=== PATIENT | female | born 1960 | race African-American/Black ===

== ENCOUNTER 2018-07-27 01:12 | Inpatient (IN) | payer SELFPAY ==
[~2018-07-27] VITALS: Ht 157.5 cm; Wt 46.5 kg
[2018-07-27] VITALS (32 sets, daily range): BP systolic 74–134; BP diastolic 54–99
[2018-07-27] MEDS ORDERED: NOREPINEPHRIN 8MG/250ML PREMIX 250 ML IV PRN (03:30)
[2018-07-27] MEDS ORDERED: chlordiazePOXIDE HCL 25 MG CAPSULE PO SCH (03:30)
--- NOTE | 2018-07-27 03:45 | NUR ---
Pt admitted to rm 112 from [facility] via gurney, accompanied by EMS at 0228. Pt is alert, oriented to self, place and year, but forgetful of situation and specific date. Pt oriented to unit routine, nursing call-light, tv/bed control, numeric pain scale, diet (NPO), activity (Bedrest), need for monitoring and plan of care. Called Dr. Chan at 0345 to notify of admission, admit orders received, updated on patient condition, reviewed labs from [facility], reviewed home medications and orders received to start all meds except Lipitor, Coreg, and Megase, (see home meds), orders also received for AM labs, diet (Regular) start bicarb-drip, consult nephrology, continue Levoquin and CIWA protocol as patient has long history of alcohol abuse. At this time, patient not showing s/sx of withdrawals/DT's. See orders. Pt notified of above, but did not verbalize any response.
[2018-07-27] MEDS ORDERED: LORazepam 1 MG TABLET PO SCH (04:00)
[2018-07-27] MEDS ORDERED: SERT25TA PO (04:12)
[2018-07-27] MEDS ORDERED: PANT20TA2 PO (04:12)
[2018-07-27] MEDS ORDERED: ATOR10TA PO (04:12)
[2018-07-27] MEDS ORDERED: CYAN10005 PO (04:12)
[2018-07-27] MEDS ORDERED: TIOT18CA IH (04:12)
[2018-07-27] MEDS ORDERED: MEGE20TA PO (04:12)
[2018-07-27] MEDS ORDERED: FOLI0.8T3 PO (04:12)
[2018-07-27] MEDS ORDERED: SERT50TA PO (04:12)
[2018-07-27] MEDS ORDERED: CARV25TA PO (04:12)
[2018-07-27] MEDS ORDERED: IPRA3AMP29 NEB (04:12)
[2018-07-27] MEDS ORDERED: MELA3TAB43 PO (04:12)
[2018-07-27] MEDS ORDERED: NON FORMULARY ITEM (Melatonin 3 MG) PO PRN (04:15)
[2018-07-27] MEDS ORDERED: ALBUTEROL SULFATE 2.5 MG/3 ML NEBU. NEB PRN (04:30)
[2018-07-27] MEDS: SODIUM BICARBONATE VIAL 150 MEQ in IV DEXTROSE 5% 1,000 ML IV SCH ×2 (04:38→16:57)
[2018-07-27 05:05] LABS: BASO % 1 % (0-3); EOS % 0 % (0-3); HEMATOCRIT 21.1 % (36.0-47.0); LYMPH # 0.6 x10^3/uL (1.0-4.8); LYMPH % 8 % (24-48); MEAN CORPUSCULAR HEMOGLOBIN 27 pg (25-35); MEAN CORPUSCULAR HGB CONC 32 g/dL (31-37); MEAN CORPUSCULAR VOLUME 85 fL (79-100); MONO # 0.3 x10^3/uL (0.0-1.1); MONO % 4 % (0-9); NEUT # 6.7 x10^3uL (1.8-7.7); NEUT % 88 % (31-73); PLATELET COUNT 62 x10^3/uL (140-400); RED BLOOD COUNT 2.49 x10^6/uL (3.50-5.40); WHITE BLOOD COUNT 7.7 x10^3/uL (4.0-11.0)
[2018-07-27 05:06] LABS: HEMOGLOBIN 6.8 g/dL (12.0-15.5)
[2018-07-27 05:21] LABS: ALBUMIN 2.5 g/dL (3.4-5.0); ALBUMIN/GLOBULIN RATIO 0.6 (1.0-1.7); CALCIUM 8.7 mg/dL (8.5-10.1); CREATININE 1.8 mg/dL (0.6-1.0); DIRECT BILIRUBIN 0.2 mg/dL (0.0-0.2); GFR 34.8; MAGNESIUM 0.8 mg/dL (1.8-2.4); POTASSIUM 3.6 mmol/L (3.5-5.1); TOTAL BILIRUBIN 0.5 mg/dL (0.2-1.0); TOTAL PROTEIN 6.4 g/dL (6.4-8.2)
--- NOTE | 2018-07-27 05:30 | NUR ---
Critical HGB of 6.8 called by Lab at 0505. Called Dr. Chan, notified of [facility], orders recieved to transfer to type and cross and administer 1 unit of PRBC's--see orders. Addendum: 07/27/18 at 0814 by AURY GE RN RN Amended: Links added.
--- NOTE | 2018-07-27 06:20 | NUR ---
Lab here to draw T/C for PRBC's, but patient refusing lab draw and blood transfusion. Educated pt on anemia and blood will improve oxygenation, SOB, BP, and improve energy level. Pt continues to refuse and will not speak with RN fo reasons. Will notify Dr. Chan and day shift RN.
--- NOTE | 2018-07-27 07:10 | NUR ---
Dr. Chan on unit, notified of pt's refusal of lab draw and transfusion and updated on overall condition, daughter also at bedside, and is hesitant to pt to receive blood. Dr. Chan stated he will speak with pt and daughter.
[2018-07-27] MEDS ORDERED: MAGNESIUM SULFATE 2GM 50 ML IV ONE (07:30)
[2018-07-27] MEDS: PANTOPRAZOLE 40 MG TABLET.DR. PO SCH (07:30)
[2018-07-27 07:35] LABS: BASE EXCESS ABG -9 mmol/L (-3-3); HCO3 ABG 13 mmol/L (21-28); PO2 ABG 56 mmHg (65-108); SAT O2 ABG 87 % (92-99)
[2018-07-27 07:41] LABS: PCO2 ABG 20 mmHg (35-46)
[2018-07-27 07:42] LABS: FIO2 ABG 55
[2018-07-27] MEDS: IPRATRPIUM/ALBUTEROL 0.5/2.5MG 3 ML NEBU. NEB SCH ×5 (07:43→20:25)
[2018-07-27] MEDS ORDERED: LORazepam 1 MG TABLET PO PRN (07:45)
--- NOTE | 2018-07-27 08:03 | RAD ---
Portable chest, 07/27/2018: HISTORY: Pneumonia Comparison is made to yesterday's outside exam. The heart size is normal. There are moderate right pulmonary infiltrates with obscuration of the underlying pulmonary vascularity. There is mild peripheral infiltrate laterally on the left and in the left base. These infiltrates appear to worsened slightly. No definite pleural fluid is seen. There is a mild thoracic scoliosis. IMPRESSION: Slight interval worsening of the moderate pulmonary infiltrates, right greater than left, most compatible with pneumonia. Electronically signed by: Christian Lopez MD (07/27/2018 8:00 AM) [facility]
--- NOTE | 2018-07-27 08:20 | RAD ---
CHEST AP ONLY History: Acute hypoxic respiratory failure Comparison: Exam earlier the same day Findings: Single view of the chest is submitted. There is increased right base airspace opacity, also some patchy left base airspace opacity as well as right perihilar airspace and interstitial opacity, also some peripheral infiltrate of the mid lateral left hemithorax. There is no pneumothorax. There is probable small right pleural effusion. Heart size is stable. Impression: 1. There are infiltrates bilaterally greater on the right, somewhat increased at the right lung base. There may be a small right pleural effusion. Electronically signed by: Boaz Medeiros MD (07/27/2018 8:17 AM) [id number]
--- NOTE | 2018-07-27 08:29 | HP ---
ADMIT DATE: 07/27/2018 HISTORY OF PRESENT ILLNESS: The patient is a 58-year-old -[place]ian female patient who was brought to the Emergency Room of [facility] by a private vehicle with syncopal episode and unresponsiveness. The patient has been feeling increasingly shortness of breath for a couple of days at home. She has also had several episodes of vomiting just prior to arrival. Family found the patient was not responding to them. She was still breathing, but would not speak to them or wake up. They brought her to the Emergency Room. Most of the history came from the family. They told the Emergency Room physician there that she has multiple medical problems, takes her medication. They are unsure exactly what medicine they are. She is known to drink alcohol heavily and she is a smoker. She was extensively evaluated in the Emergency Room. Her EKG showed that she was in sinus rhythm with heart rate of 100, normal axis, no obvious ST elevation or depression. Her chest x-ray showed that she has right lower lobe infiltrate and she was found to be in acute hypoxic respiratory failure. Her kidney function was also noted to be elevated with creatinine that is up. Her creatinine was 2.2. She has mild leukocytosis, normochromic normocytic anemia and thrombocytopenia. Her baseline creatinine was normal about 1.2-1.3 and given that she has acute hypoxic respiratory failure, lower lobe pneumonia, acute kidney injury and also lactic acidosis, decision was made to transfer her to [facility] ICU for further evaluation and treatment. PAST MEDICAL HISTORY: Significant for hypertension, generalized osteoarthritis, COPD and weight loss that is unintentional. She lost about 25 pounds from 07/24/2018-02/24/2018. Apparently, her weight was at the time down to 74. She apparently has gained about 20 pounds since then. PAST SURGICAL HISTORY: Significant for two C-sections. She also has esophagogastroduodenoscopy and colonoscopy. ALLERGIES: SHE IS ALLERGIC TO PENICILLIN AND ALSO ERYTHROMYCIN. FAMILY HISTORY: She has one brother who was killed at the age of 21. Her sister is 42-year-old and healthy. The brother is 45 and healthy. Her father in his 70s because of cerebrovascular accident. Her mother in her 70s, but she does not know the cause of her . SOCIAL HISTORY: She is , has 2 sons and 2 daughters. She smokes a pack a day. She drinks up to about 1 pint of vodka on a daily basis. 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 She was admitted to [facility] multiple times because of her alcoholism and alcohol withdrawal seizures and she always insists that she will not stop drinking alcohol. PHYSICAL EXAMINATION: GENERAL: On arrival to the Emergency Room of [facility], she was tachypneic, tachycardic, borderline hypertensive. She was pale. No jaundice, cyanosis, or thyromegaly. No jugular venous distension. No limb edema. VITAL SIGNS: Her heart rate was 100, blood pressure was 90/62, temperature was 97.5, respiratory rate was 30, and her oxygen saturation was 95% on 4 liters of oxygen. HEAD, EYES, EARS, NOSE AND THROAT: Showed normocephalic, atraumatic. NECK: Supple. HEART: Showed normal first and second heart sounds. No gallop, rub or murmur. CHEST: Shows central trachea, equal bilateral expansion and air entry, vesicular breath sounds with crepitation mostly on the right side. I could not appreciate any rhonchi. ABDOMEN: Scaphoid, soft, nontender. NEUROLOGIC: By the time I saw her in the ICU at [facility], she was more awake, alert, responding appropriately. All her cranial nerves intact. EXTREMITIES: She moves extremities without difficulty, though she has marked muscle wasting and weakness. Her body mass index was only 17 kilograms per square meter. LABORATORY DATA: Showed a serum sodium 140, potassium 4.7, chloride 98, bicarbonate 8, anion gap of 34, BUN of 38, creatinine 2.2, estimated GFR was 27 mL per minute. Her glucose was 71, lactic acid was 2.6, calcium was 7.7. Total bilirubin, ALT, alkaline phosphatase normal. AST slightly elevated. Her troponin was less than 0.017; however, her beta natriuretic peptide was 29,278. Total protein was 8, albumin was 3.3. Her white cell count was 11,100, hemoglobin 8, hematocrit 26, MCV 89 and platelet count of 86,000 with normal manual differential. Her blood gases showed a pH of 7.19, pCO2 of 14, pO2 of 68, bicarbonate 5 and oxygen saturation was 89% on FiO2 of 32%. Her urinalysis showed the urine was yellow, clear with a pH of 6, specific gravity 1.025. Her urine protein was 100 mg/dL. The urine was negative for glucose. There was large amount of ketones, moderate amount of blood, negative for nitrite, negative for leukocyte esterase. There are no rbc's, no wbc's, and no bacteria. Her toxicology screen was negative. Her blood alcohol level was less than 10. Her chest x-ray was done, but not read and clinically and radiologically, she has right lower lobe pneumonia. IMPRESSION: In summary, this is a 58-year-old -Gambian female patient who is known to drink alcohol heavily, who was brought to the Emergency Room with syncopal episode and unresponsiveness. She was found to be in severe metabolic acidosis, lactic acidosis, acute hypoxic respiratory failure and right lower lobe pneumonia. She received 2 liters of fluid at the [facility]. She was given 750 mg of IV Levaquin for community-acquired pneumonia. My plan is to start her on bicarbonate drip and I will consult the library science instructor as well as the patient accounts manager and Infectious Disease and decide on further management accordingly. REKHA CARMEN MD DR: CYNTHIA/desean JOB#: [id number] / [id number]
[2018-07-27] MEDS: CYANOCOBALAMIN (VITAMIN B-12) 1,000 MCG TABLET. PO SCH (09:00)
[2018-07-27] MEDS: FOLIC/VIT B COMP W-C (RENAL) TABLET. PO SCH (09:00)
[2018-07-27] MEDS: MULTIVITAMIN with MINERAL TABLET. PO SCH (09:00)
[2018-07-27] MEDS: SERTRALINE 50 MG TABLET. PO SCH (09:00)
--- NOTE | 2018-07-27 09:10 | NUR ---
Patient extremely agitated and reaching at things in the air; periods hallucinations.
[2018-07-27 09:38] LABS: PROTHROMBIN TIME PATIENT 13.5 SEC (11.7-14.0)
--- NOTE | 2018-07-27 10:31 | PDOC2 ---
CONSULT Date of Consult Date of Consult DATE: 07/27/18 TIME: 10:25 Reason for Consult Reason for Consult: CRYSTAL Identification/Chief Complaint Chief Complaint Unable to obtain, pt has a venturi mask on Source Source: Chart review History of Present Illness Reason for Visit: Pt is a 58-year-old -Malagasy female patient who was brought to the Emergency Room of [facility] by a syncopal episode and unresponsiveness. She has been feeling increasingly shortness of breath for a couple of days at home. She has also had several episodes of vomiting just prior to arrival. Family found the patient was not responding to them. Family told the Emergency Room physician there that she has multiple medical problems She is known to drink alcohol heavily and she is a smoker. Chest x-ray showed that she has right lower lobe infiltrate and she was found to be in acute hypoxic respiratory failure. Her kidney function was also noted to be elevated creatinine 2.2. She was transferred to [facility] ICU for further evaluation and treatment. Per Primary's note her baseline creatinine is 1.2-1.3 Her son is at bedside. He reports he doesnt know about her edical history as they were not in touch with each other Pt Nods her head that she has abnormal Kidneys and sees Kidney doctor . She denies any Urinary complaints . Doesnt have a Brandt PAST MEDICAL HISTORY: Significant for hypertension, generalized osteoarthritis, COPD and weight loss that is unintentional. She lost about 25 pounds from 07/24/2018-02/24/2018. Apparently, her weight was at the time down to 74. She apparently has gained about 20 pounds since then. Current Medications Current Medications Current Medications Multivitamins (Thera M Plus) 1 tab DAILY PO ; Start 07/27/18 at 09:00 Lorazepam (Ativan) 2 mg Q6H PO ; Start 07/27/18 at 04:00; Stop 07/27/18 at 07:43; Status DC Chlordiazepoxide (Librium) 25 mg Q6H PO ; Start 07/27/18 at 03:30; Stop 07/28/18 at 09:31; Status UNV Levofloxacin/ Dextrose 150 ml @ 100 mls/hr Q24H IV ; Start 07/28/18 at 00:00; Status UNV Ondansetron HCl (Zofran) 4 mg PRN Q6HRS PRN IV NAUSEA/VOMITING 1ST CHOICE; Start 07/27/18 at 03:30 Sodium Bicarbonate 150 meq/Dextrose 1,150 ml @ 100 mls/hr [id number] IV Last administered on 07/27/18at 04:38; Start 07/27/18 at 04:30 Norepinephrine Bitartrate 250 ml @ 1.875 mls/ hr CONT PRN IV SEE I/O RECORD; Start 07/27/18 at 03:30 Cyanocobalamin (Vitamin B-12) 1,000 mcg DAILY PO ; Start 07/27/18 at 09:00 Vitamin B Complex/ Vitamin C (Linette-Nola) 1 tab DAILY PO ; Start 07/27/18 at 09:00 Albuterol Sulfate (Ventolin Neb Soln) 2.5 mg PRN QID PRN NEB SHORTNESS OF BREATH; Start 07/27/18 at 04:30 Sertraline HCl (Zoloft) 50 mg DAILY PO ; Start 07/27/18 at 09:00 Non-Formulary Medication (Melatonin ) 3 mg HS PRN PO insomnia; Start 07/27/18 at 04:15; Status UNV Pantoprazole Sodium (Protonix) 40 mg DAILYAC PO ; Start 07/27/18 at 07:30 Albuterol/ Ipratropium (Duoneb) 3 ml RTQID NEB Last administered on 07/27/18at 07:43; Start 07/27/18 at 08:00 Levofloxacin/ Dextrose 100 ml @ 100 mls/hr Q48H IV ; Start 07/29/18 at 00:00 Magnesium Sulfate 50 ml @ 25 mls/hr 1X ONCE IV ; Start 07/27/18 at 07:30; Stop 07/27/18 at 09:29; Status DC Lorazepam (Ativan) 2 mg PRN Q6HRS PRN PO ALCOHOL WITHDRAWAL; Start 07/27/18 at 07:45 Active Scripts Active Reported Melatonin 3 Mg Tab.rapdis 3 Mg PO HS PRN Nephro-Nola Tablet (Folic Acid/Vitamin B Comp W-C) 0.8 Mg Tablet 1 Tab PO DAILY Vitamin B-12 (Cyanocobalamin (Vitamin B-12)) 1,000 Mcg Tablet 1,000 Mcg PO DAILY Megestrol Acetate 20 Mg Tablet 20 Mg PO DAILY Protonix (Pantoprazole Sodium) 20 Mg Tablet.dr 40 Mg PO DAILY Zoloft (Sertraline Hcl) 50 Mg Tablet 1 Tab PO DAILY Zoloft (Sertraline Hcl) 25 Mg Tablet 1 Tab PO DAILY Coreg (Carvedilol) 25 Mg Tablet 6.25 Mg PO BIDWMEALS Lipitor (Atorvastatin Calcium) 10 Mg Tablet 1 Tab PO QHS Spiriva (Tiotropium Crescent) 18 Mcg Cap.w.dev 1 Cap IH DAILY Duoneb 0.5-3(2.5) Mg/3 Ml (Albuterol/Ipratropium) 3 Ml Ampul.neb 3 Ml NEB QID PRN Allergies Allergies: Coded Allergies: Penicillins (Verified Allergy, Severe, Anaphylaxis, 07/27/18) erythromycin base (Verified Allergy, Intermediate, Diarrhea, 07/27/18) ROS Review of System Per HPI Physical Exam Physical Exam GENERAL: tachypneic, Mild distress HEENT: Venturi mask NECK: Supple. LUNGS: Decreased breath sounds at bases. No rhonchi. HEART: S1, S2, tachycardia. ABDOMEN: Soft, nontender and nondistended. EXTREMITIES: No Edema NEUROLOGIC: Nods her head ,moved all 4 extremities - No Brandt or Ext catheter , nO cva OR sp TENDERNESS skin- no Rash Vital Signs Vital Signs Date Time Temp Pulse Resp B/P (MAP) Pulse Ox O2 Delivery O2 Flow Rate FiO2 07/27/18 07:50 94 Venturi Mask 15.0 07/27/18 07:00 114 34 109/76 (87) 07/27/18 04:00 98.3 98.3 Assessment & Plan CRYSTAL - Suspect due to ATN 2/2 Vomiting/Infection Baseline per primary 1.2- 1.3 Check UA, Renal US E-Lytes and acid base stable, No Emergent indication fro HD today Strict I/O, Supportive care, Monitor Pulmonary infiltrates, likely aspiration pneumonia. On Abx History of vomiting prior to admission. Syncopal episode with unresponsiveness. History of alcohol dependence with alcohol withdrawal seizures, last one 1 month ago. Metabolic acidosis- Continue IV Bicarb drip cautiously Lactic acidosis. Thrombocytopenia. Protein-calorie malnutrition. Anemia. Discussed wit Son and RN at bedside 1 Labs Labs Laboratory Tests Test 07/27/18 04:45 07/27/18 07:30 07/27/18 07:41 07/27/18 09:00 White Blood Count 7.7 x10^3/uL (4.0-11.0) Red Blood Count 2.49 x10^6/uL (3.50-5.40) Hemoglobin 6.8 g/dL (12.0-15.5) Hematocrit 21.1 % (36.0-47.0) Mean Corpuscular Volume 85 fL (79-100) Mean Corpuscular Hemoglobin 27 pg (25-35) Mean Corpuscular Hemoglobin Concent 32 g/dL (31-37) Red Cell Distribution Width 15.0 % (11.5-14.5) Platelet Count 62 x10^3/uL (140-400) Neutrophils (%) (Auto) 88 % (31-73) Lymphocytes (%) (Auto) 8 % (24-48) Monocytes (%) (Auto) 4 % (0-9) Eosinophils (%) (Auto) 0 % (0-3) Basophils (%) (Auto) 1 % (0-3) Neutrophils # (Auto) 6.7 x10^3uL (1.8-7.7) Lymphocytes # (Auto) 0.6 x10^3/uL (1.0-4.8) Monocytes # (Auto) 0.3 x10^3/uL (0.0-1.1) Eosinophils # (Auto) 0.0 x10^3/uL (0.0-0.7) Basophils # (Auto) 0.0 x10^3/uL (0.0-0.2) Sodium Level 144 mmol/L (136-145) Potassium Level 3.6 mmol/L (3.5-5.1) Chloride Level 103 mmol/L (98-107) Carbon Dioxide Level 15 mmol/L (21-32) Anion Gap 26 (6-14) Blood Urea Nitrogen 34 mg/dL (7-20) Creatinine 1.8 mg/dL (0.6-1.0) Estimated GFR (Cockcroft-Gault) 34.8 BUN/Creatinine Ratio 19 (6-20) Glucose Level 79 mg/dL (70-99) Lactic Acid Level 2.0 mmol/L (0.4-2.0) Calcium Level 8.7 mg/dL (8.5-10.1) Magnesium Level 0.8 mg/dL (1.8-2.4) Total Bilirubin 0.5 mg/dL (0.2-1.0) Direct Bilirubin 0.2 mg/dL (0.0-0.2) Aspartate Amino Transf (AST/SGOT) 85 U/L (15-37) Alanine Aminotransferase (ALT/SGPT) 32 U/L (14-59) Alkaline Phosphatase 81 U/L (46-116) Total Protein 6.4 g/dL (6.4-8.2) Albumin 2.5 g/dL (3.4-5.0) Albumin/Globulin Ratio 0.6 (1.0-1.7) O2 Saturation 87 % (92-99) Arterial Blood pH 7.46 (7.35-7.45) Arterial Blood pCO2 at Patient Temp 20 mmHg (35-46) Arterial Blood pO2 at Patient Temp 56 mmHg (65-108) Arterial Blood HCO3 13 mmol/L (21-28) Arterial Blood Base Excess -9 mmol/L (-3-3) FiO2 55 Glucose (Fingerstick) 84 mg/dL (70-99) Prothrombin Time 13.5 SEC (11.7-14.0) Prothromb Time International Ratio 1.1 (0.8-1.1) Laboratory Tests Test 07/27/18 04:45 07/27/18 07:30 07/27/18 07:41 07/27/18 09:00 White Blood Count 7.7 x10^3/uL (4.0-11.0) Red Blood Count 2.49 x10^6/uL (3.50-5.40) Hemoglobin 6.8 g/dL (12.0-15.5) Hematocrit 21.1 % (36.0-47.0) Mean Corpuscular Volume 85 fL (79-100) Mean Corpuscular Hemoglobin 27 pg (25-35) Mean Corpuscular Hemoglobin Concent 32 g/dL (31-37) Red Cell Distribution Width 15.0 % (11.5-14.5) Platelet Count 62 x10^3/uL (140-400) Neutrophils (%) (Auto) 88 % (31-73) Lymphocytes (%) (Auto) 8 % (24-48) Monocytes (%) (Auto) 4 % (0-9) Eosinophils (%) (Auto) 0 % (0-3) Basophils (%) (Auto) 1 % (0-3) Neutrophils # (Auto) 6.7 x10^3uL (1.8-7.7) Lymphocytes # (Auto) 0.6 x10^3/uL (1.0-4.8) Monocytes # (Auto) 0.3 x10^3/uL (0.0-1.1) Eosinophils # (Auto) 0.0 x10^3/uL (0.0-0.7) Basophils # (Auto) 0.0 x10^3/uL (0.0-0.2) Sodium Level 144 mmol/L (136-145) Potassium Level 3.6 mmol/L (3.5-5.1) Chloride Level 103 mmol/L (98-107) Carbon Dioxide Level 15 mmol/L (21-32) Anion Gap 26 (6-14) Blood Urea Nitrogen 34 mg/dL (7-20) Creatinine 1.8 mg/dL (0.6-1.0) Estimated GFR (Cockcroft-Gault) 34.8 BUN/Creatinine Ratio 19 (6-20) Glucose Level 79 mg/dL (70-99) Lactic Acid Level 2.0 mmol/L (0.4-2.0) Calcium Level 8.7 mg/dL (8.5-10.1) Magnesium Level 0.8 mg/dL (1.8-2.4) Total Bilirubin 0.5 mg/dL (0.2-1.0) Direct Bilirubin 0.2 mg/dL (0.0-0.2) Aspartate Amino Transf (AST/SGOT) 85 U/L (15-37) Alanine Aminotransferase (ALT/SGPT) 32 U/L (14-59) Alkaline Phosphatase 81 U/L (46-116) Total Protein 6.4 g/dL (6.4-8.2) Albumin 2.5 g/dL (3.4-5.0) Albumin/Globulin Ratio 0.6 (1.0-1.7) O2 Saturation 87 % (92-99) Arterial Blood pH 7.46 (7.35-7.45) Arterial Blood pCO2 at Patient Temp 20 mmHg (35-46) Arterial Blood pO2 at Patient Temp 56 mmHg (65-108) Arterial Blood HCO3 13 mmol/L (21-28) Arterial Blood Base Excess -9 mmol/L (-3-3) FiO2 55 Glucose (Fingerstick) 84 mg/dL (70-99) Prothrombin Time 13.5 SEC (11.7-14.0) Prothromb Time International Ratio 1.1 (0.8-1.1) Review All relevant outside records, renal labs, imaging studies, telemetry/EKG's were reviewed. Images Images CxR-- 1. There are infiltrates bilaterally greater on the right, somewhat increased at the right lung base. There may be a small right pleural effusion. AMADO ULLOA MD Jul 27, 2018 10:31
[2018-07-27 10:45] LABS: % BANDS 24 % (0-9); % LYMPHS 13 % (24-48); % MONOS 2 % (0-10); % SEGS 61 % (35-66); NUCLEATED RBC 1
[2018-07-27] MEDS ORDERED: diphenhydrAMINE 50 MG/ML VIAL IVP PRN (10:45)
[2018-07-27] MEDS ORDERED: HALOPERIDOL LACTATE 5 MG/ML VIAL. IVP PRN (10:45)
[2018-07-27 10:46] LABS: ANISOCYTOSIS PRESENT; PLT ESTIMATE DECREASED (ADEQUATE); POLYCHROMASIA PRESENT
[2018-07-27 10:47] LABS: POIKILOCYTOSIS PRESENT; TARGET CELLS PRESENT
--- NOTE | 2018-07-27 11:00 | NUR ---
Daughter asking about restarting the patient on the megestrol that she takes at home 3 times daily to improve her appetite.
[2018-07-27] MEDS ORDERED: EPINEPHrine SYRINGE 1 MG/10 ML SYRINGE ONE (12:00)
[2018-07-27] MEDS ORDERED: SODIUM BICARB ADULT 8.4% 50 MEQ/50 ML DISP.SYRIN. ONE (12:00)
[2018-07-27] MEDS ORDERED: 0.9 % SODIUM CHLORIDE 10 ML DISP.SYRIN. ONE (12:00)
--- NOTE | 2018-07-27 12:39 | PDOC ---
Infectious Disease Note Vital Signs: Vital Signs Vital Signs Date Time Temp Pulse Resp B/P (MAP) Pulse Ox O2 Delivery O2 Flow Rate FiO2 07/27/18 11:24 92 Venturi Mask 15.0 07/27/18 07:00 114 34 109/76 (87) 07/27/18 04:00 98.3 98.3 Medications: Inpatient Meds: Current Medications Medications (Trade) Dose Ordered Sig/Bev Start Time Stop Time Status Last Admin Dose Admin Albuterol Sulfate (Ventolin Neb Soln) 2.5 mg PRN QID PRN 07/27/18 04:30 Albuterol/ Ipratropium (Duoneb) 3 ml RTQID 07/27/18 08:00 07/27/18 11:22 3 ML Chlordiazepoxide (Librium) 25 mg Q6H 07/27/18 03:30 07/28/18 09:31 UNV Cyanocobalamin (Vitamin B-12) 1,000 mcg DAILY 07/27/18 09:00 Diphenhydramine HCl (Benadryl) 25 mg PRN Q15MIN PRN 07/27/18 10:45 Haloperidol Lactate (Haldol Inj) 5 mg PRN Q4HRS PRN 07/27/18 10:45 Levofloxacin/ Dextrose 100 ml @ 100 mls/hr Q48H 07/29/18 00:00 Lorazepam (Ativan Inj) 4 mg PRN Q15MIN PRN 07/27/18 10:45 Lorazepam (Ativan) 2 mg PRN Q6HRS PRN 07/27/18 07:45 Magnesium Sulfate 50 ml @ 25 mls/hr 1X ONCE 07/27/18 07:30 07/27/18 09:29 DC 07/27/18 11:03 25 MLS/HR Multivitamins (Thera M Plus) 1 tab DAILY 07/27/18 09:00 Non-Formulary Medication (Melatonin ) 3 mg HS PRN 07/27/18 04:15 UNV Norepinephrine Bitartrate 250 ml @ 1.875 mls/ hr CONT PRN 07/27/18 03:30 Ondansetron HCl (Zofran) 4 mg PRN Q6HRS PRN 07/27/18 03:30 Pantoprazole Sodium (Protonix) 40 mg DAILYAC 07/27/18 07:30 Sertraline HCl (Zoloft) 50 mg DAILY 07/27/18 09:00 Sodium Bicarbonate 150 meq/Dextrose 1,150 ml @ 100 mls/hr [id number] 07/27/18 04:30 07/27/18 04:38 75 MLS/HR Vitamin B Complex/ Vitamin C (Linette-Nola) 1 tab DAILY 07/27/18 09:00 Labs: Lab Laboratory Tests Test 07/27/18 04:45 07/27/18 07:30 07/27/18 07:41 07/27/18 09:00 White Blood Count 7.7 x10^3/uL (4.0-11.0) Red Blood Count 2.49 x10^6/uL (3.50-5.40) Hemoglobin 6.8 g/dL (12.0-15.5) Hematocrit 21.1 % (36.0-47.0) Mean Corpuscular Volume 85 fL (79-100) Mean Corpuscular Hemoglobin 27 pg (25-35) Mean Corpuscular Hemoglobin Concent 32 g/dL (31-37) Red Cell Distribution Width 15.0 % (11.5-14.5) Platelet Count 62 x10^3/uL (140-400) Neutrophils (%) (Auto) 88 % (31-73) Lymphocytes (%) (Auto) 8 % (24-48) Monocytes (%) (Auto) 4 % (0-9) Eosinophils (%) (Auto) 0 % (0-3) Basophils (%) (Auto) 1 % (0-3) Neutrophils # (Auto) 6.7 x10^3uL (1.8-7.7) Lymphocytes # (Auto) 0.6 x10^3/uL (1.0-4.8) Monocytes # (Auto) 0.3 x10^3/uL (0.0-1.1) Eosinophils # (Auto) 0.0 x10^3/uL (0.0-0.7) Basophils # (Auto) 0.0 x10^3/uL (0.0-0.2) Segmented Neutrophils % 61 % (35-66) Band Neutrophils % 24 % (0-9) Lymphocytes % 13 % (24-48) Monocytes % 2 % (0-10) Nucleated Red Blood Cells 1 Platelet Estimate Decreased (ADEQUATE) Polychromasia Present Poikilocytosis Present Anisocytosis Present Target Cells Present Sodium Level 144 mmol/L (136-145) Potassium Level 3.6 mmol/L (3.5-5.1) Chloride Level 103 mmol/L (98-107) Carbon Dioxide Level 15 mmol/L (21-32) Anion Gap 26 (6-14) Blood Urea Nitrogen 34 mg/dL (7-20) Creatinine 1.8 mg/dL (0.6-1.0) Estimated GFR (Cockcroft-Gault) 34.8 BUN/Creatinine Ratio 19 (6-20) Glucose Level 79 mg/dL (70-99) Lactic Acid Level 2.0 mmol/L (0.4-2.0) Calcium Level 8.7 mg/dL (8.5-10.1) Magnesium Level 0.8 mg/dL (1.8-2.4) Total Bilirubin 0.5 mg/dL (0.2-1.0) Direct Bilirubin 0.2 mg/dL (0.0-0.2) Aspartate Amino Transf (AST/SGOT) 85 U/L (15-37) Alanine Aminotransferase (ALT/SGPT) 32 U/L (14-59) Alkaline Phosphatase 81 U/L (46-116) Total Protein 6.4 g/dL (6.4-8.2) Albumin 2.5 g/dL (3.4-5.0) Albumin/Globulin Ratio 0.6 (1.0-1.7) O2 Saturation 87 % (92-99) Arterial Blood pH 7.46 (7.35-7.45) Arterial Blood pCO2 at Patient Temp 20 mmHg (35-46) Arterial Blood pO2 at Patient Temp 56 mmHg (65-108) Arterial Blood HCO3 13 mmol/L (21-28) Arterial Blood Base Excess -9 mmol/L (-3-3) FiO2 55 Glucose (Fingerstick) 84 mg/dL (70-99) Prothrombin Time 13.5 SEC (11.7-14.0) Prothromb Time International Ratio 1.1 (0.8-1.1) Ammonia < 10 mcmol/L (11-34) Objective: Assessment: Pt seen and examined ID consult dictated [id number] IMP: Pneumonia likely aspiration Syncope ETOH dependence PCN Allergy CRYSTAL, metabolic acidosis Plan: Plan of Care merrem,has tolerated cont levaquin BC F/U C/S FELIPA LOMBARDO MD Jul 27, 2018 12:39
--- NOTE | 2018-07-27 13:03 | CONS ---
DATE OF CONSULTATION: 07/27/2018 REFERRING PHYSICIAN: Jenny Chan M.D. REASON FOR CONSULTATION: Right lower lobe pneumonia. HISTORY OF PRESENT ILLNESS: A 58-year-old [place] female who was transferred from [facility] to [facility] ICU for further evaluation and treatment. She presented to [facility] with syncopal episode and unresponsiveness. The patient is currently not able to give history. History is obtained from staff and from medical chart. The patient had worsening shortness of breath over the last couple of days prior to admission, with several episodes of vomiting and was found by her daughter to be not responsive. The patient has a history of heavy alcohol use, a smoker. In the ER at [facility], she was found to have mild leukocytosis, CRYSTAL. Chest x-ray showed right lower lobe infiltrate. She also had lactic acidosis, so was transferred to [facility] ICU for further evaluation and treatment. The patient currently is complaining of chills. She does not answer most of the questions. Daughter at bedside said that she had been sick a month ago with new-onset seizures, at which time, she was admitted to [facility]. No antibiotics prior to admission. SHE HAS A HISTORY OF ANAPHYLAXIS TO PENICILLIN. Daughter was unable to say if she has received any cephalosporins, but says Keflex use seems familiar, but is not sure. The patient also had mild leukocytosis, anemia and thrombocytopenia. The patient was started on Levaquin. ID consult has been requested for antibiotic management. PAST MEDICAL HISTORY: Hypertension; generalized osteoarthritis; COPD; weight loss, unintentional and seizure disorder diagnosed recently. PAST SURGICAL HISTORY: , EGD and colonoscopy. ALLERGIES: PENICILLIN WITH ANAPHYLAXIS AND ERYTHROMYCIN. FAMILY HISTORY: As per HPI. SOCIAL HISTORY: She smokes a pack a day, drinks 1 pint of vodka on a daily basis. , has 2 children, one daughter and one son and daughter is at bedside. REVIEW OF SYSTEMS: Unable to obtain or limited, but as above in the HPI. PHYSICAL EXAMINATION: VITAL SIGNS: Temperature afebrile; pulse 110; respiratory rate 38; blood pressure 86/58, not on any pressors and oxygen saturation 88% on 15 liters O2 and has required high-flow oxygen. GENERAL: Weak-appearing female, tachycardic, tachypneic, borderline hypotensive. HEENT: Normocephalic, atraumatic. Sclerae muddy. NECK: Supple. LUNGS: Decreased breath sounds at bases. No rhonchi. HEART: S1, S2, tachycardia. ABDOMEN: Soft, nontender and nondistended. EXTREMITIES: Muscle wasting, weakness. No cyanosis, no clubbing. NEUROLOGIC: Sleepy, but arousable, does not answer all the questions, weak, but has moved all 4 extremities. LABORATORY DATA: WBC 7.7, hemoglobin 6.8, hematocrit 21.1 and platelets 62,000. Sodium 144, potassium 3.6, chloride 103, bicarbonate 15, BUN 34 and creatinine 1.8. Lactate here is 2.0. AST 85. Albumin 2.5, otherwise within normal limits. IMAGING: Chest x-ray, infiltrates bilaterally, greater on the right, somewhat increased on the left lung base. A small right pleural effusion. IMPRESSION: 1. Pulmonary infiltrates, likely aspiration pneumonia. 2. History of vomiting prior to admission. 3. Syncopal episode with unresponsiveness. 4. History of alcohol dependence with alcohol withdrawal seizures, last one 1 month ago. 5. Metabolic acidosis and acute kidney injury. 6. Lactic acidosis. 7. Thrombocytopenia. 8. Protein-calorie malnutrition. 9. Anemia. 10. ALLERGY TO PENICILLIN WITH ANAPHYLAXIS. Per chart, the patient has received a dose of ceftriaxone at [facility]. The daughter feels that she may have taken cephalexin, but is not sure at this time. RECOMMENDATIONS: 1. Continue Levaquin renal dosing. 2. We will start empiric Merrem. 3. Follow up cultures and susceptibility results. 4. Continue supportive care. 5. Repeat blood cultures. 6. Discussed with daughter and son at bedside. 7. Discussed with RN. Thank you for consulting Infectious Disease to participate in this patient's care. If you have any questions, do not hesitate to contact me. FELIPA LOMBARDO MD DR: STEPHANE/desean JOB#: [id number] / [id number]
--- NOTE | 2018-07-27 13:08 | PDOC ---
PULMONARY PROGRESS NOTES Vitals Vital Signs Date Time Temp Pulse Resp B/P (MAP) Pulse Ox O2 Delivery O2 Flow Rate FiO2 07/27/18 12:00 99.0 124 38 93/98 (96) 94 Venturi Mask 50.0 99.0 Labs Laboratory Tests Test 07/27/18 04:45 07/27/18 07:30 07/27/18 07:41 07/27/18 09:00 White Blood Count 7.7 x10^3/uL (4.0-11.0) Red Blood Count 2.49 x10^6/uL (3.50-5.40) Hemoglobin 6.8 g/dL (12.0-15.5) Hematocrit 21.1 % (36.0-47.0) Mean Corpuscular Volume 85 fL (79-100) Mean Corpuscular Hemoglobin 27 pg (25-35) Mean Corpuscular Hemoglobin Concent 32 g/dL (31-37) Red Cell Distribution Width 15.0 % (11.5-14.5) Platelet Count 62 x10^3/uL (140-400) Neutrophils (%) (Auto) 88 % (31-73) Lymphocytes (%) (Auto) 8 % (24-48) Monocytes (%) (Auto) 4 % (0-9) Eosinophils (%) (Auto) 0 % (0-3) Basophils (%) (Auto) 1 % (0-3) Neutrophils # (Auto) 6.7 x10^3uL (1.8-7.7) Lymphocytes # (Auto) 0.6 x10^3/uL (1.0-4.8) Monocytes # (Auto) 0.3 x10^3/uL (0.0-1.1) Eosinophils # (Auto) 0.0 x10^3/uL (0.0-0.7) Basophils # (Auto) 0.0 x10^3/uL (0.0-0.2) Segmented Neutrophils % 61 % (35-66) Band Neutrophils % 24 % (0-9) Lymphocytes % 13 % (24-48) Monocytes % 2 % (0-10) Nucleated Red Blood Cells 1 Platelet Estimate Decreased (ADEQUATE) Polychromasia Present Poikilocytosis Present Anisocytosis Present Target Cells Present Sodium Level 144 mmol/L (136-145) Potassium Level 3.6 mmol/L (3.5-5.1) Chloride Level 103 mmol/L (98-107) Carbon Dioxide Level 15 mmol/L (21-32) Anion Gap 26 (6-14) Blood Urea Nitrogen 34 mg/dL (7-20) Creatinine 1.8 mg/dL (0.6-1.0) Estimated GFR (Cockcroft-Gault) 34.8 BUN/Creatinine Ratio 19 (6-20) Glucose Level 79 mg/dL (70-99) Lactic Acid Level 2.0 mmol/L (0.4-2.0) Calcium Level 8.7 mg/dL (8.5-10.1) Magnesium Level 0.8 mg/dL (1.8-2.4) Total Bilirubin 0.5 mg/dL (0.2-1.0) Direct Bilirubin 0.2 mg/dL (0.0-0.2) Aspartate Amino Transf (AST/SGOT) 85 U/L (15-37) Alanine Aminotransferase (ALT/SGPT) 32 U/L (14-59) Alkaline Phosphatase 81 U/L (46-116) Total Protein 6.4 g/dL (6.4-8.2) Albumin 2.5 g/dL (3.4-5.0) Albumin/Globulin Ratio 0.6 (1.0-1.7) O2 Saturation 87 % (92-99) Arterial Blood pH 7.46 (7.35-7.45) Arterial Blood pCO2 at Patient Temp 20 mmHg (35-46) Arterial Blood pO2 at Patient Temp 56 mmHg (65-108) Arterial Blood HCO3 13 mmol/L (21-28) Arterial Blood Base Excess -9 mmol/L (-3-3) FiO2 55 Glucose (Fingerstick) 84 mg/dL (70-99) Prothrombin Time 13.5 SEC (11.7-14.0) Prothromb Time International Ratio 1.1 (0.8-1.1) Ammonia < 10 mcmol/L (11-34) Laboratory Tests Test 07/27/18 04:45 07/27/18 07:30 07/27/18 07:41 07/27/18 09:00 White Blood Count 7.7 x10^3/uL (4.0-11.0) Red Blood Count 2.49 x10^6/uL (3.50-5.40) Hemoglobin 6.8 g/dL (12.0-15.5) Hematocrit 21.1 % (36.0-47.0) Mean Corpuscular Volume 85 fL (79-100) Mean Corpuscular Hemoglobin 27 pg (25-35) Mean Corpuscular Hemoglobin Concent 32 g/dL (31-37) Red Cell Distribution Width 15.0 % (11.5-14.5) Platelet Count 62 x10^3/uL (140-400) Neutrophils (%) (Auto) 88 % (31-73) Lymphocytes (%) (Auto) 8 % (24-48) Monocytes (%) (Auto) 4 % (0-9) Eosinophils (%) (Auto) 0 % (0-3) Basophils (%) (Auto) 1 % (0-3) Neutrophils # (Auto) 6.7 x10^3uL (1.8-7.7) Lymphocytes # (Auto) 0.6 x10^3/uL (1.0-4.8) Monocytes # (Auto) 0.3 x10^3/uL (0.0-1.1) Eosinophils # (Auto) 0.0 x10^3/uL (0.0-0.7) Basophils # (Auto) 0.0 x10^3/uL (0.0-0.2) Segmented Neutrophils % 61 % (35-66) Band Neutrophils % 24 % (0-9) Lymphocytes % 13 % (24-48) Monocytes % 2 % (0-10) Nucleated Red Blood Cells 1 Platelet Estimate Decreased (ADEQUATE) Polychromasia Present Poikilocytosis Present Anisocytosis Present Target Cells Present Sodium Level 144 mmol/L (136-145) Potassium Level 3.6 mmol/L (3.5-5.1) Chloride Level 103 mmol/L (98-107) Carbon Dioxide Level 15 mmol/L (21-32) Anion Gap 26 (6-14) Blood Urea Nitrogen 34 mg/dL (7-20) Creatinine 1.8 mg/dL (0.6-1.0) Estimated GFR (Cockcroft-Gault) 34.8 BUN/Creatinine Ratio 19 (6-20) Glucose Level 79 mg/dL (70-99) Lactic Acid Level 2.0 mmol/L (0.4-2.0) Calcium Level 8.7 mg/dL (8.5-10.1) Magnesium Level 0.8 mg/dL (1.8-2.4) Total Bilirubin 0.5 mg/dL (0.2-1.0) Direct Bilirubin 0.2 mg/dL (0.0-0.2) Aspartate Amino Transf (AST/SGOT) 85 U/L (15-37) Alanine Aminotransferase (ALT/SGPT) 32 U/L (14-59) Alkaline Phosphatase 81 U/L (46-116) Total Protein 6.4 g/dL (6.4-8.2) Albumin 2.5 g/dL (3.4-5.0) Albumin/Globulin Ratio 0.6 (1.0-1.7) O2 Saturation 87 % (92-99) Arterial Blood pH 7.46 (7.35-7.45) Arterial Blood pCO2 at Patient Temp 20 mmHg (35-46) Arterial Blood pO2 at Patient Temp 56 mmHg (65-108) Arterial Blood HCO3 13 mmol/L (21-28) Arterial Blood Base Excess -9 mmol/L (-3-3) FiO2 55 Glucose (Fingerstick) 84 mg/dL (70-99) Prothrombin Time 13.5 SEC (11.7-14.0) Prothromb Time International Ratio 1.1 (0.8-1.1) Ammonia < 10 mcmol/L (11-34) Medications Active Scripts Medications Dose Route/Sig Max Daily Dose Days Date Category Melatonin 3 Mg Tab.rapdis 3 Mg PO HS PRN 07/27/18 Reported Nephro-Nola Tablet (Folic Acid/Vitamin B Comp W-C) 0.8 Mg Tablet 1 Tab PO DAILY 07/27/18 Reported Vitamin B-12 (Cyanocobalamin (Vitamin B-12)) 1,000 Mcg Tablet 1,000 Mcg PO DAILY 07/27/18 Reported Megestrol Acetate 20 Mg Tablet 20 Mg PO DAILY 07/27/18 Reported Protonix (Pantoprazole Sodium) 20 Mg Tablet.dr 40 Mg PO DAILY 07/27/18 Reported Zoloft (Sertraline Hcl) 50 Mg Tablet 1 Tab PO DAILY 07/27/18 Reported Zoloft (Sertraline Hcl) 25 Mg Tablet 1 Tab PO DAILY 07/27/18 Reported Coreg (Carvedilol) 25 Mg Tablet 6.25 Mg PO BIDWMEALS 07/27/18 Reported Lipitor (Atorvastatin Calcium) 10 Mg Tablet 1 Tab PO QHS 07/27/18 Reported Spiriva (Tiotropium [place]) 18 Mcg Cap.w.dev 1 Cap IH DAILY 07/27/18 Reported Duoneb 0.5-3(2.5) Mg/3 Ml (Albuterol/Ipratropium) 3 Ml Ampul.neb 3 Ml NEB QID PRN 07/27/18 Reported Impression . FULL CONSULT DICTATED THANKS WILL REPEAT ABG SEE ORDERS ALVINO HERNANDEZ MD Jul 27, 2018 13:08
--- NOTE | 2018-07-27 13:35 | NUR ---
SS following for discharge planning. SS reviewed pt chart. Pt is from home and is currently requiring oxygen support. Pt has history of ETOH. SS will continue to follow for discharge planning.
--- NOTE | 2018-07-27 14:09 | CONS ---
DATE OF CONSULTATION: 07/27/2018 REASON FOR CONSULTATION: The patient is seen in pulmonary consultation at the request of Dr. Chan for respiratory failure, abnormal x-ray. HISTORY OF PRESENT ILLNESS: The patient is a 58-year-old with a history of alcoholism, was brought to the Emergency Room at [facility] by private vehicle with syncopal episode and unresponsiveness. Apparently, according to the current documentation, the patient was having increasing shortness of breath over the last couple of days. She had several episodes of emesis prior to arrival. The patient was found unresponsive by the family members. She was evaluated in the Emergency Room at [facility], eventually transferred to [facility] for further evaluation. She had an arterial blood gas early this morning revealing pH of 7.46, PaCO2 of 20, pO2 of 56. She is currently on a nonrebreather. She is sleepy, but is arousable to sternal rub. She has been seen in consultation by Infectious Disease Service and is currently being covered with empiric antibiotics for the possibility of aspiration pneumonia. I reviewed her x-ray, which reveals bilateral alveolar type of infiltrates, right greater than left. I have also reviewed her labs. White count was normal, hematocrit and hemoglobin were low. INR was 1.1. Electrolytes were noted. BUN was elevated at 34, creatinine was elevated at 1.8. Total albumin was low. PAST MEDICAL HISTORY: Remarkable for hypertension, osteoporosis, COPD, alcoholism, admitted on several occasions for alcohol withdrawal in the past. She has also had some weight loss. PAST SURGICAL HISTORY: Previous and colonoscopy. ALLERGIES: PENICILLIN and ERYTHROMYCIN. FAMILY HISTORY: Father of CVA. Mother in her 70s, unknown primary cause. SOCIAL HISTORY: She is currently , smokes on a daily basis, drinks up to 1 pint of vodka on a daily basis. She in the past has worked at the [employer]. REVIEW OF SYSTEMS: Unobtainable secondary to the patient's condition. PHYSICAL EXAMINATION: GENERAL: The patient was in the Intensive Care Unit. VITAL SIGNS: Noted. O2 saturation was greater than 92%, currently on nonrebreather and oxygen supplementation per nasal cannula. She has been afebrile since she has been here. HEENT: Eyes, the sclerae were nonicteric. NECK: Jugular venous distention was not elevated. CHEST: Full expansion. LUNGS: Bilateral rhonchi and wheezes. CARDIOVASCULAR: Regular rate and rhythm with S1, S2, no S3. ABDOMEN: Soft. The patient did not withdraw to deep palpation. EXTREMITIES: No clubbing, cyanosis or edema. NEUROLOGIC: The patient was sleepy, but arousable, did respond to verbal stimuli, did not respond to verbal commands. LABORATORY DATA AND DIAGNOSTIC STUDIES: Labs as indicated above. Chest x-ray as indicated above. IMPRESSION: 1. Acute hypoxemic respiratory failure. 2. Aspiration pneumonia. 3. Bilateral pulmonary infiltrates compatible with aspiration pneumonia and possible early acute respiratory distress syndrome. 4. Metabolic acidosis. 5. Possible sepsis. 6. Acute drop in hemoglobin. 7. Alcoholism. 8. Chronic obstructive pulmonary disease. 9. Toxic-metabolic encephalopathy. PLAN: 1. Continue current support with oxygen supplementation. Repeat arterial blood gas, may require BiPAP or intubation. 2. Continue empiric antibiotics. 3. Transfuse. 4. The patient has not had CT head, we will perform CT head. 5. Gastrointestinal and deep venous thrombosis prophylaxes. 6. Alcohol withdrawal protocol. 7. Initiate tube feeding per Dobbhoff. 8. Follow Nephrology input. I do appreciate the privilege in sharing in the patient's care. Total cumulative critical care time of 50 minutes. ALVINO HERNANDEZ MD DR: MINE/desean JOB#: [id number] / [id number]
[2018-07-27 15:21] LABS: HEMATOCRIT 21.7 % (36.0-47.0); HEMOGLOBIN 7.2 g/dL (12.0-15.5)
[2018-07-27] MEDS: MEROPENEM 500 MG in IV NORMAL SALINE 50ML 50 ML IV SCH (15:27)
--- NOTE | 2018-07-27 15:30 | NUR ---
Patient's daughter states that the patient does not want blood and has stated this on previous hospital visits. Patient also refused blood transfusion.
[2018-07-27 15:32] LABS: CALCIUM 8.7 mg/dL (8.5-10.1); CREATININE 1.7 mg/dL (0.6-1.0); GFR 37.2; POTASSIUM 3.1 mmol/L (3.5-5.1)
[2018-07-27 15:32] LABS: BASE EXCESS ABG -1 mmol/L (-3-3); HCO3 ABG 21 mmol/L (21-28); PCO2 ABG 24 mmHg (35-46); PO2 ABG 59 mmHg (65-108); SAT O2 ABG 90 % (92-99)
[2018-07-27 15:36] LABS: FIO2 ABG 50
--- NOTE | 2018-07-27 16:05 | RAD ---
Examination: CT head and cervical spine without contrast HISTORY: History of respiratory failure, syncope COMPARISON: None available Exposure: One or more of the following individualized dose reduction techniques were utilized for this examination: 1. Automated exposure control 2. Adjustment of the mA and/or kV according to patient size 3. Use of iterative reconstruction technique TECHNIQUE: 5 mm contiguous axial images were obtained from the skull base to the vertex in both bone and soft tissue algorithm. FINDINGS: Mild bilateral periventricular white matter hypodensities likely chronic small vessel ischemic disease. No evidence of acute intracranial hemorrhage. No extra-axial fluid collections. No mass effect or midline shift. Ventricular size is appropriate. Basal cisterns are patent. No fractures identified.Correia-white differentiation is preserved.Globes and orbits are within normal limits. Paranasal sinuses and mastoid air cells are clear. IMPRESSION: No acute intracranial findings. CT CERVICAL SPINE Technique: 2.5 mm contiguous axial images were obtained from the skull base through the cervicothoracic junction in both bone and soft tissue algorithm. Additional sagittal and coronal reconstructions were also performed. FINDINGS: There is straightening of normal cervical lordosis.. The lateral masses of C1 are aligned upon C2. No fractures identified. Moderate anterior osteophyte formation identified at C4, C5, C6, C7 vertebral levels. The bilateral facets are well aligned. The paraspinous soft tissues are unremarkable. Visualized intracranial contents are unremarkable. Partially visualized patchy airspace opacities identified in the apical lungs. IMPRESSION: 1. No acute fracture of the cervical spine. Correlate clinically. 2. Multilevel moderate degenerative changes cervical spine. Electronically signed by: Renny Burns MD (07/27/2018 4:02 PM) [place] [id number]
--- NOTE | 2018-07-27 16:18 | RAD ---
Renal ultrasound, 07/27/2018: HISTORY: Acute renal insufficiency The study was compromised by the patient's inability to suspend respiration during scanning. The right kidney measures 11.8 cm in length. The left kidney was poorly defined but measures approximate 7.2 cm in length. There is no evidence of hydronephrosis. No renal mass is evident. Limited views of urinary bladder are unremarkable. IMPRESSION: 1. Small left kidney. 2. Limited exam demonstrating no evidence of renal obstruction. Electronically signed by: Christian Lopez MD (07/27/2018 4:15 PM) [facility]
--- NOTE | 2018-07-27 22:17 | NUR ---
Patient still has bicarb gtt running, but labs have corrected since last night. Dr. Isabel storm, page returned. Updated on patient condition, labs, and current fluid orders. Orders received to stop bicarb gtt and leave off fluids through night.
[2018-07-28] VITALS (24 sets, daily range): BP systolic 99–160; BP diastolic 69–90
--- NOTE | 2018-07-28 03:06 | NUR ---
Unsure about last time patient urinated--patient bladder scanned at 0200 and had 418 cc in bladder. Will continue to monitor but no intervention required at this time R/T patient not eating/drinking and has no fluids running.
--- NOTE | 2018-07-28 04:15 | NUR ---
Patient's daughter came onto unit and started asking RN questions. Daughter started getting very confrontational and asking why her brother is on the contact sheet and not her and why he got the passcode first. RN informed daughter that a different RN had the patient on admission so I could only guess why he was listed on the sheet. Daughter started ranting about family dynamics and why she should be on the sheet instead of her brother. RN informed her that she can have the passcode and call for information and that we will call both her and her brother in case of an emergency, but that this RN can not handle the family dynamics beyond the medical aspect. Daughter asked "Did I piss someone off? Because you're giving off a negative aura." RN stated that everything was fine and daughter stated that this RN was being "rude and short" with her. RN stated that I was just trying to give her the information needed and daughter continued to be confrontational to RN. Daughter finally decided to go out to waiting room so her mom could rest.
[2018-07-28 05:25] LABS: BASO % 0 % (0-3); EOS % 0 % (0-3); LYMPH # 1.1 x10^3/uL (1.0-4.8); LYMPH % 12 % (24-48); MEAN CORPUSCULAR HEMOGLOBIN 28 pg (25-35); MEAN CORPUSCULAR HGB CONC 34 g/dL (31-37); MEAN CORPUSCULAR VOLUME 82 fL (79-100); MONO # 0.4 x10^3/uL (0.0-1.1); MONO % 4 % (0-9); NEUT # 7.7 x10^3uL (1.8-7.7); NEUT % 84 % (31-73); PLATELET COUNT 55 x10^3/uL (140-400); RED CELL DISTRIBUTION WIDTH 14.7 % (11.5-14.5); WHITE BLOOD COUNT 9.2 x10^3/uL (4.0-11.0)
[2018-07-28 05:27] LABS: HEMATOCRIT 19.7 % (36.0-47.0); HEMOGLOBIN 6.6 g/dL (12.0-15.5)
--- NOTE | 2018-07-28 05:30 | NUR ---
Critical Hgb and Hct called by lab, but patient refuses to receive blood. Will continue plan of care at this time.
[2018-07-28 05:49] LABS: ALBUMIN 2.4 g/dL (3.4-5.0); ALBUMIN/GLOBULIN RATIO 0.6 (1.0-1.7); CALCIUM 8.6 mg/dL (8.5-10.1); CREATININE 1.3 mg/dL (0.6-1.0); GFR 50.7; TOTAL BILIRUBIN 0.4 mg/dL (0.2-1.0); TOTAL PROTEIN 6.5 g/dL (6.4-8.2)
[2018-07-28 05:56] LABS: POTASSIUM 2.6 mmol/L (3.5-5.1)
--- NOTE | 2018-07-28 05:59 | NUR ---
Critical potassium of 2.6 called by lab at 0555. Dr. Chan called, updated on patient condition and labs. agrees there is nothing to do about Hgb and Hct since patient refuses blood. Orders received to start D5 @ 100 and follow ICU electrolyte protocol for Potassium replacement.
[2018-07-28] MEDS: IV DEXTROSE 5% 1,000 ML IV SCH ×2 (06:29→21:09)
[2018-07-28] MEDS: POTASSIUM CHLORIDE 10MEQ 100 ML IV SCH ×8 (06:29→14:19)
--- NOTE | 2018-07-28 06:58 | PDOC ---
Infectious Disease Note Subjective: Subjective Pt is having tremors from withdrawl does not answer most questions HB low,pt and family is refusing for Blood transfusion D/W RN ROS: ROS unable to obtain Vital Signs: Vital Signs Vital Signs Date Time Temp Pulse Resp B/P (MAP) Pulse Ox O2 Delivery O2 Flow Rate FiO2 07/28/18 06:00 106 37 136/82 (100) 98 Venturi Mask 07/28/18 04:00 98.6 98.6 07/28/18 04:00 15.0 Physical Exam: PHYSICAL EXAM GENERAL: Weak-appearing female, thin cachetic, having tremors bue HEENT: Normocephalic, atraumatic. Sclerae muddy. NECK: Supple. LUNGS: Decreased breath sounds at bases. No rhonchi. HEART: S1, S2, tachycardia. ABDOMEN: Soft, nontender and nondistended. EXTREMITIES: Muscle wasting, weakness. No cyanosis, no clubbing. NEUROLOGIC: Sleepy, but arousable, does not answer all the questions, weak, but has moved all 4 extremities.tremors Medications: Inpatient Meds: Current Medications Medications (Trade) Dose Ordered Sig/Bev Start Time Stop Time Status Last Admin Dose Admin Albuterol Sulfate (Ventolin Neb Soln) 2.5 mg PRN QID PRN 07/27/18 04:30 Albuterol/ Ipratropium (Duoneb) 3 ml RTQID 07/27/18 08:00 07/27/18 20:25 3 ML Chlordiazepoxide (Librium) 25 mg Q6H 07/27/18 03:30 07/28/18 09:31 UNV Cyanocobalamin (Vitamin B-12) 1,000 mcg DAILY 07/27/18 09:00 Dextrose 1,000 ml @ 100 mls/hr Q10H 07/28/18 07:00 07/28/18 06:29 100 MLS/HR Diphenhydramine HCl (Benadryl) 25 mg PRN Q15MIN PRN 07/27/18 10:45 Haloperidol Lactate (Haldol Inj) 5 mg PRN Q4HRS PRN 07/27/18 10:45 Levofloxacin/ Dextrose 100 ml @ 100 mls/hr Q48H 07/29/18 00:00 Lorazepam (Ativan Inj) 4 mg PRN Q15MIN PRN 07/27/18 10:45 Lorazepam (Ativan) 2 mg PRN Q6HRS PRN 07/27/18 07:45 Magnesium Sulfate 50 ml @ 25 mls/hr 1X ONCE 07/27/18 07:30 07/27/18 09:29 DC 07/27/18 11:03 25 MLS/HR Meropenem 500 mg/ Sodium Chloride 50 ml @ 100 mls/hr Q24H 07/27/18 13:00 07/27/18 15:27 100 MLS/HR Multivitamins (Thera M Plus) 1 tab DAILY 07/27/18 09:00 Non-Formulary Medication (Melatonin ) 3 mg HS PRN 07/27/18 04:15 UNV Norepinephrine Bitartrate 250 ml @ 1.875 mls/ hr CONT PRN 07/27/18 03:30 Ondansetron HCl (Zofran) 4 mg PRN Q6HRS PRN 07/27/18 03:30 Pantoprazole Sodium (Protonix) 40 mg DAILYAC 07/27/18 07:30 Potassium Chloride/Water 100 ml @ 100 mls/hr Q1H 07/28/18 07:00 07/28/18 14:59 07/28/18 06:29 100 MLS/HR Sertraline HCl (Zoloft) 50 mg DAILY 07/27/18 09:00 Sodium Bicarbonate 150 meq/Dextrose 1,150 ml @ 100 mls/hr [id number] 07/27/18 04:30 07/27/18 22:18 DC 07/27/18 16:57 100 MLS/HR Vitamin B Complex/ Vitamin C (Linette-Nola) 1 tab DAILY 07/27/18 09:00 Labs: Lab Laboratory Tests Test 07/27/18 07:30 07/27/18 07:41 07/27/18 09:00 07/27/18 15:00 O2 Saturation 87 % (92-99) Arterial Blood pH 7.46 (7.35-7.45) Arterial Blood pCO2 at Patient Temp 20 mmHg (35-46) Arterial Blood pO2 at Patient Temp 56 mmHg (65-108) Arterial Blood HCO3 13 mmol/L (21-28) Arterial Blood Base Excess -9 mmol/L (-3-3) FiO2 55 Glucose (Fingerstick) 84 mg/dL (70-99) Prothrombin Time 13.5 SEC (11.7-14.0) Prothromb Time International Ratio 1.1 (0.8-1.1) Ammonia < 10 mcmol/L (11-34) Hemoglobin 7.2 g/dL (12.0-15.5) Hematocrit 21.7 % (36.0-47.0) Sodium Level 144 mmol/L (136-145) Potassium Level 3.1 mmol/L (3.5-5.1) Chloride Level 101 mmol/L (98-107) Carbon Dioxide Level 21 mmol/L (21-32) Anion Gap 22 (6-14) Blood Urea Nitrogen 33 mg/dL (7-20) Creatinine 1.7 mg/dL (0.6-1.0) Estimated GFR (Cockcroft-Gault) 37.2 Glucose Level 157 mg/dL (70-99) Calcium Level 8.7 mg/dL (8.5-10.1) Test 07/27/18 15:25 07/28/18 05:00 O2 Saturation 90 % (92-99) Arterial Blood pH 7.56 (7.35-7.45) Arterial Blood pCO2 at Patient Temp 24 mmHg (35-46) Arterial Blood pO2 at Patient Temp 59 mmHg (65-108) Arterial Blood HCO3 21 mmol/L (21-28) Arterial Blood Base Excess -1 mmol/L (-3-3) FiO2 50 White Blood Count 9.2 x10^3/uL (4.0-11.0) Red Blood Count 2.40 x10^6/uL (3.50-5.40) Hemoglobin 6.6 g/dL (12.0-15.5) Hematocrit 19.7 % (36.0-47.0) Mean Corpuscular Volume 82 fL (79-100) Mean Corpuscular Hemoglobin 28 pg (25-35) Mean Corpuscular Hemoglobin Concent 34 g/dL (31-37) Red Cell Distribution Width 14.7 % (11.5-14.5) Platelet Count 55 x10^3/uL (140-400) Neutrophils (%) (Auto) 84 % (31-73) Lymphocytes (%) (Auto) 12 % (24-48) Monocytes (%) (Auto) 4 % (0-9) Eosinophils (%) (Auto) 0 % (0-3) Basophils (%) (Auto) 0 % (0-3) Neutrophils # (Auto) 7.7 x10^3uL (1.8-7.7) Lymphocytes # (Auto) 1.1 x10^3/uL (1.0-4.8) Monocytes # (Auto) 0.4 x10^3/uL (0.0-1.1) Eosinophils # (Auto) 0.0 x10^3/uL (0.0-0.7) Basophils # (Auto) 0.0 x10^3/uL (0.0-0.2) Sodium Level 148 mmol/L (136-145) Potassium Level 2.6 mmol/L (3.5-5.1) Chloride Level 105 mmol/L (98-107) Carbon Dioxide Level 31 mmol/L (21-32) Anion Gap 12 (6-14) Blood Urea Nitrogen 24 mg/dL (7-20) Creatinine 1.3 mg/dL (0.6-1.0) Estimated GFR (Cockcroft-Gault) 50.7 BUN/Creatinine Ratio 18 (6-20) Glucose Level 125 mg/dL (70-99) Calcium Level 8.6 mg/dL (8.5-10.1) Total Bilirubin 0.4 mg/dL (0.2-1.0) Aspartate Amino Transf (AST/SGOT) 67 U/L (15-37) Alanine Aminotransferase (ALT/SGPT) 29 U/L (14-59) Alkaline Phosphatase 93 U/L (46-116) Total Protein 6.5 g/dL (6.4-8.2) Albumin 2.4 g/dL (3.4-5.0) Albumin/Globulin Ratio 0.6 (1.0-1.7) Objective: Assessment: ETOH withdrawl Pulmonary infiltrates, likely aspiration pneumonia. . History of vomiting prior to admission. Syncopal episode POA History of alcohol withdrawal seizures, last one 1 month ago. Metabolic acidosis and acute kidney injury. Lactic acidosis. Thrombocytopenia. Protein-calorie malnutrition. Anemia. ALLERGY TO PENICILLIN WITH ANAPHYLAXIS. Per chart, the patient has received a dose of ceftriaxone at [facility]. The daughter feels that she may have taken cephalexin, but is not sure at this time. Plan: Plan of Care 1. Continue Merrem.DC Levaquin 3. Follow up cultures and susceptibility results here and at [facility] 4. Continue supportive care. Discussed with RN. FELIPA LOMBARDO MD Jul 28, 2018 06:58
[2018-07-28] MEDS: PANTOPRAZOLE 40 MG TABLET.DR. PO SCH (07:30)
[2018-07-28] MEDS: IPRATRPIUM/ALBUTEROL 0.5/2.5MG 3 ML NEBU. NEB SCH ×4 (07:59→20:04)
--- NOTE | 2018-07-28 08:00 | RAD ---
Portable chest, 07/28/2018: HISTORY: Respiratory failure Comparison is made to yesterday's study. The heart size is normal. There are moderate patchy bilateral pulmonary infiltrates, right greater than left. Allowing for differences in patient positioning the infiltrates are similar to those seen on yesterday's study. No pleural fluid is seen. IMPRESSION: Ongoing patchy pulmonary infiltrates, right greater than left, suggesting pneumonia. Electronically signed by: Christian Lopez MD (07/28/2018 7:57 AM) [facility]
[2018-07-28] MEDS: SERTRALINE 50 MG TABLET. PO SCH (08:19)
[2018-07-28] MEDS: MULTIVITAMIN with MINERAL TABLET. PO SCH (08:19)
[2018-07-28] MEDS: FOLIC/VIT B COMP W-C (RENAL) TABLET. PO SCH (08:19)
[2018-07-28] MEDS: CYANOCOBALAMIN (VITAMIN B-12) 1,000 MCG TABLET. PO SCH (08:19)
[2018-07-28] MEDS ORDERED: MAGNESIUM SULFATE 4GM 100 ML IV SCH (09:00)
--- NOTE | 2018-07-28 09:03 | PN ---
DATE: 07/28/2018 SUBJECTIVE: The patient is resting slightly propped up in bed, in no apparent respiratory distress. She continued to moan and groan. Her lab work showed that she has hypernatremia, hypokalemia, hypomagnesemia; however, kidney function has improved. Her creatinine came down from 1.8, down to 1.3. Her BUN came down from 34 to 24. She continued to be anemic and hemoglobin is 6.6, hematocrit 19.7, but the patient is refusing blood transfusion. PHYSICAL EXAMINATION: GENERAL: When I examined her, she was pale, cachectic, but no jaundice, cyanosis, or thyromegaly. No jugular venous distension. No limb edema. VITAL SIGNS: Her heart rate was 106, blood pressure was 136/82, temperature was 98.6, respiratory rate was 37 and oxygen saturation was 98% on 5 liters of oxygen by nasal cannula. HEAD, EYES, EARS, NOSE AND THROAT: Normocephalic, atraumatic. NECK: Supple. HEART: Showed normal first and second heart sounds. No gallop, rub or murmur. CHEST: Showed central trachea, equal bilateral expansion and air entry, vesicular breath sounds with crepitation mostly on the right side more than left. I could not appreciate any rhonchi. ABDOMEN: Scaphoid, soft, nontender. NEUROLOGIC: She is sleepy, but arousable, continue to moan and groan. She has had a CT scan of the head, showed mild bilateral periventricular white matter hypodensities, likely chronic small vessel ischemic disease. No evidence of acute intracranial hemorrhage, no extraaxial fluid collection, no mass effect or midline shift. Ventricular size is appropriate. Basilar cisterns are patent. No fracture identified. Correia-white differentiation is preserved. Globes and orbits are within normal limits. Paranasal sinuses and mastoid air cells are clear. CT scan of the cervical spine showed no acute fracture of the cervical spine. Multilevel moderate degenerative changes of cervical spine are seen. ASSESSMENT AND PLAN: In summary, this is a 58-year-old -[place] female patient with chronic alcoholic and currently in alcohol withdrawal. She was diagnosed with sepsis, likely to right lower lobe pneumonia; syncopal episode; history of alcohol withdrawal seizures; metabolic acidosis and acute kidney injury that is improving; lactic acidosis improving; thrombocytopenia; protein-calorie malnutrition; anemia; however, the patient is unfortunately refusing blood transfusion. She has hypernatremia, hypomagnesemia, hypokalemia, for which she is now on D5W IV at 100 mL. She is on electrolyte replacement protocol intravenously to replete her low potassium and low magnesium. Unfortunately, she continues to refuse blood transfusion. Continue obviously with alcohol withdrawal protocol. REKHA CARMEN MD DR: CYNTHIA/desean JOB#: [id number] / [id number]
--- NOTE | 2018-07-28 09:07 | PDOC ---
PULMONARY PROGRESS NOTES Subjective PT NOT RESPONDING TO VERBAL STIMULI SEDATED FOR ALCOHOL WITHDRAWAL Vitals Vital Signs Date Time Temp Pulse Resp B/P (MAP) Pulse Ox O2 Delivery O2 Flow Rate FiO2 07/28/18 08:00 Nasal Cannula 6.0 07/28/18 08:00 98.6 114 28 129/86 (100) 98 98.6 Lungs: Crackles Cardiovascular: S1, S2 Abdomen: Soft Extremities: No Edema, Other Skin: Warm Labs Laboratory Tests Test 07/27/18 02:40 07/27/18 04:45 07/27/18 07:30 07/27/18 07:41 Nasal Screen MRSA (PCR) Negative (Negative) White Blood Count 7.7 x10^3/uL (4.0-11.0) Red Blood Count 2.49 x10^6/uL (3.50-5.40) Hemoglobin 6.8 g/dL (12.0-15.5) Hematocrit 21.1 % (36.0-47.0) Mean Corpuscular Volume 85 fL (79-100) Mean Corpuscular Hemoglobin 27 pg (25-35) Mean Corpuscular Hemoglobin Concent 32 g/dL (31-37) Red Cell Distribution Width 15.0 % (11.5-14.5) Platelet Count 62 x10^3/uL (140-400) Neutrophils (%) (Auto) 88 % (31-73) Lymphocytes (%) (Auto) 8 % (24-48) Monocytes (%) (Auto) 4 % (0-9) Eosinophils (%) (Auto) 0 % (0-3) Basophils (%) (Auto) 1 % (0-3) Neutrophils # (Auto) 6.7 x10^3uL (1.8-7.7) Lymphocytes # (Auto) 0.6 x10^3/uL (1.0-4.8) Monocytes # (Auto) 0.3 x10^3/uL (0.0-1.1) Eosinophils # (Auto) 0.0 x10^3/uL (0.0-0.7) Basophils # (Auto) 0.0 x10^3/uL (0.0-0.2) Segmented Neutrophils % 61 % (35-66) Band Neutrophils % 24 % (0-9) Lymphocytes % 13 % (24-48) Monocytes % 2 % (0-10) Nucleated Red Blood Cells 1 Platelet Estimate Decreased (ADEQUATE) Polychromasia Present Poikilocytosis Present Anisocytosis Present Target Cells Present Sodium Level 144 mmol/L (136-145) Potassium Level 3.6 mmol/L (3.5-5.1) Chloride Level 103 mmol/L (98-107) Carbon Dioxide Level 15 mmol/L (21-32) Anion Gap 26 (6-14) Blood Urea Nitrogen 34 mg/dL (7-20) Creatinine 1.8 mg/dL (0.6-1.0) Estimated GFR (Cockcroft-Gault) 34.8 BUN/Creatinine Ratio 19 (6-20) Glucose Level 79 mg/dL (70-99) Lactic Acid Level 2.0 mmol/L (0.4-2.0) Calcium Level 8.7 mg/dL (8.5-10.1) Magnesium Level 0.8 mg/dL (1.8-2.4) Total Bilirubin 0.5 mg/dL (0.2-1.0) Direct Bilirubin 0.2 mg/dL (0.0-0.2) Aspartate Amino Transf (AST/SGOT) 85 U/L (15-37) Alanine Aminotransferase (ALT/SGPT) 32 U/L (14-59) Alkaline Phosphatase 81 U/L (46-116) Total Protein 6.4 g/dL (6.4-8.2) Albumin 2.5 g/dL (3.4-5.0) Albumin/Globulin Ratio 0.6 (1.0-1.7) O2 Saturation 87 % (92-99) Arterial Blood pH 7.46 (7.35-7.45) Arterial Blood pCO2 at Patient Temp 20 mmHg (35-46) Arterial Blood pO2 at Patient Temp 56 mmHg (65-108) Arterial Blood HCO3 13 mmol/L (21-28) Arterial Blood Base Excess -9 mmol/L (-3-3) FiO2 55 Glucose (Fingerstick) 84 mg/dL (70-99) Test 07/27/18 09:00 07/27/18 15:00 07/27/18 15:25 07/28/18 05:00 Prothrombin Time 13.5 SEC (11.7-14.0) Prothromb Time International Ratio 1.1 (0.8-1.1) Ammonia < 10 mcmol/L (11-34) Hemoglobin 7.2 g/dL (12.0-15.5) 6.6 g/dL (12.0-15.5) Hematocrit 21.7 % (36.0-47.0) 19.7 % (36.0-47.0) Sodium Level 144 mmol/L (136-145) 148 mmol/L (136-145) Potassium Level 3.1 mmol/L (3.5-5.1) 2.6 mmol/L (3.5-5.1) Chloride Level 101 mmol/L (98-107) 105 mmol/L (98-107) Carbon Dioxide Level 21 mmol/L (21-32) 31 mmol/L (21-32) Anion Gap 22 (6-14) 12 (6-14) Blood Urea Nitrogen 33 mg/dL (7-20) 24 mg/dL (7-20) Creatinine 1.7 mg/dL (0.6-1.0) 1.3 mg/dL (0.6-1.0) Estimated GFR (Cockcroft-Gault) 37.2 50.7 Glucose Level 157 mg/dL (70-99) 125 mg/dL (70-99) Calcium Level 8.7 mg/dL (8.5-10.1) 8.6 mg/dL (8.5-10.1) O2 Saturation 90 % (92-99) Arterial Blood pH 7.56 (7.35-7.45) Arterial Blood pCO2 at Patient Temp 24 mmHg (35-46) Arterial Blood pO2 at Patient Temp 59 mmHg (65-108) Arterial Blood HCO3 21 mmol/L (21-28) Arterial Blood Base Excess -1 mmol/L (-3-3) FiO2 50 White Blood Count 9.2 x10^3/uL (4.0-11.0) Red Blood Count 2.40 x10^6/uL (3.50-5.40) Mean Corpuscular Volume 82 fL (79-100) Mean Corpuscular Hemoglobin 28 pg (25-35) Mean Corpuscular Hemoglobin Concent 34 g/dL (31-37) Red Cell Distribution Width 14.7 % (11.5-14.5) Platelet Count 55 x10^3/uL (140-400) Neutrophils (%) (Auto) 84 % (31-73) Lymphocytes (%) (Auto) 12 % (24-48) Monocytes (%) (Auto) 4 % (0-9) Eosinophils (%) (Auto) 0 % (0-3) Basophils (%) (Auto) 0 % (0-3) Neutrophils # (Auto) 7.7 x10^3uL (1.8-7.7) Lymphocytes # (Auto) 1.1 x10^3/uL (1.0-4.8) Monocytes # (Auto) 0.4 x10^3/uL (0.0-1.1) Eosinophils # (Auto) 0.0 x10^3/uL (0.0-0.7) Basophils # (Auto) 0.0 x10^3/uL (0.0-0.2) BUN/Creatinine Ratio 18 (6-20) Magnesium Level 1.3 mg/dL (1.8-2.4) Total Bilirubin 0.4 mg/dL (0.2-1.0) Aspartate Amino Transf (AST/SGOT) 67 U/L (15-37) Alanine Aminotransferase (ALT/SGPT) 29 U/L (14-59) Alkaline Phosphatase 93 U/L (46-116) Total Protein 6.5 g/dL (6.4-8.2) Albumin 2.4 g/dL (3.4-5.0) Albumin/Globulin Ratio 0.6 (1.0-1.7) Laboratory Tests Test 07/27/18 15:00 07/27/18 15:25 07/28/18 05:00 Hemoglobin 7.2 g/dL (12.0-15.5) 6.6 g/dL (12.0-15.5) Hematocrit 21.7 % (36.0-47.0) 19.7 % (36.0-47.0) Sodium Level 144 mmol/L (136-145) 148 mmol/L (136-145) Potassium Level 3.1 mmol/L (3.5-5.1) 2.6 mmol/L (3.5-5.1) Chloride Level 101 mmol/L (98-107) 105 mmol/L (98-107) Carbon Dioxide Level 21 mmol/L (21-32) 31 mmol/L (21-32) Anion Gap 22 (6-14) 12 (6-14) Blood Urea Nitrogen 33 mg/dL (7-20) 24 mg/dL (7-20) Creatinine 1.7 mg/dL (0.6-1.0) 1.3 mg/dL (0.6-1.0) Estimated GFR (Cockcroft-Gault) 37.2 50.7 Glucose Level 157 mg/dL (70-99) 125 mg/dL (70-99) Calcium Level 8.7 mg/dL (8.5-10.1) 8.6 mg/dL (8.5-10.1) O2 Saturation 90 % (92-99) Arterial Blood pH 7.56 (7.35-7.45) Arterial Blood pCO2 at Patient Temp 24 mmHg (35-46) Arterial Blood pO2 at Patient Temp 59 mmHg (65-108) Arterial Blood HCO3 21 mmol/L (21-28) Arterial Blood Base Excess -1 mmol/L (-3-3) FiO2 50 White Blood Count 9.2 x10^3/uL (4.0-11.0) Red Blood Count 2.40 x10^6/uL (3.50-5.40) Mean Corpuscular Volume 82 fL (79-100) Mean Corpuscular Hemoglobin 28 pg (25-35) Mean Corpuscular Hemoglobin Concent 34 g/dL (31-37) Red Cell Distribution Width 14.7 % (11.5-14.5) Platelet Count 55 x10^3/uL (140-400) Neutrophils (%) (Auto) 84 % (31-73) Lymphocytes (%) (Auto) 12 % (24-48) Monocytes (%) (Auto) 4 % (0-9) Eosinophils (%) (Auto) 0 % (0-3) Basophils (%) (Auto) 0 % (0-3) Neutrophils # (Auto) 7.7 x10^3uL (1.8-7.7) Lymphocytes # (Auto) 1.1 x10^3/uL (1.0-4.8) Monocytes # (Auto) 0.4 x10^3/uL (0.0-1.1) Eosinophils # (Auto) 0.0 x10^3/uL (0.0-0.7) Basophils # (Auto) 0.0 x10^3/uL (0.0-0.2) BUN/Creatinine Ratio 18 (6-20) Magnesium Level 1.3 mg/dL (1.8-2.4) Total Bilirubin 0.4 mg/dL (0.2-1.0) Aspartate Amino Transf (AST/SGOT) 67 U/L (15-37) Alanine Aminotransferase (ALT/SGPT) 29 U/L (14-59) Alkaline Phosphatase 93 U/L (46-116) Total Protein 6.5 g/dL (6.4-8.2) Albumin 2.4 g/dL (3.4-5.0) Albumin/Globulin Ratio 0.6 (1.0-1.7) Medications Active Scripts Medications Dose Route/Sig Max Daily Dose Days Date Category Melatonin 3 Mg Tab.rapdis 3 Mg PO HS PRN 07/27/18 Reported Nephro-Nola Tablet (Folic Acid/Vitamin B Comp W-C) 0.8 Mg Tablet 1 Tab PO DAILY 07/27/18 Reported Vitamin B-12 (Cyanocobalamin (Vitamin B-12)) 1,000 Mcg Tablet 1,000 Mcg PO DAILY 07/27/18 Reported Megestrol Acetate 20 Mg Tablet 20 Mg PO DAILY 07/27/18 Reported Protonix (Pantoprazole Sodium) 20 Mg Tablet.dr 40 Mg PO DAILY 07/27/18 Reported Zoloft (Sertraline Hcl) 50 Mg Tablet 1 Tab PO DAILY 07/27/18 Reported Zoloft (Sertraline Hcl) 25 Mg Tablet 1 Tab PO DAILY 07/27/18 Reported Coreg (Carvedilol) 25 Mg Tablet 6.25 Mg PO BIDWMEALS 07/27/18 Reported Lipitor (Atorvastatin Calcium) 10 Mg Tablet 1 Tab PO QHS 07/27/18 Reported Spiriva (Tiotropium [place]) 18 Mcg Cap.w.dev 1 Cap IH DAILY 07/27/18 Reported Duoneb 0.5-3(2.5) Mg/3 Ml (Albuterol/Ipratropium) 3 Ml Ampul.neb 3 Ml NEB QID PRN 07/27/18 Reported Impression . IMPRESSION: 1. Acute hypoxemic respiratory failure. 2. Aspiration pneumonia. 3. Bilateral pulmonary infiltrates compatible with aspiration pneumonia and possible early acute respiratory distress syndrome. 4. Metabolic acidosis. 5. Possible sepsis. 6. Acute drop in hemoglobin. 7. Alcoholism. 8. Chronic obstructive pulmonary disease. 9. Toxic-metabolic encephalopathy. 10. CT HEAD AND NECK NEGATIVE Plan . WILL CONTINUE SAME NPO FOR NOW PT AT RISK OF RE ASPIRATION MAY NEED A DOBBHOFF FOR NUTRITION PRN BIPAP MONITOR H/H ALCOHOL WITHDRAWAL PROTOCOL ALVINO HERNANDEZ MD Jul 28, 2018 09:07
--- NOTE | 2018-07-28 09:49 | NUR ---
SS following up with discharge planning. Referral made to PAT team for ETOH abuse. SS will await assessment from PAT team and will proceed accordingly.
--- NOTE | 2018-07-28 10:17 | PDOC ---
SUBJECTIVE ROS stable, arousable, doesn't answer questions , refused rodriguez OBJECTIVE Vital Signs Vital Signs Date Time Temp Pulse Resp B/P (MAP) Pulse Ox O2 Delivery O2 Flow Rate FiO2 07/28/18 09:00 111 38 160/84 (109) 100 Nasal Cannula 6.0 07/28/18 08:00 98.6 98.6 I & 0 Intake and Output 07/28/18 06:59 Intake Total 50 ml Output Total 0 ml Balance 50 ml Intake Oral 0 ml IV Total 50 ml Output Urine Total 0 ml PHYSICAL EXAM Physical Exam GENERAL: NAD HEENT: O2 by NC NECK: Supple. LUNGS: Decreased breath sounds at bases. No rhonchi. HEART: S1, S2, tachycardia. ABDOMEN: Soft, nontender and nondistended. EXTREMITIES: No Edema NEUROLOGIC: Nods her head ,moved all 4 extremities - No Rodriguez or Ext catheter , nO cva or sp tenderness skin- no Rash DIAGNOSIS/ASSESSMENT Assessment & Plan CRYSTAL - Suspect due to ATN 2/2 Vomiting/Infection Renal function Improved Check UA(ordered, pending ) E-Lytes and acid base stable, Supportive care, Monitor CKD Stage 3- Baseline per primary 1.2- 1.3 Renal US - Small Lt Kidney 7.2 cm Hypokaemia- replacing per protocol HypoMag - Replace as needed Hypernatremia- Mild monitor Pulmonary infiltrates, likely aspiration pneumonia. On Abx History of vomiting prior to admission. Syncopal episode with unresponsiveness. History of alcohol dependence with alcohol withdrawal seizures Metabolic acidosis- Corrected, Dced Bicarb drip last evening Lactic acidosis. Thrombocytopenia. Protein-calorie malnutrition. Anemia. Discussed with RN at bedside COMMENT/RELEVANT DATA Meds Current Medications Medications (Trade) Dose Ordered Sig/Bev Start Time Stop Time Status Last Admin Dose Admin Albuterol Sulfate (Ventolin Neb Soln) 2.5 mg PRN QID PRN 07/27/18 04:30 Albuterol/ Ipratropium (Duoneb) 3 ml RTQID 07/27/18 08:00 07/28/18 07:59 3 ML Chlordiazepoxide (Librium) 25 mg Q6H 07/27/18 03:30 07/28/18 09:31 UNV Cyanocobalamin (Vitamin B-12) 1,000 mcg DAILY 07/27/18 09:00 Dextrose 1,000 ml @ 100 mls/hr Q10H 07/28/18 07:00 07/28/18 06:29 100 MLS/HR Diphenhydramine HCl (Benadryl) 25 mg PRN Q15MIN PRN 07/27/18 10:45 Haloperidol Lactate (Haldol Inj) 5 mg PRN Q4HRS PRN 07/27/18 10:45 Levofloxacin/ Dextrose 100 ml @ 100 mls/hr Q48H 07/29/18 00:00 07/29/18 00:00 DC Lorazepam (Ativan Inj) 4 mg PRN Q15MIN PRN 07/27/18 10:45 Lorazepam (Ativan) 2 mg PRN Q6HRS PRN 07/27/18 07:45 Magnesium Sulfate 50 ml @ 25 mls/hr 1X ONCE 07/27/18 07:30 07/27/18 09:29 DC 07/27/18 11:03 25 MLS/HR Magnesium Sulfate/ Dextrose 100 ml @ 50 mls/hr DAILY 07/28/18 09:00 07/29/18 08:59 Meropenem 500 mg/ Sodium Chloride 50 ml @ 100 mls/hr Q24H 07/27/18 13:00 07/27/18 15:27 100 MLS/HR Multivitamins (Thera M Plus) 1 tab DAILY 07/27/18 09:00 Non-Formulary Medication (Melatonin ) 3 mg HS PRN 07/27/18 04:15 UNV Norepinephrine Bitartrate 250 ml @ 1.875 mls/ hr CONT PRN 07/27/18 03:30 Ondansetron HCl (Zofran) 4 mg PRN Q6HRS PRN 07/27/18 03:30 Pantoprazole Sodium (Protonix) 40 mg DAILYAC 07/27/18 07:30 Potassium Chloride/Water 100 ml @ 100 mls/hr Q1H 07/28/18 07:00 07/28/18 14:59 07/28/18 09:54 100 MLS/HR Sertraline HCl (Zoloft) 50 mg DAILY 07/27/18 09:00 Sodium Bicarbonate 150 meq/Dextrose 1,150 ml @ 100 mls/hr [id number] 07/27/18 04:30 07/27/18 22:18 DC 07/27/18 16:57 100 MLS/HR Vitamin B Complex/ Vitamin C (Linette-Nola) 1 tab DAILY 07/27/18 09:00 Lab Laboratory Tests Test 07/27/18 15:00 07/27/18 15:25 07/28/18 05:00 Hemoglobin 7.2 g/dL (12.0-15.5) 6.6 g/dL (12.0-15.5) Hematocrit 21.7 % (36.0-47.0) 19.7 % (36.0-47.0) Sodium Level 144 mmol/L (136-145) 148 mmol/L (136-145) Potassium Level 3.1 mmol/L (3.5-5.1) 2.6 mmol/L (3.5-5.1) Chloride Level 101 mmol/L (98-107) 105 mmol/L (98-107) Carbon Dioxide Level 21 mmol/L (21-32) 31 mmol/L (21-32) Anion Gap 22 (6-14) 12 (6-14) Blood Urea Nitrogen 33 mg/dL (7-20) 24 mg/dL (7-20) Creatinine 1.7 mg/dL (0.6-1.0) 1.3 mg/dL (0.6-1.0) Estimated GFR (Cockcroft-Gault) 37.2 50.7 Glucose Level 157 mg/dL (70-99) 125 mg/dL (70-99) Calcium Level 8.7 mg/dL (8.5-10.1) 8.6 mg/dL (8.5-10.1) O2 Saturation 90 % (92-99) Arterial Blood pH 7.56 (7.35-7.45) Arterial Blood pCO2 at Patient Temp 24 mmHg (35-46) Arterial Blood pO2 at Patient Temp 59 mmHg (65-108) Arterial Blood HCO3 21 mmol/L (21-28) Arterial Blood Base Excess -1 mmol/L (-3-3) FiO2 50 White Blood Count 9.2 x10^3/uL (4.0-11.0) Red Blood Count 2.40 x10^6/uL (3.50-5.40) Mean Corpuscular Volume 82 fL (79-100) Mean Corpuscular Hemoglobin 28 pg (25-35) Mean Corpuscular Hemoglobin Concent 34 g/dL (31-37) Red Cell Distribution Width 14.7 % (11.5-14.5) Platelet Count 55 x10^3/uL (140-400) Neutrophils (%) (Auto) 84 % (31-73) Lymphocytes (%) (Auto) 12 % (24-48) Monocytes (%) (Auto) 4 % (0-9) Eosinophils (%) (Auto) 0 % (0-3) Basophils (%) (Auto) 0 % (0-3) Neutrophils # (Auto) 7.7 x10^3uL (1.8-7.7) Lymphocytes # (Auto) 1.1 x10^3/uL (1.0-4.8) Monocytes # (Auto) 0.4 x10^3/uL (0.0-1.1) Eosinophils # (Auto) 0.0 x10^3/uL (0.0-0.7) Basophils # (Auto) 0.0 x10^3/uL (0.0-0.2) BUN/Creatinine Ratio 18 (6-20) Magnesium Level 1.3 mg/dL (1.8-2.4) Total Bilirubin 0.4 mg/dL (0.2-1.0) Aspartate Amino Transf (AST/SGOT) 67 U/L (15-37) Alanine Aminotransferase (ALT/SGPT) 29 U/L (14-59) Alkaline Phosphatase 93 U/L (46-116) Total Protein 6.5 g/dL (6.4-8.2) Albumin 2.4 g/dL (3.4-5.0) Albumin/Globulin Ratio 0.6 (1.0-1.7) Results All relevant outside records, renal labs, imaging studies, telemetry/EKG's were reviewed. Other Renal US- study was compromised by the patient's inability to suspend respiration during scanning. The right kidney measures 11.8 cm in length. The left kidney was poorly defined but measures approximate 7.2 cm in length. There is no evidence of hydronephrosis. No renal mass is evident. Limited views of urinary bladder are unremarkable. IMPRESSION: 1. Small left kidney. 2. Limited exam demonstrating no evidence of renal obstruction. AMADO ULLOA MD Jul 28, 2018 10:17
[2018-07-28] MEDS: MEROPENEM 500 MG in IV NORMAL SALINE 50ML 50 ML IV SCH (12:16)
--- NOTE | 2018-07-28 13:15 | NUR ---
Patient incontinent of urine in bed. Changing bedding with assist x1. Patient urinating over side of bed on floor. Pull-up placed on patient d/t decreased responsiveness related to alcohol withdrawal and ativan administration.
[2018-07-28 20:44] LABS: CALCIUM 8.6 mg/dL (8.5-10.1); GFR 68.7; POTASSIUM 3.4 mmol/L (3.5-5.1)
[2018-07-28] MEDS ORDERED: LACTOBACILLUS RHAMNOSUS GG 1 CAPSULE. PO SCH (21:00)
[2018-07-29] VITALS (28 sets, daily range): BP systolic 85–137; BP diastolic 58–85
[2018-07-29] MEDS ORDERED: ATROPINE 1 MG/10 ML DISP.SYRINGE. ONE (04:31)
[2018-07-29] MEDS ORDERED: PROPOFOL 100 ML IV ONE (04:41)
--- NOTE | 2018-07-29 04:47 | NUR ---
At approx 0430, pts heart rate was noted decreasing into the 40s. Pt unresponsive to sternal rub. Pts heart rate continued to decrease into the 30s. At 0432, no pulse was felt. Nettie chaparro was called and CPR was started. Refer to code blue sheet.
--- NOTE | 2018-07-29 04:52 | PDOC5 ---
CODE REPORT CODE REPORT I WENT TO THE CODE I ARRIVED AT 434 AM. ATROPINE GIVEN PRIOR TO MY ARRIVAL EPI, BICARB GIVEN INTUBATION NOTE: EMERGENT PROC MAC4, GRADE 1 VIEW, CORDS MILDLY SWOLLEN 7.5 TUBE B/L BREATH SOUNDS (COARSE B/L) AND QUALITATIVE ETCO2, CXR PENDING. Critical care time was 35 minutes exclusive of procedures. WE GOT A PULSE BACK APPROXIMATELY TWO MINUTES LATER SINUS TACH, HR IN THE 130'S. EKG, CXR, CHEMISTRY PANEL. PROPOFOL FOR SEDATION WE TALKED ABOUT HYPOTHERMIA BUT SHE BEGAN TO COUGH AND MOVE AROUND AFTER ONLY A FEW MINUTES AND DOWNTIME WAS VERY SHORT AND NOT VFIB OR VTACH ARREST, SO WILL HOLD ON TAHT FOR NOW. HX OF POSSIBLE PNA, ETOH WITHDRAWAL, GIVEN THE BRADYCARDIA--> PEA CONCERN FOR HYPOXIC EVENT. JACLYN CHAKRABORTY MD Jul 29, 2018 04:52
[2018-07-29 04:56] LABS: RED BLOOD COUNT 2.49 x10^6/uL (3.50-5.40); WHITE BLOOD COUNT 6.3 x10^3/uL (4.0-11.0)
[2018-07-29 05:04] LABS: HEMATOCRIT 20.8 % (36.0-47.0); HEMOGLOBIN 6.8 g/dL (12.0-15.5)
[2018-07-29 05:10] LABS: CALCIUM 8.3 mg/dL (8.5-10.1); CREATININE 1.1 mg/dL (0.6-1.0); GFR 61.5; POTASSIUM 3.8 mmol/L (3.5-5.1)
--- NOTE | 2018-07-29 05:12 | NUR ---
Dr. Chan notified of code blue, ET tube placement, critical Hgb. Pt refuses blood. No new orders received at this time.
--- NOTE | 2018-07-29 05:21 | RAD ---
CHEST AP ONLY Clinical Indication: Pneumonia, ET tube placement. Comparison: AP chest, prior day. Findings: Endotracheal tube tip is at the level of the aortic arch. The cardiomediastinal silhouette is normal. Diffuse bilateral infiltrates are unchanged.. There is no pneumothorax. No pleural effusion is appreciated. No acute bone abnormality. Degenerative arthropathy of the shoulders. IMPRESSION: 1. Endotracheal tube tip is at the level of the aortic arch. 2. Diffuse bilateral infiltrates are unchanged. Electronically signed by: Niles Swenson MD (07/29/2018 5:18 AM) [facility]
[2018-07-29] MEDS ORDERED: IV NORMAL SALINE 500ML BAG 500 ML IV ONE ×2 (06:00→08:30)
[2018-07-29] MEDS ORDERED: NOREPINEPHRIN 8MG/250ML PREMIX 250 ML IV PRN (06:00)
--- NOTE | 2018-07-29 06:10 | NUR ---
Pts BP dropped to 55/[address] Chan notified. Received new orders for 500 ml NS bolus, dc propofol, start Versed for sedation, levophed PRN. Orders entered in system and implemented. Pts current BP is 137/83.
[2018-07-29 06:23] LABS: BASE EXCESS ABG 5 mmol/L (-3-3); HCO3 ABG 29 mmol/L (21-28); PCO2 ABG 37 mmHg (35-46); PO2 ABG 81 mmHg (65-108); SAT O2 ABG 95 % (92-99)
[2018-07-29] MEDS: MIDAZOLAM 100mg/100ml NS BAG 100 ML IV PRN (06:27)
[2018-07-29 06:40] LABS: FIO2 ABG 100
[2018-07-29] MEDS: IV DEXTROSE 5% 1,000 ML IV SCH (07:30)
[2018-07-29] MEDS: IPRATRPIUM/ALBUTEROL 0.5/2.5MG 3 ML NEBU. NEB SCH ×4 (07:53→20:23)
--- NOTE | 2018-07-29 08:03 | RAD ---
Indication:OG tube placement. TECHNIQUE: KUB. COMPARISON: Chest x-ray from same day earlier FINDINGS: OG tube is seen with its tip projecting in the left lower quadrant. No abnormally dilated bowel loops. Interstitial opacities are seen in the visualized lung bases may be from chronic changes or atypical/viral infection or pulmonary edema. Atherosclerotic plaque seen in the aorta and bilateral iliac arteries. IMPRESSION: As above. Electronically signed by: Quentin Rosado DO (07/29/2018 8:01 AM) [facility]
[2018-07-29] MEDS ORDERED: IV 1/2 NORMAL SALINE 1,000 ML IV SCH (08:30)
--- NOTE | 2018-07-29 08:30 | PDOC ---
Infectious Disease Note Subjective Subjective s/p code blue Now sedated and orally intubated, FiO2 40%, sating 100% No fevers reported ROS ROS unobtainable Vital Sign Vital Signs Vital Signs Date Time Temp Pulse Resp B/P (MAP) Pulse Ox O2 Delivery O2 Flow Rate FiO2 07/29/18 07:49 100 Ventilator 07/29/18 07:00 98.9 107 20 110/78 (89) 98.9 07/29/18 04:00 4.0 Physical Exam PHYSICAL EXAM GENERAL: Orally intubated, sedated, weak-appearing female, thin cachetic, HEENT: Pupils equal, Sclerae muddy. ETT, OGT NECK: Supple. LUNGS: Decreased breath sounds at bases. No rhonchi. HEART: S1, S2, regular ABDOMEN: Nondistended, soft, + Bowel sounds : Brandt in place EXTREMITIES: Muscle wasting, No cyanosis, no clubbing. NEUROLOGIC: Sedated/unresponsive SKIN: Warm without rash PIV Labs Lab Laboratory Tests Test 07/28/18 20:15 07/29/18 04:00 07/29/18 04:45 07/29/18 06:21 Sodium Level 141 mmol/L (136-145) 142 mmol/L (136-145) Potassium Level 3.4 mmol/L (3.5-5.1) 3.8 mmol/L (3.5-5.1) Chloride Level 103 mmol/L (98-107) 102 mmol/L (98-107) Carbon Dioxide Level 30 mmol/L (21-32) 30 mmol/L (21-32) Anion Gap 8 (6-14) 10 (6-14) Blood Urea Nitrogen 18 mg/dL (7-20) 16 mg/dL (7-20) Creatinine 1.0 mg/dL (0.6-1.0) 1.1 mg/dL (0.6-1.0) Estimated GFR (Cockcroft-Gault) 68.7 61.5 Glucose Level 134 mg/dL (70-99) 218 mg/dL (70-99) Calcium Level 8.6 mg/dL (8.5-10.1) 8.3 mg/dL (8.5-10.1) Magnesium Level 3.2 mg/dL (1.8-2.4) 2.7 mg/dL (1.8-2.4) White Blood Count 6.3 x10^3/uL (4.0-11.0) Red Blood Count 2.49 x10^6/uL (3.50-5.40) Hemoglobin 6.8 g/dL (12.0-15.5) Hematocrit 20.8 % (36.0-47.0) Mean Corpuscular Volume 84 fL (79-100) Mean Corpuscular Hemoglobin 27 pg (25-35) Mean Corpuscular Hemoglobin Concent 33 g/dL (31-37) Red Cell Distribution Width 15.0 % (11.5-14.5) Platelet Count 50 x10^3/uL (140-400) O2 Saturation 95 % (92-99) Arterial Blood pH 7.51 (7.35-7.45) Arterial Blood pCO2 at Patient Temp 37 mmHg (35-46) Arterial Blood pO2 at Patient Temp 81 mmHg (65-108) Arterial Blood HCO3 29 mmol/L (21-28) Arterial Blood Base Excess 5 mmol/L (-3-3) FiO2 100 FINDINGS: OG tube is seen with its tip projecting in the left lower quadrant. No abnormally dilated bowel loops. Interstitial opacities are seen in the visualized lung bases may be from chronic changes or atypical/viral infection or pulmonary edema. Atherosclerotic plaque seen in the aorta and bilateral iliac arteries. IMPRESSION: As above. Micro 07/27/18 Blood Culture - Preliminary, Resulted NO GROWTH AFTER 1 DAY Objective Assessment ETOH withdrawal Pulmonary infiltrates, likely aspiration pneumonia. -History of vomiting prior to admission. ALLERGY TO PENICILLIN WITH ANAPHYLAXIS. Per chart, the patient has received a dose of ceftriaxone at [facility]. The daughter feels that she may have taken cephalexin, but is not sure at this time. s/p code blue, 07/29 Syncopal episode POA History of alcohol withdrawal seizures, last one 1 month ago. Metabolic acidosis and acute kidney injury, improved Lactic acidosis, better Thrombocytopenia. Protein-calorie malnutrition. Anemia. Plan Plan of Care Continue Merrem Follow up cultures and susceptibility results here and at [facility] Supportive care. D/w brother at bedside Critically ill Patient seen and examined. Chart reviewed in detail. Case discussed with SANITATION MANAGER. Agree with above Plan. EMMA TINOCO APRN Jul 29, 2018 08:30 SANAZ UP MD Jul 29, 2018 20:01
[2018-07-29] MEDS ORDERED: MAGNESIUM SULFATE 4GM 100 ML IV PRN (08:45)
--- NOTE | 2018-07-29 08:47 | PN ---
DATE: 07/29/2018 SUBJECTIVE: The patient is a 58-year-old -[place] female patient who was admitted as a transfer from [facility] with altered mental status, sepsis, right lower lobe pneumonia and lactic acidosis and acute kidney injury, severe hypokalemia and severe hypomagnesemia as well as severe anemia. The patient has refused blood transfusion before; however, she was treated alcohol withdrawal protocol and her electrolytes have improved, in fact, her potassium is up to 3.8 from 2.6, magnesium has also improved from 0.8-2.7, her lactic acid has also improved and came down to 2 millimole per liter. She was seen in consultation by the vp of product as well as infectious disease. She is on meropenem, apparently at around 4:30 in the morning the patient was noted to have bradycardia with a heart rate dropping down to 40s. The patient became unresponsive with sternal rub. Her heart rate continued to decrease into the 30. At 4:32 she has no pulse was felt and code blue was called and CPR was started. She apparently had 3 rounds of CPR and with return of spontaneous circulation and she was intubated. However, initially there was a plan for hypothermia, but the patient became responsive, was biting into the endotracheal tube and therefore she was started on sedation, by the time I saw her this morning, she was intubated and mechanically ventilated and on propofol. OBJECTIVE: GENERAL: She was resting slightly propped up comfortably. She was pale, cachectic, but no jaundice, cyanosis, or thyromegaly. No jugular venous distension. No limb edema. VITAL SIGNS: Her heart rate was 107, blood pressure was 110/78, temperature was 98.9, respiratory rate was 16, and oxygen saturation was 100% on FiO2 of 40%. HEAD, EYES, EARS, NOSE AND THROAT: Shows normocephalic, atraumatic. She has orotracheal and orogastric tube in place. NECK: Supple. HEART: Showed normal first and second heart sounds. No gallop, rub or murmur. CHEST: Shows central trachea, equal bilateral expansion, air entry, vesicular sounds. No crepitation or rhonchi. ABDOMEN: Distended, soft, nontender. NEUROLOGIC: She is sedated, but responds to tactile stimuli. Her intake over the last 24 hours was incompletely recorded. LABORATORY DATA: Her lab work this morning showed a serum sodium 142, potassium 3.8, chloride 102, bicarbonate 30, anion gap of 16, BUN 16, creatinine 1.1, estimated GFR was 61 mL per minute. Her glucose was 118, calcium was 8.3, magnesium was 2.7. Her white cell count was 6300, hemoglobin 6.8, hematocrit 20.8, MCV 84 and platelet count of 50,000. Her blood gases showed a pH of 7.51, pCO2 of 37, pO2 81, bicarbonate 29, her oxygen saturation was 95% on FiO2 of 100%. Chest x-ray showed the endotracheal tube tip is at the level of the aortic arch, diffuse bilateral infiltrates are unchanged and her KUB showed that the orogastric tube is seen with its tip projecting to the left lower quadrant. No abnormally dilated bowel loops, interstitial opacities are seen in the visualized lung bases. 1. In summary, the patient has cardiac arrest, bradycardia and history that has responded to successfully to resuscitation. She has had 3 rounds of epinephrine with return of spontaneous circulation she was intubated and currently mechanical ventilation. 2. Chronic alcoholism and alcohol withdrawal. 3. Sepsis, likely right lower lobe pneumonia. 4. Metabolic acidosis, resolved. 5. Acute kidney injury is improving. 6. Thrombocytopenia, worsening. 7. Severe protein-calorie malnutrition. 8. Anemia. Her family agreed to transfuse her, she was transfused 1 unit of blood, given one another bolus of normal saline at 500 mL and will continue with half normal saline at 100 mL/hour. REKHA CARMEN MD DR: CYNTHIA/desean JOB#: [id number] / [id number]
[2018-07-29] MEDS: IV 1/2 NORMAL SALINE 1,000 ML IV SCH ×2 (08:58→18:30)
[2018-07-29] MEDS: MULTIVIT INFUSN,ADULT 4,VIT K 10 ML, THIAMINE INJ 100 MG, FOLIC ACID INJ 1 MG in IV NOR... IV SCH (09:36)
[2018-07-29] MEDS: SERTRALINE 50 MG TABLET. PO SCH (09:37)
[2018-07-29] MEDS: PANTOPRAZOLE IV PUSH 40 MG VIAL. IVP SCH (09:37)
[2018-07-29] MEDS: MEROPENEM 500 MG in IV NORMAL SALINE 50ML 50 ML IV SCH ×3 (09:37→22:09)
[2018-07-29] MEDS: CYANOCOBALAMIN (VITAMIN B-12) 1,000 MCG TABLET. PO SCH (09:37)
--- NOTE | 2018-07-29 10:27 | PDOC ---
PULMONARY PROGRESS NOTES Subjective Patient admitted with right sided pneumonia, possible aspiration related. Early this morning had cardiac arrest with PEA and was intubated. At present on mechanical ventilation, intubated and sedated. Vitals 16 60 07/29/18 07:00 98.9 107 110/78 (89) 98.9 07/29/18 04:00 Lungs: Crackles Cardiovascular: S1, S2 Abdomen: Soft Extremities: No Edema, Other Skin: Warm Labs Laboratory Tests Test 07/27/18 15:00 07/27/18 15:25 07/28/18 05:00 07/28/18 20:15 Hemoglobin 7.2 g/dL (12.0-15.5) 6.6 g/dL (12.0-15.5) Hematocrit 21.7 % (36.0-47.0) 19.7 % (36.0-47.0) Sodium Level 144 mmol/L (136-145) 148 mmol/L (136-145) 141 mmol/L (136-145) Potassium Level 3.1 mmol/L (3.5-5.1) 2.6 mmol/L (3.5-5.1) 3.4 mmol/L (3.5-5.1) Chloride Level 101 mmol/L (98-107) 105 mmol/L (98-107) 103 mmol/L (98-107) Carbon Dioxide Level 21 mmol/L (21-32) 31 mmol/L (21-32) 30 mmol/L (21-32) Anion Gap 22 (6-14) 12 (6-14) 8 (6-14) Blood Urea Nitrogen 33 mg/dL (7-20) 24 mg/dL (7-20) 18 mg/dL (7-20) Creatinine 1.7 mg/dL (0.6-1.0) 1.3 mg/dL (0.6-1.0) 1.0 mg/dL (0.6-1.0) Estimated GFR (Cockcroft-Gault) 37.2 50.7 68.7 Glucose Level 157 mg/dL (70-99) 125 mg/dL (70-99) 134 mg/dL (70-99) Calcium Level 8.7 mg/dL (8.5-10.1) 8.6 mg/dL (8.5-10.1) 8.6 mg/dL (8.5-10.1) O2 Saturation 90 % (92-99) Arterial Blood pH 7.56 (7.35-7.45) Arterial Blood pCO2 at Patient Temp 24 mmHg (35-46) Arterial Blood pO2 at Patient Temp 59 mmHg (65-108) Arterial Blood HCO3 21 mmol/L (21-28) Arterial Blood Base Excess -1 mmol/L (-3-3) FiO2 50 White Blood Count 9.2 x10^3/uL (4.0-11.0) Red Blood Count 2.40 x10^6/uL (3.50-5.40) Mean Corpuscular Volume 82 fL (79-100) Mean Corpuscular Hemoglobin 28 pg (25-35) Mean Corpuscular Hemoglobin Concent 34 g/dL (31-37) Red Cell Distribution Width 14.7 % (11.5-14.5) Platelet Count 55 x10^3/uL (140-400) Neutrophils (%) (Auto) 84 % (31-73) Lymphocytes (%) (Auto) 12 % (24-48) Monocytes (%) (Auto) 4 % (0-9) Eosinophils (%) (Auto) 0 % (0-3) Basophils (%) (Auto) 0 % (0-3) Neutrophils # (Auto) 7.7 x10^3uL (1.8-7.7) Lymphocytes # (Auto) 1.1 x10^3/uL (1.0-4.8) Monocytes # (Auto) 0.4 x10^3/uL (0.0-1.1) Eosinophils # (Auto) 0.0 x10^3/uL (0.0-0.7) Basophils # (Auto) 0.0 x10^3/uL (0.0-0.2) BUN/Creatinine Ratio 18 (6-20) Magnesium Level 1.3 mg/dL (1.8-2.4) 3.2 mg/dL (1.8-2.4) Total Bilirubin 0.4 mg/dL (0.2-1.0) Aspartate Amino Transf (AST/SGOT) 67 U/L (15-37) Alanine Aminotransferase (ALT/SGPT) 29 U/L (14-59) Alkaline Phosphatase 93 U/L (46-116) Total Protein 6.5 g/dL (6.4-8.2) Albumin 2.4 g/dL (3.4-5.0) Albumin/Globulin Ratio 0.6 (1.0-1.7) Test 07/29/18 04:00 07/29/18 04:45 07/29/18 06:21 Magnesium Level 2.7 mg/dL (1.8-2.4) White Blood Count 6.3 x10^3/uL (4.0-11.0) Red Blood Count 2.49 x10^6/uL (3.50-5.40) Hemoglobin 6.8 g/dL (12.0-15.5) Hematocrit 20.8 % (36.0-47.0) Mean Corpuscular Volume 84 fL (79-100) Mean Corpuscular Hemoglobin 27 pg (25-35) Mean Corpuscular Hemoglobin Concent 33 g/dL (31-37) Red Cell Distribution Width 15.0 % (11.5-14.5) Platelet Count 50 x10^3/uL (140-400) Sodium Level 142 mmol/L (136-145) Potassium Level 3.8 mmol/L (3.5-5.1) Chloride Level 102 mmol/L (98-107) Carbon Dioxide Level 30 mmol/L (21-32) Anion Gap 10 (6-14) Blood Urea Nitrogen 16 mg/dL (7-20) Creatinine 1.1 mg/dL (0.6-1.0) Estimated GFR (Cockcroft-Gault) 61.5 Glucose Level 218 mg/dL (70-99) Calcium Level 8.3 mg/dL (8.5-10.1) O2 Saturation 95 % (92-99) Arterial Blood pH 7.51 (7.35-7.45) Arterial Blood pCO2 at Patient Temp 37 mmHg (35-46) Arterial Blood pO2 at Patient Temp 81 mmHg (65-108) Arterial Blood HCO3 29 mmol/L (21-28) Arterial Blood Base Excess 5 mmol/L (-3-3) FiO2 100 Laboratory Tests Test 07/28/18 20:15 07/29/18 04:00 07/29/18 04:45 07/29/18 06:21 Sodium Level 141 mmol/L (136-145) 142 mmol/L (136-145) Potassium Level 3.4 mmol/L (3.5-5.1) 3.8 mmol/L (3.5-5.1) Chloride Level 103 mmol/L (98-107) 102 mmol/L (98-107) Carbon Dioxide Level 30 mmol/L (21-32) 30 mmol/L (21-32) Anion Gap 8 (6-14) 10 (6-14) Blood Urea Nitrogen 18 mg/dL (7-20) 16 mg/dL (7-20) Creatinine 1.0 mg/dL (0.6-1.0) 1.1 mg/dL (0.6-1.0) Estimated GFR (Cockcroft-Gault) 68.7 61.5 Glucose Level 134 mg/dL (70-99) 218 mg/dL (70-99) Calcium Level 8.6 mg/dL (8.5-10.1) 8.3 mg/dL (8.5-10.1) Magnesium Level 3.2 mg/dL (1.8-2.4) 2.7 mg/dL (1.8-2.4) White Blood Count 6.3 x10^3/uL (4.0-11.0) Red Blood Count 2.49 x10^6/uL (3.50-5.40) Hemoglobin 6.8 g/dL (12.0-15.5) Hematocrit 20.8 % (36.0-47.0) Mean Corpuscular Volume 84 fL (79-100) Mean Corpuscular Hemoglobin 27 pg (25-35) Mean Corpuscular Hemoglobin Concent 33 g/dL (31-37) Red Cell Distribution Width 15.0 % (11.5-14.5) Platelet Count 50 x10^3/uL (140-400) O2 Saturation 95 % (92-99) Arterial Blood pH 7.51 (7.35-7.45) Arterial Blood pCO2 at Patient Temp 37 mmHg (35-46) Arterial Blood pO2 at Patient Temp 81 mmHg (65-108) Arterial Blood HCO3 29 mmol/L (21-28) Arterial Blood Base Excess 5 mmol/L (-3-3) FiO2 100 Medications Active Scripts Medications Dose Route/Sig Max Daily Dose Days Date Category Melatonin 3 Mg Tab.rapdis 3 Mg PO HS PRN 07/27/18 Reported Nephro-Nola Tablet (Folic Acid/Vitamin B Comp W-C) 0.8 Mg Tablet 1 Tab PO DAILY 07/27/18 Reported Vitamin B-12 (Cyanocobalamin (Vitamin B-12)) 1,000 Mcg Tablet 1,000 Mcg PO DAILY 07/27/18 Reported Megestrol Acetate 20 Mg Tablet 20 Mg PO DAILY 07/27/18 Reported Protonix (Pantoprazole Sodium) 20 Mg Tablet.dr 40 Mg PO DAILY 07/27/18 Reported Zoloft (Sertraline Hcl) 50 Mg Tablet 1 Tab PO DAILY 07/27/18 Reported Zoloft (Sertraline Hcl) 25 Mg Tablet 1 Tab PO DAILY 07/27/18 Reported Coreg (Carvedilol) 25 Mg Tablet 6.25 Mg PO BIDWMEALS 07/27/18 Reported Lipitor (Atorvastatin Calcium) 10 Mg Tablet 1 Tab PO QHS 07/27/18 Reported Spiriva (Tiotropium [place]) 18 Mcg Cap.w.dev 1 Cap IH DAILY 07/27/18 Reported Duoneb 0.5-3(2.5) Mg/3 Ml (Albuterol/Ipratropium) 3 Ml Ampul.neb 3 Ml NEB QID PRN 07/27/18 Reported Comments Repeat CXR 07/29 after code blue shows endotracheal tube in good location. No change in infiltrates. Impression . IMPRESSION: 1. Acute hypoxemic respiratory failure secondary to pneumonia and cardiac arrest. 2. Aspiration pneumonia. 3. Bilateral pulmonary infiltrates compatible with aspiration pneumonia and possible early acute respiratory distress syndrome. 4. Metabolic acidosis. 5. Possible sepsis. 6. Acute drop in hemoglobin. 7. Alcoholism. 8. Chronic obstructive pulmonary disease. 9. Toxic-metabolic encephalopathy. 10. CT HEAD AND NECK NEGATIVE Plan . I am concerned about pulmonary embolism and have discussed this with Dr. Womack who agrees. Would recommend CTA Continue mechanical ventilation and wean FIO2 as tolerated. Continue antibiotics and bronchodilators. CCM time 50 minutes. BAKARI MARTIN MD Jul 29, 2018 10:27
[2018-07-29] MEDS ORDERED: IOHEXOL 350 MG/ML 100 ML VIAL. IV ONE (10:45)
--- NOTE | 2018-07-29 11:42 | PDOC2 ---
CONSULT Date of Consult Date of Consult DATE: 07/29/18 TIME: 11:42 Reason for Consult Reason for Consult: Cardiac arrest Referring Physician Referring Physician: Dr. Chan Identification/Chief Complaint Chief Complaint Mental status changes and pneumonia Source Source: Chart review, Patient History of Present Illness Reason for Visit: 58-year-old female was initially admitted percent [facility] and transferred to [facility] for altered mental status, pneumonia/sepsis and renal insufficiency. Last night, she was apparently coded for bradycardia followed by PEA, intubated and transferred to ICU. No further arrhythmias were noted since this episode. Review of chart did not show any previous history of coronary artery disease or cardiac arrhythmias. Past Medical History Past Medical History Hypertension Hyperlipidemia Depression COPD Osteoarthritis Past Surgical History Past Surgical History section Family History Family History CVA Social History Social History Patient has history of chronic alcohol abuse and smokes one pack cigarettes daily. Current Medications Current Medications Current Medications Multivitamins (Thera M Plus) 1 tab DAILY PO ; Start 07/27/18 at 09:00; Stop 07/29/18 at 08:38; Status DC Lorazepam (Ativan) 2 mg Q6H PO ; Start 07/27/18 at 04:00; Stop 07/27/18 at 07:43; Status DC Chlordiazepoxide (Librium) 25 mg Q6H PO ; Start 07/27/18 at 03:30; Stop 07/28/18 at 09:31; Status UNV Levofloxacin/ Dextrose 150 ml @ 100 mls/hr Q24H IV ; Start 07/28/18 at 00:00; Status UNV Ondansetron HCl (Zofran) 4 mg PRN Q6HRS PRN IV NAUSEA/VOMITING 1ST CHOICE; Start 07/27/18 at 03:30 Sodium Bicarbonate 150 meq/Dextrose 1,150 ml @ 100 mls/hr [id number] IV Last administered on 07/27/18at 16:57; Start 07/27/18 at 04:30; Stop 07/27/18 at 22:18; Status DC Norepinephrine Bitartrate 250 ml @ 1.875 mls/ hr CONT PRN IV SEE I/O RECORD; Start 07/27/18 at 03:30 Cyanocobalamin (Vitamin B-12) 1,000 mcg DAILY PO Last administered on 07/29/18at 09:37; Start 07/27/18 at 09:00 Vitamin B Complex/ Vitamin C (Linette-Nola) 1 tab DAILY PO ; Start 07/27/18 at 09:00; Stop 07/29/18 at 08:38; Status DC Albuterol Sulfate (Ventolin Neb Soln) 2.5 mg PRN QID PRN NEB SHORTNESS OF BREATH; Start 07/27/18 at 04:30 Sertraline HCl (Zoloft) 50 mg DAILY PO Last administered on 07/29/18at 09:37; Start 07/27/18 at 09:00 Non-Formulary Medication (Melatonin ) 3 mg HS PRN PO insomnia; Start 07/27/18 at 04:15; Status UNV Pantoprazole Sodium (Protonix) 40 mg DAILYAC PO ; Start 07/27/18 at 07:30; Stop 07/29/18 at 08:30; Status DC Albuterol/ Ipratropium (Duoneb) 3 ml RTQID NEB Last administered on 07/29/18at 07:53; Start 07/27/18 at 08:00 Levofloxacin/ Dextrose 100 ml @ 100 mls/hr Q48H IV ; Start 07/29/18 at 00:00; Stop 07/29/18 at 00:00; Status DC Magnesium Sulfate 50 ml @ 25 mls/hr 1X ONCE IV Last administered on 07/27/18at 11:03; Start 07/27/18 at 07:30; Stop 07/27/18 at 09:29; Status DC Lorazepam (Ativan) 2 mg PRN Q6HRS PRN PO ALCOHOL WITHDRAWAL; Start 07/27/18 at 07:45 Lorazepam (Ativan Inj) 2 mg PRN Q1HR PRN IV For CIWA 8-14 Last administered on 07/29/18at 01:04; Start 07/27/18 at 10:45 Lorazepam (Ativan Inj) 4 mg PRN Q1HR PRN IV For CIWA 15 or greater Last administered on 07/29/18at 02:38; Start 07/27/18 at 10:45 Haloperidol Lactate (Haldol Inj) 5 mg PRN Q4HRS PRN IVP Hallucinatn s,Confusn,Delirium; Start 07/27/18 at 10:45 Diphenhydramine HCl (Benadryl) 25 mg PRN Q15MIN PRN IVP EPS symptoms 2'Haldol admin; Start 07/27/18 at 10:45 Lorazepam (Ativan Inj) 2 mg PRN Q15MIN PRN IV SEE COMMENTS; Start 07/27/18 at 10:45 Lorazepam (Ativan Inj) 4 mg PRN Q15MIN PRN IV SEE COMMENTS; Start 07/27/18 at 10:45 Meropenem 500 mg/ Sodium Chloride 50 ml @ 100 mls/hr Q24H IV Last administered on 07/28/18at 12:16; Start 07/27/18 at 13:00; Stop 07/29/18 at 08:14; Status DC Potassium Chloride/Water 100 ml @ 100 mls/hr Q1H IV Last administered on 07/28/18at 14:19; Start 07/28/18 at 07:00; Stop 07/28/18 at 14:59; Status DC Dextrose 1,000 ml @ 100 mls/hr Q10H IV Last administered on 07/29/18at 07:30; Start 07/28/18 at 07:00; Stop 07/29/18 at 08:25; Status DC Magnesium Sulfate/ Dextrose 100 ml @ 50 mls/hr DAILY IV Last administered on 07/28/18at 14:19; Start 07/28/18 at 09:00; Stop 07/29/18 at 08:31; Status DC Lactobacillus Rhamnosus (Culturelle) 1 cap BID PO ; Start 07/28/18 at 21:00; Stop 07/29/18 at 08:39; Status DC Atropine Sulfate (ATROPINE 1mg SYRINGE) 1 mg STK-MED ONCE .ROUTE ; Start 07/29/18 at 04:31; Stop 07/29/18 at 04:32; Status DC Propofol 100 ml @ As Directed STK-MED ONCE IV ; Start 07/29/18 at 04:41; Stop 07/29/18 at 04:42; Status DC Midazolam HCl 100 ml @ 5 mls/hr CONT PRN IV SEE I/O RECORD Last administered on 07/29/18at 06:27; Start 07/29/18 at 06:00 Norepinephrine Bitartrate 250 ml @ 1.875 mls/ hr CONT PRN IV SEE I/O RECORD; Start 07/29/18 at 06:00; Status UNV Sodium Chloride 500 ml @ 500 mls/hr 1X ONCE IV Last administered on 07/29/18at 06:25; Start 07/29/18 at 06:00; Stop 07/29/18 at 06:59; Status DC Fentanyl Citrate 30 ml @ 0 mls/hr CONT PRN IV SEE PROTOCOL Last administered on 07/29/18at 08:11; Start 07/29/18 at 07:15 Meropenem 500 mg/ Sodium Chloride 50 ml @ 100 mls/hr Q8HRS IV Last administered on 07/29/18at 09:37; Start 07/29/18 at 09:00 Pantoprazole Sodium (PROTONIX VIAL for IV PUSH) 40 mg DAILY IVP Last administered on 07/29/18at 09:37; Start 07/29/18 at 09:00 Magnesium Sulfate/ Dextrose 100 ml @ 50 mls/hr PRN DAILY PRN IV MAG < 1.8 OR K+ < 3.5 X 3 DRAW; Start 07/29/18 at 08:45; Stop 08/01/18 at 08:00 Sodium Chloride 500 ml @ 500 mls/hr 1X ONCE IV Last administered on 07/29/18at 08:59; Start 07/29/18 at 08:30; Stop 07/29/18 at 09:29; Status DC Sodium Chloride 1,000 ml @ 100 mls/hr Q10H IV Last administered on 07/29/18at 08:58; Start 07/29/18 at 08:30 Sodium Chloride 1,000 ml @ 100 mls/hr Q10H IV ; Start 07/29/18 at 08:30; Status UNV Multivitamins 10 ml/Thiamine HCl 100 mg/Folic Acid 1 mg/Sodium Chloride 1,011.2 ml @ 100 mls/ hr DAILY IV Last administered on 07/29/18at 09:36; Start 07/29/18 at 09:00; Stop 08/02/18 at 19:07 Iohexol (Omnipaque 350 Mg/ml) 90 ml 1X ONCE IV ; Start 07/29/18 at 10:45; Stop 07/29/18 at 10:46; Status DC Multi-Ingred Cream/Lotion/Oil/ Oint (Artificial Tears Eye Ointment) 1 michele PRN Q1HR PRN OU DRY EYE; Start 07/29/18 at 11:15 Active Scripts Active Reported Melatonin 3 Mg Tab.rapdis 3 Mg PO HS PRN Nephro-Nola Tablet (Folic Acid/Vitamin B Comp W-C) 0.8 Mg Tablet 1 Tab PO DAILY Vitamin B-12 (Cyanocobalamin (Vitamin B-12)) 1,000 Mcg Tablet 1,000 Mcg PO DAILY Megestrol Acetate 20 Mg Tablet 20 Mg PO DAILY Protonix (Pantoprazole Sodium) 20 Mg Tablet.dr 40 Mg PO DAILY Zoloft (Sertraline Hcl) 50 Mg Tablet 1 Tab PO DAILY Zoloft (Sertraline Hcl) 25 Mg Tablet 1 Tab PO DAILY Coreg (Carvedilol) 25 Mg Tablet 6.25 Mg PO BIDWMEALS Lipitor (Atorvastatin Calcium) 10 Mg Tablet 1 Tab PO QHS Spiriva (Tiotropium Bryant) 18 Mcg Cap.w.dev 1 Cap IH DAILY Duoneb 0.5-3(2.5) Mg/3 Ml (Albuterol/Ipratropium) 3 Ml Ampul.neb 3 Ml NEB QID PRN Allergies Allergies: Coded Allergies: Penicillins (Verified Allergy, Severe, Anaphylaxis, 07/27/18) erythromycin base (Verified Allergy, Intermediate, Diarrhea, 07/27/18) ROS Review of System Cannot be obtained since patient is intubated Physical Exam General: Other (intubated) Lungs: Clear to auscultation Heart: Regular rate Abdomen: Soft, No tenderness Extremities: No edema Vitals VITALS Vital Signs Date Time Temp Pulse Resp B/P (MAP) Pulse Ox O2 Delivery O2 Flow Rate FiO2 07/29/18 11:00 99.6 90 16 98/64 (75) 60 Ventilator 99.6 07/29/18 04:00 4.0 Labs Labs Laboratory Tests Test 07/27/18 15:00 07/27/18 15:25 07/28/18 05:00 07/28/18 20:15 Hemoglobin 7.2 g/dL (12.0-15.5) 6.6 g/dL (12.0-15.5) Hematocrit 21.7 % (36.0-47.0) 19.7 % (36.0-47.0) Sodium Level 144 mmol/L (136-145) 148 mmol/L (136-145) 141 mmol/L (136-145) Potassium Level 3.1 mmol/L (3.5-5.1) 2.6 mmol/L (3.5-5.1) 3.4 mmol/L (3.5-5.1) Chloride Level 101 mmol/L (98-107) 105 mmol/L (98-107) 103 mmol/L (98-107) Carbon Dioxide Level 21 mmol/L (21-32) 31 mmol/L (21-32) 30 mmol/L (21-32) Anion Gap 22 (6-14) 12 (6-14) 8 (6-14) Blood Urea Nitrogen 33 mg/dL (7-20) 24 mg/dL (7-20) 18 mg/dL (7-20) Creatinine 1.7 mg/dL (0.6-1.0) 1.3 mg/dL (0.6-1.0) 1.0 mg/dL (0.6-1.0) Estimated GFR (Cockcroft-Gault) 37.2 50.7 68.7 Glucose Level 157 mg/dL (70-99) 125 mg/dL (70-99) 134 mg/dL (70-99) Calcium Level 8.7 mg/dL (8.5-10.1) 8.6 mg/dL (8.5-10.1) 8.6 mg/dL (8.5-10.1) O2 Saturation 90 % (92-99) Arterial Blood pH 7.56 (7.35-7.45) Arterial Blood pCO2 at Patient Temp 24 mmHg (35-46) Arterial Blood pO2 at Patient Temp 59 mmHg (65-108) Arterial Blood HCO3 21 mmol/L (21-28) Arterial Blood Base Excess -1 mmol/L (-3-3) FiO2 50 White Blood Count 9.2 x10^3/uL (4.0-11.0) Red Blood Count 2.40 x10^6/uL (3.50-5.40) Mean Corpuscular Volume 82 fL (79-100) Mean Corpuscular Hemoglobin 28 pg (25-35) Mean Corpuscular Hemoglobin Concent 34 g/dL (31-37) Red Cell Distribution Width 14.7 % (11.5-14.5) Platelet Count 55 x10^3/uL (140-400) Neutrophils (%) (Auto) 84 % (31-73) Lymphocytes (%) (Auto) 12 % (24-48) Monocytes (%) (Auto) 4 % (0-9) Eosinophils (%) (Auto) 0 % (0-3) Basophils (%) (Auto) 0 % (0-3) Neutrophils # (Auto) 7.7 x10^3uL (1.8-7.7) Lymphocytes # (Auto) 1.1 x10^3/uL (1.0-4.8) Monocytes # (Auto) 0.4 x10^3/uL (0.0-1.1) Eosinophils # (Auto) 0.0 x10^3/uL (0.0-0.7) Basophils # (Auto) 0.0 x10^3/uL (0.0-0.2) BUN/Creatinine Ratio 18 (6-20) Magnesium Level 1.3 mg/dL (1.8-2.4) 3.2 mg/dL (1.8-2.4) Total Bilirubin 0.4 mg/dL (0.2-1.0) Aspartate Amino Transf (AST/SGOT) 67 U/L (15-37) Alanine Aminotransferase (ALT/SGPT) 29 U/L (14-59) Alkaline Phosphatase 93 U/L (46-116) Total Protein 6.5 g/dL (6.4-8.2) Albumin 2.4 g/dL (3.4-5.0) Albumin/Globulin Ratio 0.6 (1.0-1.7) Test 07/29/18 04:00 07/29/18 04:45 07/29/18 06:21 Magnesium Level 2.7 mg/dL (1.8-2.4) White Blood Count 6.3 x10^3/uL (4.0-11.0) Red Blood Count 2.49 x10^6/uL (3.50-5.40) Hemoglobin 6.8 g/dL (12.0-15.5) Hematocrit 20.8 % (36.0-47.0) Mean Corpuscular Volume 84 fL (79-100) Mean Corpuscular Hemoglobin 27 pg (25-35) Mean Corpuscular Hemoglobin Concent 33 g/dL (31-37) Red Cell Distribution Width 15.0 % (11.5-14.5) Platelet Count 50 x10^3/uL (140-400) Sodium Level 142 mmol/L (136-145) Potassium Level 3.8 mmol/L (3.5-5.1) Chloride Level 102 mmol/L (98-107) Carbon Dioxide Level 30 mmol/L (21-32) Anion Gap 10 (6-14) Blood Urea Nitrogen 16 mg/dL (7-20) Creatinine 1.1 mg/dL (0.6-1.0) Estimated GFR (Cockcroft-Gault) 61.5 Glucose Level 218 mg/dL (70-99) Calcium Level 8.3 mg/dL (8.5-10.1) O2 Saturation 95 % (92-99) Arterial Blood pH 7.51 (7.35-7.45) Arterial Blood pCO2 at Patient Temp 37 mmHg (35-46) Arterial Blood pO2 at Patient Temp 81 mmHg (65-108) Arterial Blood HCO3 29 mmol/L (21-28) Arterial Blood Base Excess 5 mmol/L (-3-3) FiO2 100 Laboratory Tests Test 07/28/18 20:15 07/29/18 04:00 07/29/18 04:45 07/29/18 06:21 Sodium Level 141 mmol/L (136-145) 142 mmol/L (136-145) Potassium Level 3.4 mmol/L (3.5-5.1) 3.8 mmol/L (3.5-5.1) Chloride Level 103 mmol/L (98-107) 102 mmol/L (98-107) Carbon Dioxide Level 30 mmol/L (21-32) 30 mmol/L (21-32) Anion Gap 8 (6-14) 10 (6-14) Blood Urea Nitrogen 18 mg/dL (7-20) 16 mg/dL (7-20) Creatinine 1.0 mg/dL (0.6-1.0) 1.1 mg/dL (0.6-1.0) Estimated GFR (Cockcroft-Gault) 68.7 61.5 Glucose Level 134 mg/dL (70-99) 218 mg/dL (70-99) Calcium Level 8.6 mg/dL (8.5-10.1) 8.3 mg/dL (8.5-10.1) Magnesium Level 3.2 mg/dL (1.8-2.4) 2.7 mg/dL (1.8-2.4) White Blood Count 6.3 x10^3/uL (4.0-11.0) Red Blood Count 2.49 x10^6/uL (3.50-5.40) Hemoglobin 6.8 g/dL (12.0-15.5) Hematocrit 20.8 % (36.0-47.0) Mean Corpuscular Volume 84 fL (79-100) Mean Corpuscular Hemoglobin 27 pg (25-35) Mean Corpuscular Hemoglobin Concent 33 g/dL (31-37) Red Cell Distribution Width 15.0 % (11.5-14.5) Platelet Count 50 x10^3/uL (140-400) O2 Saturation 95 % (92-99) Arterial Blood pH 7.51 (7.35-7.45) Arterial Blood pCO2 at Patient Temp 37 mmHg (35-46) Arterial Blood pO2 at Patient Temp 81 mmHg (65-108) Arterial Blood HCO3 29 mmol/L (21-28) Arterial Blood Base Excess 5 mmol/L (-3-3) FiO2 100 Assessment/Plan Assessment/Plan 1. s/p cardiopulmonary arrest, PEA. Telemetry showed sinus bradycardia and few 3 s pauses that appear to be vasovagal. We will continue to monitor. No emergent indication for pacemaker at this time. Clinical presentation very suspicious for pulmonary embolism. Recommend CTA for further evaluation. Continue vent management per pulmonary team. Check 2-D echo to assess LV systolic function. We will consider event monitor as an outpatient. 2. Sepsis/pneumonia: Continue intravenous antibiotics 3. Chronic alcohol abuse/toxic encephalopathy: Treat per IM. Replace potassium Thank you for your consultation. WANDA BONILLA MD Jul 29, 2018 11:42
--- NOTE | 2018-07-29 12:27 | RAD ---
PQRS Compliance statement: One or more of the following individualized dose reduction techniques were utilized for this examination: 1. Automated exposure control. 2. Adjustment of the mA and/or kV according to patient size. 3. Use of iterative reconstruction technique. Indication:Shortness of breath. TECHNIQUE: CT angiogram of the chest with IV contrast with multiplanar MIP reformats. COMPARISON: None FINDINGS: ET tube is seen with its tip at the level of T5 vertebral body. NG tube is seen at its tip in the stomach. Suboptimal PE study due to motion artifact. There are no central, segmental or proximal subsegmental filling defects in the pulmonary arteries. Evaluation of distal subsegmental arteries is limited. Heart is normal in size. No pericardial effusion. Trace bilateral pleural effusions. No enlarged axillary, mediastinal or hilar adenopathy. Diffuse bilateral groundglass opacities are seen in the lungs. Consolidations seen in the bilateral lung bases, left more than right. Central airways are patent. No pneumothorax. Visualized sections through the liver, spleen, pancreas, adrenals and kidneys within normal limits. Mildly displaced fracture is seen of the right anterior fourth rib. No suspicious bony lesion. IMPRESSION: 1. Slightly suboptimal PE study due to motion artifact. No central, segmental or proximal segmental PE. Evaluation of distal most branches of the pulmonary arteries is limited. 2. Diffuse bilateral interstitial opacities mostly secondary to interstitial pulmonary edema or ARDS. 3. Trace bilateral pleural effusions. 4. Mildly displaced fracture of the right anterior fourth rib. Electronically signed by: Quentin Rosado DO (07/29/2018 12:24 PM) [facility]
--- NOTE | 2018-07-29 13:56 | PDOC ---
SUBJECTIVE ROS Intubated this am , On Vent OBJECTIVE Vital Signs Vital Signs Date Time Temp Pulse Resp B/P (MAP) Pulse Ox O2 Delivery O2 Flow Rate FiO2 07/29/18 13:12 100 Ventilator 07/29/18 13:00 88 16 91/61 (71) 07/29/18 12:40 98.7 98.7 07/29/18 04:00 4.0 I & 0 Intake and Output 07/29/18 06:59 Intake Total 3003.10 ml Balance 3003.10 ml Intake Oral 0 ml IV Total 3003.10 ml # Voids 5 PHYSICAL EXAM Physical Exam GENERAL: Intubated , sedated HEENT: Intubated NECK: Supple. LUNGS: Decreased breath sounds at bases. No rhonchi. HEART: S1, S2, tachycardia. ABDOMEN: Soft, nontender and nondistended. EXTREMITIES: No Edema NEUROLOGIC: sedated, intubated - Brandt + skin- no Rash DIAGNOSIS/ASSESSMENT Assessment & Plan CRYSTAL - Suspect due to ATN 2/2 Vomiting/Infection Renal function Improved UA ordered- Not done E-Lytes and acid base stable,monitor Recd IV contrast with CTA on 07/29- Monitor renal function CKD Stage 3- Baseline per primary 1.2- 1.3 Renal US - Small Lt Kidney 7.2 cm Resp failure- Intubated this am Hypokalemia- Normal K today HypoMag - Replace as needed Hypernatremia- Mild monitor Pulmonary infiltrates, likely aspiration pneumonia. On Abx History of vomiting prior to admission. Syncopal episode with unresponsiveness. History of alcohol dependence with alcohol withdrawal seizures Metabolic acidosis- Corrected, Lactic acidosis. Thrombocytopenia. Protein-calorie malnutrition. Anemia Receiving prbc Discussed with RN at bedside COMMENT/RELEVANT DATA Meds Current Medications Medications (Trade) Dose Ordered Sig/Bev Start Time Stop Time Status Last Admin Dose Admin Albuterol Sulfate (Ventolin Neb Soln) 2.5 mg PRN QID PRN 07/27/18 04:30 Albuterol/ Ipratropium (Duoneb) 3 ml RTQID 07/27/18 08:00 07/29/18 13:09 3 ML Atropine Sulfate (ATROPINE 1mg SYRINGE) 1 mg STK-MED ONCE 07/29/18 04:31 07/29/18 04:32 DC Chlordiazepoxide (Librium) 25 mg Q6H 07/27/18 03:30 07/28/18 09:31 UNV Cyanocobalamin (Vitamin B-12) 1,000 mcg DAILY 07/27/18 09:00 07/29/18 09:37 1,000 MCG Dextrose 1,000 ml @ 100 mls/hr Q10H 07/28/18 07:00 07/29/18 08:25 DC 07/29/18 07:30 100 MLS/HR Diphenhydramine HCl (Benadryl) 25 mg PRN Q15MIN PRN 07/27/18 10:45 Fentanyl Citrate 30 ml @ 0 mls/hr CONT PRN 07/29/18 07:15 07/29/18 08:11 1.25 MLS/HR Haloperidol Lactate (Haldol Inj) 5 mg PRN Q4HRS PRN 07/27/18 10:45 Iohexol (Omnipaque 350 Mg/ml) 90 ml 1X ONCE 07/29/18 10:45 07/29/18 10:46 DC 07/29/18 12:00 90 ML Lactobacillus Rhamnosus (Culturelle) 1 cap BID 07/28/18 21:00 07/29/18 08:39 DC Levofloxacin/ Dextrose 100 ml @ 100 mls/hr Q48H 07/29/18 00:00 07/29/18 00:00 DC Lorazepam (Ativan Inj) 4 mg PRN Q15MIN PRN 07/27/18 10:45 Lorazepam (Ativan) 2 mg PRN Q6HRS PRN 07/27/18 07:45 Magnesium Sulfate 50 ml @ 25 mls/hr 1X ONCE 07/27/18 07:30 07/27/18 09:29 DC 07/27/18 11:03 25 MLS/HR Magnesium Sulfate/ Dextrose 100 ml @ 50 mls/hr PRN DAILY PRN 07/29/18 08:45 08/01/18 08:00 Meropenem 500 mg/ Sodium Chloride 50 ml @ 100 mls/hr Q8HRS 07/29/18 09:00 07/29/18 09:37 100 MLS/HR Midazolam HCl 100 ml @ 5 mls/hr CONT PRN 07/29/18 06:00 07/29/18 06:27 5 MLS/HR Multi-Ingred Cream/Lotion/Oil/ Oint (Artificial Tears Eye Ointment) 1 michele PRN Q1HR PRN 07/29/18 11:15 Multivitamins (Thera M Plus) 1 tab DAILY 07/27/18 09:00 07/29/18 08:38 DC Multivitamins 10 ml/Thiamine HCl 100 mg/Folic Acid 1 mg/Sodium Chloride 1,011.2 ml @ 100 mls/ hr DAILY 07/29/18 09:00 08/02/18 19:07 07/29/18 09:36 100 MLS/HR Non-Formulary Medication (Melatonin ) 3 mg HS PRN 07/27/18 04:15 UNV Norepinephrine Bitartrate 250 ml @ 1.875 mls/ hr CONT PRN 07/29/18 06:00 UNV Ondansetron HCl (Zofran) 4 mg PRN Q6HRS PRN 07/27/18 03:30 Pantoprazole Sodium (PROTONIX VIAL for IV PUSH) 40 mg DAILY 07/29/18 09:00 07/29/18 09:37 40 MG Pantoprazole Sodium (Protonix) 40 mg DAILYAC 07/27/18 07:30 07/29/18 08:30 DC Potassium Chloride/Water 100 ml @ 100 mls/hr Q1H 07/28/18 07:00 07/28/18 14:59 DC 07/28/18 14:19 100 MLS/HR Propofol 100 ml @ As Directed STK-MED ONCE 07/29/18 04:41 07/29/18 04:42 DC Sertraline HCl (Zoloft) 50 mg DAILY 07/27/18 09:00 07/29/18 09:37 50 MG Sodium Bicarbonate 150 meq/Dextrose 1,150 ml @ 100 mls/hr [id number] 07/27/18 04:30 07/27/18 22:18 DC 07/27/18 16:57 100 MLS/HR Sodium Chloride 1,000 ml @ 100 mls/hr Q10H 07/29/18 08:30 UNV Vitamin B Complex/ Vitamin C (Linette-Nola) 1 tab DAILY 07/27/18 09:00 07/29/18 08:38 DC Lab Laboratory Tests Test 07/28/18 20:15 07/29/18 04:00 07/29/18 04:45 07/29/18 06:21 Sodium Level 141 mmol/L (136-145) 142 mmol/L (136-145) Potassium Level 3.4 mmol/L (3.5-5.1) 3.8 mmol/L (3.5-5.1) Chloride Level 103 mmol/L (98-107) 102 mmol/L (98-107) Carbon Dioxide Level 30 mmol/L (21-32) 30 mmol/L (21-32) Anion Gap 8 (6-14) 10 (6-14) Blood Urea Nitrogen 18 mg/dL (7-20) 16 mg/dL (7-20) Creatinine 1.0 mg/dL (0.6-1.0) 1.1 mg/dL (0.6-1.0) Estimated GFR (Cockcroft-Gault) 68.7 61.5 Glucose Level 134 mg/dL (70-99) 218 mg/dL (70-99) Calcium Level 8.6 mg/dL (8.5-10.1) 8.3 mg/dL (8.5-10.1) Magnesium Level 3.2 mg/dL (1.8-2.4) 2.7 mg/dL (1.8-2.4) White Blood Count 6.3 x10^3/uL (4.0-11.0) Red Blood Count 2.49 x10^6/uL (3.50-5.40) Hemoglobin 6.8 g/dL (12.0-15.5) Hematocrit 20.8 % (36.0-47.0) Mean Corpuscular Volume 84 fL (79-100) Mean Corpuscular Hemoglobin 27 pg (25-35) Mean Corpuscular Hemoglobin Concent 33 g/dL (31-37) Red Cell Distribution Width 15.0 % (11.5-14.5) Platelet Count 50 x10^3/uL (140-400) O2 Saturation 95 % (92-99) Arterial Blood pH 7.51 (7.35-7.45) Arterial Blood pCO2 at Patient Temp 37 mmHg (35-46) Arterial Blood pO2 at Patient Temp 81 mmHg (65-108) Arterial Blood HCO3 29 mmol/L (21-28) Arterial Blood Base Excess 5 mmol/L (-3-3) FiO2 100 Results All relevant outside records, renal labs, imaging studies, telemetry/EKG's were reviewed. Other CTA- 1. Slightly suboptimal PE study due to motion artifact. No central, segmental or proximal segmental PE. Evaluation of distal most branches of the pulmonary arteries is limited. 2. Diffuse bilateral interstitial opacities mostly secondary to interstitial pulmonary edema or ARDS. 3. Trace bilateral pleural effusions. 4. Mildly displaced fracture of the right anterior fourth rib. AMADO ULLOA MD Jul 29, 2018 13:56
[2018-07-29 16:32] LABS: HEMATOCRIT 25.7 % (36.0-47.0); HEMOGLOBIN 8.8 g/dL (12.0-15.5)
[2018-07-29 17:02] LABS: CALCIUM 7.6 mg/dL (8.5-10.1); CREATININE 0.9 mg/dL (0.6-1.0); GFR 77.5; MAGNESIUM 1.9 mg/dL (1.8-2.4)
--- NOTE | 2018-07-29 19:27 | NUR ---
RN called Dr. Chan r/t pt potassium of 3.0. Received order to give 40 mEq K through OG tube now, and 40 mEq K through OG tube at 2200. Redraw lab values with morning labs. Orders entered into the system.
--- NOTE | 2018-07-29 19:29 | NUR ---
RN also received order from Dr. Chan to clamp OG tube. Order entered into system. OG tube taken off suction and clamped.
[2018-07-29] MEDS ORDERED: POTASSIUM CHLORIDE 20 MEQ TABLET.ER. PO ONE ×2 (19:30→22:00)
[2018-07-30] VITALS (24 sets, daily range): BP systolic 89–136; BP diastolic 63–84
[2018-07-30] MEDS: MEROPENEM 500 MG in IV NORMAL SALINE 50ML 50 ML IV SCH ×3 (06:17→23:23)
[2018-07-30] MEDS: IV 1/2 NORMAL SALINE 1,000 ML IV SCH ×2 (06:17→23:23)
[2018-07-30] MEDS: MINERAL OIL/PETROLATUM,WHITE OPHTH OINT 3.5GM TUBE. OU PRN (07:47)
[2018-07-30] MEDS: IPRATRPIUM/ALBUTEROL 0.5/2.5MG 3 ML NEBU. NEB SCH ×4 (07:54→20:26)
[2018-07-30] MEDS ORDERED: POTASSIUM CL 40MEQ D5-0.45NACL 1,000 ML IV ONE (08:00)
--- NOTE | 2018-07-30 08:02 | RAD ---
Indication:Respiratory failure TECHNIQUE:Portable AP chest X-ray COMPARISON: 07/29/2018 FINDINGS: Stable position of ET tube, NG tube. Heart is normal in size. Patchy opacities are seen in the right lower lung zone. Diffuse interstitial opacities. No pneumothorax or large. Effusion. Visualized bony thorax within normal limits. IMPRESSION: Right lower lung zone disease process likely pneumonia. Superimposed interstitial opacities which may be secondary to interstitial pulmonary edema or atypical/viral infection. Electronically signed by: Quentin Rosado DO (07/30/2018 7:59 AM) [facility]
[2018-07-30 08:16] LABS: BASE EXCESS ABG 0 mmol/L (-3-3); HCO3 ABG 23 mmol/L (21-28); PCO2 ABG 32 mmHg (35-46); PO2 ABG 197 mmHg (65-108); SAT O2 ABG 99 % (92-99)
[2018-07-30] MEDS: PANTOPRAZOLE IV PUSH 40 MG VIAL. IVP SCH (08:28)
[2018-07-30] MEDS: POTASSIUM BICARB 20 MEQ EFFERVESCENT TABLET. PEG SCH ×3 (08:29→23:24)
[2018-07-30] MEDS: CYANOCOBALAMIN (VITAMIN B-12) 1,000 MCG TABLET. PO SCH (08:29)
[2018-07-30] MEDS: SERTRALINE 50 MG TABLET. PO SCH (08:29)
[2018-07-30] MEDS: MIDAZOLAM 100mg/100ml NS BAG 100 ML IV PRN (08:33)
[2018-07-30 08:43] LABS: HEMATOCRIT 23.4 % (36.0-47.0); HEMOGLOBIN 7.8 g/dL (12.0-15.5); RED BLOOD COUNT 2.76 x10^6/uL (3.50-5.40); RED CELL DISTRIBUTION WIDTH 14.8 % (11.5-14.5); WHITE BLOOD COUNT 4.8 x10^3/uL (4.0-11.0)
[2018-07-30 09:03] LABS: CALCIUM 7.5 mg/dL (8.5-10.1); CREATININE 0.8 mg/dL (0.6-1.0); GFR 88.8; POTASSIUM 3.7 mmol/L (3.5-5.1)
[2018-07-30 09:09] LABS: FIO2 ABG 50
[2018-07-30] MEDS: MULTIVIT INFUSN,ADULT 4,VIT K 10 ML, THIAMINE INJ 100 MG, FOLIC ACID INJ 1 MG in IV NOR... IV SCH (09:15)
--- NOTE | 2018-07-30 09:32 | PN ---
DATE: 07/30/2018 SUBJECTIVE: The patient is resting slightly propped up in bed, in no apparent distress, continued to be intubated, mechanically ventilated and sedated. She apparently was seen by the formulator compounder who recommended CT angio of the chest to rule out the possibility of pulmonary embolism. Unfortunately, the study was suboptimal, the study with motion artifact, no central, segmental or proximal segmental PE was seen. Evaluation of the distal most branches of the pulmonary artery is limited. She has diffuse bilateral interstitial opacity secondary to interstitial pulmonary edema or ARDS. She has trace bilateral pleural effusion, mildly displaced fracture of the right anterior fourth rib. PHYSICAL EXAMINATION: GENERAL: When I examined her, she was pale, cachectic, but no jaundice, cyanosis. No lymphadenopathy. No thyromegaly. No jugular venous distension. No limb edema. VITAL SIGNS: Her heart rate was 79, blood pressure was 119/77, temperature was 99, respiratory rate was 16, and oxygen saturation was 98% on FiO2 of 50%. HEAD, EYES, EARS, NOSE AND THROAT: Showed she is normocephalic, atraumatic. She has orotracheal and orogastric tube in place. NECK: Supple. HEART: Showed normal first and second heart sounds. No gallop or murmur. CHEST: Showed central trachea. Equal bilateral expansion with air entry. Vesicular breath sounds with crepitation bilaterally. I could not appreciate any rhonchi. ABDOMEN: Scaphoid, soft, nontender. NEUROLOGIC: She is sedated, however she moves her extremities spontaneously. INPUT AND OUTPUT: Her intake was 1600, output was 1000. LABORATORY AND DIAGNOSTIC DATA: As of this morning, her serum sodium was 140, potassium 3, chloride 102, bicarbonate 29, anion gap of 9, BUN 13, creatinine 0.9, estimated GFR was 77 mL per minute, her glucose 111, total protein was 7.6, albumin was 1.9, her magnesium was 1.9. Her hemoglobin was 8.8 and 25.7 after she received 1 unit of packed RBCs yesterday. So far, all her blood cultures are negative. ASSESSMENT: 1. The patient is status post cardiac arrest, started with bradycardia and eventually asystole from which she was successfully resuscitated. She has 3 rounds of epinephrine to return spontaneous circulation. She was intubated and currently continues to be on mechanical ventilation. 2. Chronic alcoholism, alcohol withdrawal seizures. 3. Sepsis, likely due to right lower lobe pneumonia. 4. Metabolic acidosis, resolved. 5. Acute kidney injury, resolved. Her creatinine is down from 1.8 to 0.9. 6. Thrombocytopenia. 7. Severe protein-calorie malnutrition. 8. Anemia, status post 1 unit of packed RBCs. Hemoglobin has risen to 8.8 and 25.7. 9. Hypomagnesemia, resolved. 10. Hypokalemia with serum potassium of 3 mEq. PLAN: My plan is to change her IV fluid to D5 half normal with 40 mEq of potassium chloride at 75 mL per hour. We will also continue with liquid potassium solution through the NG tube at 40 mEq 3 times a day and we will start her on tube feeding in the form of Jevity at 50 mL per hour. Meanwhile, we will continue with mechanical ventilation and wean as tolerated. Continue with IV antibiotic as recommended by infectious disease specialist. REKHA CARMEN MD DR: CYNTHIA/desean JOB#: [id number] / [id number]
--- NOTE | 2018-07-30 10:05 | PDOC ---
Infectious Disease Note Subjective Subjective Sedated Remains orally intubated, FiO2 down to 35%, sating 100% No fevers reported ROS ROS unobtainable Vital Sign Vital Signs Vital Signs Date Time Temp Pulse Resp B/P (MAP) Pulse Ox O2 Delivery O2 Flow Rate FiO2 07/30/18 09:20 100 Ventilator 07/30/18 07:00 99.0 79 16 119/77 (91) 99.0 Physical Exam PHYSICAL EXAM GENERAL: Orally intubated, sedated, weak-appearing female, thin cachetic, HEENT: Pupils equal, Sclerae muddy. ETT, OGT NECK: Supple. LUNGS: Decreased breath sounds at bases. No rhonchi. HEART: S1, S2, regular ABDOMEN: Nondistended, soft, + Bowel sounds : Brandt in place EXTREMITIES: Muscle wasting, No cyanosis, no clubbing. NEUROLOGIC: Sedated/unresponsive SKIN: Warm without rash PIV Labs Lab Laboratory Tests Test 07/29/18 16:00 07/30/18 08:00 07/30/18 08:20 Hemoglobin 8.8 g/dL (12.0-15.5) 7.8 g/dL (12.0-15.5) Hematocrit 25.7 % (36.0-47.0) 23.4 % (36.0-47.0) Sodium Level 140 mmol/L (136-145) 139 mmol/L (136-145) Potassium Level 3.0 mmol/L (3.5-5.1) 3.7 mmol/L (3.5-5.1) Chloride Level 102 mmol/L (98-107) 105 mmol/L (98-107) Carbon Dioxide Level 29 mmol/L (21-32) 24 mmol/L (21-32) Anion Gap 9 (6-14) 10 (6-14) Blood Urea Nitrogen 13 mg/dL (7-20) 12 mg/dL (7-20) Creatinine 0.9 mg/dL (0.6-1.0) 0.8 mg/dL (0.6-1.0) Estimated GFR (Cockcroft-Gault) 77.5 88.8 Glucose Level 111 mg/dL (70-99) 90 mg/dL (70-99) Calcium Level 7.6 mg/dL (8.5-10.1) 7.5 mg/dL (8.5-10.1) Magnesium Level 1.9 mg/dL (1.8-2.4) O2 Saturation 99 % (92-99) Arterial Blood pH 7.48 (7.35-7.45) Arterial Blood pCO2 at Patient Temp 32 mmHg (35-46) Arterial Blood pO2 at Patient Temp 197 mmHg (65-108) Arterial Blood HCO3 23 mmol/L (21-28) Arterial Blood Base Excess 0 mmol/L (-3-3) FiO2 50 White Blood Count 4.8 x10^3/uL (4.0-11.0) Red Blood Count 2.76 x10^6/uL (3.50-5.40) Mean Corpuscular Volume 85 fL (79-100) Mean Corpuscular Hemoglobin 28 pg (25-35) Mean Corpuscular Hemoglobin Concent 33 g/dL (31-37) Red Cell Distribution Width 14.8 % (11.5-14.5) Platelet Count 40 x10^3/uL (140-400) CXR, 07/30 Right lower lung zone disease process likely pneumonia. Superimposed interstitial opacities which may be secondary to interstitial pulmonary edema or atypical/viral infection. Micro 07/27/18 Blood Culture - Preliminary, Resulted NO GROWTH AFTER 1 DAY Objective Assessment ETOH withdrawal Pulmonary infiltrates, likely aspiration pneumonia. -History of vomiting prior to admission. ALLERGY TO PENICILLIN WITH ANAPHYLAXIS. Per chart, the patient has received a dose of ceftriaxone at [facility]. The daughter feels that she may have taken cephalexin, but is not sure at this time. s/p code blue, 07/29 Syncopal episode POA History of alcohol withdrawal seizures, last one 1 month ago. Metabolic acidosis and acute kidney injury, improved Lactic acidosis, better Thrombocytopenia. Protein-calorie malnutrition. Anemia. Plan Plan of Care Continue Merrem 07/26 [facility] neg so far Supportive care. Critically ill Patient seen and examine. Chart reviewed in detail. Case discussed with REPAIR SUPERVISOR. Agree with above plan. EMMA TINOCO APRN Jul 30, 2018 10:05 SANAZ UP MD Jul 30, 2018 20:47
--- NOTE | 2018-07-30 11:19 | PDOC ---
PULMONARY PROGRESS NOTES Subjective Patient admitted with right sided pneumonia, possible aspiration related. Early 07/29 had cardiac arrest with PEA and was intubated. At present on mechanical ventilation, intubated and sedated. Nurse notes that patient appears very agitated and required increased sedation (on diazepam and fentanyl). Sister and brother note that patient has had severe withdrawal episodes in past and request to continue sedation and intubation. Vitals Vital Signs Date Time Temp Pulse Resp B/P (MAP) Pulse Ox O2 Delivery O2 Flow Rate FiO2 07/30/18 10:41 19 100 Ventilator 07/30/18 07:00 99.0 79 119/77 (91) 99.0 Comments sedated Lungs: Crackles, Other (equal breath sounds, no wheezing) Cardiovascular: S1, S2 Abdomen: Soft Extremities: No Edema, Other Skin: Warm Labs Laboratory Tests Test 07/28/18 20:15 07/29/18 04:00 07/29/18 04:45 07/29/18 06:21 Sodium Level 141 mmol/L (136-145) 142 mmol/L (136-145) Potassium Level 3.4 mmol/L (3.5-5.1) 3.8 mmol/L (3.5-5.1) Chloride Level 103 mmol/L (98-107) 102 mmol/L (98-107) Carbon Dioxide Level 30 mmol/L (21-32) 30 mmol/L (21-32) Anion Gap 8 (6-14) 10 (6-14) Blood Urea Nitrogen 18 mg/dL (7-20) 16 mg/dL (7-20) Creatinine 1.0 mg/dL (0.6-1.0) 1.1 mg/dL (0.6-1.0) Estimated GFR (Cockcroft-Gault) 68.7 61.5 Glucose Level 134 mg/dL (70-99) 218 mg/dL (70-99) Calcium Level 8.6 mg/dL (8.5-10.1) 8.3 mg/dL (8.5-10.1) Magnesium Level 3.2 mg/dL (1.8-2.4) 2.7 mg/dL (1.8-2.4) White Blood Count 6.3 x10^3/uL (4.0-11.0) Red Blood Count 2.49 x10^6/uL (3.50-5.40) Hemoglobin 6.8 g/dL (12.0-15.5) Hematocrit 20.8 % (36.0-47.0) Mean Corpuscular Volume 84 fL (79-100) Mean Corpuscular Hemoglobin 27 pg (25-35) Mean Corpuscular Hemoglobin Concent 33 g/dL (31-37) Red Cell Distribution Width 15.0 % (11.5-14.5) Platelet Count 50 x10^3/uL (140-400) O2 Saturation 95 % (92-99) Arterial Blood pH 7.51 (7.35-7.45) Arterial Blood pCO2 at Patient Temp 37 mmHg (35-46) Arterial Blood pO2 at Patient Temp 81 mmHg (65-108) Arterial Blood HCO3 29 mmol/L (21-28) Arterial Blood Base Excess 5 mmol/L (-3-3) FiO2 100 Test 07/29/18 16:00 07/30/18 08:00 07/30/18 08:20 Hemoglobin 8.8 g/dL (12.0-15.5) 7.8 g/dL (12.0-15.5) Hematocrit 25.7 % (36.0-47.0) 23.4 % (36.0-47.0) Sodium Level 140 mmol/L (136-145) 139 mmol/L (136-145) Potassium Level 3.0 mmol/L (3.5-5.1) 3.7 mmol/L (3.5-5.1) Chloride Level 102 mmol/L (98-107) 105 mmol/L (98-107) Carbon Dioxide Level 29 mmol/L (21-32) 24 mmol/L (21-32) Anion Gap 9 (6-14) 10 (6-14) Blood Urea Nitrogen 13 mg/dL (7-20) 12 mg/dL (7-20) Creatinine 0.9 mg/dL (0.6-1.0) 0.8 mg/dL (0.6-1.0) Estimated GFR (Cockcroft-Gault) 77.5 88.8 Glucose Level 111 mg/dL (70-99) 90 mg/dL (70-99) Calcium Level 7.6 mg/dL (8.5-10.1) 7.5 mg/dL (8.5-10.1) Magnesium Level 1.9 mg/dL (1.8-2.4) O2 Saturation 99 % (92-99) Arterial Blood pH 7.48 (7.35-7.45) Arterial Blood pCO2 at Patient Temp 32 mmHg (35-46) Arterial Blood pO2 at Patient Temp 197 mmHg (65-108) Arterial Blood HCO3 23 mmol/L (21-28) Arterial Blood Base Excess 0 mmol/L (-3-3) FiO2 50 White Blood Count 4.8 x10^3/uL (4.0-11.0) Red Blood Count 2.76 x10^6/uL (3.50-5.40) Mean Corpuscular Volume 85 fL (79-100) Mean Corpuscular Hemoglobin 28 pg (25-35) Mean Corpuscular Hemoglobin Concent 33 g/dL (31-37) Red Cell Distribution Width 14.8 % (11.5-14.5) Platelet Count 40 x10^3/uL (140-400) GC-Joi-Q-Type Natriuretic Peptide 4629 pg/mL (0-124) Laboratory Tests Test 07/29/18 16:00 07/30/18 08:00 07/30/18 08:20 Hemoglobin 8.8 g/dL (12.0-15.5) 7.8 g/dL (12.0-15.5) Hematocrit 25.7 % (36.0-47.0) 23.4 % (36.0-47.0) Sodium Level 140 mmol/L (136-145) 139 mmol/L (136-145) Potassium Level 3.0 mmol/L (3.5-5.1) 3.7 mmol/L (3.5-5.1) Chloride Level 102 mmol/L (98-107) 105 mmol/L (98-107) Carbon Dioxide Level 29 mmol/L (21-32) 24 mmol/L (21-32) Anion Gap 9 (6-14) 10 (6-14) Blood Urea Nitrogen 13 mg/dL (7-20) 12 mg/dL (7-20) Creatinine 0.9 mg/dL (0.6-1.0) 0.8 mg/dL (0.6-1.0) Estimated GFR (Cockcroft-Gault) 77.5 88.8 Glucose Level 111 mg/dL (70-99) 90 mg/dL (70-99) Calcium Level 7.6 mg/dL (8.5-10.1) 7.5 mg/dL (8.5-10.1) Magnesium Level 1.9 mg/dL (1.8-2.4) O2 Saturation 99 % (92-99) Arterial Blood pH 7.48 (7.35-7.45) Arterial Blood pCO2 at Patient Temp 32 mmHg (35-46) Arterial Blood pO2 at Patient Temp 197 mmHg (65-108) Arterial Blood HCO3 23 mmol/L (21-28) Arterial Blood Base Excess 0 mmol/L (-3-3) FiO2 50 White Blood Count 4.8 x10^3/uL (4.0-11.0) Red Blood Count 2.76 x10^6/uL (3.50-5.40) Mean Corpuscular Volume 85 fL (79-100) Mean Corpuscular Hemoglobin 28 pg (25-35) Mean Corpuscular Hemoglobin Concent 33 g/dL (31-37) Red Cell Distribution Width 14.8 % (11.5-14.5) Platelet Count 40 x10^3/uL (140-400) GC-Xiw-X-Type Natriuretic Peptide 4629 pg/mL (0-124) Medications Active Scripts Medications Dose Route/Sig Max Daily Dose Days Date Category Melatonin 3 Mg Tab.rapdis 3 Mg PO HS PRN 07/27/18 Reported Nephro-Nola Tablet (Folic Acid/Vitamin B Comp W-C) 0.8 Mg Tablet 1 Tab PO DAILY 07/27/18 Reported Vitamin B-12 (Cyanocobalamin (Vitamin B-12)) 1,000 Mcg Tablet 1,000 Mcg PO DAILY 07/27/18 Reported Megestrol Acetate 20 Mg Tablet 20 Mg PO DAILY 07/27/18 Reported Protonix (Pantoprazole Sodium) 20 Mg Tablet.dr 40 Mg PO DAILY 07/27/18 Reported Zoloft (Sertraline Hcl) 50 Mg Tablet 1 Tab PO DAILY 07/27/18 Reported Zoloft (Sertraline Hcl) 25 Mg Tablet 1 Tab PO DAILY 07/27/18 Reported Coreg (Carvedilol) 25 Mg Tablet 6.25 Mg PO BIDWMEALS 07/27/18 Reported Lipitor (Atorvastatin Calcium) 10 Mg Tablet 1 Tab PO QHS 07/27/18 Reported Spiriva (Tiotropium [place]) 18 Mcg Cap.w.dev 1 Cap IH DAILY 07/27/18 Reported Duoneb 0.5-3(2.5) Mg/3 Ml (Albuterol/Ipratropium) 3 Ml Ampul.neb 3 Ml NEB QID PRN 07/27/18 Reported Comments CXR today shows good ET placement and R infiltrate stable or perhaps slightly improved. CTA yesterday did not show PE Impression . IMPRESSION: 1. Acute hypoxemic respiratory failure secondary to pneumonia and cardiac arrest. 2. Aspiration pneumonia. 3. Alcoholism with past history of severe withdrawal. 4. Chronic obstructive pulmonary disease. Plan . Continue mechanical ventilation and wean FIO2 as tolerated. Continue antibiotics and bronchodilators. Continue sedation including diazepams. Will hold again in AM and assess for withdrawal and possible spontaneous breathing trial CCM time reviewing lab and xrays and examining patient and talking to family 30 minutes. BAKARI MARTIN MD Jul 30, 2018 11:19
--- NOTE | 2018-07-30 13:14 | PDOC ---
PROGRESS NOTES Subjective Subjective Intubated Objective Objective Vital Signs Date Time Temp Pulse Resp B/P (MAP) Pulse Ox O2 Delivery O2 Flow Rate FiO2 07/30/18 13:00 87 14 126/80 (95) 100 Ventilator 07/30/18 11:00 98.6 98.6 Intake and Output 07/30/18 07:00 Intake Total 1618.72 ml Output Total 1000 ml Balance 618.72 ml IV Total 980.72 ml Blood Product IV Normal Saline Flush 638 ml Output Urine Total 1000 ml Physical Exam Abdomen: Soft, No tenderness Heart: Regular rate Extremities: No edema General: Other (intubated) Lungs: Clear to auscultation Assessment Assessment 1. s/p cardiopulmonary arrest, PEA. Telemetry yesterday showed sinus bradycardia and few 3 s pauses that appear to be vasovagal. No further pauses overnight. We will continue to monitor. No emergent indication for pacemaker at this time. CTA did not show any acute pulmonary embolism. Continue vent management per pulmonary team. 2-D echo showed LVEF 60-65%. We will consider event monitor as an outpatient. 2. Sepsis/pneumonia: Continue intravenous antibiotics 3. Chronic alcohol abuse/toxic encephalopathy: Treat per IM. Comment Review of Relevant I have reviewed the following items pallavi (where applicable) has been applied. Labs Laboratory Tests Test 07/29/18 16:00 07/30/18 08:00 07/30/18 08:20 Hemoglobin 8.8 g/dL (12.0-15.5) 7.8 g/dL (12.0-15.5) Hematocrit 25.7 % (36.0-47.0) 23.4 % (36.0-47.0) Sodium Level 140 mmol/L (136-145) 139 mmol/L (136-145) Potassium Level 3.0 mmol/L (3.5-5.1) 3.7 mmol/L (3.5-5.1) Chloride Level 102 mmol/L (98-107) 105 mmol/L (98-107) Carbon Dioxide Level 29 mmol/L (21-32) 24 mmol/L (21-32) Anion Gap 9 (6-14) 10 (6-14) Blood Urea Nitrogen 13 mg/dL (7-20) 12 mg/dL (7-20) Creatinine 0.9 mg/dL (0.6-1.0) 0.8 mg/dL (0.6-1.0) Estimated GFR (Cockcroft-Gault) 77.5 88.8 Glucose Level 111 mg/dL (70-99) 90 mg/dL (70-99) Calcium Level 7.6 mg/dL (8.5-10.1) 7.5 mg/dL (8.5-10.1) Magnesium Level 1.9 mg/dL (1.8-2.4) O2 Saturation 99 % (92-99) Arterial Blood pH 7.48 (7.35-7.45) Arterial Blood pCO2 at Patient Temp 32 mmHg (35-46) Arterial Blood pO2 at Patient Temp 197 mmHg (65-108) Arterial Blood HCO3 23 mmol/L (21-28) Arterial Blood Base Excess 0 mmol/L (-3-3) FiO2 50 White Blood Count 4.8 x10^3/uL (4.0-11.0) Red Blood Count 2.76 x10^6/uL (3.50-5.40) Mean Corpuscular Volume 85 fL (79-100) Mean Corpuscular Hemoglobin 28 pg (25-35) Mean Corpuscular Hemoglobin Concent 33 g/dL (31-37) Red Cell Distribution Width 14.8 % (11.5-14.5) Platelet Count 40 x10^3/uL (140-400) SO-Pui-Q-Type Natriuretic Peptide 4629 pg/mL (0-124) Microbiology 07/27/18 Blood Culture - Preliminary, Resulted NO GROWTH AFTER 2 DAYS Medications Current Medications Potassium Bicarbonate (Potassium Effervescent Tablet) 40 meq TID PEG Last administered on 07/30/18at 08:29; Start 07/30/18 at 09:00 Potassium Chloride/Dextrose/ Sod Cl 1,000 ml @ 80 mls/hr 1X ONCE IV Last administered on 07/30/18at 08:36; Start 07/30/18 at 08:00; Stop 07/30/18 at 20:29 Potassium Chloride (Klor-Con) 40 meq 1X ONCE PO Last administered on 07/29/18at 19:45; Start 07/29/18 at 19:30; Stop 07/29/18 at 19:31; Status DC Potassium Chloride (Klor-Con) 40 meq 1X ONCE PO Last administered on 07/29/18at 22:08; Start 07/29/18 at 22:00; Stop 07/29/18 at 22:01; Status DC Vitals/I & O Vital Sign - Last 24 Hours 07/29/18 07/29/18 07/29/18 07/29/18 13:40 14:00 14:43 15:00 Temp 99.0 98.8 98.8 99.0 98.8 98.8 Pulse 87 88 87 87 Resp 16 16 16 16 B/P (MAP) 126/79 126/79 (95) 128/80 128/80 (96) Pulse Ox 100 100 O2 Delivery Ventilator Ventilator 07/29/18 07/29/18 07/29/18 07/29/18 15:54 16:00 16:00 17:00 Pulse 80 75 Resp 16 16 B/P (MAP) 121/74 (90) 116/69 (85) Pulse Ox 100 100 100 O2 Delivery Ventilator Mechanical Ventilator Ventilator Ventilator 07/29/18 07/29/18 07/29/18 07/29/18 18:00 19:00 20:00 20:00 Temp 98.8 98.8 Pulse 82 85 103 Resp 16 16 22 B/P (MAP) 108/64 (79) 117/78 (91) 112/76 (88) Pulse Ox 100 50 50 O2 Delivery Ventilator Ventilator Mechanical Ventilator Ventilator 07/29/18 07/29/18 07/29/18 07/29/18 20:23 21:00 22:00 23:00 Pulse 85 77 78 Resp 16 16 16 B/P (MAP) 118/72 (87) 113/69 (84) 91/60 (70) Pulse Ox 100 50 50 50 O2 Delivery Ventilator Ventilator Ventilator Ventilator 07/29/18 07/29/18 07/30/18 07/30/18 23:58 23:59 00:00 00:46 Temp 98.4 98.4 Pulse 79 Resp 16 16 B/P (MAP) 99/64 (76) Pulse Ox 100 50 O2 Delivery Ventilator Mechanical Ventilator Ventilator Ventilator 07/30/18 07/30/18 07/30/18 07/30/18 01:00 01:16 02:00 02:11 Pulse 82 78 Resp 16 16 16 B/P (MAP) 104/69 (81) 109/73 (85) Pulse Ox 50 50 100 O2 Delivery Ventilator Ventilator Ventilator 07/30/18 07/30/18 07/30/18 07/30/18 03:00 04:00 04:00 04:11 Temp 97.2 97.2 Pulse 77 82 Resp 16 16 B/P (MAP) 98/70 (79) 114/78 (90) Pulse Ox 50 50 100 O2 Delivery Ventilator Mechanical Ventilator Ventilator Ventilator 07/30/18 07/30/18 07/30/18 07/30/18 05:00 05:54 06:00 07:00 Temp 99.0 99.0 Pulse 81 85 79 Resp 16 16 16 B/P (MAP) 136/83 (100) 113/74 (87) 119/77 (91) Pulse Ox 50 100 50 100 O2 Delivery Ventilator Ventilator Ventilator Ventilator 07/30/18 07/30/18 07/30/18 07/30/18 07:55 08:00 08:00 09:00 Pulse 84 88 Resp 16 16 B/P (MAP) 105/68 (80) 122/84 (97) Pulse Ox 100 100 100 O2 Delivery Ventilator Ventilator Mechanical Ventilator Ventilator 07/30/18 07/30/18 07/30/18 07/30/18 09:20 10:00 10:41 11:00 Temp 98.6 98.6 Pulse 86 88 Resp 16 19 16 B/P (MAP) 111/76 (88) 125/83 (97) Pulse Ox 100 100 100 100 O2 Delivery Ventilator Ventilator Ventilator Ventilator 07/30/18 07/30/18 07/30/18 07/30/18 11:56 12:00 12:00 13:00 Pulse 84 87 Resp 17 14 B/P (MAP) 114/76 (89) 126/80 (95) Pulse Ox 100 100 100 O2 Delivery Ventilator Mechanical Ventilator Ventilator Ventilator Intake and Output 07/29/18 07/29/18 07/30/18 15:00 23:00 07:00 Intake Total 688 ml 100 ml 830.72 ml Output Total 345 ml 365 ml 290 ml Balance 343 ml -265 ml 540.72 ml WANDA BONILLA MD Jul 30, 2018 13:14
--- NOTE | 2018-07-30 13:16 | PDOC ---
SUBJECTIVE ROS Intubated , On Vent , Opening eyes OBJECTIVE Vital Signs Vital Signs Date Time Temp Pulse Resp B/P (MAP) Pulse Ox O2 Delivery O2 Flow Rate FiO2 07/30/18 13:00 87 14 126/80 (95) 100 Ventilator 07/30/18 11:00 98.6 98.6 I & 0 Intake and Output 07/30/18 07:00 Intake Total 1618.72 ml Output Total 1000 ml Balance 618.72 ml IV Total 980.72 ml Blood Product IV Normal Saline Flush 638 ml Output Urine Total 1000 ml PHYSICAL EXAM Physical Exam GENERAL: Intubated HEENT: Intubated NECK: Supple. LUNGS: Decreased breath sounds at bases. No rhonchi. HEART: S1, S2, tachycardia. ABDOMEN: Soft, nontender and nondistended. EXTREMITIES: No Edema NEUROLOGIC: , intubated - Brandt + skin- no Rash DIAGNOSIS/ASSESSMENT Assessment & Plan CRYSTAL - Suspect due to ATN 2/2 Vomiting/Infection Renal function improved E-Lytes and acid base stable,monitor Recd IV contrast with CTA on 07/29- Monitor renal function CKD Stage 3- Baseline per primary 1.2- 1.3 Renal US - Small Lt Kidney 7.2 cm Resp failure- Intubated this am Hypokalemia- Normal K today HypoMag - Replace as needed Hypernatremia- Normal now Pulmonary infiltrates, likely aspiration pneumonia. On Abx History of vomiting prior to admission. Syncopal episode with unresponsiveness. History of alcohol dependence with alcohol withdrawal seizures Metabolic acidosis- Corrected, Lactic acidosis. Thrombocytopenia. Protein-calorie malnutrition. Anemia s/p prbc 07/29 Will sign off COMMENT/RELEVANT DATA Meds Current Medications Medications (Trade) Dose Ordered Sig/Bev Start Time Stop Time Status Last Admin Dose Admin Albuterol Sulfate (Ventolin Neb Soln) 2.5 mg PRN QID PRN 07/27/18 04:30 Albuterol/ Ipratropium (Duoneb) 3 ml RTQID 07/27/18 08:00 07/30/18 11:56 3 ML Atropine Sulfate (ATROPINE 1mg SYRINGE) 1 mg STK-MED ONCE 07/29/18 04:31 07/29/18 04:32 DC Chlordiazepoxide (Librium) 25 mg Q6H 07/27/18 03:30 07/28/18 09:31 UNV Cyanocobalamin (Vitamin B-12) 1,000 mcg DAILY 07/27/18 09:00 07/30/18 08:29 1,000 MCG Dextrose 1,000 ml @ 100 mls/hr Q10H 07/28/18 07:00 07/29/18 08:25 DC 07/29/18 07:30 100 MLS/HR Diphenhydramine HCl (Benadryl) 25 mg PRN Q15MIN PRN 07/27/18 10:45 Fentanyl Citrate 30 ml @ 0 mls/hr CONT PRN 07/29/18 07:15 07/30/18 10:41 2.5 MLS/HR Haloperidol Lactate (Haldol Inj) 5 mg PRN Q4HRS PRN 07/27/18 10:45 Iohexol (Omnipaque 350 Mg/ml) 90 ml 1X ONCE 07/29/18 10:45 07/29/18 10:46 DC 07/29/18 12:00 90 ML Lactobacillus Rhamnosus (Culturelle) 1 cap BID 07/28/18 21:00 07/29/18 08:39 DC Levofloxacin/ Dextrose 100 ml @ 100 mls/hr Q48H 07/29/18 00:00 07/29/18 00:00 DC Lorazepam (Ativan Inj) 4 mg PRN Q15MIN PRN 07/27/18 10:45 Lorazepam (Ativan) 2 mg PRN Q6HRS PRN 07/27/18 07:45 Magnesium Sulfate 50 ml @ 25 mls/hr 1X ONCE 07/27/18 07:30 07/27/18 09:29 DC 07/27/18 11:03 25 MLS/HR Magnesium Sulfate/ Dextrose 100 ml @ 50 mls/hr PRN DAILY PRN 07/29/18 08:45 08/01/18 08:00 Meropenem 500 mg/ Sodium Chloride 50 ml @ 100 mls/hr Q8HRS 07/29/18 09:00 07/30/18 06:17 100 MLS/HR Midazolam HCl 100 ml @ 5 mls/hr CONT PRN 07/29/18 06:00 07/30/18 08:33 3 MLS/HR Multi-Ingred Cream/Lotion/Oil/ Oint (Artificial Tears Eye Ointment) 1 michele PRN Q1HR PRN 07/29/18 11:15 07/30/18 07:47 1 MICHELE Multivitamins (Thera M Plus) 1 tab DAILY 07/27/18 09:00 07/29/18 08:38 DC Multivitamins 10 ml/Thiamine HCl 100 mg/Folic Acid 1 mg/Sodium Chloride 1,011.2 ml @ 100 mls/ hr DAILY 07/29/18 09:00 08/02/18 19:07 07/30/18 09:15 100 MLS/HR Non-Formulary Medication (Melatonin ) 3 mg HS PRN 07/27/18 04:15 UNV Norepinephrine Bitartrate 250 ml @ 1.875 mls/ hr CONT PRN 07/29/18 06:00 UNV Ondansetron HCl (Zofran) 4 mg PRN Q6HRS PRN 07/27/18 03:30 Pantoprazole Sodium (PROTONIX VIAL for IV PUSH) 40 mg DAILY 07/29/18 09:00 07/30/18 08:28 40 MG Pantoprazole Sodium (Protonix) 40 mg DAILYAC 07/27/18 07:30 07/29/18 08:30 DC Potassium Bicarbonate (Potassium Effervescent Tablet) 40 meq TID 07/30/18 09:00 07/30/18 08:29 40 MEQ Potassium Chloride/Dextrose/ Sod Cl 1,000 ml @ 80 mls/hr 1X ONCE 07/30/18 08:00 07/30/18 20:29 07/30/18 08:36 80 MLS/HR Potassium Chloride/Water 100 ml @ 100 mls/hr Q1H 07/28/18 07:00 07/28/18 14:59 DC 07/28/18 14:19 100 MLS/HR Potassium Chloride (Klor-Con) 40 meq 1X ONCE 07/29/18 22:00 07/29/18 22:01 DC 07/29/18 22:08 40 MEQ Propofol 100 ml @ As Directed STK-MED ONCE 07/29/18 04:41 07/29/18 04:42 DC Sertraline HCl (Zoloft) 50 mg DAILY 07/27/18 09:00 07/30/18 08:29 50 MG Sodium Bicarbonate 150 meq/Dextrose 1,150 ml @ 100 mls/hr [id number] 07/27/18 04:30 07/27/18 22:18 DC 07/27/18 16:57 100 MLS/HR Sodium Chloride 1,000 ml @ 100 mls/hr Q10H 07/29/18 08:30 UNV Vitamin B Complex/ Vitamin C (Linette-Nola) 1 tab DAILY 07/27/18 09:00 07/29/18 08:38 DC Lab Laboratory Tests Test 07/29/18 16:00 07/30/18 08:00 07/30/18 08:20 Hemoglobin 8.8 g/dL (12.0-15.5) 7.8 g/dL (12.0-15.5) Hematocrit 25.7 % (36.0-47.0) 23.4 % (36.0-47.0) Sodium Level 140 mmol/L (136-145) 139 mmol/L (136-145) Potassium Level 3.0 mmol/L (3.5-5.1) 3.7 mmol/L (3.5-5.1) Chloride Level 102 mmol/L (98-107) 105 mmol/L (98-107) Carbon Dioxide Level 29 mmol/L (21-32) 24 mmol/L (21-32) Anion Gap 9 (6-14) 10 (6-14) Blood Urea Nitrogen 13 mg/dL (7-20) 12 mg/dL (7-20) Creatinine 0.9 mg/dL (0.6-1.0) 0.8 mg/dL (0.6-1.0) Estimated GFR (Cockcroft-Gault) 77.5 88.8 Glucose Level 111 mg/dL (70-99) 90 mg/dL (70-99) Calcium Level 7.6 mg/dL (8.5-10.1) 7.5 mg/dL (8.5-10.1) Magnesium Level 1.9 mg/dL (1.8-2.4) O2 Saturation 99 % (92-99) Arterial Blood pH 7.48 (7.35-7.45) Arterial Blood pCO2 at Patient Temp 32 mmHg (35-46) Arterial Blood pO2 at Patient Temp 197 mmHg (65-108) Arterial Blood HCO3 23 mmol/L (21-28) Arterial Blood Base Excess 0 mmol/L (-3-3) FiO2 50 White Blood Count 4.8 x10^3/uL (4.0-11.0) Red Blood Count 2.76 x10^6/uL (3.50-5.40) Mean Corpuscular Volume 85 fL (79-100) Mean Corpuscular Hemoglobin 28 pg (25-35) Mean Corpuscular Hemoglobin Concent 33 g/dL (31-37) Red Cell Distribution Width 14.8 % (11.5-14.5) Platelet Count 40 x10^3/uL (140-400) KG-Nxc-R-Type Natriuretic Peptide 4629 pg/mL (0-124) Results All relevant outside records, renal labs, imaging studies, telemetry/EKG's were reviewed. AMADO ULLOA MD Jul 30, 2018 13:16
[2018-07-30 16:24] LABS: HEMATOCRIT 23.6 % (36.0-47.0)
[2018-07-30 16:37] LABS: CALCIUM 7.3 mg/dL (8.5-10.1); CREATININE 0.9 mg/dL (0.6-1.0); GFR 77.5; MAGNESIUM 1.4 mg/dL (1.8-2.4); POTASSIUM 4.7 mmol/L (3.5-5.1)
--- NOTE | 2018-07-30 17:54 | CARD ---
MR#: [id number] Date of Study: 07/30/2018 Ordering Physician: WANDA BONILLA, Referring Physician: REKHA CARMEN Tech: Keri Cat RDCS APPROVED REPORT EXAM: Two-dimensional and M-mode echocardiogram with Doppler and color Doppler. Other Information Quality : Good INDICATION S/P Cardiac Arrest 2D DIMENSIONS RVDd2.2 (2.9-3.5cm)Left Atrium(2D)2.4 (1.6-4.0cm) IVSd0.9 (0.7-1.1cm)Aortic Root(2D)2.5 (2.0-3.7cm) LVDd3.5 (3.9-5.9cm)LVOT Diameter2.0 (1.8-2.4cm) PWd0.8 (0.7-1.1cm)LVDs2.3 (2.5-4.0cm) FS (%) 33.9 %SV32.4 ml LVEF(%)63.9 (>50%) Aortic Valve AoV Peak Elpidio.97.3cm/sAoV VTI16.1cm AO Peak GR.3.8mmHgLVOT VTI 12.64cm AO Mean GR.2mmHgAVA (VTI)2.37cm2 Mitral Valve MV E Mnagijqt13.8cm/sMV DECEL [id number] MV A Ucketbtn40.1cm/sE/A Ratio0.9 TDI Lateral E' P. V5.34cm/sMedial E' P. V5.60cm/s E/Lateral E'11.9E/Medial E'11.4 Tricuspid Valve TR P. Oziwrizy407wm/sRAP [id number] TR Peak Gr.44upUcRFHU21dqIx LEFT VENTRICLE The left ventricle is normal size. There is normal left ventricular wall thickness. The left ventricu lar systolic function is normal. The Ejection Fraction is 60-65%. There is normal LV segmental wall m otion. Transmitral Doppler flow pattern is Grade I-abnormal relaxation pattern. RIGHT VENTRICLE The right ventricle is normal size. The right ventricular systolic function is normal. ATRIA The left atrium size is normal. The right atrium size is normal. The interatrial septum is intact wit h no evidence for an atrial septal defect or patent foramen ovale as noted on 2-D or Doppler imaging. AORTIC VALVE The aortic valve is calcified but opens well. Doppler and Color Flow revealed no significant aortic r egurgitation. There is no significant aortic valvular stenosis. MITRAL VALVE The mitral valve is calcified but opens well. There is no evidence of mitral valve prolapse. There is no mitral valve stenosis. Doppler and Color-flow revealed trace mitral regurgitation. TRICUSPID VALVE The tricuspid valve is normal in structure and function. Doppler and Color Flow revealed trace to mil d tricuspid regurgitation. There is mild pulmonary hypertension. The PA pressure was estimated at 34 mmHg. There is no tricuspid valve stenosis. PULMONIC VALVE The pulmonic valve is not well visualized. Doppler and Color Flow revealed no pulmonic valvular regur gitation. There is no pulmonic valvular stenosis. GREAT VESSELS The aortic root is normal in size. The ascending aorta is not well seen. The IVC is normal in size an d collapses >50% with inspiration. PERICARDIAL EFFUSION There is no evidence of significant pericardial effusion. Critical Notification Critical Value: No <Conclusion> The left ventricular systolic function is normal. The Ejection Fraction is 60-65%. There is normal LV segmental wall motion. Transmitral Doppler flow pattern is Grade I-abnormal relaxation pattern. Trace mitral regurgitation. Trace to mild tricuspid regurgitation. The PA pressure was estimated at 34 mmHg. There is no evidence of significant pericardial effusion. Signed by : Wanda Bonilla, Electronically Approved : 07/30/2018 17:54:30
[2018-07-30] MEDS ORDERED: MAGNESIUM SULFATE 4GM 100 ML IV ONE (19:00)
[2018-07-31] VITALS (25 sets, daily range): BP systolic 86–142; BP diastolic 58–83
[2018-07-31] MEDS: MEROPENEM 500 MG in IV NORMAL SALINE 50ML 50 ML IV SCH ×3 (06:14→21:48)
[2018-07-31] MEDS: IPRATRPIUM/ALBUTEROL 0.5/2.5MG 3 ML NEBU. NEB SCH ×4 (08:00→19:21)
--- NOTE | 2018-07-31 08:00 | PDOC ---
Infectious Disease Note Subjective Subjective Sedated No fevers reported [facility]N CLINE unable to obtain Vital Sign Vital Signs Vital Signs Date Time Temp Pulse Resp B/P (MAP) Pulse Ox O2 Delivery O2 Flow Rate FiO2 07/31/18 06:00 95 15 105/69 (81) 98 Ventilator 07/31/18 05:00 98.9 98.9 07/31/18 03:38 4.0 Physical Exam PHYSICAL EXAM GENERAL: Orally intubated, sedated, weak-appearing female, thin cachetic, HEENT: Pupils equal, Sclerae muddy. ETT, OGT NECK: Supple. LUNGS: Decreased breath sounds at bases. No rhonchi. HEART: S1, S2, regular ABDOMEN: Nondistended, soft, + Bowel sounds : Brandt in place EXTREMITIES: Muscle wasting, No cyanosis, no clubbing. NEUROLOGIC: Sedated/unresponsive SKIN: Warm without rash PIV Labs Lab Laboratory Tests Test 07/30/18 08:00 07/30/18 08:20 07/30/18 15:38 O2 Saturation 99 % (92-99) Arterial Blood pH 7.48 (7.35-7.45) Arterial Blood pCO2 at Patient Temp 32 mmHg (35-46) Arterial Blood pO2 at Patient Temp 197 mmHg (65-108) Arterial Blood HCO3 23 mmol/L (21-28) Arterial Blood Base Excess 0 mmol/L (-3-3) FiO2 50 White Blood Count 4.8 x10^3/uL (4.0-11.0) Red Blood Count 2.76 x10^6/uL (3.50-5.40) Hemoglobin 7.8 g/dL (12.0-15.5) 8.0 g/dL (12.0-15.5) Hematocrit 23.4 % (36.0-47.0) 23.6 % (36.0-47.0) Mean Corpuscular Volume 85 fL (79-100) Mean Corpuscular Hemoglobin 28 pg (25-35) Mean Corpuscular Hemoglobin Concent 33 g/dL (31-37) Red Cell Distribution Width 14.8 % (11.5-14.5) Platelet Count 40 x10^3/uL (140-400) Sodium Level 139 mmol/L (136-145) 136 mmol/L (136-145) Potassium Level 3.7 mmol/L (3.5-5.1) 4.7 mmol/L (3.5-5.1) Chloride Level 105 mmol/L (98-107) 105 mmol/L (98-107) Carbon Dioxide Level 24 mmol/L (21-32) 23 mmol/L (21-32) Anion Gap 10 (6-14) 8 (6-14) Blood Urea Nitrogen 12 mg/dL (7-20) 11 mg/dL (7-20) Creatinine 0.8 mg/dL (0.6-1.0) 0.9 mg/dL (0.6-1.0) Estimated GFR (Cockcroft-Gault) 88.8 77.5 Glucose Level 90 mg/dL (70-99) 132 mg/dL (70-99) Calcium Level 7.5 mg/dL (8.5-10.1) 7.3 mg/dL (8.5-10.1) UP-Ulz-G-Type Natriuretic Peptide 4629 pg/mL (0-124) Magnesium Level 1.4 mg/dL (1.8-2.4) Micro CXR 07/30 IMPRESSION: Right lower lung zone disease process likely pneumonia. Superimposed interstitial opacities which may be secondary to interstitial pulmonary edema or atypical/viral infection. Microbiology 07/27/18 Blood Culture - Preliminary, Resulted NO GROWTH AFTER 3 DAYS Objective Assessment ETOH withdrawal Pulmonary infiltrates, likely aspiration pneumonia. -History of vomiting prior to admission. ALLERGY TO PENICILLIN WITH ANAPHYLAXIS. Per chart, the patient has received a dose of ceftriaxone at [facility]. The daughter feels that she may have taken cephalexin, but is not sure at this time. s/p code blue, 07/29 Syncopal episode POA - fractured rib History of alcohol withdrawal seizures, last one 1 month ago. Metabolic acidosis and acute kidney injury, improved Lactic acidosis, better Thrombocytopenia. Protein-calorie malnutrition. Anemia. Plan Plan of Care Continue Merrem 07/26 [facility] neg so far Supportive care. Critically ill D/w family JOSE TEMPLE MD Jul 31, 2018 08:00
[2018-07-31 08:22] LABS: HEMATOCRIT 24.9 % (36.0-47.0); HEMOGLOBIN 8.3 g/dL (12.0-15.5); RED BLOOD COUNT 2.92 x10^6/uL (3.50-5.40); RED CELL DISTRIBUTION WIDTH 15.5 % (11.5-14.5); WHITE BLOOD COUNT 5.9 x10^3/uL (4.0-11.0)
[2018-07-31] MEDS: MULTIVIT INFUSN,ADULT 4,VIT K 10 ML, THIAMINE INJ 100 MG, FOLIC ACID INJ 1 MG in IV NOR... IV SCH (08:30)
[2018-07-31] MEDS: MIDAZOLAM 100mg/100ml NS BAG 100 ML IV PRN (08:30)
[2018-07-31 08:48] LABS: ALBUMIN 1.8 g/dL (3.4-5.0); ALBUMIN/GLOBULIN RATIO 0.5 (1.0-1.7); CALCIUM 7.8 mg/dL (8.5-10.1); CREATININE 0.9 mg/dL (0.6-1.0); GFR 77.5; POTASSIUM 5.7 mmol/L (3.5-5.1); TOTAL BILIRUBIN 0.4 mg/dL (0.2-1.0); TOTAL PROTEIN 5.6 g/dL (6.4-8.2)
--- NOTE | 2018-07-31 08:48 | PN ---
DATE: 07/31/2018 SUBJECTIVE: The patient is resting, slightly propped up in bed, continued to be sedated, intubated and mechanically ventilated. She is on Versed and fentanyl. She is maintaining her oxygen saturation at 100% on FiO2 of 35%. PHYSICAL EXAMINATION: GENERAL: When I examined her, she looked pale, cachectic, but no jaundice, cyanosis, or thyromegaly. No jugular venous distension. No lower limb edema. VITAL SIGNS: Her heart rate was 82, blood pressure was 105/69, temperature was 98.6, respiratory rate was 15 and oxygen saturation was 100%. HEAD, EYES, EARS, NOSE AND THROAT: Normocephalic, atraumatic. She has orogastric and orotracheal tube in place. NECK: Supple. HEART: Showed normal first and second heart sounds. No gallop, rub or murmur. CHEST: Clear to auscultation. No crepitation or rhonchi. ABDOMEN: Distended, soft and nontender. No guarding or rigidity. No organomegaly. All hernial orifices intact. Bowel sounds normal. NEUROLOGIC: She is sedated, but arousable. Her intake was 4200 and output was 1045. LABORATORY DATA: As of yesterday, her serum sodium was 136, potassium 4.7, chloride 105, bicarbonate 23, anion gap of 8, BUN 11, creatinine 0.9, estimated GFR was 77 mL per minute, her glucose 132, calcium was 7.3 and magnesium was 1.4. Her hemoglobin was 8, hematocrit 23.6. Her nasal screen for MRSA PCR was negative. ASSESSMENT: 1. The patient is status post cardiac arrest, started bradycardia and eventually asystole, pulseless electrical activity from which she was successfully resuscitated. She has 3 rounds of epinephrine with return of spontaneous circulation. She was intubated, currently sedated, mechanically ventilated. 2. Chronic alcoholism, alcohol withdrawal seizures. 3. Sepsis, likely due to the right lower lobe pneumonia. 4. Metabolic acidosis, resolved. 5. Acute kidney injury, resolved. Her creatinine came down from 1.8 to 0.9 mg/dL 6. Thrombocytopenia. 7. Severe protein-calorie malnutrition. 8. Anemia, status post one unit of packed RBCs and hemoglobin is 8.8 and hematocrit 25.7. 9. Hypomagnesemia with serum magnesium of 1.4 as of yesterday. Today's lab is still pending. 10. Hypokalemia, resolved and as of yesterday her potassium was 4.7. PLAN: To continue with IV fluid, continue with potassium supplement. Continue nutritional support. Continue mechanical ventilation and wean as tolerated. Continue with IV meropenem. REKHA CARMEN MD DR: CYNTHIA/desean JOB#: [id number] / [id number]
--- NOTE | 2018-07-31 09:07 | PDOC ---
PULMONARY PROGRESS NOTES Subjective PT ON PS OF 13 LOOKED OK IN DROPPER THE PS TO 5 VT LOWER PT THINKS SHE IS READY FOR EXTUBATION. Vitals Vital Signs Date Time Temp Pulse Resp B/P (MAP) Pulse Ox O2 Delivery O2 Flow Rate FiO2 07/31/18 09:01 100 Ventilator 07/31/18 08:00 84 16 86/60 (69) 07/31/18 07:00 98.6 98.6 07/31/18 03:38 4.0 ROS: No Chest Pain, No Increase Cough General: Alert Lungs: Crackles, Other (equal breath sounds, no wheezing) Cardiovascular: S1, S2 Abdomen: Soft Neuro Exam: Alert Extremities: No Edema, Other Skin: Warm Labs Laboratory Tests Test 07/29/18 16:00 07/30/18 08:00 07/30/18 08:20 07/30/18 15:38 Hemoglobin 8.8 g/dL (12.0-15.5) 7.8 g/dL (12.0-15.5) 8.0 g/dL (12.0-15.5) Hematocrit 25.7 % (36.0-47.0) 23.4 % (36.0-47.0) 23.6 % (36.0-47.0) Sodium Level 140 mmol/L (136-145) 139 mmol/L (136-145) 136 mmol/L (136-145) Potassium Level 3.0 mmol/L (3.5-5.1) 3.7 mmol/L (3.5-5.1) 4.7 mmol/L (3.5-5.1) Chloride Level 102 mmol/L (98-107) 105 mmol/L (98-107) 105 mmol/L (98-107) Carbon Dioxide Level 29 mmol/L (21-32) 24 mmol/L (21-32) 23 mmol/L (21-32) Anion Gap 9 (6-14) 10 (6-14) 8 (6-14) Blood Urea Nitrogen 13 mg/dL (7-20) 12 mg/dL (7-20) 11 mg/dL (7-20) Creatinine 0.9 mg/dL (0.6-1.0) 0.8 mg/dL (0.6-1.0) 0.9 mg/dL (0.6-1.0) Estimated GFR (Cockcroft-Gault) 77.5 88.8 77.5 Glucose Level 111 mg/dL (70-99) 90 mg/dL (70-99) 132 mg/dL (70-99) Calcium Level 7.6 mg/dL (8.5-10.1) 7.5 mg/dL (8.5-10.1) 7.3 mg/dL (8.5-10.1) Magnesium Level 1.9 mg/dL (1.8-2.4) 1.4 mg/dL (1.8-2.4) O2 Saturation 99 % (92-99) Arterial Blood pH 7.48 (7.35-7.45) Arterial Blood pCO2 at Patient Temp 32 mmHg (35-46) Arterial Blood pO2 at Patient Temp 197 mmHg (65-108) Arterial Blood HCO3 23 mmol/L (21-28) Arterial Blood Base Excess 0 mmol/L (-3-3) FiO2 50 White Blood Count 4.8 x10^3/uL (4.0-11.0) Red Blood Count 2.76 x10^6/uL (3.50-5.40) Mean Corpuscular Volume 85 fL (79-100) Mean Corpuscular Hemoglobin 28 pg (25-35) Mean Corpuscular Hemoglobin Concent 33 g/dL (31-37) Red Cell Distribution Width 14.8 % (11.5-14.5) Platelet Count 40 x10^3/uL (140-400) PJ-Lwg-N-Type Natriuretic Peptide 4629 pg/mL (0-124) Test 07/31/18 07:20 White Blood Count 5.9 x10^3/uL (4.0-11.0) Red Blood Count 2.92 x10^6/uL (3.50-5.40) Hemoglobin 8.3 g/dL (12.0-15.5) Hematocrit 24.9 % (36.0-47.0) Mean Corpuscular Volume 85 fL (79-100) Mean Corpuscular Hemoglobin 28 pg (25-35) Mean Corpuscular Hemoglobin Concent 33 g/dL (31-37) Red Cell Distribution Width 15.5 % (11.5-14.5) Platelet Count 57 x10^3/uL (140-400) Sodium Level 133 mmol/L (136-145) Potassium Level 5.7 mmol/L (3.5-5.1) Chloride Level 103 mmol/L (98-107) Carbon Dioxide Level 22 mmol/L (21-32) Anion Gap 8 (6-14) Blood Urea Nitrogen 12 mg/dL (7-20) Creatinine 0.9 mg/dL (0.6-1.0) Estimated GFR (Cockcroft-Gault) 77.5 BUN/Creatinine Ratio 13 (6-20) Glucose Level 106 mg/dL (70-99) Calcium Level 7.8 mg/dL (8.5-10.1) Total Bilirubin 0.4 mg/dL (0.2-1.0) Aspartate Amino Transf (AST/SGOT) 50 U/L (15-37) Alanine Aminotransferase (ALT/SGPT) 33 U/L (14-59) Alkaline Phosphatase 124 U/L (46-116) Total Protein 5.6 g/dL (6.4-8.2) Albumin 1.8 g/dL (3.4-5.0) Albumin/Globulin Ratio 0.5 (1.0-1.7) Laboratory Tests Test 07/30/18 15:38 07/31/18 07:20 Hemoglobin 8.0 g/dL (12.0-15.5) 8.3 g/dL (12.0-15.5) Hematocrit 23.6 % (36.0-47.0) 24.9 % (36.0-47.0) Sodium Level 136 mmol/L (136-145) 133 mmol/L (136-145) Potassium Level 4.7 mmol/L (3.5-5.1) 5.7 mmol/L (3.5-5.1) Chloride Level 105 mmol/L (98-107) 103 mmol/L (98-107) Carbon Dioxide Level 23 mmol/L (21-32) 22 mmol/L (21-32) Anion Gap 8 (6-14) 8 (6-14) Blood Urea Nitrogen 11 mg/dL (7-20) 12 mg/dL (7-20) Creatinine 0.9 mg/dL (0.6-1.0) 0.9 mg/dL (0.6-1.0) Estimated GFR (Cockcroft-Gault) 77.5 77.5 Glucose Level 132 mg/dL (70-99) 106 mg/dL (70-99) Calcium Level 7.3 mg/dL (8.5-10.1) 7.8 mg/dL (8.5-10.1) Magnesium Level 1.4 mg/dL (1.8-2.4) White Blood Count 5.9 x10^3/uL (4.0-11.0) Red Blood Count 2.92 x10^6/uL (3.50-5.40) Mean Corpuscular Volume 85 fL (79-100) Mean Corpuscular Hemoglobin 28 pg (25-35) Mean Corpuscular Hemoglobin Concent 33 g/dL (31-37) Red Cell Distribution Width 15.5 % (11.5-14.5) Platelet Count 57 x10^3/uL (140-400) BUN/Creatinine Ratio 13 (6-20) Total Bilirubin 0.4 mg/dL (0.2-1.0) Aspartate Amino Transf (AST/SGOT) 50 U/L (15-37) Alanine Aminotransferase (ALT/SGPT) 33 U/L (14-59) Alkaline Phosphatase 124 U/L (46-116) Total Protein 5.6 g/dL (6.4-8.2) Albumin 1.8 g/dL (3.4-5.0) Albumin/Globulin Ratio 0.5 (1.0-1.7) Medications Active Scripts Medications Dose Route/Sig Max Daily Dose Days Date Category Melatonin 3 Mg Tab.rapdis 3 Mg PO HS PRN 07/27/18 Reported Nephro-Nola Tablet (Folic Acid/Vitamin B Comp W-C) 0.8 Mg Tablet 1 Tab PO DAILY 07/27/18 Reported Vitamin B-12 (Cyanocobalamin (Vitamin B-12)) 1,000 Mcg Tablet 1,000 Mcg PO DAILY 07/27/18 Reported Megestrol Acetate 20 Mg Tablet 20 Mg PO DAILY 07/27/18 Reported Protonix (Pantoprazole Sodium) 20 Mg Tablet.dr 40 Mg PO DAILY 07/27/18 Reported Zoloft (Sertraline Hcl) 50 Mg Tablet 1 Tab PO DAILY 07/27/18 Reported Zoloft (Sertraline Hcl) 25 Mg Tablet 1 Tab PO DAILY 07/27/18 Reported Coreg (Carvedilol) 25 Mg Tablet 6.25 Mg PO BIDWMEALS 07/27/18 Reported Lipitor (Atorvastatin Calcium) 10 Mg Tablet 1 Tab PO QHS 07/27/18 Reported Spiriva (Tiotropium [place]) 18 Mcg Cap.w.dev 1 Cap IH DAILY 07/27/18 Reported Duoneb 0.5-3(2.5) Mg/3 Ml (Albuterol/Ipratropium) 3 Ml Ampul.neb 3 Ml NEB QID PRN 07/27/18 Reported Comments CXR today shows good ET placement and R infiltrate stable or perhaps slightly improved. CTA yesterday did not show PE Impression . IMPRESSION: 1. Acute hypoxemic respiratory failure secondary to pneumonia and cardiac arrest. 2. Aspiration pneumonia. 3. Alcoholism with past history of severe withdrawal. 4. Chronic obstructive pulmonary disease. Plan . WILL ASK FOR T TUBE TRIAL I DON'T THINK SHE IS READY POSSIBLE EXTUBATION IN NEXT 48 HOURS D/W RN AND RT ANTI BX ALVINO HERNANDEZ MD Jul 31, 2018 09:07
[2018-07-31 09:15] LABS: BASE EXCESS ABG -1 mmol/L (-3-3); HCO3 ABG 23 mmol/L (21-28); PCO2 ABG 37 mmHg (35-46); PO2 ABG 84 mmHg (65-108); SAT O2 ABG 96 % (92-99)
[2018-07-31 09:20] LABS: FIO2 ABG 35
[2018-07-31] MEDS: PANTOPRAZOLE IV PUSH 40 MG VIAL. IVP SCH (10:40)
[2018-07-31] MEDS: SERTRALINE 50 MG TABLET. PO SCH (10:42)
[2018-07-31] MEDS: CYANOCOBALAMIN (VITAMIN B-12) 1,000 MCG TABLET. PO SCH (10:43)
--- NOTE | 2018-07-31 14:32 | NUR ---
SS following up with discharge planning. Dr. Chan reporting that he received a letter from [facility] in regards to pt. He stated that would bring a copy of the letter to the hospital in the AM. SS met with pt's sister to discuss discharge planning and insurance. Pt's sister reported that they do not have a copy of pt's insurance card at this time and are sending family to pt's home to search for it. Pt's sister requesting letter from physician stating 1) pt's medical condition at time of admission, 2) pt's medical condition as of now. 3) pt's prognosis, 4) pt's need for rehabilitation services. Dr. Chan notified of family request. Pt is currently on the vent at this time. Pt's sister requested information on rehabilitation facilities. SS discussed the different types of rehabilitation with pt's sister and provided information on the different levels of rehabilitation and what is needed to qualify to include insurance. SS will continue to follow for discharge planning.
--- NOTE | 2018-07-31 15:05 | EKG ---
[facility] [address] [place] [address] Test Date: 2018-07-29 Test Time: 05:24:25 Pat Name: DIAZ VALDEZ Department: Room: 112 1 Gender: F Stack Attendant: : 1960 Requested By: JACLYN CHAKRABORTY Order Number: [id number] Reading MD: Measurements Intervals [place] Rate: 102 P: 72 RI: 108 QRS: 38 QRSD: 74 T: 53 QT: 386 QTc: 508 Interpretive Statements SINUS TACHYCARDIA LOW LIMB LEAD VOLTAGE QRS(T) CONTOUR ABNORMALITY CONSISTENT WITH ANTEROSEPTAL INFARCT PROBABLY OLD ABNORMAL ECG RI6.01 No previous ECG available for comparison
--- NOTE | 2018-07-31 15:07 | EKG ---
[facility] [address] [place] [address] Test Date: 2018-07-29 Test Time: 05:41:53 Pat Name: DIAZ VALDEZ Department: Room: 112 1 Gender: F Pharmacy Customer Care Specialist: : 1960 Requested By: REKHA CARMEN Order Number: [id number] Reading MD: Measurements Intervals [place] Rate: 104 P: 67 AL: 108 QRS: 40 QRSD: 74 T: 50 QT: 386 QTc: 508 Interpretive Statements SINUS TACHYCARDIA LOW LIMB LEAD VOLTAGE NO SPECIFIC ECG ABNORMALITIES RI6.01 No previous ECG available for comparison
--- NOTE | 2018-07-31 17:46 | PDOC ---
PROGRESS NOTES Subjective Subjective Remains intubated Objective Objective Vital Signs Date Time Temp Pulse Resp B/P (MAP) Pulse Ox O2 Delivery O2 Flow Rate FiO2 07/31/18 17:00 87 14 106/72 (83) 94 Ventilator 07/31/18 15:00 98.0 98.0 07/31/18 03:38 4.0 Intake and Output 07/31/18 07:00 Intake Total 4191.4 ml Output Total 1075 ml Balance 3116.4 ml IV Total 2685.4 ml Tube Feeding 1106 ml Other 400 ml Output Urine Total 1075 ml Physical Exam Abdomen: Soft, No tenderness Heart: Regular rate Extremities: No edema General: Other (intubated) Lungs: Clear to auscultation Assessment Assessment 1. s/p cardiopulmonary arrest, PEA. No further bradyarrhythmias noted on telemetry. We will continue to monitor. No emergent indication for pacemaker at this time. CTA did not show any acute pulmonary embolism. Continue vent management per pulmonary team. 2-D echo showed LVEF 60-65%. We will consider event monitor as an outpatient. 2. Sepsis/pneumonia: Continue intravenous antibiotics 3. Chronic alcohol abuse/toxic encephalopathy: Treat per IM. Comment Review of Relevant I have reviewed the following items pallavi (where applicable) has been applied. Labs Laboratory Tests Test 07/31/18 07:20 07/31/18 09:05 White Blood Count 5.9 x10^3/uL (4.0-11.0) Red Blood Count 2.92 x10^6/uL (3.50-5.40) Hemoglobin 8.3 g/dL (12.0-15.5) Hematocrit 24.9 % (36.0-47.0) Mean Corpuscular Volume 85 fL (79-100) Mean Corpuscular Hemoglobin 28 pg (25-35) Mean Corpuscular Hemoglobin Concent 33 g/dL (31-37) Red Cell Distribution Width 15.5 % (11.5-14.5) Platelet Count 57 x10^3/uL (140-400) Sodium Level 133 mmol/L (136-145) Potassium Level 5.7 mmol/L (3.5-5.1) Chloride Level 103 mmol/L (98-107) Carbon Dioxide Level 22 mmol/L (21-32) Anion Gap 8 (6-14) Blood Urea Nitrogen 12 mg/dL (7-20) Creatinine 0.9 mg/dL (0.6-1.0) Estimated GFR (Cockcroft-Gault) 77.5 BUN/Creatinine Ratio 13 (6-20) Glucose Level 106 mg/dL (70-99) Calcium Level 7.8 mg/dL (8.5-10.1) Magnesium Level 2.7 mg/dL (1.8-2.4) Total Bilirubin 0.4 mg/dL (0.2-1.0) Aspartate Amino Transf (AST/SGOT) 50 U/L (15-37) Alanine Aminotransferase (ALT/SGPT) 33 U/L (14-59) Alkaline Phosphatase 124 U/L (46-116) Total Protein 5.6 g/dL (6.4-8.2) Albumin 1.8 g/dL (3.4-5.0) Albumin/Globulin Ratio 0.5 (1.0-1.7) O2 Saturation 96 % (92-99) Arterial Blood pH 7.42 (7.35-7.45) Arterial Blood pCO2 at Patient Temp 37 mmHg (35-46) Arterial Blood pO2 at Patient Temp 84 mmHg (65-108) Arterial Blood HCO3 23 mmol/L (21-28) Arterial Blood Base Excess -1 mmol/L (-3-3) FiO2 35 Microbiology 07/27/18 Blood Culture - Preliminary, Resulted NO GROWTH AFTER 4 DAYS Medications Current Medications Magnesium Sulfate/ Dextrose 100 ml @ 50 mls/hr 1X ONCE IV Last administered on 07/30/18at 19:23; Start 07/30/18 at 19:00; Stop 07/30/18 at 20:59; Status DC Vitals/I & O Vital Sign - Last 24 Hours 07/30/18 07/30/18 07/30/18 07/30/18 18:00 18:13 19:00 19:29 Pulse 90 87 Resp 14 15 15 B/P (MAP) 127/80 (96) 89/63 (72) Pulse Ox 96 96 99 96 O2 Delivery Ventilator Ventilator Ventilator Ventilator 07/30/18 07/30/18 07/30/18 07/30/18 19:59 20:00 20:00 20:26 Temp 98.8 98.8 Pulse 88 Resp 20 B/P (MAP) 113/74 (87) Pulse Ox 96 94 O2 Delivery Ventilator Mechanical Ventilator Ventilator Ventilator 07/30/18 07/30/18 07/30/18 07/30/18 21:00 22:00 23:00 23:06 Pulse 91 92 82 Resp 18 16 15 B/P (MAP) 103/67 (79) 93/69 (77) 92/63 (73) Pulse Ox 98 97 100 100 O2 Delivery Ventilator Ventilator Ventilator Ventilator 07/30/18 07/31/18 07/31/18 07/31/18 23:59 00:00 00:44 01:00 Temp 98.6 98.6 Pulse 84 82 Resp 17 15 B/P (MAP) 102/66 (78) 92/63 (73) Pulse Ox 98 100 100 O2 Delivery Mechanical Ventilator Ventilator Ventilator Ventilator 07/31/18 07/31/18 07/31/18 07/31/18 02:00 03:00 03:13 03:38 Pulse 88 85 Resp 15 15 24 B/P (MAP) 108/70 (83) 107/69 (82) Pulse Ox 100 98 100 100 O2 Delivery Ventilator Ventilator Ventilator O2 Flow Rate 4.0 07/31/18 07/31/18 07/31/18 07/31/18 04:00 04:00 04:08 05:00 Temp 98.9 98.9 Pulse 95 95 Resp 15 16 15 B/P (MAP) 99/70 (80) 97/62 (74) Pulse Ox 98 100 98 O2 Delivery Ventilator Mechanical Ventilator Ventilator 07/31/18 07/31/18 07/31/18 07/31/18 05:39 06:00 07:00 08:00 Temp 98.6 98.6 Pulse 95 82 84 Resp 15 15 16 B/P (MAP) 105/69 (81) 105/69 (81) 86/60 (69) Pulse Ox 100 98 100 100 O2 Delivery Ventilator Ventilator Ventilator Ventilator 07/31/18 07/31/18 07/31/18 07/31/18 08:00 09:00 09:01 10:00 Pulse 79 87 Resp 16 19 B/P (MAP) 86/58 (67) 98/67 (77) Pulse Ox 100 100 99 O2 Delivery Mechanical Ventilator Ventilator Ventilator Ventilator 07/31/18 07/31/18 07/31/18 07/31/18 11:00 11:42 12:00 12:00 Temp 98.8 98.8 Pulse 88 85 Resp 23 14 B/P (MAP) 104/70 (81) 119/83 (95) Pulse Ox 99 100 99 O2 Delivery Ventilator Ventilator Ventilator Mechanical Ventilator 07/31/18 07/31/18 07/31/18 07/31/18 13:00 13:45 14:00 15:00 Temp 98.0 98.0 Pulse 91 95 92 Resp 26 19 14 B/P (MAP) 142/71 (94) 92/60 (71) 102/71 (81) Pulse Ox 94 95 93 O2 Delivery Ventilator T-Tube Ventilator Ventilator 07/31/18 07/31/18 07/31/18 07/31/18 16:00 16:00 16:49 17:00 Pulse 92 87 Resp 14 14 B/P (MAP) 102/71 (81) 106/72 (83) Pulse Ox 93 98 94 O2 Delivery Ventilator Mechanical Ventilator Ventilator Ventilator Intake and Output 07/30/18 07/30/18 07/31/18 15:00 23:00 07:00 Intake Total 200 ml 2691 ml 1300.4 ml Output Total 330 ml 350 ml 395 ml Balance -130 ml 2341 ml 905.4 ml WANDA BONILLA MD Jul 31, 2018 17:46
[2018-08-01] VITALS (24 sets, daily range): BP systolic 81–119; BP diastolic 56–74
[2018-08-01] MEDS: MIDAZOLAM 100mg/100ml NS BAG 100 ML IV PRN (04:30)
[2018-08-01] MEDS: MEROPENEM 500 MG in IV NORMAL SALINE 50ML 50 ML IV SCH ×3 (05:55→17:50)
--- NOTE | 2018-08-01 07:24 | PDOC ---
Infectious Disease Note Subjective Subjective Sedated No fevers reported SON CLINE unable to obtain Vital Sign Vital Signs Vital Signs Date Time Temp Pulse Resp B/P (MAP) Pulse Ox O2 Delivery O2 Flow Rate FiO2 08/01/18 06:00 85 18 105/58 (74) 98 Ventilator 08/01/18 03:04 4.0 07/31/18 23:59 98.1 98.1 Physical Exam PHYSICAL EXAM GENERAL: Orally intubated, sedated, weak-appearing female, thin cachetic, HEENT: Pupils equal, Sclerae muddy. ETT, OGT NECK: Supple. LUNGS: Decreased breath sounds at bases. No rhonchi. HEART: S1, S2, regular ABDOMEN: Nondistended, soft, + Bowel sounds : Brandt in place EXTREMITIES: Muscle wasting, No cyanosis, no clubbing. NEUROLOGIC: Sedated/min response - opened eyes SKIN: Warm without rash PIV Labs Lab Laboratory Tests Test 07/31/18 09:05 O2 Saturation 96 % (92-99) Arterial Blood pH 7.42 (7.35-7.45) Arterial Blood pCO2 at Patient Temp 37 mmHg (35-46) Arterial Blood pO2 at Patient Temp 84 mmHg (65-108) Arterial Blood HCO3 23 mmol/L (21-28) Arterial Blood Base Excess -1 mmol/L (-3-3) FiO2 35 Micro CXR 07/30 IMPRESSION: Right lower lung zone disease process likely pneumonia. Superimposed interstitial opacities which may be secondary to interstitial pulmonary edema or atypical/viral infection. Microbiology 07/27/18 Blood Culture - Preliminary, Resulted NO GROWTH AFTER 3 DAYS Objective Assessment ETOH withdrawal Pulmonary infiltrates, likely aspiration pneumonia. -History of vomiting prior to admission. ALLERGY TO PENICILLIN WITH ANAPHYLAXIS. Per chart, the patient has received a dose of ceftriaxone at [facility]. The daughter feels that she may have taken cephalexin, but is not sure at this time. s/p code blue, 07/29 Syncopal episode POA - fractured rib History of alcohol withdrawal seizures, last one 1 month ago. Metabolic acidosis and acute kidney injury, improved Lactic acidosis, better Thrombocytopenia. Protein-calorie malnutrition. Anemia. Plan Plan of Care Continue Merrem adjust to q 6 - try to wean soon BC 07/26 [facility] neg so far Supportive care. Await trial for extubation labs in am Critically ill D/w family JOSE TEMPLE MD Aug 01, 2018 07:24
--- NOTE | 2018-08-01 08:28 | PDOC ---
PULMONARY PROGRESS NOTES Subjective T TUBE YESTERDAY DID NOT DO WELL NOW ON AC MODE Vitals Vital Signs Date Time Temp Pulse Resp B/P (MAP) Pulse Ox O2 Delivery O2 Flow Rate FiO2 08/01/18 07:00 98.5 85 14 88/61 (70) 98 Ventilator 98.5 08/01/18 03:04 4.0 ROS: No Chest Pain, No Increase Cough General: Alert Lungs: Crackles, Other (equal breath sounds, no wheezing) Cardiovascular: S1, S2 Abdomen: Soft Neuro Exam: Alert Extremities: No Edema, Other Skin: Warm Labs Laboratory Tests Test 07/30/18 15:38 07/31/18 07:20 07/31/18 09:05 Hemoglobin 8.0 g/dL (12.0-15.5) 8.3 g/dL (12.0-15.5) Hematocrit 23.6 % (36.0-47.0) 24.9 % (36.0-47.0) Sodium Level 136 mmol/L (136-145) 133 mmol/L (136-145) Potassium Level 4.7 mmol/L (3.5-5.1) 5.7 mmol/L (3.5-5.1) Chloride Level 105 mmol/L (98-107) 103 mmol/L (98-107) Carbon Dioxide Level 23 mmol/L (21-32) 22 mmol/L (21-32) Anion Gap 8 (6-14) 8 (6-14) Blood Urea Nitrogen 11 mg/dL (7-20) 12 mg/dL (7-20) Creatinine 0.9 mg/dL (0.6-1.0) 0.9 mg/dL (0.6-1.0) Estimated GFR (Cockcroft-Gault) 77.5 77.5 Glucose Level 132 mg/dL (70-99) 106 mg/dL (70-99) Calcium Level 7.3 mg/dL (8.5-10.1) 7.8 mg/dL (8.5-10.1) Magnesium Level 1.4 mg/dL (1.8-2.4) 2.7 mg/dL (1.8-2.4) White Blood Count 5.9 x10^3/uL (4.0-11.0) Red Blood Count 2.92 x10^6/uL (3.50-5.40) Mean Corpuscular Volume 85 fL (79-100) Mean Corpuscular Hemoglobin 28 pg (25-35) Mean Corpuscular Hemoglobin Concent 33 g/dL (31-37) Red Cell Distribution Width 15.5 % (11.5-14.5) Platelet Count 57 x10^3/uL (140-400) BUN/Creatinine Ratio 13 (6-20) Total Bilirubin 0.4 mg/dL (0.2-1.0) Aspartate Amino Transf (AST/SGOT) 50 U/L (15-37) Alanine Aminotransferase (ALT/SGPT) 33 U/L (14-59) Alkaline Phosphatase 124 U/L (46-116) Total Protein 5.6 g/dL (6.4-8.2) Albumin 1.8 g/dL (3.4-5.0) Albumin/Globulin Ratio 0.5 (1.0-1.7) O2 Saturation 96 % (92-99) Arterial Blood pH 7.42 (7.35-7.45) Arterial Blood pCO2 at Patient Temp 37 mmHg (35-46) Arterial Blood pO2 at Patient Temp 84 mmHg (65-108) Arterial Blood HCO3 23 mmol/L (21-28) Arterial Blood Base Excess -1 mmol/L (-3-3) FiO2 35 Laboratory Tests Test 07/31/18 09:05 O2 Saturation 96 % (92-99) Arterial Blood pH 7.42 (7.35-7.45) Arterial Blood pCO2 at Patient Temp 37 mmHg (35-46) Arterial Blood pO2 at Patient Temp 84 mmHg (65-108) Arterial Blood HCO3 23 mmol/L (21-28) Arterial Blood Base Excess -1 mmol/L (-3-3) FiO2 35 Medications Active Scripts Medications Dose Route/Sig Max Daily Dose Days Date Category Melatonin 3 Mg Tab.rapdis 3 Mg PO HS PRN 07/27/18 Reported Nephro-Nola Tablet (Folic Acid/Vitamin B Comp W-C) 0.8 Mg Tablet 1 Tab PO DAILY 07/27/18 Reported Vitamin B-12 (Cyanocobalamin (Vitamin B-12)) 1,000 Mcg Tablet 1,000 Mcg PO DAILY 07/27/18 Reported Megestrol Acetate 20 Mg Tablet 20 Mg PO DAILY 07/27/18 Reported Protonix (Pantoprazole Sodium) 20 Mg Tablet.dr 40 Mg PO DAILY 07/27/18 Reported Zoloft (Sertraline Hcl) 50 Mg Tablet 1 Tab PO DAILY 07/27/18 Reported Zoloft (Sertraline Hcl) 25 Mg Tablet 1 Tab PO DAILY 07/27/18 Reported Coreg (Carvedilol) 25 Mg Tablet 6.25 Mg PO BIDWMEALS 07/27/18 Reported Lipitor (Atorvastatin Calcium) 10 Mg Tablet 1 Tab PO QHS 07/27/18 Reported Spiriva (Tiotropium [place]) 18 Mcg Cap.w.dev 1 Cap IH DAILY 07/27/18 Reported Duoneb 0.5-3(2.5) Mg/3 Ml (Albuterol/Ipratropium) 3 Ml Ampul.neb 3 Ml NEB QID PRN 07/27/18 Reported Comments CXR today shows good ET placement and R infiltrate stable or perhaps slightly improved. CTA yesterday did not show PE Impression . IMPRESSION: 1. Acute hypoxemic respiratory failure secondary to pneumonia and cardiac arrest. 2. Aspiration pneumonia. 3. Alcoholism with past history of severe withdrawal. 4. Chronic obstructive pulmonary disease. Plan . WILL ASK FOR T TUBE TRIAL D/W RT D/W FAMILY THIS WILL BE A DIFFICULT WEAN ALVINO HERNANDEZ MD Aug 01, 2018 08:28
[2018-08-01] MEDS: IPRATRPIUM/ALBUTEROL 0.5/2.5MG 3 ML NEBU. NEB SCH ×4 (08:45→19:53)
[2018-08-01 08:49] LABS: BASE EXCESS ABG -4 mmol/L (-3-3); HCO3 ABG 20 mmol/L (21-28); PCO2 ABG 31 mmHg (35-46); PO2 ABG 104 mmHg (65-108); SAT O2 ABG 97 % (92-99)
[2018-08-01 08:51] LABS: FIO2 ABG 35
[2018-08-01 09:14] LABS: HEMATOCRIT 21.9 % (36.0-47.0); HEMOGLOBIN 7.3 g/dL (12.0-15.5); RED BLOOD COUNT 2.56 x10^6/uL (3.50-5.40); RED CELL DISTRIBUTION WIDTH 15.2 % (11.5-14.5); WHITE BLOOD COUNT 7.7 x10^3/uL (4.0-11.0)
[2018-08-01 09:41] LABS: ALBUMIN 1.7 g/dL (3.4-5.0); ALBUMIN/GLOBULIN RATIO 0.5 (1.0-1.7); CALCIUM 7.7 mg/dL (8.5-10.1); CREATININE 0.9 mg/dL (0.6-1.0); GFR 77.5; POTASSIUM 4.6 mmol/L (3.5-5.1); TOTAL BILIRUBIN 0.3 mg/dL (0.2-1.0); TOTAL PROTEIN 5.3 g/dL (6.4-8.2)
[2018-08-01] MEDS: MULTIVIT INFUSN,ADULT 4,VIT K 10 ML, THIAMINE INJ 100 MG, FOLIC ACID INJ 1 MG in IV NOR... IV SCH (10:02)
[2018-08-01] MEDS: SERTRALINE 50 MG TABLET. PO SCH (10:10)
[2018-08-01] MEDS: PANTOPRAZOLE IV PUSH 40 MG VIAL. IVP SCH (10:10)
[2018-08-01] MEDS: CYANOCOBALAMIN (VITAMIN B-12) 1,000 MCG TABLET. PO SCH (10:10)
--- NOTE | 2018-08-01 11:15 | PN ---
DATE: 08/01/2018 SUBJECTIVE: The patient is resting slightly propped up in bed, continued to be sedated, mechanically ventilated. She is on a banana bag. Continue to start her on tube feeding and water flushes. OBJECTIVE: GENERAL: When I examined her this morning, she looked pale, cachectic, but no jaundice, cyanosis, or thyromegaly. No jugular venous distension. No limb edema. VITAL SIGNS: Her heart rate was 85, blood pressure was 88/61, temperature was 98.5, respiratory rate was 14 and oxygen saturation was 98%. HEAD, EYES, EARS, NOSE AND THROAT: Normocephalic, atraumatic. She has orotracheal and orogastric tube in place. NECK: Supple. HEART: Showed normal first and second heart sounds. No gallop, rub or murmur. CHEST: Clear to auscultation. No crepitation or rhonchi. ABDOMEN: Distended, soft, nontender. No guarding or rigidity. No organomegaly. All hernial orifices intact. Bowel sounds normal. NEUROLOGIC: She is sedated and mechanically ventilated, although she is easily arousable. All her cranial nerves are intact. She moves extremities spontaneously. Her intake over the last 24 hours was 4240, output was 1045. LABORATORY DATA: Her most recent lab work as of yesterday showed a white cell count 5900, hemoglobin 8.3, hematocrit 24.9, MCV 85 and platelet count of 57,000. Her chemistry showed a serum sodium 133, potassium 5.7, chloride 103, bicarbonate 22, anion gap of 8, BUN 12, creatinine 0.9, estimated GFR was 77 mL per minute. Her glucose 106, calcium was 7.8. Total bilirubin, AST, ALT, alkaline phosphatase were normal. Her total protein was 5.6, albumin was 1.8. Her blood gases as of this morning showed a pH of 7.42, pCO2 of 31, pO2 of 104, bicarbonate 20, and oxygen saturation was 97% on FiO2 of 25%. Her prothrombin time was 15.5, INR 1.1. Her nasal screen for MRSA with PCR was negative. Her chest x-ray as of yesterday showed that the right lower lobe lung zone disease process is likely pneumonia, superimposed interstitial opacities, which may be secondary to interstitial pulmonary edema or atypical/viral infection. ASSESSMENT: 1. The patient is status post cardiac arrest, started as bradycardia and eventually pulseless electrical activity from which she was successfully resuscitated. She has apparently 3 rounds of epinephrine with return of spontaneous circulation. She was intubated, currently sedated, mechanically ventilated; however, an attempt to wean her off yesterday has failed. 2. Chronic alcoholism and alcohol withdrawal seizures. 3. Sepsis, likely due to right lower lobe pneumonia. 4. Metabolic acidosis, resolved. 5. Acute kidney injury has resolved. Her creatinine is down from 1.8 to 0.9 mg/dL. 6. Thrombocytopenia. 7. Severe protein-calorie malnutrition. Serum albumin is only 1.8 g/dL. 8. Anemia, status post 1 unit of packed RBCs blood transfusion. Her hemoglobin is . 9. Hypomagnesemia, resolved. Her most recent magnesium is 2.7. 10. Hypokalemia has resolved. Her potassium is actually . 11. Acute hypoxic respiratory failure due to right lower lobe pneumonia with superimposed atypical viral pneumonia versus acute respiratory distress syndrome. PLAN: To continue with the banana bag. Continue with nutritional support in the form of tube feeding. Continue with IV antibiotic as recommended by the Infectious Disease specialist. We will continue to monitor her lab work, particularly her H and H and transfuse as needed. REKHA CARMEN MD DR: CYNTHIA/desean JOB#: [id number] / [id number]
--- NOTE | 2018-08-01 11:51 | PN ---
DATE: 08/01/2018 To Whom It May Concern: The patient is a 58-year-old -[place] female patient who is currently at [facility] ICU. She continues to be intubated and sedated and mechanically ventilated. The patient is known to have chronic alcoholism and has been admitted to [facility] numerous times with alcohol-induced seizures. She has multiple other medical problems including hypertension, generalized osteoarthritis, chronic obstructive pulmonary disease and unintentional weight loss. The patient initially was admitted with a syncopal episode, unresponsive and she was found to have severe metabolic acidosis, lactic acidosis, acute hypoxic respiratory failure, right lower lobe pneumonia. She was treated aggressively with fluid and IV antibiotic and was transferred to [facility] where she was intubated and mechanically ventilated. Unfortunately, prior to her intubation she developed an episode of bradycardia and eventually pulseless electrical activity from which she was successfully resuscitated. She was intubated, sedated and mechanically ventilated, and we are still attempting to wean her off the ventilator. Her overall prognosis is extremely poor if she continues to drink alcohol excessively. If you have any questions or concerns, please do not hesitate to contact me and my number is [phone]. REKHA CARMEN MD DR: CYNTHIA/desean JOB#: [id number] / [id number]
--- NOTE | 2018-08-01 14:16 | RAD ---
AP portable chest radiograph 08/01/2018 Clinical History: Ventilator patient. An AP erect portable digital radiograph of the chest was obtained. Comparison study is dated 07/30/2018. The ET tube and NG tube are unchanged in position. The cardiac silhouette is normal in size. The thoracic aorta is tortuous. Atherosclerotic calcification of the thoracic aorta is seen. Slight improvement in the right lower lobe infiltrate is seen. Patchy areas of atelectasis and/or infiltrate are seen involving the left upper lobe and left lower lobe. No pneumothorax or pleural effusion is seen. The osseous structures are unchanged. Impression: 1. Slight improvement in the right lower lobe infiltrate. 2. New areas of infiltrate/atelectasis are seen involving the left upper lobe and left lower lobe. Electronically signed by: Armani Israel MD (08/01/2018 2:13 PM) [id number]
--- NOTE | 2018-08-01 14:42 | NUR ---
Allergies and reactions 0.9 Cr Platelets 88 Blood culture done blood culture results Order Verified Consent signed Past Medical/Surgical history and current diagnosis reviewed Patient Medical /Surgical History Related to PICC line placement None History of acute/chronic renal failure History of bleeding, bruising, clotting disorder Suspected device related infection PICC placement indication Caustic medication class drug usage, Multiple/ Frequent blood draws, name of PICC Nurse Jeri Lepe
--- NOTE | 2018-08-01 14:46 | NUR ---
Unsuccessful placing PICC line to right arm. Unable to thread wire. Informed nurse Vannessa, and charge nurse.
--- NOTE | 2018-08-01 15:47 | RAD ---
CHEST AP ONLY Clinical Indication: Line placement Comparison: 08/01/2018 chest x-ray exam performed at 7:41 AM. Findings: Portable frontal view chest was obtained. Endotracheal and nasogastric tubes are again seen. Right internal jugular catheter remains overlying the right atrium. No pneumothorax. The cardiomediastinal silhouette is normal. Consolidation involving the lateral right mid to lower lung is noted. Infiltrate involving the left upper lung field noted. Left basilar retrocardiac consolidation is present. Small pleural effusions noted. No acute bone abnormality. IMPRESSION: Right internal jugular catheter is overlying the right atrium. No pneumothorax. Consolidations again seen. Electronically signed by: Kosta Renteria MD (08/01/2018 3:44 PM) [id number]
--- NOTE | 2018-08-01 15:48 | NUR ---
Patient needed PICC access due to poor IV access. PICC RN unsuccessful. Dr. Hines placed TL Central Line. Patient resting comfortable on vent and VSS.
--- NOTE | 2018-08-01 16:28 | RAD ---
Procedure: Ultrasound-guided placement of right internal jugular central venous catheter08/01/2018 4:24 PM Clinical Indication: Need for IV access. Multiple failed attempts. Multiple IV medications. Discussion: The risks and benefits of the procedure were discussed the patient and/or their home office representative. Informed consent was obtained. A timeout procedure was performed. All elements of maximal sterile barrier technique including the use of a cap, mask, sterile gown, sterile gloves, large sterile sheet, appropriate hand hygiene, and 2% chlorhexidine for cutaneous antisepsis (or acceptable alternative antiseptic per current guidelines) were followed for this procedure. The patient was prepped and draped in the usual sterile fashion. Ultrasound interrogation of the right neck revealed patency and compressibility of the right internal jugular vein. A 21-gauge micropuncture was then used to gain access to this vein under ultrasound guidance. A hard copy ultrasound image was recorded. A guidewire was advanced centrally. 5 Telugu sheath was placed. Over a wire following dilatation, a triple-lumen central venous catheter was advanced centrally. Catheter was found to flush and aspirate normally. Follow-up chest radiograph demonstrates tip at the cavoatrial junction. Catheter secured in place and a sterile dressing was applied. No immediate complications were identified. Impression: Successful ultrasound-guided placement of right internal jugular triple-lumen central venous catheter
--- NOTE | 2018-08-01 17:31 | PDOC ---
PROGRESS NOTES Subjective Subjective Patient seen and examined She remains intubated. Objective Objective Vital Signs Date Time Temp Pulse Resp B/P (MAP) Pulse Ox O2 Delivery O2 Flow Rate FiO2 08/01/18 17:00 80 14 112/71 (85) 99 Ventilator 08/01/18 12:00 98.5 98.5 08/01/18 03:04 4.0 Intake and Output 08/01/18 07:00 Intake Total 2905.91 ml Output Total 1520 ml Balance 1385.91 ml IV Total 1225.91 ml Tube Feeding 1280 ml Other 400 ml Output Urine Total 1520 ml # Bowel Movements 4 Physical Exam Abdomen: Normal bowel sounds Heart: Regular rate General: Other (intubated and sedated) Lungs: Other (mildly decreased breath sounds) Assessment Assessment Assessment 1. s/p cardiopulmonary arrest, PEA. No further bradyarrhythmias noted on telemetry. We will continue to monitor. No emergent indication for pacemaker at this time. CTA did not show any acute pulmonary embolism. Continue vent management per pulmonary team. 2-D echo showed LVEF 60-65%. We will consider event monitor as an outpatient. 2. Sepsis/pneumonia: Continue intravenous antibiotics. Continues on a ventilator. 3. Chronic alcohol abuse/toxic encephalopathy: Continue present treatment. Comment Review of Relevant I have reviewed the following items pallavi (where applicable) has been applied. Labs Laboratory Tests Test 07/31/18 07:20 07/31/18 09:05 08/01/18 08:40 08/01/18 08:50 White Blood Count 5.9 x10^3/uL (4.0-11.0) 7.7 x10^3/uL (4.0-11.0) Red Blood Count 2.92 x10^6/uL (3.50-5.40) 2.56 x10^6/uL (3.50-5.40) Hemoglobin 8.3 g/dL (12.0-15.5) 7.3 g/dL (12.0-15.5) Hematocrit 24.9 % (36.0-47.0) 21.9 % (36.0-47.0) Mean Corpuscular Volume 85 fL (79-100) 86 fL (79-100) Mean Corpuscular Hemoglobin 28 pg (25-35) 29 pg (25-35) Mean Corpuscular Hemoglobin Concent 33 g/dL (31-37) 33 g/dL (31-37) Red Cell Distribution Width 15.5 % (11.5-14.5) 15.2 % (11.5-14.5) Platelet Count 57 x10^3/uL (140-400) 88 x10^3/uL (140-400) Sodium Level 133 mmol/L (136-145) 134 mmol/L (136-145) Potassium Level 5.7 mmol/L (3.5-5.1) 4.6 mmol/L (3.5-5.1) Chloride Level 103 mmol/L (98-107) 103 mmol/L (98-107) Carbon Dioxide Level 22 mmol/L (21-32) 23 mmol/L (21-32) Anion Gap 8 (6-14) 8 (6-14) Blood Urea Nitrogen 12 mg/dL (7-20) 12 mg/dL (7-20) Creatinine 0.9 mg/dL (0.6-1.0) 0.9 mg/dL (0.6-1.0) Estimated GFR (Cockcroft-Gault) 77.5 77.5 BUN/Creatinine Ratio 13 (6-20) 13 (6-20) Glucose Level 106 mg/dL (70-99) 109 mg/dL (70-99) Calcium Level 7.8 mg/dL (8.5-10.1) 7.7 mg/dL (8.5-10.1) Magnesium Level 2.7 mg/dL (1.8-2.4) Total Bilirubin 0.4 mg/dL (0.2-1.0) 0.3 mg/dL (0.2-1.0) Aspartate Amino Transf (AST/SGOT) 50 U/L (15-37) 31 U/L (15-37) Alanine Aminotransferase (ALT/SGPT) 33 U/L (14-59) 25 U/L (14-59) Alkaline Phosphatase 124 U/L (46-116) 117 U/L (46-116) Total Protein 5.6 g/dL (6.4-8.2) 5.3 g/dL (6.4-8.2) Albumin 1.8 g/dL (3.4-5.0) 1.7 g/dL (3.4-5.0) Albumin/Globulin Ratio 0.5 (1.0-1.7) 0.5 (1.0-1.7) O2 Saturation 96 % (92-99) 97 % (92-99) Arterial Blood pH 7.42 (7.35-7.45) 7.42 (7.35-7.45) Arterial Blood pCO2 at Patient Temp 37 mmHg (35-46) 31 mmHg (35-46) Arterial Blood pO2 at Patient Temp 84 mmHg (65-108) 104 mmHg (65-108) Arterial Blood HCO3 23 mmol/L (21-28) 20 mmol/L (21-28) Arterial Blood Base Excess -1 mmol/L (-3-3) -4 mmol/L (-3-3) FiO2 35 35 Laboratory Tests Test 08/01/18 08:40 08/01/18 08:50 O2 Saturation 97 % (92-99) Arterial Blood pH 7.42 (7.35-7.45) Arterial Blood pCO2 at Patient Temp 31 mmHg (35-46) Arterial Blood pO2 at Patient Temp 104 mmHg (65-108) Arterial Blood HCO3 20 mmol/L (21-28) Arterial Blood Base Excess -4 mmol/L (-3-3) FiO2 35 White Blood Count 7.7 x10^3/uL (4.0-11.0) Red Blood Count 2.56 x10^6/uL (3.50-5.40) Hemoglobin 7.3 g/dL (12.0-15.5) Hematocrit 21.9 % (36.0-47.0) Mean Corpuscular Volume 86 fL (79-100) Mean Corpuscular Hemoglobin 29 pg (25-35) Mean Corpuscular Hemoglobin Concent 33 g/dL (31-37) Red Cell Distribution Width 15.2 % (11.5-14.5) Platelet Count 88 x10^3/uL (140-400) Sodium Level 134 mmol/L (136-145) Potassium Level 4.6 mmol/L (3.5-5.1) Chloride Level 103 mmol/L (98-107) Carbon Dioxide Level 23 mmol/L (21-32) Anion Gap 8 (6-14) Blood Urea Nitrogen 12 mg/dL (7-20) Creatinine 0.9 mg/dL (0.6-1.0) Estimated GFR (Cockcroft-Gault) 77.5 BUN/Creatinine Ratio 13 (6-20) Glucose Level 109 mg/dL (70-99) Calcium Level 7.7 mg/dL (8.5-10.1) Total Bilirubin 0.3 mg/dL (0.2-1.0) Aspartate Amino Transf (AST/SGOT) 31 U/L (15-37) Alanine Aminotransferase (ALT/SGPT) 25 U/L (14-59) Alkaline Phosphatase 117 U/L (46-116) Total Protein 5.3 g/dL (6.4-8.2) Albumin 1.7 g/dL (3.4-5.0) Albumin/Globulin Ratio 0.5 (1.0-1.7) Microbiology 07/27/18 Blood Culture - Final, Complete NO GROWTH AFTER 5 DAYS Medications Current Medications Multivitamins (Thera M Plus) 1 tab DAILY PO ; Start 07/27/18 at 09:00; Stop 07/29/18 at 08:38; Status DC Lorazepam (Ativan) 2 mg Q6H PO ; Start 07/27/18 at 04:00; Stop 07/27/18 at 07:43; Status DC Chlordiazepoxide (Librium) 25 mg Q6H PO ; Start 07/27/18 at 03:30; Stop 07/28/18 at 09:31; Status UNV Levofloxacin/ Dextrose 150 ml @ 100 mls/hr Q24H IV ; Start 07/28/18 at 00:00; Status UNV Ondansetron HCl (Zofran) 4 mg PRN Q6HRS PRN IV NAUSEA/VOMITING 1ST CHOICE; Start 07/27/18 at 03:30 Sodium Bicarbonate 150 meq/Dextrose 1,150 ml @ 100 mls/hr [id number] IV Last administered on 07/27/18at 16:57; Start 07/27/18 at 04:30; Stop 07/27/18 at 22:18; Status DC Norepinephrine Bitartrate 250 ml @ 1.875 mls/ hr CONT PRN IV SEE I/O RECORD; Start 07/27/18 at 03:30 Cyanocobalamin (Vitamin B-12) 1,000 mcg DAILY PO Last administered on 08/01/18at 10:10; Start 07/27/18 at 09:00 Vitamin B Complex/ Vitamin C (Linette-Nola) 1 tab DAILY PO ; Start 07/27/18 at 09:00; Stop 07/29/18 at 08:38; Status DC Albuterol Sulfate (Ventolin Neb Soln) 2.5 mg PRN QID PRN NEB SHORTNESS OF BREATH; Start 07/27/18 at 04:30 Sertraline HCl (Zoloft) 50 mg DAILY PO Last administered on 08/01/18at 10:10; Start 07/27/18 at 09:00 Non-Formulary Medication (Melatonin ) 3 mg HS PRN PO insomnia; Start 07/27/18 at 04:15; Status UNV Pantoprazole Sodium (Protonix) 40 mg DAILYAC PO ; Start 07/27/18 at 07:30; Stop 07/29/18 at 08:30; Status DC Albuterol/ Ipratropium (Duoneb) 3 ml RTQID NEB Last administered on 08/01/18at 15:46; Start 07/27/18 at 08:00 Levofloxacin/ Dextrose 100 ml @ 100 mls/hr Q48H IV ; Start 07/29/18 at 00:00; Stop 07/29/18 at 00:00; Status DC Magnesium Sulfate 50 ml @ 25 mls/hr 1X ONCE IV Last administered on 07/27/18at 11:03; Start 07/27/18 at 07:30; Stop 07/27/18 at 09:29; Status DC Lorazepam (Ativan) 2 mg PRN Q6HRS PRN PO ALCOHOL WITHDRAWAL; Start 07/27/18 at 07:45 Lorazepam (Ativan Inj) 2 mg PRN Q1HR PRN IV For CIWA 8-14 Last administered on 07/29/18at 01:04; Start 07/27/18 at 10:45 Lorazepam (Ativan Inj) 4 mg PRN Q1HR PRN IV For CIWA 15 or greater Last admin istered on 07/29/18at 02:38; Start 07/27/18 at 10:45 Haloperidol Lactate (Haldol Inj) 5 mg PRN Q4HRS PRN IVP Hallucinatns,Confus n,Delirium; Start 07/27/18 at 10:45 Diphenhydramine HCl (Benadryl) 25 mg PRN Q15MIN PRN IVP EPS symptoms 2'Haldol admin; Start 07/27/18 at 10:45 Lorazepam (Ativan Inj) 2 mg PRN Q15MIN PRN IV SEE COMMENTS; Start 07/27/18 at 10:45 Lorazepam (Ativan Inj) 4 mg PRN Q15MIN PRN IV SEE COMMENTS; Start 07/27/18 at 10:45 Meropenem 500 mg/ Sodium Chloride 50 ml @ 100 mls/hr Q24H IV Last administered on 07/28/18at 12:16; Start 07/27/18 at 13:00; Stop 07/29/18 at 08:14; Status DC Potassium Chloride/Water 100 ml @ 100 mls/hr Q1H IV Last administered on 07/28/18at 14:19; Start 07/28/18 at 07:00; Stop 07/28/18 at 14:59; Status DC Dextrose 1,000 ml @ 100 mls/hr Q10H IV Last administered on 07/29/18at 07:30; Start 07/28/18 at 07:00; Stop 07/29/18 at 08:25; Status DC Magnesium Sulfate/ Dextrose 100 ml @ 50 mls/hr DAILY IV Last administered on 07/28/18at 14:19; Start 07/28/18 at 09:00; Stop 07/29/18 at 08:31; Status DC Lactobacillus Rhamnosus (Culturelle) 1 cap BID PO ; Start 07/28/18 at 21:00; Stop 07/29/18 at 08:39; Status DC Atropine Sulfate (ATROPINE 1mg SYRINGE) 1 mg STK-MED ONCE .ROUTE ; Start 07/29/18 at 04:31; Stop 07/29/18 at 04:32; Status DC Propofol 100 ml @ As Directed STK-MED ONCE IV ; Start 07/29/18 at 04:41; Stop 07/29/18 at 04:42; Status DC Midazolam HCl 100 ml @ 5 mls/hr CONT PRN IV SEE I/O RECORD Last administered on 08/01/18at 04:30; Start 07/29/18 at 06:00 Norepinephrine Bitartrate 250 ml @ 1.875 mls/ hr CONT PRN IV SEE I/O RECORD; Start 07/29/18 at 06:00; Status UNV Sodium Chloride 500 ml @ 500 mls/hr 1X ONCE IV Last administered on 07/29/18at 06:25; Start 07/29/18 at 06:00; Stop 07/29/18 at 06:59; Status DC Fentanyl Citrate 30 ml @ 0 mls/hr CONT PRN IV SEE PROTOCOL Last administered on 08/01/18at 10:01; Start 07/29/18 at 07:15 Meropenem 500 mg/ Sodium Chloride 50 ml @ 100 mls/hr Q8HRS IV Last administered on 08/01/18at 05:55; Start 07/29/18 at 09:00; Stop 08/01/18 at 07:23; Status DC Pantoprazole Sodium (PROTONIX VIAL for IV PUSH) 40 mg DAILY IVP Last administered on 08/01/18at 10:10; Start 07/29/18 at 09:00 Magnesium Sulfate/ Dextrose 100 ml @ 50 mls/hr PRN DAILY PRN IV MAG < 1.8 OR K+ < 3.5 X 3 DRAW; Start 07/29/18 at 08:45; Stop 08/01/18 at 08:00; Status DC Sodium Chloride 500 ml @ 500 mls/hr 1X ONCE IV Last administered on 07/29/18at 08:59; Start 07/29/18 at 08:30; Stop 07/29/18 at 09:29; Status DC Sodium Chloride 1,000 ml @ 100 mls/hr Q10H IV Last administered on 07/30/18at 23:23; Start 07/29/18 at 08:30; Stop 07/31/18 at 10:28; Status DC Sodium Chloride 1,000 ml @ 100 mls/hr Q10H IV ; Start 07/29/18 at 08:30; Status UNV Multivitamins 10 ml/Thiamine HCl 100 mg/Folic Acid 1 mg/Sodium Chloride 1,011.2 ml @ 100 mls/ hr DAILY IV Last administered on 08/01/18at 10:02; Start 07/29/18 at 09:00; Stop 08/02/18 at 19:07 Iohexol (Omnipaque 350 Mg/ml) 90 ml 1X ONCE IV Last administered on 07/29/18at 12:00; Start 07/29/18 at 10:45; Stop 07/29/18 at 10:46; Status DC Multi-Ingred Cream/Lotion/Oil/ Oint (Artificial Tears Eye Ointment) 1 michele PRN Q1HR PRN OU DRY EYE Last administered on 07/30/18at 07:47; Start 07/29/18 at 11:15 Potassium Chloride (Klor-Con) 40 meq 1X ONCE PO Last administered on 07/29/18at 19:45; Start 07/29/18 at 19:30; Stop 07/29/18 at 19:31; Status DC Potassium Chloride (Klor-Con) 40 meq 1X ONCE PO Last administered on 07/29/18at 22:08; Start 07/29/18 at 22:00; Stop 07/29/18 at 22:01; Status DC Potassium Chloride/Dextrose/ Sod Cl 1,000 ml @ 80 mls/hr 1X ONCE IV Last administered on 07/30/18at 08:36; Start 07/30/18 at 08:00; Stop 07/31/18 at 10:28; Status DC Potassium Bicarbonate (Potassium Effervescent Tablet) 40 meq TID PEG Last administered on 07/30/18at 23:24; Start 07/30/18 at 09:00; Stop 07/31/18 at 10:26; Status DC Magnesium Sulfate/ Dextrose 100 ml @ 50 mls/hr 1X ONCE IV Last administered on 07/30/18at 19:23; Start 07/30/18 at 19:00; Stop 07/30/18 at 20:59; Status DC Epinephrine HCl (EPINEPHrine SYRINGE) 2 mg STK-MED ONCE .ROUTE ; Start 07/27/18 at 12:00; Stop 07/31/18 at 12:02; Status DC Sodium Bicarbonate (Sodium Bicarb Adult 8.4% Syr) 50 meq STK-MED ONCE .ROUTE ; Start 07/27/18 at 12:00; Stop 07/31/18 at 12:02; Status DC Sodium Chloride (Normal Saline Flush) 20 ml STK-MED ONCE .ROUTE ; Start 07/27/18 at 12:00; Stop 07/31/18 at 12:02; Status DC Meropenem 500 mg/ Sodium Chloride 50 ml @ 100 mls/hr Q6HRS IV Last administered on 08/01/18at 12:01; Start 08/01/18 at 12:00 Active Scripts Active Reported Melatonin 3 Mg Tab.rapdis 3 Mg PO HS PRN Nephro-Nola Tablet (Folic Acid/Vitamin B Comp W-C) 0.8 Mg Tablet 1 Tab PO DAILY Vitamin B-12 (Cyanocobalamin (Vitamin B-12)) 1,000 Mcg Tablet 1,000 Mcg PO DAILY Megestrol Acetate 20 Mg Tablet 20 Mg PO DAILY Protonix (Pantoprazole Sodium) 20 Mg Tablet.dr 40 Mg PO DAILY Zoloft (Sertraline Hcl) 50 Mg Tablet 1 Tab PO DAILY Zoloft (Sertraline Hcl) 25 Mg Tablet 1 Tab PO DAILY Coreg (Carvedilol) 25 Mg Tablet 6.25 Mg PO BIDWMEALS Lipitor (Atorvastatin Calcium) 10 Mg Tablet 1 Tab PO QHS Spiriva (Tiotropium [place]) 18 Mcg Cap.w.dev 1 Cap IH DAILY Duoneb 0.5-3(2.5) Mg/3 Ml (Albuterol/Ipratropium) 3 Ml Ampul.neb 3 Ml NEB QID PRN Vitals/I & O Vital Sign - Last 24 Hours 07/31/18 07/31/18 07/31/18 07/31/18 17:46 17:57 18:00 19:00 Pulse 88 88 Resp 14 14 18 B/P (MAP) 97/64 (75) 86/62 (70) Pulse Ox 98 98 92 99 O2 Delivery Ventilator Ventilator Ventilator Ventilator 07/31/18 07/31/18 07/31/18 07/31/18 19:21 20:00 20:00 21:00 Temp 98.2 98.2 Pulse 92 83 Resp 18 18 B/P (MAP) 88/64 (72) 109/66 (80) Pulse Ox 98 99 98 O2 Delivery Ventilator Ventilator Mechanical Ventilator Ventilator 07/31/18 07/31/18 07/31/18 07/31/18 21:32 22:00 23:00 23:35 Pulse 78 76 Resp 20 20 B/P (MAP) 100/60 (73) 100/60 (73) Pulse Ox 98 99 99 98 O2 Delivery Ventilator Ventilator Ventilator Ventilator 07/31/18 07/31/18 08/01/18 08/01/18 23:59 23:59 01:00 01:33 Temp 98.1 98.1 Pulse 80 82 Resp 18 20 B/P (MAP) 98/58 (71) 100/64 (76) Pulse Ox 99 98 94 O2 Delivery Ventilator Mechanical Ventilator Ventilator Ventilator 08/01/18 08/01/18 08/01/18 08/01/18 01:48 02:00 03:00 03:04 Pulse 90 90 Resp 18 18 B/P (MAP) 98/58 (71) 100/65 (77) Pulse Ox 94 98 95 O2 Delivery Ventilator Ventilator O2 Flow Rate 4.0 4.0 08/01/18 08/01/18 08/01/18 08/01/18 03:51 04:00 04:00 05:00 Pulse 83 83 Resp 18 18 B/P (MAP) 103/68 (80) 91/56 (68) Pulse Ox 94 98 98 O2 Delivery Ventilator Ventilator Mechanical Ventilator Ventilator 08/01/18 08/01/18 08/01/18 08/01/18 06:00 07:00 08:00 08:00 Temp 98.5 98.5 Pulse 85 85 88 Resp 18 14 14 B/P (MAP) 105/58 (74) 88/61 (70) 98/69 (79) Pulse Ox 98 98 98 O2 Delivery Ventilator Ventilator Mechanical Ventilator Ventilator 08/01/18 08/01/18 08/01/18 08/01/18 08:35 09:00 09:45 09:50 Temp 98.5 98.5 Pulse 92 Resp 14 B/P (MAP) 90/61 (71) Pulse Ox 100 98 100 O2 Delivery Ventilator Ventilator Ventilator T-Tube 08/01/18 08/01/18 08/01/18 08/01/18 10:00 10:01 10:31 11:00 Pulse 95 93 Resp 14 16 14 15 B/P (MAP) 86/60 (69) 81/58 (66) Pulse Ox 97 100 99 100 O2 Delivery Ventilator Ventilator Ventilator Ventilator 08/01/18 08/01/18 08/01/18 08/01/18 11:22 12:00 12:00 13:00 Temp 98.5 98.5 Pulse 91 89 Resp 14 14 B/P (MAP) 86/59 (68) 90/58 (69) Pulse Ox 99 100 100 O2 Delivery Ventilator Mechanical Ventilator Ventilator Ventilator 08/01/18 08/01/18 08/01/18 08/01/18 14:00 15:00 15:41 15:58 Pulse 89 86 79 Resp 14 14 14 B/P (MAP) 90/58 (69) 103/58 (73) 102/65 (77) Pulse Ox 100 99 99 100 O2 Delivery Ventilator Ventilator Ventilator Ventilator 08/01/18 08/01/18 16:00 17:00 Pulse 80 Resp 14 B/P (MAP) 112/71 (85) Pulse Ox 99 O2 Delivery Mechanical Ventilator Ventilator Intake and Output 07/31/18 07/31/18 08/01/18 15:00 23:00 07:00 Intake Total 200 ml 1680 ml 1025.91 ml Output Total 595 ml 425 ml 500 ml Balance -395 ml 1255 ml 525.91 ml Nutrition Consultation Dietary Evaluation: Recommendations by RD: Increase Calorie Intake Comments: Continue w/current TF infusion: Jevity 1.5@goal rate 30 ml/hr w/100 ml water flushes q4 hrs Expected Outcomes/Goals: PO intake to meet >75% est needs - not met, new goal established New goal 07/31: TF infusion to provide >75% est needs Malnutrition Findings: Food and Nutrition Intake (Mod: <75% est energy req 7days BEULAH STRANGE MD Aug 01, 2018 17:31
[2018-08-02] VITALS (28 sets, daily range): BP systolic 68–116; BP diastolic 47–77
[2018-08-02] MEDS: MEROPENEM 500 MG in IV NORMAL SALINE 50ML 50 ML IV SCH ×5 (00:30→23:49)
[2018-08-02] MEDS: MIDAZOLAM 100mg/100ml NS BAG 100 ML IV PRN ×2 (01:02→15:59)
[2018-08-02 06:14] LABS: BASO % 0 % (0-3); EOS # 0.1 x10^3/uL (0.0-0.7); EOS % 1 % (0-3); LYMPH # 1.1 x10^3/uL (1.0-4.8); LYMPH % 12 % (24-48); MEAN CORPUSCULAR HEMOGLOBIN 29 pg (25-35); MEAN CORPUSCULAR HGB CONC 33 g/dL (31-37); MEAN CORPUSCULAR VOLUME 86 fL (79-100); MONO % 11 % (0-9); NEUT # 6.7 x10^3uL (1.8-7.7); NEUT % 75 % (31-73); PLATELET COUNT 122 x10^3/uL (140-400); RED BLOOD COUNT 2.15 x10^6/uL (3.50-5.40); RED CELL DISTRIBUTION WIDTH 15.5 % (11.5-14.5); WHITE BLOOD COUNT 8.9 x10^3/uL (4.0-11.0)
[2018-08-02 06:19] LABS: HEMATOCRIT 18.5 % (36.0-47.0); HEMOGLOBIN 6.1 g/dL (12.0-15.5)
[2018-08-02 06:29] LABS: CALCIUM 7.8 mg/dL (8.5-10.1); CREATININE 0.9 mg/dL (0.6-1.0); GFR 77.5; POTASSIUM 4.2 mmol/L (3.5-5.1)
--- NOTE | 2018-08-02 06:30 | NUR ---
Lab called for critical H/H of 6.1/18.[address] Chan, informed him of critical lab, improved Platelets, low Mg++ of 1.6, and reviewed all other labs. Orders received to repeat Type and Cross if needed, give 1UNIT PRBCs, draw DIC panel, and give 2GM Magnesium sulfate IV x1. See orders and lab results. Addendum: 08/02/18 at 0736 by ANNA COBURN RN Amended: Links added.
--- NOTE | 2018-08-02 06:38 | PDOC ---
Infectious Disease Note Subjective Subjective On vent. Alert some but on Fentanyl and Versed Some nausea - no pain No fevers reported ROS ROS Difficult to obtain Vital Sign Vital Signs Vital Signs Date Time Temp Pulse Resp B/P (MAP) Pulse Ox O2 Delivery O2 Flow Rate FiO2 08/02/18 05:30 100 Ventilator 08/02/18 05:00 84 14 116/73 (87) 08/02/18 04:00 99.2 99.2 Physical Exam PHYSICAL EXAM GENERAL: Orally intubated, alert, weak-appearing female, thin cachetic, HEENT: Pupils equal, Sclerae muddy. ETT, OGT NECK: Supple. LUNGS: Decreased breath sounds at bases. No rhonchi. HEART: S1, S2, regular ABDOMEN: Nondistended, soft, + Bowel sounds : Brandt in place EXTREMITIES: Muscle wasting, No cyanosis, no clubbing. NEUROLOGIC: Sedated/min response - opened eyes SKIN: Warm without rash PIV Labs Lab Laboratory Tests Test 08/01/18 08:40 08/01/18 08:50 08/02/18 05:45 O2 Saturation 97 % (92-99) Arterial Blood pH 7.42 (7.35-7.45) Arterial Blood pCO2 at Patient Temp 31 mmHg (35-46) Arterial Blood pO2 at Patient Temp 104 mmHg (65-108) Arterial Blood HCO3 20 mmol/L (21-28) Arterial Blood Base Excess -4 mmol/L (-3-3) FiO2 35 White Blood Count 7.7 x10^3/uL (4.0-11.0) 8.9 x10^3/uL (4.0-11.0) Red Blood Count 2.56 x10^6/uL (3.50-5.40) 2.15 x10^6/uL (3.50-5.40) Hemoglobin 7.3 g/dL (12.0-15.5) 6.1 g/dL (12.0-15.5) Hematocrit 21.9 % (36.0-47.0) 18.5 % (36.0-47.0) Mean Corpuscular Volume 86 fL (79-100) 86 fL (79-100) Mean Corpuscular Hemoglobin 29 pg (25-35) 29 pg (25-35) Mean Corpuscular Hemoglobin Concent 33 g/dL (31-37) 33 g/dL (31-37) Red Cell Distribution Width 15.2 % (11.5-14.5) 15.5 % (11.5-14.5) Platelet Count 88 x10^3/uL (140-400) 122 x10^3/uL (140-400) Sodium Level 134 mmol/L (136-145) 136 mmol/L (136-145) Potassium Level 4.6 mmol/L (3.5-5.1) 4.2 mmol/L (3.5-5.1) Chloride Level 103 mmol/L (98-107) 106 mmol/L (98-107) Carbon Dioxide Level 23 mmol/L (21-32) 24 mmol/L (21-32) Anion Gap 8 (6-14) 6 (6-14) Blood Urea Nitrogen 12 mg/dL (7-20) 12 mg/dL (7-20) Creatinine 0.9 mg/dL (0.6-1.0) 0.9 mg/dL (0.6-1.0) Estimated GFR (Cockcroft-Gault) 77.5 77.5 BUN/Creatinine Ratio 13 (6-20) Glucose Level 109 mg/dL (70-99) 105 mg/dL (70-99) Calcium Level 7.7 mg/dL (8.5-10.1) 7.8 mg/dL (8.5-10.1) Total Bilirubin 0.3 mg/dL (0.2-1.0) Aspartate Amino Transf (AST/SGOT) 31 U/L (15-37) Alanine Aminotransferase (ALT/SGPT) 25 U/L (14-59) Alkaline Phosphatase 117 U/L (46-116) Total Protein 5.3 g/dL (6.4-8.2) Albumin 1.7 g/dL (3.4-5.0) Albumin/Globulin Ratio 0.5 (1.0-1.7) Neutrophils (%) (Auto) 75 % (31-73) Lymphocytes (%) (Auto) 12 % (24-48) Monocytes (%) (Auto) 11 % (0-9) Eosinophils (%) (Auto) 1 % (0-3) Basophils (%) (Auto) 0 % (0-3) Neutrophils # (Auto) 6.7 x10^3uL (1.8-7.7) Lymphocytes # (Auto) 1.1 x10^3/uL (1.0-4.8) Monocytes # (Auto) 1.0 x10^3/uL (0.0-1.1) Eosinophils # (Auto) 0.1 x10^3/uL (0.0-0.7) Basophils # (Auto) 0.0 x10^3/uL (0.0-0.2) Magnesium Level 1.6 mg/dL (1.8-2.4) Micro CXR 07/30 IMPRESSION: Right lower lung zone disease process likely pneumonia. Superimposed interstitial opacities which may be secondary to interstitial pulmonary edema or atypical/viral infection. Microbiology 07/27/18 Blood Culture - Preliminary, Resulted NO GROWTH AFTER 3 DAYS Objective Assessment ETOH withdrawal Pulmonary infiltrates, likely aspiration pneumonia. -History of vomiting prior to admission. ALLERGY TO PENICILLIN WITH ANAPHYLAXIS. Per chart, the patient has received a dose of ceftriaxone at [facility]. The daughter feels that she may have taken cephalexin, but is not sure at this time. s/p code blue, 07/29 Syncopal episode POA - fractured rib History of alcohol withdrawal seizures, last one 1 month ago. Metabolic acidosis and acute kidney injury, improved Lactic acidosis, better Thrombocytopenia. Protein-calorie malnutrition. Anemia - per primary. Plan Plan of Care Continue Merrem (07/27) adjust to q 6 - try to wean soon BC 07/26 [facility] neg so far Supportive care. Await trial for extubation labs in am Critically ill D/w family Await Palliative eval D/w nursing JOSE TEMPLE MD Aug 02, 2018 06:38
--- NOTE | 2018-08-02 06:40 | NUR ---
Spoke with patient's sister, updated on patient's status and notified of critical H/H and PCP order for transfusion of 1 UNIT PRBC. Discussed plan for Palliative care RN for goals for patient care. All questions answered and sister verbalized understanding of above.
[2018-08-02] MEDS: ONDANSETRON PF 4 MG/2 ML VIAL. IV PRN (06:58)
[2018-08-02] MEDS ORDERED: MAGNESIUM SULFATE 2GM 50 ML IV ONE (07:30)
[2018-08-02] MEDS: IPRATRPIUM/ALBUTEROL 0.5/2.5MG 3 ML NEBU. NEB SCH ×4 (08:15→20:21)
[2018-08-02 08:48] LABS: PROTHROMBIN TIME PATIENT 13.5 SEC (11.7-14.0)
--- NOTE | 2018-08-02 09:00 | PDOC ---
PULMONARY PROGRESS NOTES Subjective DID NOT DO WELL ON TRIAL YESTERDAY NOW ON AC MODE Vitals Vital Signs Date Time Temp Pulse Resp B/P (MAP) Pulse Ox O2 Delivery O2 Flow Rate FiO2 08/02/18 08:25 100 Ventilator 08/02/18 07:00 98.6 87 14 94/58 (70) 98.6 ROS: No Chest Pain, No Increase Cough General: Alert Lungs: Crackles, Other (equal breath sounds, no wheezing) Cardiovascular: S1, S2 Abdomen: Soft Neuro Exam: Alert Extremities: No Edema, Other Skin: Warm Labs Laboratory Tests Test 07/31/18 09:05 08/01/18 08:40 08/01/18 08:50 08/02/18 05:45 O2 Saturation 96 % (92-99) 97 % (92-99) Arterial Blood pH 7.42 (7.35-7.45) 7.42 (7.35-7.45) Arterial Blood pCO2 at Patient Temp 37 mmHg (35-46) 31 mmHg (35-46) Arterial Blood pO2 at Patient Temp 84 mmHg (65-108) 104 mmHg (65-108) Arterial Blood HCO3 23 mmol/L (21-28) 20 mmol/L (21-28) Arterial Blood Base Excess -1 mmol/L (-3-3) -4 mmol/L (-3-3) FiO2 35 35 White Blood Count 7.7 x10^3/uL (4.0-11.0) 8.9 x10^3/uL (4.0-11.0) Red Blood Count 2.56 x10^6/uL (3.50-5.40) 2.15 x10^6/uL (3.50-5.40) Hemoglobin 7.3 g/dL (12.0-15.5) 6.1 g/dL (12.0-15.5) Hematocrit 21.9 % (36.0-47.0) 18.5 % (36.0-47.0) Mean Corpuscular Volume 86 fL (79-100) 86 fL (79-100) Mean Corpuscular Hemoglobin 29 pg (25-35) 29 pg (25-35) Mean Corpuscular Hemoglobin Concent 33 g/dL (31-37) 33 g/dL (31-37) Red Cell Distribution Width 15.2 % (11.5-14.5) 15.5 % (11.5-14.5) Platelet Count 88 x10^3/uL (140-400) 122 x10^3/uL (140-400) Sodium Level 134 mmol/L (136-145) 136 mmol/L (136-145) Potassium Level 4.6 mmol/L (3.5-5.1) 4.2 mmol/L (3.5-5.1) Chloride Level 103 mmol/L (98-107) 106 mmol/L (98-107) Carbon Dioxide Level 23 mmol/L (21-32) 24 mmol/L (21-32) Anion Gap 8 (6-14) 6 (6-14) Blood Urea Nitrogen 12 mg/dL (7-20) 12 mg/dL (7-20) Creatinine 0.9 mg/dL (0.6-1.0) 0.9 mg/dL (0.6-1.0) Estimated GFR (Cockcroft-Gault) 77.5 77.5 BUN/Creatinine Ratio 13 (6-20) Glucose Level 109 mg/dL (70-99) 105 mg/dL (70-99) Calcium Level 7.7 mg/dL (8.5-10.1) 7.8 mg/dL (8.5-10.1) Total Bilirubin 0.3 mg/dL (0.2-1.0) Aspartate Amino Transf (AST/SGOT) 31 U/L (15-37) Alanine Aminotransferase (ALT/SGPT) 25 U/L (14-59) Alkaline Phosphatase 117 U/L (46-116) Total Protein 5.3 g/dL (6.4-8.2) Albumin 1.7 g/dL (3.4-5.0) Albumin/Globulin Ratio 0.5 (1.0-1.7) Neutrophils (%) (Auto) 75 % (31-73) Lymphocytes (%) (Auto) 12 % (24-48) Monocytes (%) (Auto) 11 % (0-9) Eosinophils (%) (Auto) 1 % (0-3) Basophils (%) (Auto) 0 % (0-3) Neutrophils # (Auto) 6.7 x10^3uL (1.8-7.7) Lymphocytes # (Auto) 1.1 x10^3/uL (1.0-4.8) Monocytes # (Auto) 1.0 x10^3/uL (0.0-1.1) Eosinophils # (Auto) 0.1 x10^3/uL (0.0-0.7) Basophils # (Auto) 0.0 x10^3/uL (0.0-0.2) Magnesium Level 1.6 mg/dL (1.8-2.4) Laboratory Tests Test 08/02/18 05:45 White Blood Count 8.9 x10^3/uL (4.0-11.0) Red Blood Count 2.15 x10^6/uL (3.50-5.40) Hemoglobin 6.1 g/dL (12.0-15.5) Hematocrit 18.5 % (36.0-47.0) Mean Corpuscular Volume 86 fL (79-100) Mean Corpuscular Hemoglobin 29 pg (25-35) Mean Corpuscular Hemoglobin Concent 33 g/dL (31-37) Red Cell Distribution Width 15.5 % (11.5-14.5) Platelet Count 122 x10^3/uL (140-400) Neutrophils (%) (Auto) 75 % (31-73) Lymphocytes (%) (Auto) 12 % (24-48) Monocytes (%) (Auto) 11 % (0-9) Eosinophils (%) (Auto) 1 % (0-3) Basophils (%) (Auto) 0 % (0-3) Neutrophils # (Auto) 6.7 x10^3uL (1.8-7.7) Lymphocytes # (Auto) 1.1 x10^3/uL (1.0-4.8) Monocytes # (Auto) 1.0 x10^3/uL (0.0-1.1) Eosinophils # (Auto) 0.1 x10^3/uL (0.0-0.7) Basophils # (Auto) 0.0 x10^3/uL (0.0-0.2) Sodium Level 136 mmol/L (136-145) Potassium Level 4.2 mmol/L (3.5-5.1) Chloride Level 106 mmol/L (98-107) Carbon Dioxide Level 24 mmol/L (21-32) Anion Gap 6 (6-14) Blood Urea Nitrogen 12 mg/dL (7-20) Creatinine 0.9 mg/dL (0.6-1.0) Estimated GFR (Cockcroft-Gault) 77.5 Glucose Level 105 mg/dL (70-99) Calcium Level 7.8 mg/dL (8.5-10.1) Magnesium Level 1.6 mg/dL (1.8-2.4) Medications Active Scripts Medications Dose Route/Sig Max Daily Dose Days Date Category Melatonin 3 Mg Tab.rapdis 3 Mg PO HS PRN 07/27/18 Reported Nephro-Nola Tablet (Folic Acid/Vitamin B Comp W-C) 0.8 Mg Tablet 1 Tab PO DAILY 07/27/18 Reported Vitamin B-12 (Cyanocobalamin (Vitamin B-12)) 1,000 Mcg Tablet 1,000 Mcg PO DAILY 07/27/18 Reported Megestrol Acetate 20 Mg Tablet 20 Mg PO DAILY 07/27/18 Reported Protonix (Pantoprazole Sodium) 20 Mg Tablet.dr 40 Mg PO DAILY 07/27/18 Reported Zoloft (Sertraline Hcl) 50 Mg Tablet 1 Tab PO DAILY 07/27/18 Reported Zoloft (Sertraline Hcl) 25 Mg Tablet 1 Tab PO DAILY 07/27/18 Reported Coreg (Carvedilol) 25 Mg Tablet 6.25 Mg PO BIDWMEALS 07/27/18 Reported Lipitor (Atorvastatin Calcium) 10 Mg Tablet 1 Tab PO QHS 07/27/18 Reported Spiriva (Tiotropium [place]) 18 Mcg Cap.w.dev 1 Cap IH DAILY 07/27/18 Reported Duoneb 0.5-3(2.5) Mg/3 Ml (Albuterol/Ipratropium) 3 Ml Ampul.neb 3 Ml NEB QID PRN 07/27/18 Reported Comments CXR today shows good ET placement and R infiltrate stable or perhaps slightly improved. CTA yesterday did not show PE Impression . IMPRESSION: 1. Acute hypoxemic respiratory failure secondary to pneumonia and cardiac arrest. 2. Aspiration pneumonia. 3. Alcoholism with past history of severe withdrawal. 4. Chronic obstructive pulmonary disease. Plan . D/W PALLIATIVE CARE FAMILY MEETING TO DECIDE GOALS OF CARE THIS WILL BE A DIFFICULT WEAN ALVINO HERNANDEZ MD Aug 02, 2018 09:00
[2018-08-02 09:15] LABS: D-DIMER 5.55 ug/mlFEU (0.00-0.50)
[2018-08-02] MEDS: PANTOPRAZOLE IV PUSH 40 MG VIAL. IVP SCH (09:15)
[2018-08-02] MEDS: SERTRALINE 50 MG TABLET. PO SCH (09:15)
[2018-08-02] MEDS: MULTIVIT INFUSN,ADULT 4,VIT K 10 ML, THIAMINE INJ 100 MG, FOLIC ACID INJ 1 MG in IV NOR... IV SCH (09:15)
[2018-08-02] MEDS: CYANOCOBALAMIN (VITAMIN B-12) 1,000 MCG TABLET. PO SCH (09:15)
[2018-08-02 09:32] LABS: BASE EXCESS ABG -4 mmol/L (-3-3); HCO3 ABG 20 mmol/L (21-28); PCO2 ABG 35 mmHg (35-46); PO2 ABG 110 mmHg (65-108); SAT O2 ABG 98 % (92-99)
[2018-08-02 09:38] LABS: FIO2 ABG 35
--- NOTE | 2018-08-02 09:53 | RAD ---
Portable chest, 08/02/2018: HISTORY: Ventilator patient Comparison is made to yesterday's study. The ET tube tip lies well above the rene. An NG tube extends into the stomach. A right jugular central venous catheter extends to the level the atriocaval junction. The heart size is unchanged. There are ongoing moderate patchy bilateral pulmonary infiltrates which appear unchanged. The underlying pulmonary vascularity is poorly defined. There is blunting of the lateral costophrenic angles compatible with a small amount of pleural fluid. No new abnormality is detected. IMPRESSION: No significant change since yesterday's study. Electronically signed by: Christian Lopez MD (08/02/2018 9:50 AM) [facility]
[2018-08-02] MEDS ORDERED: IV NORMAL SALINE 500ML BAG 500 ML IV PRN (13:45)
[2018-08-02] MEDS ORDERED: ATROPINE 0.5 MG/5 ML DISP.SYRINGE. IV PRN (13:45)
[2018-08-02] MEDS: DEXMEDETOMIDINE 200 MCG in IV NORMAL SALINE 50ML 48 ML IV PRN (15:21)
--- NOTE | 2018-08-02 16:47 | PDOC2 ---
PALLIATIVE CARE Palliative Care Note Palliative Care Consult requested by Dr. Chan to address goals of care Medical Assessment per medical record; ETOH withdrawal Pulmonary infiltrates, likely aspiration pneumonia. s/p code blue, 07/29 Syncopal episode POA - fractured rib History of alcohol withdrawal seizures, last one 1 month ago. Metabolic acidosis and acute kidney injury, improved Lactic acidosis, Thrombocytopenia. Protein-calorie malnutrition. Anemia - Difficult weaning from Vent. 35%. Fentanyl Versed gtt. Patient opens eyes--grimaces with stimulation. weight loss -25# -July Met with family: Judy sister, oldest son Bentley; Sukhwinder--boyfriend; Julio son; Jailene daughter; 2 grandsons; Family is able to accurately verbalize medical condition as above. Family shared patient has had Depression and Anxiety for many years. She tried to kill herself by taking too many pills when her in July 2001. July is always a hard month for her per family. Often uses ETOH as her coping mechanism. Many family stressors in their relationships as a child and continues throughout her adult life. Family would like to continue current treatment plan in hoping that she will get better and change her "life style" They share this is not probably something she would want. Discussed Code Status; Patient is currently intubated. They would not want her re-intubated when extubated. NO chest compressions, shocks or medications--- They would like to continue blood transfusions if necessary. They shared that she has had blood several blood transfusions in the past and has had work-up but did not find a reason for the blood loss. They would agree with a Feeding Tube if needed. They expressed concern about keeping her comfortable. They would agree to tracheostomy if needed and patient was showing improvements and this was means to keep treating. Patient has worked at [employer]. No longer employed. Was working on some disability because of her Anxiety Issues. Lisa: Jew. Patient has received [facility] and being visited by Chaplains. Family is concerned about Insurance/Resources. Will need assistance of CM/HEATHER etc. Above Reviewed with Vannessa HAINES. Vannessa will call Dr. Chan for orders. Family contacts; Bentley--oldest son; [phone] ; [phone] Judy --sister [phone] (will be leaving town for a couple of days) [place]; boyfriend--defers decisions to family; [phone] Plan; No CPR; No shocks, no meds for cardiac arrest PEG if needed Tracheostomy if patient is improving and means to keep treating. No reintubation if patient is extubated. MAY MARROQUIN Aug 02, 2018 16:47
[2018-08-02 18:07] LABS: HEMATOCRIT 23.7 % (36.0-47.0)
--- NOTE | 2018-08-02 18:54 | PN ---
DATE: 08/02/2018 SUBJECTIVE: The patient continued to be sedated, intubated and mechanically ventilated. She apparently dropped her H and H again to 6.1 and 18.5. She is currently receiving 1 unit of blood. Her magnesium is also low and she is receiving 2 grams of magnesium intravenously. Apparently, her family are considering hospice care and have an appointment with palliative care team to discuss the goals of care and therefore, no weaning was attempted today to await further discussion with palliative care team. PHYSICAL EXAMINATION: GENERAL: On examining her, she looked pale, somewhat cachectic, but no jaundice, cyanosis, or thyromegaly. No jugular venous distention. No limb edema. VITAL SIGNS: Her heart rate was 83, blood pressure was 80/51, temperature was 98.4, respiratory rate was 14 and oxygen saturation was 100% on FiO2 of 35%. HEAD, EYES, EARS, NOSE AND THROAT: Showed normocephalic, atraumatic. She has orotracheal and orogastric tube. NECK: Supple. HEART: Showed normal first and second heart sounds. No gallop, rub or murmur. CHEST: Clear to auscultation. No crepitation or rhonchi. ABDOMEN: Scaphoid, soft, nontender. NEUROLOGIC: She is sedated; however, she moves her extremities spontaneously. LABORATORY DATA: Her lab work this morning showed a white cell count 8900, hemoglobin 6.1, hematocrit 18.5, MCV 86 and platelet count of 122,000. Her prothrombin time was 13.5, INR 1.1, aPTT was 32. Serum fibrinogen 607. D-dimer was 5.55. Her chemistry showed a serum sodium 136, potassium 4.2, chloride 106, bicarbonate 24, anion gap of 6, BUN 12, creatinine 0.9, estimated GFR was 77, glucose was 105, calcium was 7.8, magnesium was 1.6. Total bilirubin, AST, ALT and alkaline phosphatase were normal. Total protein was 5.3, albumin was 1.7. ASSESSMENT: 1. The patient is status post cardiac arrest, started as bradycardia and eventually pulseless electrical activity, for which she was successfully resuscitated. She was intubated and currently sedated, mechanically ventilated; however, so far attempt to wean her has failed. 2. Chronic alcoholism and alcohol withdrawal seizures. 3. Sepsis likely due to right lower lobe pneumonia. 4. Metabolic acidosis, resolved. 5. Acute kidney injury has resolved. Her creatinine is down from 1.8 to 0.9 mg/dL. 6. Thrombocytopenia. 7. Severe protein-calorie malnutrition, serum albumin was 1.8 g/dL. 8. Anemia, status post 1 unit of packed red blood cells blood transfusion. She is receiving the second unit of packed red blood cells. 9. Hypomagnesemia, resolved. Her most recent magnesium is 1.6. 10. Hypokalemia has resolved. Her potassium is well within normal range at 4.2. 11. Acute hypoxic respiratory failure due to right lower lobe pneumonia with superimposed atypical viral pneumonia versus acute respiratory distress syndrome. PLAN: To continue with banana bag, continue nutritional support in the form of tube feeding, continue with IV antibiotic as recommended by Infectious Disease specialist, continue to monitor her labs; monitor her H and H and transfuse her as needed. Apparently, there is a meeting of the family with the palliative care team to discuss the goals of care. REKHA CARMEN MD DR: CYNTHIA/desean JOB#: [id number] / [id number]
[2018-08-03] VITALS (24 sets, daily range): BP systolic 100–149; BP diastolic 64–89
[2018-08-03] MEDS: DEXMEDETOMIDINE 200 MCG in IV NORMAL SALINE 50ML 48 ML IV PRN ×2 (00:38→06:47)
[2018-08-03] MEDS: MEROPENEM 500 MG in IV NORMAL SALINE 50ML 50 ML IV SCH ×4 (05:56→23:37)
--- NOTE | 2018-08-03 06:43 | PDOC ---
Infectious Disease Note Subjective Subjective On vent. on Fentanyl and Versed No fevers reported ROS ROS unable to obtain Vital Sign Vital Signs Vital Signs Date Time Temp Pulse Resp B/P (MAP) Pulse Ox O2 Delivery O2 Flow Rate FiO2 08/03/18 06:00 69 14 119/75 (90) 100 Ventilator 08/03/18 04:00 97.7 97.7 Physical Exam PHYSICAL EXAM GENERAL: Orally intubated, weak-appearing female, thin cachetic, HEENT: Pupils equal, Sclerae muddy. ETT, OGT NECK: Supple. LUNGS: Decreased breath sounds at bases. No rhonchi. HEART: S1, S2, regular ABDOMEN: Nondistended, soft, + Bowel sounds : Brandt in place EXTREMITIES: Muscle wasting, No cyanosis, no clubbing. NEUROLOGIC: Sedated SKIN: Warm without rash PIV Labs Lab Laboratory Tests Test 08/02/18 08:10 08/02/18 09:25 08/02/18 18:00 Platelet Count 122 x10^3/uL (140-400) Prothrombin Time 13.5 SEC (11.7-14.0) Prothromb Time International Ratio 1.1 (0.8-1.1) Activated Partial Thromboplast Time 32 SEC (24-38) Fibrinogen 607 mg/dL (200-440) D-Dimer (Sandee) 5.55 ug/mlFEU (0.00-0.50) O2 Saturation 98 % (92-99) Arterial Blood pH 7.38 (7.35-7.45) Arterial Blood pCO2 at Patient Temp 35 mmHg (35-46) Arterial Blood pO2 at Patient Temp 110 mmHg (65-108) Arterial Blood HCO3 20 mmol/L (21-28) Arterial Blood Base Excess -4 mmol/L (-3-3) FiO2 35 Hemoglobin 8.0 g/dL (12.0-15.5) Hematocrit 23.7 % (36.0-47.0) Micro CXR 07/30 IMPRESSION: Right lower lung zone disease process likely pneumonia. Superimposed interstitial opacities which may be secondary to interstitial pulmonary edema or atypical/viral infection. Microbiology 07/27/18 Blood Culture - Preliminary, Resulted NO GROWTH AFTER 3 DAYS Objective Assessment ETOH withdrawal Pulmonary infiltrates, likely aspiration pneumonia. -History of vomiting prior to admission. ALLERGY TO PENICILLIN WITH ANAPHYLAXIS. Per chart, the patient has received a dose of ceftriaxone at [facility]. The daughter feels that she may have taken cephalexin, but is not sure at this time. s/p code blue, 07/29 Syncopal episode POA - fractured rib History of alcohol withdrawal seizures, last one 1 month ago. Metabolic acidosis and acute kidney injury, improved Lactic acidosis, better Thrombocytopenia. Protein-calorie malnutrition. Anemia - s/p PRBCs 08/02 Plan Plan of Care Continue Merrem (07/27) adjusted to q 6 - try to wean 08/04 if stable BC 07/26 [facility] neg so far Supportive care. Await trial for extubation labs in am Critically ill Palliative note reviewed: No CPR; No shocks, no meds for cardiac arrest PEG if needed Tracheostomy if patient is improving and means to keep treating. No reintubation if patient is extubated D/w family D/w nursing JOSE TEMPLE MD Aug 03, 2018 06:43
--- NOTE | 2018-08-03 07:50 | RAD ---
Portable chest, 08/03/2018: HISTORY: Ventilator patient Comparison is made to yesterday's study. The ET tube tip lies well above the rene. An NG tube extends into the stomach. A right jugular central venous catheter extends to the level the atriocaval junction. The heart is within normal limits in size. There are moderate unchanged bilateral pulmonary infiltrates. Hazy basilar opacities are compatible with a small amount of associated pleural fluid. Similar findings were present on yesterday's study. There is no evidence of pneumothorax. No new abnormality is detected. IMPRESSION: 1. Stable tube positions. 2. Unchanged bilateral pulmonary infiltrates and probable small pleural effusions. Electronically signed by: Christian Lopez MD (08/03/2018 7:47 AM) [facility]
[2018-08-03] MEDS: IPRATRPIUM/ALBUTEROL 0.5/2.5MG 3 ML NEBU. NEB SCH ×4 (07:54→20:22)
[2018-08-03] MEDS: PANTOPRAZOLE IV PUSH 40 MG VIAL. IVP SCH (08:16)
[2018-08-03] MEDS: SERTRALINE 50 MG TABLET. PO SCH (08:16)
[2018-08-03] MEDS: CYANOCOBALAMIN (VITAMIN B-12) 1,000 MCG TABLET. PO SCH (08:16)
[2018-08-03] MEDS: MINERAL OIL/PETROLATUM,WHITE OPHTH OINT 3.5GM TUBE. OU PRN (08:17)
[2018-08-03 08:52] LABS: BASE EXCESS ABG -7 mmol/L (-3-3); HCO3 ABG 18 mmol/L (21-28); PCO2 ABG 33 mmHg (35-46); PO2 ABG 95 mmHg (65-108); SAT O2 ABG 97 % (92-99)
[2018-08-03 09:33] LABS: FIO2 ABG 40
[2018-08-03 09:55] LABS: BASE EXCESS ABG -4 mmol/L (-3-3); HCO3 ABG 20 mmol/L (21-28); PCO2 ABG 33 mmHg (35-46); PO2 ABG 73 mmHg (65-108); SAT O2 ABG 94 % (92-99)
[2018-08-03 10:35] LABS: FIO2 ABG 40
--- NOTE | 2018-08-03 12:05 | NUR ---
SS following up with discharge planning. SS met with pt's sister. Pt's sister requesting to meet with HCFS to complete disability packet. HCFS notified and Vielka was coming to meet with pt's sister. Per notes pt's family wanting to continue with trach and peg. Case management continuing to attempt to verify insurance.
--- NOTE | 2018-08-03 13:07 | PDOC ---
PULMONARY PROGRESS NOTES Subjective DID NOT DO WELL ON TRIAL YESTERDAY NOW ON AC MODE Vitals Vital Signs Date Time Temp Pulse Resp B/P (MAP) Pulse Ox O2 Delivery O2 Flow Rate FiO2 08/03/18 12:00 Nasal Cannula 3.0 08/03/18 12:00 82 18 127/78 (94) 100 08/03/18 11:00 98.4 98.4 ROS: No Chest Pain, No Increase Cough General: Alert Lungs: Crackles, Other (equal breath sounds, no wheezing) Cardiovascular: S1, S2 Abdomen: Soft Neuro Exam: Alert Extremities: No Edema, Other Skin: Warm Labs Laboratory Tests Test 08/02/18 05:45 08/02/18 08:10 08/02/18 09:25 08/02/18 18:00 White Blood Count 8.9 x10^3/uL (4.0-11.0) Red Blood Count 2.15 x10^6/uL (3.50-5.40) Hemoglobin 6.1 g/dL (12.0-15.5) 8.0 g/dL (12.0-15.5) Hematocrit 18.5 % (36.0-47.0) 23.7 % (36.0-47.0) Mean Corpuscular Volume 86 fL (79-100) Mean Corpuscular Hemoglobin 29 pg (25-35) Mean Corpuscular Hemoglobin Concent 33 g/dL (31-37) Red Cell Distribution Width 15.5 % (11.5-14.5) Platelet Count 122 x10^3/uL (140-400) 122 x10^3/uL (140-400) Neutrophils (%) (Auto) 75 % (31-73) Lymphocytes (%) (Auto) 12 % (24-48) Monocytes (%) (Auto) 11 % (0-9) Eosinophils (%) (Auto) 1 % (0-3) Basophils (%) (Auto) 0 % (0-3) Neutrophils # (Auto) 6.7 x10^3uL (1.8-7.7) Lymphocytes # (Auto) 1.1 x10^3/uL (1.0-4.8) Monocytes # (Auto) 1.0 x10^3/uL (0.0-1.1) Eosinophils # (Auto) 0.1 x10^3/uL (0.0-0.7) Basophils # (Auto) 0.0 x10^3/uL (0.0-0.2) Sodium Level 136 mmol/L (136-145) Potassium Level 4.2 mmol/L (3.5-5.1) Chloride Level 106 mmol/L (98-107) Carbon Dioxide Level 24 mmol/L (21-32) Anion Gap 6 (6-14) Blood Urea Nitrogen 12 mg/dL (7-20) Creatinine 0.9 mg/dL (0.6-1.0) Estimated GFR (Cockcroft-Gault) 77.5 Glucose Level 105 mg/dL (70-99) Calcium Level 7.8 mg/dL (8.5-10.1) Magnesium Level 1.6 mg/dL (1.8-2.4) Prothrombin Time 13.5 SEC (11.7-14.0) Prothromb Time International Ratio 1.1 (0.8-1.1) Activated Partial Thromboplast Time 32 SEC (24-38) Fibrinogen 607 mg/dL (200-440) D-Dimer (Sandee) 5.55 ug/mlFEU (0.00-0.50) O2 Saturation 98 % (92-99) Arterial Blood pH 7.38 (7.35-7.45) Arterial Blood pCO2 at Patient Temp 35 mmHg (35-46) Arterial Blood pO2 at Patient Temp 110 mmHg (65-108) Arterial Blood HCO3 20 mmol/L (21-28) Arterial Blood Base Excess -4 mmol/L (-3-3) FiO2 35 Test 08/03/18 08:00 08/03/18 09:45 O2 Saturation 97 % (92-99) 94 % (92-99) Arterial Blood pH 7.36 (7.35-7.45) 7.40 (7.35-7.45) Arterial Blood pCO2 at Patient Temp 33 mmHg (35-46) 33 mmHg (35-46) Arterial Blood pO2 at Patient Temp 95 mmHg (65-108) 73 mmHg (65-108) Arterial Blood HCO3 18 mmol/L (21-28) 20 mmol/L (21-28) Arterial Blood Base Excess -7 mmol/L (-3-3) -4 mmol/L (-3-3) FiO2 40 40 Laboratory Tests Test 08/02/18 18:00 08/03/18 08:00 08/03/18 09:45 Hemoglobin 8.0 g/dL (12.0-15.5) Hematocrit 23.7 % (36.0-47.0) O2 Saturation 97 % (92-99) 94 % (92-99) Arterial Blood pH 7.36 (7.35-7.45) 7.40 (7.35-7.45) Arterial Blood pCO2 at Patient Temp 33 mmHg (35-46) 33 mmHg (35-46) Arterial Blood pO2 at Patient Temp 95 mmHg (65-108) 73 mmHg (65-108) Arterial Blood HCO3 18 mmol/L (21-28) 20 mmol/L (21-28) Arterial Blood Base Excess -7 mmol/L (-3-3) -4 mmol/L (-3-3) FiO2 40 40 Medications Active Scripts Medications Dose Route/Sig Max Daily Dose Days Date Category Melatonin 3 Mg Tab.rapdis 3 Mg PO HS PRN 07/27/18 Reported Nephro-Nola Tablet (Folic Acid/Vitamin B Comp W-C) 0.8 Mg Tablet 1 Tab PO DAILY 07/27/18 Reported Vitamin B-12 (Cyanocobalamin (Vitamin B-12)) 1,000 Mcg Tablet 1,000 Mcg PO DAILY 07/27/18 Reported Megestrol Acetate 20 Mg Tablet 20 Mg PO DAILY 07/27/18 Reported Protonix (Pantoprazole Sodium) 20 Mg Tablet.dr 40 Mg PO DAILY 07/27/18 Reported Zoloft (Sertraline Hcl) 50 Mg Tablet 1 Tab PO DAILY 07/27/18 Reported Zoloft (Sertraline Hcl) 25 Mg Tablet 1 Tab PO DAILY 07/27/18 Reported Coreg (Carvedilol) 25 Mg Tablet 6.25 Mg PO BIDWMEALS 07/27/18 Reported Lipitor (Atorvastatin Calcium) 10 Mg Tablet 1 Tab PO QHS 07/27/18 Reported Spiriva (Tiotropium [place]) 18 Mcg Cap.w.dev 1 Cap IH DAILY 07/27/18 Reported Duoneb 0.5-3(2.5) Mg/3 Ml (Albuterol/Ipratropium) 3 Ml Ampul.neb 3 Ml NEB QID PRN 07/27/18 Reported Comments CXR today shows good ET placement and R infiltrate stable or perhaps slightly improved. CTA yesterday did not show PE Impression . IMPRESSION: 1. Acute hypoxemic respiratory failure secondary to pneumonia and cardiac arrest. 2. Aspiration pneumonia. 3. Alcoholism with past history of severe withdrawal. 4. Chronic obstructive pulmonary disease. Plan . D/W PALLIATIVE CARE Palliative note reviewed: No CPR; No shocks, no meds for cardiac arrest PEG if needed Tracheostomy if patient is improving and means to keep treating. No reintubation if patient is extubated DID WELL ON TRIAL EXTUBATED 08/02 CONTINUE SUPPORT D/W FAMILY AT BEDSIDE ALVINO HERNANDEZ MD Aug 03, 2018 13:07
--- NOTE | 2018-08-03 13:13 | PN ---
DATE: 08/03/2018 SUBJECTIVE: The patient was successfully extubated. She is now resting slightly propped up in bed, in no apparent distress, maintaining her oxygen saturation at 100% on 3 liters oxygen by nasal cannula. She continued to be on Precedex. PHYSICAL EXAMINATION: GENERAL: When I examined her, she was pale, cachectic, but no jaundice or cyanosis. No lymphadenopathy, no thyromegaly. No jugular venous distention, but generalized anasarca. VITAL SIGNS: Her heart rate was 72, blood pressure was 109/68, temperature was 98.1, respiratory rate was 20, and oxygen saturation was 100%. HEAD, EYES, EARS, NOSE AND THROAT: Showed normocephalic, atraumatic. NECK: Supple. HEART: Showed normal first and second heart sounds. No gallop, rub or murmur. CHEST: Clear to auscultation. No crepitation or rhonchi. ABDOMEN: Distended, soft, nontender. NEUROLOGIC: She is awake, alert. All her cranial nerves intact. She moves extremities without difficulty. She has marked muscle wasting and weakness. Her intake over the last 24 hours was 4500, output was 3025 hours. LABORATORY DATA: Her H and H as of yesterday was 8 and 24. Her chemistry showed a serum sodium of 136, potassium 4.2, chloride 106, bicarbonate 24, anion gap of 6, BUN 12, creatinine 0.9, estimated GFR was 77 mL per minute. Her glucose 105 and calcium was 7.8, magnesium was 1.6. ASSESSMENT: 1. The patient is status post cardiac arrest started as bradycardia and eventually pulseless electrical activity, from which she was successfully resuscitated. She was intubated and mechanically ventilated and she was successfully extubated. 2. Chronic alcoholism and alcohol withdrawal seizure. 3. Sepsis, likely due to right lower lobe pneumonia. 4. Metabolic acidosis, resolved. 5. Acute kidney injury, resolved. Her creatinine came down from 1.8 to 0.9 mg/dL. 6. Thrombocytopenia. 7. Severe protein-calorie malnutrition, serum albumin is only 1.8 g/dL with generalized anasarca. 8. Anemia, status post 2 units of packed red blood cells. 9. Hypomagnesemia, her most recent serum magnesium is 1.6. 10. Hypokalemia, resolved. 11. Acute hypoxic respiratory failure due to right lower lobe pneumonia with superimposed atypical viral pneumonia versus acute respiratory distress. The patient was successfully decannulated. PLAN: To continue with IV antibiotic. Continue to monitor her lab work closely. Continue to monitor her H and H and transfuse her as needed. I have consulted physical and occupational therapist as well as speech therapist. REKHA CARMEN MD DR: CYNTHIA/desean JOB#: [id number] / [id number]
--- NOTE | 2018-08-03 14:30 | NUR ---
pt extubated to 3 l nc. pt off of versed for extubation and slowly weaned off of precedex iv and fentanyl iv being changed to iv pushes. pt had a large soft brown bowel movement. pt cleansed. placed on bedside commode. PT and OT assisted pt to bedside recliner. pt oriented to person and place. attempted to reorient to time and situation. when go to perform basic cares pt states "don' hurt me". pt sister, radha, at bedside
--- NOTE | 2018-08-03 18:00 | NUR ---
pt incontinent of a large soft brown stool. pt unaware of being incontinent. pt cleansed and pivoted pt over to the bedside commode. pt resistive in moving and receiving care. pt using foul/abusive language. pt states "I am going home, leave me alone." pt oriented only to self. still working on reorienting pt to the correct time, place and situations. pt did have a small stool on bedside commode. pt cleansed and x2 assist lifted from commode into the bed. pt positioned on her right side and bed alarm turned on. sister at bedside.
[2018-08-04] VITALS (15 sets, daily range): BP systolic 119–174; BP diastolic 63–89
[2018-08-04] MEDS: fentaNYL PF VIAL 100 MCG/2 ML VIAL IV PRN ×2 (02:05→20:43)
[2018-08-04 05:48] LABS: BASO # 0.1 x10^3/uL (0.0-0.2); BASO % 1 % (0-3); EOS % 0 % (0-3); HEMOGLOBIN 7.9 g/dL (12.0-15.5); LYMPH # 1.6 x10^3/uL (1.0-4.8); LYMPH % 10 % (24-48); MEAN CORPUSCULAR HEMOGLOBIN 28 pg (25-35); MEAN CORPUSCULAR HGB CONC 33 g/dL (31-37); MEAN CORPUSCULAR VOLUME 86 fL (79-100); MONO % 6 % (0-9); NEUT # 13.2 x10^3uL (1.8-7.7); NEUT % 83 % (31-73); PLATELET COUNT 224 x10^3/uL (140-400); WHITE BLOOD COUNT 15.9 x10^3/uL (4.0-11.0)
[2018-08-04] MEDS: MEROPENEM 500 MG in IV NORMAL SALINE 50ML 50 ML IV SCH ×3 (05:48→17:19)
[2018-08-04 06:06] LABS: ALBUMIN 1.6 g/dL (3.4-5.0); ALBUMIN/GLOBULIN RATIO 0.4 (1.0-1.7); CALCIUM 8.7 mg/dL (8.5-10.1); CREATININE 0.8 mg/dL (0.6-1.0); GFR 88.8; MAGNESIUM 1.7 mg/dL (1.8-2.4); POTASSIUM 4.1 mmol/L (3.5-5.1); TOTAL BILIRUBIN 0.3 mg/dL (0.2-1.0); TOTAL PROTEIN 5.4 g/dL (6.4-8.2)
--- NOTE | 2018-08-04 06:31 | PDOC ---
Infectious Disease Note Subjective Subjective Extubated - in chair and looks better No F/C/S/n/V No fevers reported Vital Sign Vital Signs Vital Signs Date Time Temp Pulse Resp B/P (MAP) Pulse Ox O2 Delivery O2 Flow Rate FiO2 08/04/18 06:00 88 28 147/82 (103) 99 Nasal Cannula 2.0 08/04/18 04:00 98.7 98.7 Physical Exam PHYSICAL EXAM GENERAL: Looks comfortable - in chair and alert HEENT: Pupils equal, Sclerae muddy.Oc/OP - clear NECK: Supple. LUNGS: Decreased breath sounds at bases. No rhonchi. HEART: S1, S2, regular ABDOMEN: Nondistended, soft, + Bowel sounds : Brandt in place EXTREMITIES: Muscle wasting, No cyanosis, no clubbing. LUE mild erythema with BP cuff on NEUROLOGIC: arousable SKIN: Warm without rash PIV Labs Lab Laboratory Tests Test 08/03/18 08:00 08/03/18 09:45 08/04/18 05:20 O2 Saturation 97 % (92-99) 94 % (92-99) Arterial Blood pH 7.36 (7.35-7.45) 7.40 (7.35-7.45) Arterial Blood pCO2 at Patient Temp 33 mmHg (35-46) 33 mmHg (35-46) Arterial Blood pO2 at Patient Temp 95 mmHg (65-108) 73 mmHg (65-108) Arterial Blood HCO3 18 mmol/L (21-28) 20 mmol/L (21-28) Arterial Blood Base Excess -7 mmol/L (-3-3) -4 mmol/L (-3-3) FiO2 40 40 White Blood Count 15.9 x10^3/uL (4.0-11.0) Red Blood Count 2.80 x10^6/uL (3.50-5.40) Hemoglobin 7.9 g/dL (12.0-15.5) Hematocrit 24.0 % (36.0-47.0) Mean Corpuscular Volume 86 fL (79-100) Mean Corpuscular Hemoglobin 28 pg (25-35) Mean Corpuscular Hemoglobin Concent 33 g/dL (31-37) Red Cell Distribution Width 15.0 % (11.5-14.5) Platelet Count 224 x10^3/uL (140-400) Neutrophils (%) (Auto) 83 % (31-73) Lymphocytes (%) (Auto) 10 % (24-48) Monocytes (%) (Auto) 6 % (0-9) Eosinophils (%) (Auto) 0 % (0-3) Basophils (%) (Auto) 1 % (0-3) Neutrophils # (Auto) 13.2 x10^3uL (1.8-7.7) Lymphocytes # (Auto) 1.6 x10^3/uL (1.0-4.8) Monocytes # (Auto) 1.0 x10^3/uL (0.0-1.1) Eosinophils # (Auto) 0.0 x10^3/uL (0.0-0.7) Basophils # (Auto) 0.1 x10^3/uL (0.0-0.2) Sodium Level 142 mmol/L (136-145) Potassium Level 4.1 mmol/L (3.5-5.1) Chloride Level 110 mmol/L (98-107) Carbon Dioxide Level 22 mmol/L (21-32) Anion Gap 10 (6-14) Blood Urea Nitrogen 11 mg/dL (7-20) Creatinine 0.8 mg/dL (0.6-1.0) Estimated GFR (Cockcroft-Gault) 88.8 BUN/Creatinine Ratio 14 (6-20) Glucose Level 84 mg/dL (70-99) Calcium Level 8.7 mg/dL (8.5-10.1) Magnesium Level 1.7 mg/dL (1.8-2.4) Total Bilirubin 0.3 mg/dL (0.2-1.0) Aspartate Amino Transf (AST/SGOT) 20 U/L (15-37) Alanine Aminotransferase (ALT/SGPT) 18 U/L (14-59) Alkaline Phosphatase 102 U/L (46-116) Total Protein 5.4 g/dL (6.4-8.2) Albumin 1.6 g/dL (3.4-5.0) Albumin/Globulin Ratio 0.4 (1.0-1.7) Micro CXR 07/30 IMPRESSION: Right lower lung zone disease process likely pneumonia. Superimposed interstitial opacities which may be secondary to interstitial pulmonary edema or atypical/viral infection. Microbiology 07/27/18 Blood Culture - Preliminary, Resulted NO GROWTH AFTER 3 DAYS Objective Assessment Leukocytosis - ? post PRBCs - clinically improving ETOH withdrawal Pulmonary infiltrates, likely aspiration pneumonia. -History of vomiting prior to admission. ALLERGY TO PENICILLIN WITH ANAPHYLAXIS. Per chart, the patient has received a dose of ceftriaxone at [facility]. The daughter feels that she may have taken cephalexin, but is not sure at this time. s/p code blue, 07/29 Syncopal episode POA - fractured rib History of alcohol withdrawal seizures, last one 1 month ago. Metabolic acidosis and acute kidney injury, improved Lactic acidosis, better Thrombocytopenia. Protein-calorie malnutrition. Anemia - s/p PRBCs 08/02 Plan Plan of Care Continue Merrem (07/27) adjusted to q 6 - try to wean 08/05 if stable F/u WBC - may be reactive Monitor LUE with mild edema - maybe related to BP cuff. No warmth or erythema BC 07/26 [facility] neg so far Supportive care. labs in am Critically ill Palliative note reviewed: No CPR; No shocks, no meds for cardiac arrest PEG if needed Tracheostomy if patient is improving and means to keep treating. No reintubation if patient is extubated D/w family D/w nursing JOSE TEMPLE MD Aug 04, 2018 06:31
[2018-08-04] MEDS: IPRATRPIUM/ALBUTEROL 0.5/2.5MG 3 ML NEBU. NEB SCH ×4 (07:09→20:39)
--- NOTE | 2018-08-04 08:09 | RAD ---
Portable chest, 08/04/2018: HISTORY: Ventilator patient Comparison is made to yesterday's study. The ET tube and NG tube have been removed. A right jugular central venous catheter extends to the level the atriocaval junction. The heart size is unchanged. There are ongoing bilateral pulmonary infiltrates with more dense consolidation in the left base. There is probable pleural fluid contributing to the basilar opacities. The pulmonary vascularity is somewhat poorly defined. There is no evidence of pneumothorax. No new abnormality is seen. IMPRESSION: 1. The ET tube and NG tube have been removed. 2. Unchanged bilateral pulmonary infiltrates and pleural effusions. Electronically signed by: Christian Lopez MD (08/04/2018 8:06 AM) [facility]
[2018-08-04] MEDS: PANTOPRAZOLE IV PUSH 40 MG VIAL. IVP SCH (08:14)
[2018-08-04] MEDS: CYANOCOBALAMIN (VITAMIN B-12) 1,000 MCG TABLET. PO SCH (08:33)
[2018-08-04] MEDS: SERTRALINE 50 MG TABLET. PO SCH (08:33)
--- NOTE | 2018-08-04 09:22 | PDOC ---
PULMONARY PROGRESS NOTES Subjective DID NOT DO WELL ON TRIAL YESTERDAY NOW ON AC MODE Vitals Vital Signs Date Time Temp Pulse Resp B/P (MAP) Pulse Ox O2 Delivery O2 Flow Rate FiO2 08/04/18 09:06 90 28 140/84 (102) 95 Room Air 08/04/18 07:30 1.0 08/04/18 07:01 98.4 98.4 ROS: No Chest Pain, No Increase Cough General: Alert Lungs: Crackles, Other (equal breath sounds, no wheezing) Cardiovascular: S1, S2 Abdomen: Soft Neuro Exam: Alert Extremities: No Edema, Other Skin: Warm Labs Laboratory Tests Test 08/02/18 09:25 08/02/18 18:00 08/03/18 08:00 08/03/18 09:45 O2 Saturation 98 % (92-99) 97 % (92-99) 94 % (92-99) Arterial Blood pH 7.38 (7.35-7.45) 7.36 (7.35-7.45) 7.40 (7.35-7.45) Arterial Blood pCO2 at Patient Temp 35 mmHg (35-46) 33 mmHg (35-46) 33 mmHg (35-46) Arterial Blood pO2 at Patient Temp 110 mmHg (65-108) 95 mmHg (65-108) 73 mmHg (65-108) Arterial Blood HCO3 20 mmol/L (21-28) 18 mmol/L (21-28) 20 mmol/L (21-28) Arterial Blood Base Excess -4 mmol/L (-3-3) -7 mmol/L (-3-3) -4 mmol/L (-3-3) FiO2 35 40 40 Hemoglobin 8.0 g/dL (12.0-15.5) Hematocrit 23.7 % (36.0-47.0) Test 08/04/18 05:20 White Blood Count 15.9 x10^3/uL (4.0-11.0) Red Blood Count 2.80 x10^6/uL (3.50-5.40) Hemoglobin 7.9 g/dL (12.0-15.5) Hematocrit 24.0 % (36.0-47.0) Mean Corpuscular Volume 86 fL (79-100) Mean Corpuscular Hemoglobin 28 pg (25-35) Mean Corpuscular Hemoglobin Concent 33 g/dL (31-37) Red Cell Distribution Width 15.0 % (11.5-14.5) Platelet Count 224 x10^3/uL (140-400) Neutrophils (%) (Auto) 83 % (31-73) Lymphocytes (%) (Auto) 10 % (24-48) Monocytes (%) (Auto) 6 % (0-9) Eosinophils (%) (Auto) 0 % (0-3) Basophils (%) (Auto) 1 % (0-3) Neutrophils # (Auto) 13.2 x10^3uL (1.8-7.7) Lymphocytes # (Auto) 1.6 x10^3/uL (1.0-4.8) Monocytes # (Auto) 1.0 x10^3/uL (0.0-1.1) Eosinophils # (Auto) 0.0 x10^3/uL (0.0-0.7) Basophils # (Auto) 0.1 x10^3/uL (0.0-0.2) Sodium Level 142 mmol/L (136-145) Potassium Level 4.1 mmol/L (3.5-5.1) Chloride Level 110 mmol/L (98-107) Carbon Dioxide Level 22 mmol/L (21-32) Anion Gap 10 (6-14) Blood Urea Nitrogen 11 mg/dL (7-20) Creatinine 0.8 mg/dL (0.6-1.0) Estimated GFR (Cockcroft-Gault) 88.8 BUN/Creatinine Ratio 14 (6-20) Glucose Level 84 mg/dL (70-99) Calcium Level 8.7 mg/dL (8.5-10.1) Magnesium Level 1.7 mg/dL (1.8-2.4) Total Bilirubin 0.3 mg/dL (0.2-1.0) Aspartate Amino Transf (AST/SGOT) 20 U/L (15-37) Alanine Aminotransferase (ALT/SGPT) 18 U/L (14-59) Alkaline Phosphatase 102 U/L (46-116) Total Protein 5.4 g/dL (6.4-8.2) Albumin 1.6 g/dL (3.4-5.0) Albumin/Globulin Ratio 0.4 (1.0-1.7) Laboratory Tests Test 08/03/18 09:45 08/04/18 05:20 O2 Saturation 94 % (92-99) Arterial Blood pH 7.40 (7.35-7.45) Arterial Blood pCO2 at Patient Temp 33 mmHg (35-46) Arterial Blood pO2 at Patient Temp 73 mmHg (65-108) Arterial Blood HCO3 20 mmol/L (21-28) Arterial Blood Base Excess -4 mmol/L (-3-3) FiO2 40 White Blood Count 15.9 x10^3/uL (4.0-11.0) Red Blood Count 2.80 x10^6/uL (3.50-5.40) Hemoglobin 7.9 g/dL (12.0-15.5) Hematocrit 24.0 % (36.0-47.0) Mean Corpuscular Volume 86 fL (79-100) Mean Corpuscular Hemoglobin 28 pg (25-35) Mean Corpuscular Hemoglobin Concent 33 g/dL (31-37) Red Cell Distribution Width 15.0 % (11.5-14.5) Platelet Count 224 x10^3/uL (140-400) Neutrophils (%) (Auto) 83 % (31-73) Lymphocytes (%) (Auto) 10 % (24-48) Monocytes (%) (Auto) 6 % (0-9) Eosinophils (%) (Auto) 0 % (0-3) Basophils (%) (Auto) 1 % (0-3) Neutrophils # (Auto) 13.2 x10^3uL (1.8-7.7) Lymphocytes # (Auto) 1.6 x10^3/uL (1.0-4.8) Monocytes # (Auto) 1.0 x10^3/uL (0.0-1.1) Eosinophils # (Auto) 0.0 x10^3/uL (0.0-0.7) Basophils # (Auto) 0.1 x10^3/uL (0.0-0.2) Sodium Level 142 mmol/L (136-145) Potassium Level 4.1 mmol/L (3.5-5.1) Chloride Level 110 mmol/L (98-107) Carbon Dioxide Level 22 mmol/L (21-32) Anion Gap 10 (6-14) Blood Urea Nitrogen 11 mg/dL (7-20) Creatinine 0.8 mg/dL (0.6-1.0) Estimated GFR (Cockcroft-Gault) 88.8 BUN/Creatinine Ratio 14 (6-20) Glucose Level 84 mg/dL (70-99) Calcium Level 8.7 mg/dL (8.5-10.1) Magnesium Level 1.7 mg/dL (1.8-2.4) Total Bilirubin 0.3 mg/dL (0.2-1.0) Aspartate Amino Transf (AST/SGOT) 20 U/L (15-37) Alanine Aminotransferase (ALT/SGPT) 18 U/L (14-59) Alkaline Phosphatase 102 U/L (46-116) Total Protein 5.4 g/dL (6.4-8.2) Albumin 1.6 g/dL (3.4-5.0) Albumin/Globulin Ratio 0.4 (1.0-1.7) Medications Active Scripts Medications Dose Route/Sig Max Daily Dose Days Date Category Melatonin 3 Mg Tab.rapdis 3 Mg PO HS PRN 07/27/18 Reported Nephro-Nola Tablet (Folic Acid/Vitamin B Comp W-C) 0.8 Mg Tablet 1 Tab PO DAILY 07/27/18 Reported Vitamin B-12 (Cyanocobalamin (Vitamin B-12)) 1,000 Mcg Tablet 1,000 Mcg PO DAILY 07/27/18 Reported Megestrol Acetate 20 Mg Tablet 20 Mg PO DAILY 07/27/18 Reported Protonix (Pantoprazole Sodium) 20 Mg Tablet.dr 40 Mg PO DAILY 07/27/18 Reported Zoloft (Sertraline Hcl) 50 Mg Tablet 1 Tab PO DAILY 07/27/18 Reported Zoloft (Sertraline Hcl) 25 Mg Tablet 1 Tab PO DAILY 07/27/18 Reported Coreg (Carvedilol) 25 Mg Tablet 6.25 Mg PO BIDWMEALS 07/27/18 Reported Lipitor (Atorvastatin Calcium) 10 Mg Tablet 1 Tab PO QHS 07/27/18 Reported Spiriva (Tiotropium [place]) 18 Mcg Cap.w.dev 1 Cap IH DAILY 07/27/18 Reported Duoneb 0.5-3(2.5) Mg/3 Ml (Albuterol/Ipratropium) 3 Ml Ampul.neb 3 Ml NEB QID PRN 07/27/18 Reported Comments CXR today shows good ET placement and R infiltrate stable or perhaps slightly improved. CTA yesterday did not show PE Impression . IMPRESSION: 1. Acute hypoxemic respiratory failure secondary to pneumonia and cardiac arrest. 2. Aspiration pneumonia. 3. Alcoholism with past history of severe withdrawal. 4. Chronic obstructive pulmonary disease. Plan . D/W PALLIATIVE CARE Palliative note reviewed: No CPR; No shocks, no meds for cardiac arrest PEG if needed Tracheostomy if patient is improving and means to keep treating. No reintubation if patient is extubated DID WELL ON TRIAL EXTUBATED 08/02 CONTINUE SUPPORT D/W FAMILY AT BEDSIDE ALVINO HERNANDEZ MD Aug 04, 2018 09:22
[2018-08-04] MEDS ORDERED: MAGNESIUM SULFATE 2GM 50 ML IV ONE (10:30)
[2018-08-04] MEDS: MULTIVITAMIN with MINERAL TABLET. PO SCH (17:18)
[2018-08-04] MEDS: THIAMINE 100 MG TABLET. PO SCH (17:18)
[2018-08-04] MEDS: FOLIC ACID 1 MG TABLET. PO SCH (17:18)
[2018-08-04] MEDS: LACTOBACILLUS RHAMNOSUS GG 1 CAPSULE. PO SCH (20:56)
[2018-08-05] MEDS: MEROPENEM 500 MG in IV NORMAL SALINE 50ML 50 ML IV SCH ×5 (00:24→23:55)
[2018-08-05] MEDS: fentaNYL PF VIAL 100 MCG/2 ML VIAL IV PRN ×3 (00:36→15:14)
[2018-08-05] MEDS ORDERED: hydrALAZINE 20 MG/ML VIAL. IVP PRN (01:00)
[2018-08-05] MEDS ORDERED: amLODIPine BESYLATE 10 MG TABLET PO ONE (01:00)
--- NOTE | 2018-08-05 02:10 | NUR ---
Notified Dr. Chan of SBP 160s-180s when taken at 0000. Received order to give Norvasc 10 mg now, then QD, and PRN Hydralazine 10 mg Q4hrs for SBP >160. Norvasc 10 mg administered at approx 0100. Will continue to monitor.
--- NOTE | 2018-08-05 02:32 | PN ---
DATE: 08/04/2018 SUBJECTIVE: The patient is resting, slightly propped up in her recliner, in no apparent respiratory distress. She is awake, alert. She is oriented to her family and herself, but not to place or time. Denied any complaint. Physical Therapy worked there and moved her from bed to chair yesterday; however, she is not seen yet by the speech therapist. PHYSICAL EXAMINATION: GENERAL: When I examined her, she looked pale, but not jaundiced or cyanosed from thyromegaly. No jugular venous distention. No limb edema. VITAL SIGNS: Her heart rate was 90, blood pressure was 140/84, temperature was 98.4, respiratory rate was 28 and oxygen saturation was 98% on room air. HEAD, EYES, EARS, NOSE AND THROAT: Showed normocephalic, atraumatic. NECK: Supple. HEART: Showed normal first and second heart sounds. No gallop, rub or murmur. CHEST: Clear to auscultation. No crepitation or rhonchi. ABDOMEN: Scaphoid, soft, nontender. NEUROLOGIC: She is definitely awake, alert, responding appropriately, although somewhat slow. All her cranial nerves intact. She moves extremities without difficulty. She has marked muscle wasting and weakness. Her chest x-ray showed that she has unchanged bilateral pulmonary infiltrates and pleural effusion. LABORATORY DATA: Her lab work showed that her white cell count is up to 15,900; hemoglobin 7.9; hematocrit 24; MCV 86; platelet count 224,000. Her chemistry showed a serum sodium 142, potassium 4.1, chloride 110, bicarbonate 22, anion gap of 10, BUN 11, creatinine 0.8, estimated GFR was 89 mL per minute, her glucose was 84, calcium was 8.7, magnesium was 1.7. Total bilirubin, AST, ALT, alkaline phosphatase were normal. Total protein was 5.4, albumin is 1.6. ASSESSMENT: 1. The patient is status post cardiac arrest, started his bradycardia and eventually pulseless electrical activity from which he was successfully resuscitated. She was intubated and mechanically ventilated. However, she was successfully extubated. 2. Chronic alcoholism, alcohol withdrawal seizures. 3. Sepsis, likely due to right lower lobe pneumonia. 4. Metabolic acidosis, resolved. 5. Acute kidney injury, resolved. Her creatinine is down from 0.8 mg/dL. 6. Thrombocytopenia. 7. Severe protein-calorie malnutrition, serum albumin is only 1.5 g/dL with generalized anasarca. 8. Anemia, status post 2 units of packed red blood cells. 9. Hypomagnesemia. Her most recent serum magnesium is 1.7. 10. Hypokalemia, resolved. 11. Acute hypoxic respiratory failure. Chest x-ray continued to show bilateral lung infiltrate and pleural effusion. PLAN: To continue with Merrem, continue with pain management, physical and occupational therapy. Her code status was changed to no CPR, no shock, no medication for cardiac arrest. REKHA CARMEN MD DR: CYNTHIA/desean JOB#: [id number] / [id number]
[2018-08-05 03:00] VITALS: BP 144/84
[2018-08-05 06:18] LABS: BASO # 0.1 x10^3/uL (0.0-0.2); BASO % 1 % (0-3); EOS # 0.1 x10^3/uL (0.0-0.7); EOS % 0 % (0-3); HEMATOCRIT 24.4 % (36.0-47.0); LYMPH # 1.5 x10^3/uL (1.0-4.8); LYMPH % 10 % (24-48); MEAN CORPUSCULAR HEMOGLOBIN 28 pg (25-35); MEAN CORPUSCULAR HGB CONC 33 g/dL (31-37); MEAN CORPUSCULAR VOLUME 85 fL (79-100); MONO % 7 % (0-9); NEUT # 12.4 x10^3uL (1.8-7.7); NEUT % 82 % (31-73); PLATELET COUNT 281 x10^3/uL (140-400); RED BLOOD COUNT 2.87 x10^6/uL (3.50-5.40); RED CELL DISTRIBUTION WIDTH 14.8 % (11.5-14.5); WHITE BLOOD COUNT 15.1 x10^3/uL (4.0-11.0)
[2018-08-05 06:29] LABS: CALCIUM 8.9 mg/dL (8.5-10.1); CREATININE 0.8 mg/dL (0.6-1.0); GFR 88.8; POTASSIUM 3.3 mmol/L (3.5-5.1)
[2018-08-05 07:00] VITALS: BP 155/86
[2018-08-05] MEDS: IPRATRPIUM/ALBUTEROL 0.5/2.5MG 3 ML NEBU. NEB SCH ×4 (08:13→20:00)
--- NOTE | 2018-08-05 08:15 | PDOC ---
Infectious Disease Note Subjective Subjective Denies fevers/chills Denies SOA/CP Denies N/V ROS ROS per HPI Vital Sign Vital Signs Vital Signs Date Time Temp Pulse Resp B/P (MAP) Pulse Ox O2 Delivery O2 Flow Rate FiO2 08/05/18 04:17 32 Room Air 08/05/18 03:00 98.6 97 144/84 (104) 96 98.6 08/04/18 20:37 Physical Exam PHYSICAL EXAM GENERAL: Propped up in bed, alert, smiling HEENT: Pupils equal, Sclerae muddy. Oc/OP - clear NECK: Supple. LUNGS: Decreased breath sounds at bases. HEART: S1, S2, regular ABDOMEN: Nondistended, soft, + Bowel sounds : Brandt in place EXTREMITIES: No gross edema NEUROLOGIC: Respnds appropriately SKIN: Warm without rash RIJ clean Labs Lab Laboratory Tests Test 08/05/18 05:50 White Blood Count 15.1 x10^3/uL (4.0-11.0) Red Blood Count 2.87 x10^6/uL (3.50-5.40) Hemoglobin 8.0 g/dL (12.0-15.5) Hematocrit 24.4 % (36.0-47.0) Mean Corpuscular Volume 85 fL (79-100) Mean Corpuscular Hemoglobin 28 pg (25-35) Mean Corpuscular Hemoglobin Concent 33 g/dL (31-37) Red Cell Distribution Width 14.8 % (11.5-14.5) Platelet Count 281 x10^3/uL (140-400) Neutrophils (%) (Auto) 82 % (31-73) Lymphocytes (%) (Auto) 10 % (24-48) Monocytes (%) (Auto) 7 % (0-9) Eosinophils (%) (Auto) 0 % (0-3) Basophils (%) (Auto) 1 % (0-3) Neutrophils # (Auto) 12.4 x10^3uL (1.8-7.7) Lymphocytes # (Auto) 1.5 x10^3/uL (1.0-4.8) Monocytes # (Auto) 1.0 x10^3/uL (0.0-1.1) Eosinophils # (Auto) 0.1 x10^3/uL (0.0-0.7) Basophils # (Auto) 0.1 x10^3/uL (0.0-0.2) Sodium Level 139 mmol/L (136-145) Potassium Level 3.3 mmol/L (3.5-5.1) Chloride Level 105 mmol/L (98-107) Carbon Dioxide Level 22 mmol/L (21-32) Anion Gap 12 (6-14) Blood Urea Nitrogen 10 mg/dL (7-20) Creatinine 0.8 mg/dL (0.6-1.0) Estimated GFR (Cockcroft-Gault) 88.8 Glucose Level 86 mg/dL (70-99) Calcium Level 8.9 mg/dL (8.5-10.1) Magnesium Level 1.8 mg/dL (1.8-2.4) Micro Objective Assessment Leukocytosis - ? post PRBCs - clinically improving ETOH withdrawal Pulmonary infiltrates, likely aspiration pneumonia. -History of vomiting prior to admission. ALLERGY TO PENICILLIN WITH ANAPHYLAXIS. Per chart, the patient has received a dose of ceftriaxone at [facility]. The daughter feels that she may have taken cephalexin, but is not sure at this time. s/p code blue, 07/29 Syncopal episode POA - fractured rib History of alcohol withdrawal seizures, last one 1 month ago. Metabolic acidosis and acute kidney injury, improved Lactic acidosis, better Thrombocytopenia. Protein-calorie malnutrition. Anemia - s/p PRBCs 08/02 Plan Plan of Care Continue Merrem (07/27) adjusted to q 6 - wean soon F/u WBC - may be reactive Monitor LUE with mild edema - maybe related to BP cuff. No warmth or erythema 07/26 [facility] neg Supportive care. Palliative note reviewed: No CPR; No shocks, no meds for cardiac arrest PEG if needed Tracheostomy if patient is improving and means to keep treating. No reintubation if patient is extubated D/w nursing Attending Co-Sign The patient was seen and interviewed as well as examined at the bedside. The chart was reviewed. The case was discussed. Agree with the plan of care. EMMA TINOCO APRN Aug 05, 2018 08:15 JORGE ALBERTO LOMBARDO MD Aug 05, 2018 10:53
[2018-08-05] MEDS: PANTOPRAZOLE IV PUSH 40 MG VIAL. IVP SCH (08:17)
[2018-08-05] MEDS: CYANOCOBALAMIN (VITAMIN B-12) 1,000 MCG TABLET. PO SCH (08:18)
[2018-08-05] MEDS: SERTRALINE 50 MG TABLET. PO SCH (08:18)
[2018-08-05] MEDS: amLODIPine BESYLATE 10 MG TABLET PO SCH (08:18)
[2018-08-05] MEDS: LACTOBACILLUS RHAMNOSUS GG 1 CAPSULE. PO SCH ×2 (08:18→21:06)
[2018-08-05] MEDS: THIAMINE 100 MG TABLET. PO SCH (08:18)
[2018-08-05] MEDS: FOLIC ACID 1 MG TABLET. PO SCH (08:18)
[2018-08-05] MEDS: MULTIVITAMIN with MINERAL TABLET. PO SCH (08:18)
--- NOTE | 2018-08-05 08:24 | PDOC ---
PULMONARY PROGRESS NOTES Subjective PT CONFUSED ON 02 Vitals Vital Signs Date Time Temp Pulse Resp B/P (MAP) Pulse Ox O2 Delivery O2 Flow Rate FiO2 08/05/18 08:19 92 174/117 08/05/18 08:14 96 Room Air 08/05/18 07:00 98.3 24 98.3 08/04/18 20:37 ROS: No Chest Pain, No Increase Cough General: Alert Lungs: Crackles, Other (equal breath sounds, no wheezing) Cardiovascular: S1, S2 Abdomen: Soft Neuro Exam: Alert Extremities: No Edema, Other Skin: Warm Labs Laboratory Tests Test 08/03/18 09:45 08/04/18 05:20 08/05/18 05:50 O2 Saturation 94 % (92-99) Arterial Blood pH 7.40 (7.35-7.45) Arterial Blood pCO2 at Patient Temp 33 mmHg (35-46) Arterial Blood pO2 at Patient Temp 73 mmHg (65-108) Arterial Blood HCO3 20 mmol/L (21-28) Arterial Blood Base Excess -4 mmol/L (-3-3) FiO2 40 White Blood Count 15.9 x10^3/uL (4.0-11.0) 15.1 x10^3/uL (4.0-11.0) Red Blood Count 2.80 x10^6/uL (3.50-5.40) 2.87 x10^6/uL (3.50-5.40) Hemoglobin 7.9 g/dL (12.0-15.5) 8.0 g/dL (12.0-15.5) Hematocrit 24.0 % (36.0-47.0) 24.4 % (36.0-47.0) Mean Corpuscular Volume 86 fL (79-100) 85 fL (79-100) Mean Corpuscular Hemoglobin 28 pg (25-35) 28 pg (25-35) Mean Corpuscular Hemoglobin Concent 33 g/dL (31-37) 33 g/dL (31-37) Red Cell Distribution Width 15.0 % (11.5-14.5) 14.8 % (11.5-14.5) Platelet Count 224 x10^3/uL (140-400) 281 x10^3/uL (140-400) Neutrophils (%) (Auto) 83 % (31-73) 82 % (31-73) Lymphocytes (%) (Auto) 10 % (24-48) 10 % (24-48) Monocytes (%) (Auto) 6 % (0-9) 7 % (0-9) Eosinophils (%) (Auto) 0 % (0-3) 0 % (0-3) Basophils (%) (Auto) 1 % (0-3) 1 % (0-3) Neutrophils # (Auto) 13.2 x10^3uL (1.8-7.7) 12.4 x10^3uL (1.8-7.7) Lymphocytes # (Auto) 1.6 x10^3/uL (1.0-4.8) 1.5 x10^3/uL (1.0-4.8) Monocytes # (Auto) 1.0 x10^3/uL (0.0-1.1) 1.0 x10^3/uL (0.0-1.1) Eosinophils # (Auto) 0.0 x10^3/uL (0.0-0.7) 0.1 x10^3/uL (0.0-0.7) Basophils # (Auto) 0.1 x10^3/uL (0.0-0.2) 0.1 x10^3/uL (0.0-0.2) Sodium Level 142 mmol/L (136-145) 139 mmol/L (136-145) Potassium Level 4.1 mmol/L (3.5-5.1) 3.3 mmol/L (3.5-5.1) Chloride Level 110 mmol/L (98-107) 105 mmol/L (98-107) Carbon Dioxide Level 22 mmol/L (21-32) 22 mmol/L (21-32) Anion Gap 10 (6-14) 12 (6-14) Blood Urea Nitrogen 11 mg/dL (7-20) 10 mg/dL (7-20) Creatinine 0.8 mg/dL (0.6-1.0) 0.8 mg/dL (0.6-1.0) Estimated GFR (Cockcroft-Gault) 88.8 88.8 BUN/Creatinine Ratio 14 (6-20) Glucose Level 84 mg/dL (70-99) 86 mg/dL (70-99) Calcium Level 8.7 mg/dL (8.5-10.1) 8.9 mg/dL (8.5-10.1) Magnesium Level 1.7 mg/dL (1.8-2.4) 1.8 mg/dL (1.8-2.4) Total Bilirubin 0.3 mg/dL (0.2-1.0) Aspartate Amino Transf (AST/SGOT) 20 U/L (15-37) Alanine Aminotransferase (ALT/SGPT) 18 U/L (14-59) Alkaline Phosphatase 102 U/L (46-116) Total Protein 5.4 g/dL (6.4-8.2) Albumin 1.6 g/dL (3.4-5.0) Albumin/Globulin Ratio 0.4 (1.0-1.7) Laboratory Tests Test 08/05/18 05:50 White Blood Count 15.1 x10^3/uL (4.0-11.0) Red Blood Count 2.87 x10^6/uL (3.50-5.40) Hemoglobin 8.0 g/dL (12.0-15.5) Hematocrit 24.4 % (36.0-47.0) Mean Corpuscular Volume 85 fL (79-100) Mean Corpuscular Hemoglobin 28 pg (25-35) Mean Corpuscular Hemoglobin Concent 33 g/dL (31-37) Red Cell Distribution Width 14.8 % (11.5-14.5) Platelet Count 281 x10^3/uL (140-400) Neutrophils (%) (Auto) 82 % (31-73) Lymphocytes (%) (Auto) 10 % (24-48) Monocytes (%) (Auto) 7 % (0-9) Eosinophils (%) (Auto) 0 % (0-3) Basophils (%) (Auto) 1 % (0-3) Neutrophils # (Auto) 12.4 x10^3uL (1.8-7.7) Lymphocytes # (Auto) 1.5 x10^3/uL (1.0-4.8) Monocytes # (Auto) 1.0 x10^3/uL (0.0-1.1) Eosinophils # (Auto) 0.1 x10^3/uL (0.0-0.7) Basophils # (Auto) 0.1 x10^3/uL (0.0-0.2) Sodium Level 139 mmol/L (136-145) Potassium Level 3.3 mmol/L (3.5-5.1) Chloride Level 105 mmol/L (98-107) Carbon Dioxide Level 22 mmol/L (21-32) Anion Gap 12 (6-14) Blood Urea Nitrogen 10 mg/dL (7-20) Creatinine 0.8 mg/dL (0.6-1.0) Estimated GFR (Cockcroft-Gault) 88.8 Glucose Level 86 mg/dL (70-99) Calcium Level 8.9 mg/dL (8.5-10.1) Magnesium Level 1.8 mg/dL (1.8-2.4) Medications Active Scripts Medications Dose Route/Sig Max Daily Dose Days Date Category Melatonin 3 Mg Tab.rapdis 3 Mg PO HS PRN 07/27/18 Reported Nephro-Nola Tablet (Folic Acid/Vitamin B Comp W-C) 0.8 Mg Tablet 1 Tab PO DAILY 07/27/18 Reported Vitamin B-12 (Cyanocobalamin (Vitamin B-12)) 1,000 Mcg Tablet 1,000 Mcg PO DAILY 07/27/18 Reported Megestrol Acetate 20 Mg Tablet 20 Mg PO DAILY 07/27/18 Reported Protonix (Pantoprazole Sodium) 20 Mg Tablet.dr 40 Mg PO DAILY 07/27/18 Reported Zoloft (Sertraline Hcl) 50 Mg Tablet 1 Tab PO DAILY 07/27/18 Reported Zoloft (Sertraline Hcl) 25 Mg Tablet 1 Tab PO DAILY 07/27/18 Reported Coreg (Carvedilol) 25 Mg Tablet 6.25 Mg PO BIDWMEALS 07/27/18 Reported Lipitor (Atorvastatin Calcium) 10 Mg Tablet 1 Tab PO QHS 07/27/18 Reported Spiriva (Tiotropium [place]) 18 Mcg Cap.w.dev 1 Cap IH DAILY 07/27/18 Reported Duoneb 0.5-3(2.5) Mg/3 Ml (Albuterol/Ipratropium) 3 Ml Ampul.neb 3 Ml NEB QID PRN 07/27/18 Reported Comments DANIE INFILTRATES AND EFFUSION NO CHANGE ON CXR Impression . IMPRESSION: 1. Acute hypoxemic respiratory failure secondary to pneumonia and cardiac arrest. 2. Aspiration pneumonia. 3. Alcoholism with past history of severe withdrawal. 4. Chronic obstructive pulmonary disease. 5. MET AND TOXIC ENCE Plan . D/W PALLIATIVE CARE Palliative note reviewed: No CPR; No shocks, no meds for cardiac arrest PEG if needed No reintubation if patient is extubated DID WELL ON TRIAL EXTUBATED 08/02 CONTINUE SUPPORT D/W FAMILY AT BEDSIDE ANT BX PER ALVINO MONREAL MD Aug 05, 2018 08:24
--- NOTE | 2018-08-05 08:46 | RAD ---
EXAM: CHEST 1 VIEW. HISTORY: Respiratory failure. COMPARISON: 08/05/2018. FINDINGS: A frontal view of the chest is obtained. A right internal jugular central venous catheter has its tip in the superior cavoatrial junction. There are small to moderate bilateral posteriorly layering pleural effusions. Airspace opacities in both bases are consistent with atelectasis along with mild pulmonary edema or multifocal pneumonia. These have improved. There is no pneumothorax. The heart is not enlarged. There are atherosclerotic calcifications of the aorta. IMPRESSION: 1. Bilateral pleural effusions and bibasilar infiltrates have improved. Electronically signed by: Jesse Ospina MD (08/05/2018 8:43 AM) [facility]
[2018-08-05] MEDS: POTASSIUM CHLORIDE 20 MEQ TABLET.ER. PO SCH ×3 (09:00→21:06)
[2018-08-05 11:00] VITALS: BP 141/80
[2018-08-05] MEDS: CARVEDILOL 6.25 MG TABLET. PO SCH ×2 (13:46→17:05)
[2018-08-05 15:00] VITALS: BP 155/81
--- NOTE | 2018-08-05 18:05 | NUR ---
Patient transferred to room 530 from ICU. Agree with previous assessment clinician. Will continue to monitor and care for according to POC.
[2018-08-05 19:00] VITALS: BP 108/75
--- NOTE | 2018-08-05 22:47 | PN ---
DATE: 08/05/2018 SUBJECTIVE: The patient is resting slightly propped up in bed, in no apparent distress. She is definitely more awake, alert. On questioning her, she is hungry. Nursing staff stated that her blood pressure is high. We did start her on amlodipine and IV hydralazine. PHYSICAL EXAMINATION: GENERAL: When I saw her today, she looked well and was clearly in no apparent respiratory distress, pale, cachectic, but not jaundiced or cyanosed. No thyromegaly. No jugular venous distension. No lower limb edema. VITAL SIGNS: Her heart rate was 92, blood pressure 174/117, temperature was 98.3, respiratory rate was 24 and oxygen saturation was 96% on room air. HEAD, EYES, EARS, NOSE AND THROAT: Normocephalic, atraumatic. NECK: Supple. HEART: Showed normal first and second heart sounds with no gallop, rub or murmur. CHEST: Clear to auscultation. No crepitation or rhonchi. ABDOMEN: Distended, soft, nontender. No guarding or rigidity. No organomegaly. All hernial orifices intact. Bowel sounds normal. NEUROLOGIC: She was definitely awake, alert, responding appropriately. All cranial nerves intact. She moves extremities without difficulty. She continued to be bedbound, chair bound. Her intake over the last 24 hours was 740, output was 1896. LABORATORY DATA: As of this morning, her serum sodium was 139, potassium 3.3, chloride 105, bicarbonate 22, anion gap of 12, BUN 10, creatinine 0.8, estimated GFR was 88 mL per minute. Her glucose was 86, calcium was 8.9, magnesium was 1.8. Her white cell count continued to be slightly high at 15,000, hemoglobin 8, hematocrit 24, MCV 85 and platelet count 281,000. ASSESSMENT: 1. Altered mental status, severe metabolic acidosis, lactic acidosis, acute hypoxic respiratory failure and right lower lobe pneumonia. 2. The patient developed bradycardia and eventually, pulseless electrical activity from which she was successfully resuscitated. She was mechanically ventilated; however, she was successfully extubated. 3. Chronic alcoholism and alcohol withdrawal seizures. 4. Sepsis, likely due to right lower lobe pneumonia. 5. Metabolic acidosis, resolved. 6. Acute kidney injury, resolved. Her creatinine is down from 1.8 to 0.8 mg/dL. 7. Thrombocytopenia, improving. Today's platelet count is 82,000. 8. Severe protein calorie malnutrition. Serum albumin is only 1.5 g/dL with generalized anasarca. 9. Anemia, status post 2 units of packed RBCs. Hemoglobin is 8 and hematocrit 24. 10. Hypokalemia with serum potassium is down to 3.3. 11. Acute hypoxic respiratory failure. Chest x-ray continued to show bilateral lung infiltrate and pleural effusion. PLAN: 1. Is to continue with IV meropenem. 2. Continue with pain management. 3. Continue with physical and occupational therapy. 4. We will replenish potassium. 5. The patient's code status was changed to DNR/DNI. Her sister is requesting guardianship. The patient at least for the time being is probably unable to make decisions given the delirious state that she is in. REKHA CARMEN MD DR: CYNTHIA/desean JOB#: [id number] / [id number]
[2018-08-05 23:04] VITALS: BP 157/86
[2018-08-06 03:04] VITALS: BP 157/89
[2018-08-06] MEDS: fentaNYL PF VIAL 100 MCG/2 ML VIAL IV PRN ×2 (04:52→08:47)
[2018-08-06] MEDS: MEROPENEM 500 MG in IV NORMAL SALINE 50ML 50 ML IV SCH (06:03)
[2018-08-06 06:59] LABS: CALCIUM 8.6 mg/dL (8.5-10.1); CREATININE 0.7 mg/dL (0.6-1.0); GFR 103.6; MAGNESIUM 1.3 mg/dL (1.8-2.4); POTASSIUM 3.2 mmol/L (3.5-5.1)
[2018-08-06 07:00] VITALS: BP 139/79
[2018-08-06] MEDS: IPRATRPIUM/ALBUTEROL 0.5/2.5MG 3 ML NEBU. NEB SCH ×4 (08:11→19:42)
[2018-08-06] MEDS: PANTOPRAZOLE 40 MG TABLET.DR. PO SCH (08:43)
[2018-08-06] MEDS: CARVEDILOL 6.25 MG TABLET. PO SCH ×2 (08:43→17:11)
[2018-08-06] MEDS: POTASSIUM CHLORIDE 20 MEQ TABLET.ER. PO SCH ×3 (08:44→21:01)
[2018-08-06] MEDS: LACTOBACILLUS RHAMNOSUS GG 1 CAPSULE. PO SCH ×2 (08:44→21:01)
[2018-08-06] MEDS: FOLIC ACID 1 MG TABLET. PO SCH (08:44)
[2018-08-06] MEDS: THIAMINE 100 MG TABLET. PO SCH (08:45)
[2018-08-06] MEDS: amLODIPine BESYLATE 10 MG TABLET PO SCH (08:45)
[2018-08-06] MEDS: SERTRALINE 50 MG TABLET. PO SCH (08:45)
[2018-08-06] MEDS: MULTIVITAMIN with MINERAL TABLET. PO SCH (08:45)
[2018-08-06] MEDS: CYANOCOBALAMIN (VITAMIN B-12) 1,000 MCG TABLET. PO SCH (08:45)
--- NOTE | 2018-08-06 09:54 | PDOC ---
Infectious Disease Note Subjective Subjective Didn't sleep too well last night, had a nightmare, anxiety Feeling better this morning, but not wanting to get up out of bed Denies F/C/N/V/SOA ROS ROS per HPI Vital Sign Vital Signs Vital Signs Date Time Temp Pulse Resp B/P (MAP) Pulse Ox O2 Delivery O2 Flow Rate FiO2 08/06/18 09:17 20 94 Room Air 08/06/18 08:45 76 139/79 08/06/18 07:00 97.8 97.8 Physical Exam PHYSICAL EXAM GENERAL: Propped up in bed, alert, smiling HEENT:Oral cavity clear NECK: Supple. LUNGS: Decreased breath sounds at bases, nonlabored HEART: S1, S2 ABDOMEN: Soft, + Bowel sounds : Brandt in place EXTREMITIES: No gross edema NEUROLOGIC: Alert, responds appropriately SKIN: Warm without rash RIJ clean Labs Lab Laboratory Tests Test 08/06/18 06:05 Sodium Level 137 mmol/L (136-145) Potassium Level 3.2 mmol/L (3.5-5.1) Chloride Level 102 mmol/L (98-107) Carbon Dioxide Level 24 mmol/L (21-32) Anion Gap 11 (6-14) Blood Urea Nitrogen 8 mg/dL (7-20) Creatinine 0.7 mg/dL (0.6-1.0) Estimated GFR (Cockcroft-Gault) 103.6 Glucose Level 84 mg/dL (70-99) Calcium Level 8.6 mg/dL (8.5-10.1) Magnesium Level 1.3 mg/dL (1.8-2.4) Micro IMPRESSION: 1. Bilateral pleural effusions and bibasilar infiltrates have improved. Objective Assessment Leukocytosis - ? post PRBCs - clinically improving ETOH withdrawal Pulmonary infiltrates, likely aspiration pneumonia. -History of vomiting prior to admission. ALLERGY TO PENICILLIN WITH ANAPHYLAXIS. Per chart, the patient has received a dose of ceftriaxone at [facility]. The daughter feels that she may have taken cephalexin, but is not sure at this time. s/p code blue, 07/29 Syncopal episode POA - fractured rib History of alcohol withdrawal seizures, last one 1 month ago. Metabolic acidosis and acute kidney injury, improved Lactic acidosis, better Thrombocytopenia. Protein-calorie malnutrition. Anemia - s/p PRBCs 08/02 Plan Plan of Care Clinically improving Completed 10 Meropenem, will d/c WBC - likely reactive, repeat CBC in am 07/26 SJ neg Supportive care. Attending Co-Sign The patient was seen and interviewed as well as examined at the bedside. The chart was reviewed. The case was discussed. Agree with the plan of care. EMMA TINOCO APRN Aug 06, 2018 09:54 JORGE ALBERTO LOMBARDO MD Aug 06, 2018 12:36
[2018-08-06] MEDS ORDERED: MAGNESIUM SULFATE 2GM 50 ML IV ONE (10:15)
[2018-08-06] MEDS: NICOTINE 21MG PATCH. TD SCH (10:40)
[2018-08-06] MEDS: ACETAMINOPHEN 325 MG TABLET. PO PRN (10:40)
[2018-08-06 11:00] VITALS: BP 138/80
--- NOTE | 2018-08-06 13:54 | PN ---
DATE: 08/06/2018 SUBJECTIVE: The patient is resting slightly propped up in bed, in no apparent distress. On questioning her, she complained of insomnia, but denied any other complaints, in particular any chest pain, shortness of breath, continued to have some cough with scanty whitish sputum. OBJECTIVE: GENERAL: When I examined her, she was pale, cachectic, but no jaundice, cyanosis, or thyromegaly. No jugular venous distension. No limb edema. VITAL SIGNS: Her heart rate was 76, blood pressure was 139/79, temperature was 97.8, respiratory rate was 20, and oxygen saturation was 94%. HEAD, EYES, EARS, NOSE AND THROAT: Showed normocephalic, atraumatic. NECK: Supple. HEART: Showed normal first and second heart sounds with no gallop, rub or murmur. CHEST: Clear to auscultation. No crepitation or rhonchi. ABDOMEN: Distended, soft, nontender. No guarding or rigidity. No organomegaly. All hernial orifices intact. Bowel sounds normal. NEUROLOGIC: She is definitely awake, alert, responding appropriately. All cranial nerves are intact. She moves upper extremities to much greater extent than lower extremities. She is mostly bedbound. She has continued to have extreme debility and weakness. She is a 2-person assist. INS AND OUTS: Her intake over the last 24 hours was 1500, output was 2650. LABORATORY DATA: As of this morning, her serum sodium is 137, potassium 3.2, chloride 102, bicarbonate 24, anion gap of 11, BUN 8, creatinine 0.7, estimated GFR was 103 mL per minute. Her glucose was 84, calcium was 8.6, magnesium was 1.3. Her white cell count as of yesterday was 15,000, hemoglobin 8, hematocrit 24, MCV 85 and platelet count 281,000. ASSESSMENT: 1. Altered mental status, severe metabolic acidosis, lactic acidosis, acute hypoxic respiratory failure, right lower lobe pneumonia, improving. 2. The patient developed bradycardia and eventually pulseless electrical activity from which she was successfully resuscitated. She was mechanically ventilated; however, she was successfully extubated. 3. Chronic alcoholism and alcohol withdrawal seizures. 4. Sepsis, likely due to right lower lobe pneumonia. 5. Diabetic ketoacidosis, resolved. 6. Acute kidney injury, resolved. Her creatinine is down from 1.8 to 0.8 mg/dL. 7. Thrombocytopenia, improved. In fact, her platelet count has normalized and today they are 281,000. 8. Hypokalemia, continues to be an issue as her potassium is only 3.2, so I increased her potassium to 40 mEq 3 times a day. 9. Hypomagnesemia, for which she is on mag oxide. I will add also magnesium sulfate. PLAN: To continue the IV meropenem. Continue with pain management. I started her on Tylenol for pain and also Nicoderm patches 21 mg topically once a day. I started her on magnesium sulfate 2 grams IV. I have increased her potassium to 40 mEq 3 times a day. REKHA CARMEN MD DR: CYNTHIA/desean JOB#: [id number] / [id number]
[2018-08-06 14:55] VITALS: BP 118/64
[2018-08-06 19:00] VITALS: BP 149/83
[2018-08-06 23:00] VITALS: BP 169/94
[2018-08-07 03:14] VITALS: BP 128/83
[2018-08-07 05:26] LABS: HEMATOCRIT 26.5 % (36.0-47.0); HEMOGLOBIN 8.8 g/dL (12.0-15.5); RED BLOOD COUNT 3.14 x10^6/uL (3.50-5.40); RED CELL DISTRIBUTION WIDTH 15.1 % (11.5-14.5); WHITE BLOOD COUNT 12.5 x10^3/uL (4.0-11.0)
[2018-08-07 05:43] LABS: CALCIUM 8.5 mg/dL (8.5-10.1); CREATININE 0.7 mg/dL (0.6-1.0); GFR 103.6; MAGNESIUM 1.5 mg/dL (1.8-2.4)
[2018-08-07 05:51] LABS: POTASSIUM 4.1 mmol/L (3.5-5.1)
[2018-08-07 07:00] VITALS: BP 142/86
[2018-08-07] MEDS: IPRATRPIUM/ALBUTEROL 0.5/2.5MG 3 ML NEBU. NEB SCH ×4 (07:26→19:48)
[2018-08-07] MEDS: PANTOPRAZOLE 40 MG TABLET.DR. PO SCH (08:29)
[2018-08-07] MEDS: CARVEDILOL 6.25 MG TABLET. PO SCH ×2 (08:30→17:03)
[2018-08-07] MEDS: LACTOBACILLUS RHAMNOSUS GG 1 CAPSULE. PO SCH ×2 (08:31→20:14)
[2018-08-07] MEDS: FOLIC ACID 1 MG TABLET. PO SCH (08:31)
[2018-08-07] MEDS: MULTIVITAMIN with MINERAL TABLET. PO SCH (08:32)
[2018-08-07] MEDS: amLODIPine BESYLATE 10 MG TABLET PO SCH (08:32)
[2018-08-07] MEDS: POTASSIUM CHLORIDE 20 MEQ TABLET.ER. PO SCH ×3 (08:32→20:14)
[2018-08-07] MEDS: CYANOCOBALAMIN (VITAMIN B-12) 1,000 MCG TABLET. PO SCH (08:33)
[2018-08-07] MEDS: THIAMINE 100 MG TABLET. PO SCH (08:33)
[2018-08-07] MEDS: SERTRALINE 50 MG TABLET. PO SCH (08:33)
[2018-08-07] MEDS: NICOTINE 21MG PATCH. TD SCH (08:34)
[2018-08-07] MEDS: ACETAMINOPHEN 325 MG TABLET. PO PRN ×2 (08:34→17:09)
[2018-08-07] MEDS ORDERED: MAGNESIUM SULFATE 2GM 50 ML IV ONE (10:00)
--- NOTE | 2018-08-07 13:34 | NUR ---
SW following pt. Pt was able to ambulate 10 ft with a walker, Mod assist today. HCFS following for Self pay status and pt's insurance was termed 06/07/18. HCFS awaiting on documentation from family regarding life insurance policy. Will continue to follow.
--- NOTE | 2018-08-07 14:44 | PN ---
DATE: 08/07/2018 SUBJECTIVE: The patient is actually sitting at the edge of the bed, participating with physical therapy. She managed to stand up with assistance, took a few steps with a walker with assistance. She denied any chest pain or shortness of breath. PHYSICAL EXAMINATION: GENERAL: When I examined her, she looked pale, cachectic, but no jaundice, cyanosis or thyromegaly. No jugular venous distention. No limb edema. VITAL SIGNS: Her heart rate was 82, blood pressure was 142/86, temperature was 98.2, respiratory rate 20, and oxygen saturation was 95%. The rest of clinical examination is stable. LABORATORY DATA: Her lab work this morning showed white cell count to be 12,500, hemoglobin 8.8, hematocrit 26.5, MCV 84 and platelet count 342,000. Her chemistry showed a serum sodium 134, potassium 4.1, chloride 101, bicarbonate 21, anion gap of 12, BUN 8, creatinine 0.7, estimated GFR was 103 mL per minute. Her glucose was 76, calcium was 8.5, magnesium was 1.5. ASSESSMENT: 1. Altered mental status, severe metabolic acidosis, lactic acidosis, acute hypoxic respiratory failure, right lower lobe pneumonia, improving. 2. The patient developed bradycardia and eventually pulseless electrical activity from which she was successfully resuscitated. She was mechanically ventilated; however, she was successfully extubated. 3. Chronic alcoholism, alcohol withdrawal seizure. 4. Sepsis, likely due to right lower lobe pneumonia. 5. Lactic acidosis, resolved. 6. Acute kidney injury, resolved. Her creatinine is down from 1.8 to 0.8 mg/dL. 7. Thrombocytopenia, improving. In fact, her platelet count is up to ,000. 8. Hypokalemia, improved. Her potassium this morning was 4.1. 6. Hypomagnesemia continues to be an issue. Her magnesium is 1.5 this morning. 7. Debility and deconditioning, for which she is now participating with physical therapy. PLAN: Is to continue the IV meropenem. Continue with pain management. Continue with physical and occupational therapy. REKHA CARMEN MD DR: CYNTHIA/desean JOB#: [id number] / [id number]
[2018-08-07 15:00] VITALS: BP 106/64
[2018-08-07] MEDS: fentaNYL PF VIAL 100 MCG/2 ML VIAL IV PRN ×2 (17:02→20:25)
[2018-08-07] MEDS: ONDANSETRON PF 4 MG/2 ML VIAL. IV PRN (17:36)
[2018-08-07 18:07] VITALS: BP 106/64
[2018-08-07 19:00] VITALS: BP 140/81
[2018-08-07 23:00] VITALS: BP 128/73
[2018-08-08] MEDS: fentaNYL PF VIAL 100 MCG/2 ML VIAL IV PRN ×2 (02:01→05:02)
[2018-08-08 03:00] VITALS: BP 126/79
[2018-08-08 06:14] LABS: CALCIUM 8.5 mg/dL (8.5-10.1); CREATININE 0.9 mg/dL (0.6-1.0); GFR 77.5; MAGNESIUM 2.1 mg/dL (1.8-2.4); POTASSIUM 4.7 mmol/L (3.5-5.1)
[2018-08-08 07:00] VITALS: BP 110/67
[2018-08-08] MEDS: IPRATRPIUM/ALBUTEROL 0.5/2.5MG 3 ML NEBU. NEB SCH ×4 (07:49→19:47)
[2018-08-08] MEDS: oxyCODONE IR 5 MG TABLET PO PRN ×3 (10:13→22:09)
[2018-08-08] MEDS: POTASSIUM CHLORIDE 20 MEQ TABLET.ER. PO SCH ×3 (10:14→22:09)
[2018-08-08] MEDS: LACTOBACILLUS RHAMNOSUS GG 1 CAPSULE. PO SCH ×2 (10:14→22:09)
[2018-08-08] MEDS: CARVEDILOL 6.25 MG TABLET. PO SCH ×2 (10:14→17:00)
[2018-08-08] MEDS: PANTOPRAZOLE 40 MG TABLET.DR. PO SCH (10:14)
[2018-08-08] MEDS: CYANOCOBALAMIN (VITAMIN B-12) 1,000 MCG TABLET. PO SCH (10:14)
[2018-08-08] MEDS: FOLIC ACID 1 MG TABLET. PO SCH (10:14)
[2018-08-08] MEDS: THIAMINE 100 MG TABLET. PO SCH (10:15)
[2018-08-08] MEDS: amLODIPine BESYLATE 10 MG TABLET PO SCH (10:15)
[2018-08-08] MEDS: SERTRALINE 50 MG TABLET. PO SCH (10:16)
[2018-08-08] MEDS: MULTIVITAMIN with MINERAL TABLET. PO SCH (10:16)
[2018-08-08] MEDS: NICOTINE 21MG PATCH. TD SCH (10:16)
[2018-08-08 11:00] VITALS: BP 106/60
--- NOTE | 2018-08-08 11:14 | PN ---
DATE: 08/08/2018 SUBJECTIVE: The patient is sitting slightly propped up in bed, in no apparent distress. She is awake, alert, asking to go home; however, she continued to ask for IV pain medication and she requires 2-person assist to stand up and get out of the bed and walk for a few feet very unsteady. Personally, I do not think she is ready to go home. She probably needs rehab for strengthening before she can go home. Her sister in particular was concerned that she should not go home to this environment that she has been drinking heavily. PHYSICAL EXAMINATION: GENERAL: In any case, when I saw her this morning, she is definitely more awake, alert, responding appropriately. She was pale, cachectic, but not jaundiced, cyanosis or thyromegaly. No jugular venous distention. No limb edema. VITAL SIGNS: His heart rate was 76, blood pressure was 110/67, temperature was 97.8, respiratory rate was 18 and oxygen saturation was 94%. HEAD, EYES, EARS, NOSE AND THROAT: Showed normocephalic, atraumatic. NECK: Supple. HEART: Showed normal first and second heart sounds. No gallop, rub or murmur. CHEST: Clear to auscultation. No crepitation or rhonchi. ABDOMEN: Slightly distended, soft, nontender. NEUROLOGIC: She is awake, alert, responding appropriately. All cranial nerves are intact. She moves her upper extremities to much greater extent than lower extremities. She is very weak and required 2-person assist. Her intake was 800, output was 4400. LABORATORY DATA: Her lab work as of this morning showed a white cell count 12,500, hemoglobin 8.8, hematocrit 26.5, MCV 84 and platelet count 342,000. Her chemistry showed a serum sodium 135, potassium 4.7, chloride 102, bicarbonate 24, anion gap of 9, BUN 9, creatinine 0.9, estimated GFR was 77 mL per minute. Her glucose was 79, calcium was 8.5, and magnesium was 2.1. ASSESSMENT: 1. Altered mental status, severe metabolic acidosis, lactic acidosis, acute respiratory failure with right lower lobe pneumonia has resolved. The patient developed bradycardia and eventually pulseless electrical activity from which she was successfully resuscitated. She was intubated and mechanically ventilated; however, eventually she was successfully extubated. 2. Chronic alcoholism with alcohol withdrawal seizures. 3. Sepsis, likely due to right lower lobe pneumonia. 4. Lactic acidosis, resolved. 5. Acute kidney injury, resolved. Her creatinine came down from 1.8-0.8 mg. 6. Thrombocytopenia, has improved. Her platelets are 342,000. 7. Hypokalemia, resolved. Her serum potassium is 4.1. 8. Hypomagnesemia, has improved. Her serum magnesium this morning was 2.1. 9. Debility and deconditioning, for which she needs rehabilitation. PLAN: My plan is to discontinue fentanyl citrate, start her on oral pain medication. We will have to discuss with her family the options available for her as she is definitely unable to take care of herself. REKHA CARMEN MD DR: CYNTHIA/desean JOB#: [id number] / [id number]
[2018-08-08 15:00] VITALS: BP 106/64
[2018-08-08 19:00] VITALS: BP 151/85
[2018-08-08] MEDS: traZODone 50 MG TABLET. PO SCH (22:08)
[2018-08-08 23:00] VITALS: BP 130/79
[2018-08-09 03:00] VITALS: BP 127/69
[2018-08-09] MEDS: oxyCODONE IR 5 MG TABLET PO PRN ×3 (03:52→20:48)
[2018-08-09] MEDS: PANTOPRAZOLE 40 MG TABLET.DR. PO SCH (05:49)
[2018-08-09 06:16] LABS: CALCIUM 8.8 mg/dL (8.5-10.1); GFR 68.7; POTASSIUM 5.8 mmol/L (3.5-5.1)
[2018-08-09 07:00] VITALS: BP 137/80
[2018-08-09] MEDS: IPRATRPIUM/ALBUTEROL 0.5/2.5MG 3 ML NEBU. NEB SCH ×4 (07:46→20:40)
[2018-08-09] MEDS: POTASSIUM CHLORIDE 20 MEQ TABLET.ER. PO SCH (09:00)
--- NOTE | 2018-08-09 09:28 | NUR ---
SW following pt. SW met with pt with Physician, Meg SANCHEZ and discussed dc plan. Pt had declined to work with Therapy yesterday and SW informed her she will need to continue to participate with PT/OT. Pt agreeable to work with therapy today.
[2018-08-09] MEDS: LACTOBACILLUS RHAMNOSUS GG 1 CAPSULE. PO SCH ×2 (09:39→20:48)
[2018-08-09] MEDS: CARVEDILOL 6.25 MG TABLET. PO SCH ×2 (09:39→17:21)
[2018-08-09] MEDS: FOLIC ACID 1 MG TABLET. PO SCH (09:39)
[2018-08-09] MEDS: MULTIVITAMIN with MINERAL TABLET. PO SCH (09:40)
[2018-08-09] MEDS: amLODIPine BESYLATE 10 MG TABLET PO SCH (09:40)
[2018-08-09] MEDS: SERTRALINE 50 MG TABLET. PO SCH (09:41)
[2018-08-09] MEDS: CYANOCOBALAMIN (VITAMIN B-12) 1,000 MCG TABLET. PO SCH (09:41)
[2018-08-09] MEDS: THIAMINE 100 MG TABLET. PO SCH (09:41)
[2018-08-09] MEDS: NICOTINE 21MG PATCH. TD SCH (09:42)
[2018-08-09] MEDS: ACETAMINOPHEN 325 MG TABLET. PO PRN (09:43)
[2018-08-09] MEDS ORDERED: LACTULOSE 20 GM/30 ML SOLUTION. PO PRN (09:45)
[2018-08-09] MEDS ORDERED: SODIUM POLYSTYRENE SULFON/SORB 15 GM/60 ML ORAL.SUSP PO ONE (09:45)
--- NOTE | 2018-08-09 10:45 | NUR ---
SW following pt. Spoke with pt who wants to go home. When SW asked if pt had her house simon, pt informed SW to leave the room and not to contact any family members. Pt claims she will call the police is she has too and is set on leaving AMA. Pt also told SW 'she no longer wants SW to be part of any services'. RN to contact pt's son to speak with pt.
--- NOTE | 2018-08-09 10:49 | NUR ---
Pt became agitated after seen by Dr Chan, OT,and home health care social worker. Pt stating she is going to leave today. Requesting her bank number and that she is going to call a taxi to come and get her. She also stated she will call the police if she has to to get out of here. Dr Chan notified and he spoke with her again stating that it is not safe for her to go home due to elevated potassium level and weakness. He also stated if she leaves it will be against medical advice. This nurse called pt's son Bentley Yuan and asked him if he can come get her. He stated he is going out of town in 2 hours and that pt's sister Zach is fling into town today.This nurse requested that he speak with pt to see if he could convince her that leaving today is not derrick for her and he stated he will talk to her on the telephone.
[2018-08-09 11:00] VITALS: BP 147/77
--- NOTE | 2018-08-09 11:10 | NUR ---
This nurse spoke again with Pt's son Bentley Yuan after he spoke with pt and he has asked to to stay for a couple more days as family is not willing to take her home AMA. He also stated pt's sister and brother will be in contact with her today. Pt did do physical therapy after her phone call with her son. Will continue to monitor situation.
[2018-08-09] MEDS: LORazepam 0.5 MG TABLET PO PRN ×2 (11:38→20:48)
--- NOTE | 2018-08-09 11:52 | NUR ---
Pt up in a chair at bedside no longer asking to leave hospital.
--- NOTE | 2018-08-09 13:04 | PDOC ---
PULMONARY PROGRESS NOTES Subjective NO SOA Vitals Vital Signs Date Time Temp Pulse Resp B/P (MAP) Pulse Ox O2 Delivery O2 Flow Rate FiO2 08/09/18 11:47 Room Air 08/09/18 11:00 98.0 79 16 147/77 (100) 95 98.0 ROS: No Chest Pain, No Increase Cough General: Alert, No acute distress Lungs: Clear Cardiovascular: S1, S2 Abdomen: Soft Neuro Exam: Alert Extremities: No Edema, Other Skin: Warm Labs Laboratory Tests Test 08/08/18 04:55 08/09/18 05:59 Sodium Level 135 mmol/L (136-145) 137 mmol/L (136-145) Potassium Level 4.7 mmol/L (3.5-5.1) 5.8 mmol/L (3.5-5.1) Chloride Level 102 mmol/L (98-107) 106 mmol/L (98-107) Carbon Dioxide Level 24 mmol/L (21-32) 23 mmol/L (21-32) Anion Gap 9 (6-14) 8 (6-14) Blood Urea Nitrogen 9 mg/dL (7-20) 7 mg/dL (7-20) Creatinine 0.9 mg/dL (0.6-1.0) 1.0 mg/dL (0.6-1.0) Estimated GFR (Cockcroft-Gault) 77.5 68.7 Glucose Level 79 mg/dL (70-99) 85 mg/dL (70-99) Calcium Level 8.5 mg/dL (8.5-10.1) 8.8 mg/dL (8.5-10.1) Magnesium Level 2.1 mg/dL (1.8-2.4) Laboratory Tests Test 08/09/18 05:59 Sodium Level 137 mmol/L (136-145) Potassium Level 5.8 mmol/L (3.5-5.1) Chloride Level 106 mmol/L (98-107) Carbon Dioxide Level 23 mmol/L (21-32) Anion Gap 8 (6-14) Blood Urea Nitrogen 7 mg/dL (7-20) Creatinine 1.0 mg/dL (0.6-1.0) Estimated GFR (Cockcroft-Gault) 68.7 Glucose Level 85 mg/dL (70-99) Calcium Level 8.8 mg/dL (8.5-10.1) Medications Active Scripts Medications Dose Route/Sig Max Daily Dose Days Date Category Melatonin 3 Mg Tab.rapdis 3 Mg PO HS PRN 07/27/18 Reported Nephro-Nola Tablet (Folic Acid/Vitamin B Comp W-C) 0.8 Mg Tablet 1 Tab PO DAILY 07/27/18 Reported Vitamin B-12 (Cyanocobalamin (Vitamin B-12)) 1,000 Mcg Tablet 1,000 Mcg PO DAILY 07/27/18 Reported Megestrol Acetate 20 Mg Tablet 20 Mg PO DAILY 07/27/18 Reported Protonix (Pantoprazole Sodium) 20 Mg Tablet.dr 40 Mg PO DAILY 07/27/18 Reported Zoloft (Sertraline Hcl) 50 Mg Tablet 1 Tab PO DAILY 07/27/18 Reported Zoloft (Sertraline Hcl) 25 Mg Tablet 1 Tab PO DAILY 07/27/18 Reported Coreg (Carvedilol) 25 Mg Tablet 6.25 Mg PO BIDWMEALS 07/27/18 Reported Lipitor (Atorvastatin Calcium) 10 Mg Tablet 1 Tab PO QHS 07/27/18 Reported Spiriva (Tiotropium [place]) 18 Mcg Cap.w.dev 1 Cap IH DAILY 07/27/18 Reported Duoneb 0.5-3(2.5) Mg/3 Ml (Albuterol/Ipratropium) 3 Ml Ampul.neb 3 Ml NEB QID PRN 07/27/18 Reported Comments DANIE INFILTRATES AND EFFUSION IMPROVED 08/05 Impression . IMPRESSION: 1. Acute hypoxemic respiratory failure secondary to pneumonia and cardiac arrest. 2. Aspiration pneumonia. 3. Alcoholism with past history of severe withdrawal. 4. Chronic obstructive pulmonary disease. 5. MET AND TOXIC ENC, improved 6. Abnormal cxr with effusions/ infiltrates, improving Plan . CLINICALLY BETTER SUPPORTIVE RX ANT BX PER ID NEBS SMOKING CESSATION ( SMOKED SINCE AGE 12) DC PLANS PER PCP NOTHING TO ADD WILL SEE SIDRA ALEX MD Aug 09, 2018 13:04
[2018-08-09 15:00] VITALS: BP 129/80
[2018-08-09 18:11] LABS: CALCIUM 8.7 mg/dL (8.5-10.1); CREATININE 1.1 mg/dL (0.6-1.0); GFR 61.5; POTASSIUM 4.8 mmol/L (3.5-5.1)
[2018-08-09 19:00] VITALS: BP 134/81
[2018-08-09] MEDS: traZODone 50 MG TABLET. PO SCH (20:48)
--- NOTE | 2018-08-09 22:34 | PN ---
DATE: 08/09/2018 SUBJECTIVE: The patient is resting slightly propped up in bed, in no apparent distress. She apparently refused to participate with physical therapy and we have had a lengthy discussion with her that she wants to go home and she has to participate with physical therapy. She apparently has no insurance and there is no way we can admit her to a rehab center. PHYSICAL EXAMINATION: GENERAL: When I examined her, she looked well and was clearly in no apparent respiratory distress, pale, cachectic, but no jaundice, cyanosis or thyromegaly. No jugular venous distention. No limb edema. VITAL SIGNS: Her heart rate was 76, blood pressure 137/80, temperature was 98.1, respiratory rate was 18 and oxygen saturation was 95% on room air. HEAD, EYES, EARS, NOSE AND THROAT: Showed normocephalic, atraumatic. NECK: Supple. Triple lumen catheter in the right internal jugular vein. HEART: Showed normal first and second heart sounds. No gallop, rub or murmur. CHEST: Clear to auscultation. No crepitation or rhonchi. ABDOMEN: Distended, soft, nontender. NEUROLOGIC: She is awake, alert, responding appropriately. All cranial nerves intact. She moves her extremities without difficulty; however, she continued to have severe weakness, debility and deconditioning. She requires 2-person assist with a walker. Her intake was 490, output was 1000. LABORATORY DATA: Her lab work this morning showed a serum sodium 137, potassium 5.8, chloride 106, bicarbonate 23, anion gap of 8, BUN 7, creatinine 1, estimated GFR was 68 mL per minute. Her glucose was 85 and calcium was 8.8. Her white cell count was 12,500, hemoglobin 8.8, hematocrit 26, MCV 84 and platelet count 342,000. ASSESSMENT: 1. Altered mental status, severe metabolic acidosis, lactic acidosis, acute respiratory failure and right lower lobe pneumonia, resolved. 2. The patient developed episode of bradycardia and eventually pulseless electrical activity, from which she was successfully resuscitated. She was intubated and mechanically ventilated and was eventually successfully extubated. 3. Chronic alcoholism with alcohol withdrawal seizures. 4. Sepsis, likely due to right lower lobe pneumonia. 5. Lactic acidosis, resolved. 6. Acute kidney injury, resolved. Her creatinine came down from 1.8-0.8. 7. Thrombocytopenia, resolved. Platelet count is up to 342,000. 8. Hypokalemia, resolved. In fact, she is now hyperkalemic with a potassium of 5.7. 9. Hypomagnesemia, resolved. Her most recent serum magnesium is 2.1. 10. Debility and deconditioning, which she needs rehabilitation. PLAN: We had a lengthy discussion with the patient regarding the need for her to participate with physical and occupational therapy as she cannot go to any rehab center and she has to be more independent before she can go home as she has nobody there to assist her. Her potassium is high, so I discontinued her potassium supplement and start her on Kayexalate 30 grams at 30 mL lactulose. I will check her potassium later this afternoon. REKHA CARMEN MD DR: CYNTHIA/desean JOB#: [id number] / [id number]
[2018-08-09 23:00] VITALS: BP 138/85
[2018-08-10] MEDS: LORazepam 0.5 MG TABLET PO PRN ×5 (00:52→21:40)
[2018-08-10] MEDS: oxyCODONE IR 5 MG TABLET PO PRN ×4 (00:52→21:41)
[2018-08-10 03:00] VITALS: BP 135/88
[2018-08-10 06:45] LABS: HEMATOCRIT 26.2 % (36.0-47.0); HEMOGLOBIN 8.6 g/dL (12.0-15.5); RED BLOOD COUNT 3.07 x10^6/uL (3.50-5.40); RED CELL DISTRIBUTION WIDTH 15.8 % (11.5-14.5); WHITE BLOOD COUNT 9.1 x10^3/uL (4.0-11.0)
[2018-08-10 07:00] VITALS: BP 142/82
[2018-08-10 07:07] LABS: CALCIUM 8.7 mg/dL (8.5-10.1); GFR 68.7; POTASSIUM 3.7 mmol/L (3.5-5.1)
[2018-08-10] MEDS: IPRATRPIUM/ALBUTEROL 0.5/2.5MG 3 ML NEBU. NEB SCH ×4 (08:00→20:20)
[2018-08-10] MEDS ORDERED: ACETAMINOPHEN 325 MG TABLET. PO PRN (10:00)
[2018-08-10] MEDS: LACTOBACILLUS RHAMNOSUS GG 1 CAPSULE. PO SCH ×2 (10:07→21:34)
[2018-08-10] MEDS: FOLIC ACID 1 MG TABLET. PO SCH (10:07)
[2018-08-10] MEDS: THIAMINE 100 MG TABLET. PO SCH (10:07)
[2018-08-10] MEDS: NICOTINE 21MG PATCH. TD SCH (10:07)
[2018-08-10] MEDS: PANTOPRAZOLE 40 MG TABLET.DR. PO SCH (10:07)
[2018-08-10] MEDS: CYANOCOBALAMIN (VITAMIN B-12) 1,000 MCG TABLET. PO SCH (10:07)
[2018-08-10] MEDS: MULTIVITAMIN with MINERAL TABLET. PO SCH (10:08)
[2018-08-10] MEDS: CARVEDILOL 6.25 MG TABLET. PO SCH ×2 (10:08→16:34)
[2018-08-10] MEDS: amLODIPine BESYLATE 10 MG TABLET PO SCH (10:08)
[2018-08-10] MEDS: SERTRALINE 50 MG TABLET. PO SCH (10:08)
[2018-08-10 11:19] VITALS: BP 139/79
--- NOTE | 2018-08-10 12:27 | PN ---
DATE: 08/10/2018 SUBJECTIVE: The patient is resting slightly propped up in bed, no apparent distress. She continued to complain of burning sensation whenever she takes a deep breath and also insomnia. PHYSICAL EXAMINATION: GENERAL: When I examined her this morning, she looked well and was clearly in no apparent respiratory distress. No pallor, jaundice, cyanosis, or thyromegaly. No jugular venous distension. No limb edema. VITAL SIGNS: Her heart rate was 82, blood pressure was 142/82, temperature was 98.4, respiratory rate was 18, and oxygen saturation was 94%. HEENT: Normocephalic and atraumatic. NECK: Supple. HEART: Normal first and second heart sounds. No gallop, rub or murmur. CHEST: Clear to auscultation. No crepitation or rhonchi. ABDOMEN: Scaphoid, soft, and nontender. NEUROLOGIC: She is awake, alert, responding appropriately. All cranial nerves intact. She moves extremities without difficulty. She continued to be mostly bedbound and chair bound. Her intake over the last 24 hours was 418 and output was recorded. LABORATORY DATA: Her lab work this morning showed a serum sodium 139, potassium 3.7, chloride 104, bicarbonate 22, anion gap of 13, BUN 6, creatinine 1, estimated GFR was 68 mL per minute. Her glucose was 85 and calcium was 8.7. Her white cell count was 9000, hemoglobin 9, hematocrit 26, MCV 86, and platelet count 378,000. Her nasal screen for MRSA with PCR was negative. ASSESSMENT: 1. Altered mental status, severe metabolic acidosis, lactic acidosis, acute respiratory failure, and right lower lobe pneumonia, resolved. 2. She developed episode of bradycardia and eventually pulseless electrical activity from which she was successfully resuscitated. She was intubated and mechanically ventilated; however, she eventually successfully extubated. 3. Chronic alcoholism, alcohol withdrawal seizure. 4. Sepsis likely due to right lower lobe pneumonia. 5. Lactic acidosis, resolved. 6. Acute kidney injury, resolved. Her creatinine came down from 1.8-0.8. 7. Thrombocytopenia, resolved. Her platelets up to 342,000 8. Hyperkalemia, improved. Her potassium came down from 5.7-3.7. 9. Hypomagnesemia, resolved. Her most recent serum magnesium is 2.1. 10. Debility and deconditioning, which she needs rehabilitation. PLAN: Insomnia for which I started her on trazodone. She does have orders for oxycodone and Tylenol as well as Protonix. REKHA CARMEN MD DR: CYNTHIA/desean JOB#: [id number] / [id number]
[2018-08-10 15:00] VITALS: BP 125/68
[2018-08-10 19:00] VITALS: BP 112/73
[2018-08-10] MEDS ORDERED: traZODone 50 MG TABLET. PO SCH (21:00)
[2018-08-10] MEDS: traZODone 50 MG TABLET. PO SCH (21:34)
[2018-08-10 23:00] VITALS: BP 122/67
[2018-08-11 03:00] VITALS: BP 115/71
[2018-08-11 07:00] VITALS: BP 150/78
[2018-08-11] MEDS: IPRATRPIUM/ALBUTEROL 0.5/2.5MG 3 ML NEBU. NEB SCH ×2 (07:54→11:43)
[2018-08-11 08:48] LABS: CALCIUM 8.5 mg/dL (8.5-10.1); CREATININE 0.9 mg/dL (0.6-1.0); GFR 77.5; MAGNESIUM 1.4 mg/dL (1.8-2.4); POTASSIUM 3.5 mmol/L (3.5-5.1)
--- NOTE | 2018-08-11 09:33 | PN ---
DATE: 08/11/2018 SUBJECTIVE: The patient is resting, slightly propped up in bed. No apparent distress. Awake and alert, and stated that she has good night sleep. Her chest pain is much improved; however, she continued to be weak, markedly debilitated, and deconditioned. PHYSICAL EXAMINATION: GENERAL: When I examined her, she was pale, cachectic, but no jaundice, cyanosis, or thyromegaly. No jugular venous distension. No limb edema. VITAL SIGNS: Her heart rate was 73, blood pressure was 115/71, temperature was 98.2, respiratory rate was 18, and oxygen saturation was 98%. HEAD, EYES, EARS, NOSE AND THROAT: Normocephalic and atraumatic. NECK: Supple. HEART: Normal first and second heart sounds. No gallop, rub or murmur. CHEST: Clear to auscultation. No crepitation or rhonchi. ABDOMEN: Distended, soft, and nontender. NEUROLOGIC: She is definitely more awake, alert, responding appropriately. All her cranial nerves intact. She moves all extremities without difficulty. She continued mostly bedbound and chair bound. Her intake over the last 24 hours was 814 and output was recorded. LABORATORY DATA: Most recent lab work showed a white cell count of 9000, hemoglobin 9, hematocrit 26, MCV 86, and platelet count of 378,000. As of this morning, her serum sodium was 138, potassium 3.5, chloride 104, bicarbonate 22, anion gap of 12, BUN 8, creatinine 0.9, and estimated GFR was 77 mL per minute. Her glucose was 93, calcium was 8.5, and magnesium was 1.4. ASSESSMENT: 1. Altered mental status, severe metabolic acidosis, lactic acidosis, acute respiratory failure, and right lower lobe pneumonia, resolved. 2. She developed episode of bradycardia and eventually pulseless electrical activity from which she was successfully resuscitated. She was intubated and mechanically ventilated; however, she eventually successfully extubated. 3. Chronic alcoholism, alcoholic withdrawal seizures. 4. Sepsis, likely due to right lower lobe pneumonia. 5. Lactic acidosis, resolved. 6. Acute kidney injury, resolved. Her creatinine came down from 1.8-0.8. 7. Thrombocytopenia, resolved. Her most recent platelet count is up to 342,000. 8. Hyperkalemia, resolved. Her serum potassium this morning was 3.5. Her magnesemia continued to be an issue. Her magnesium is down to 1.4. 9. Debility and deconditioning, which she needs rehabilitation. PLAN: We will continue with physical and occupational therapy. I will increase her magnesium oxide. REKHA CARMEN MD DR: CYNTHIA/desean JOB#: [id number] / [id number]
[2018-08-11] MEDS: CYANOCOBALAMIN (VITAMIN B-12) 1,000 MCG TABLET. PO SCH (09:36)
[2018-08-11] MEDS: MULTIVITAMIN with MINERAL TABLET. PO SCH (09:36)
[2018-08-11] MEDS: LACTOBACILLUS RHAMNOSUS GG 1 CAPSULE. PO SCH (09:36)
[2018-08-11] MEDS: CARVEDILOL 6.25 MG TABLET. PO SCH (09:37)
[2018-08-11] MEDS: MAGNESIUM OXIDE 400 MG TABLET PO SCH ×2 (09:37→14:45)
[2018-08-11] MEDS: amLODIPine BESYLATE 10 MG TABLET PO SCH (09:38)
[2018-08-11] MEDS: NICOTINE 21MG PATCH. TD SCH (09:38)
[2018-08-11] MEDS: SERTRALINE 50 MG TABLET. PO SCH (09:38)
[2018-08-11] MEDS: THIAMINE 100 MG TABLET. PO SCH (09:38)
[2018-08-11] MEDS: PANTOPRAZOLE 40 MG TABLET.DR. PO SCH (09:38)
[2018-08-11] MEDS: FOLIC ACID 1 MG TABLET. PO SCH (09:38)
[2018-08-11] MEDS ORDERED: POTASSIUM CHLORIDE 20 MEQ TABLET.ER. PO SCH (10:00)
--- NOTE | 2018-08-11 10:38 | PDOC ---
PULMONARY PROGRESS NOTES Subjective NO SOA Vitals Vital Signs Date Time Temp Pulse Resp B/P (MAP) Pulse Ox O2 Delivery O2 Flow Rate FiO2 08/11/18 09:38 75 150/78 08/11/18 07:57 Room Air 08/11/18 07:00 98.1 17 98 98.1 08/10/18 15:46 2.0 ROS: No Chest Pain, No Increase Cough General: Alert, No acute distress Lungs: Clear Cardiovascular: S1, S2 Abdomen: Soft Neuro Exam: Alert Extremities: No Edema, Other Skin: Warm Labs Laboratory Tests Test 08/09/18 17:50 08/10/18 05:17 08/11/18 08:00 Sodium Level 137 mmol/L (136-145) 139 mmol/L (136-145) 138 mmol/L (136-145) Potassium Level 4.8 mmol/L (3.5-5.1) 3.7 mmol/L (3.5-5.1) 3.5 mmol/L (3.5-5.1) Chloride Level 106 mmol/L (98-107) 104 mmol/L (98-107) 104 mmol/L (98-107) Carbon Dioxide Level 18 mmol/L (21-32) 22 mmol/L (21-32) 22 mmol/L (21-32) Anion Gap 13 (6-14) 13 (6-14) 12 (6-14) Blood Urea Nitrogen 8 mg/dL (7-20) 6 mg/dL (7-20) 8 mg/dL (7-20) Creatinine 1.1 mg/dL (0.6-1.0) 1.0 mg/dL (0.6-1.0) 0.9 mg/dL (0.6-1.0) Estimated GFR (Cockcroft-Gault) 61.5 68.7 77.5 Glucose Level 115 mg/dL (70-99) 85 mg/dL (70-99) 93 mg/dL (70-99) Calcium Level 8.7 mg/dL (8.5-10.1) 8.7 mg/dL (8.5-10.1) 8.5 mg/dL (8.5-10.1) White Blood Count 9.1 x10^3/uL (4.0-11.0) Red Blood Count 3.07 x10^6/uL (3.50-5.40) Hemoglobin 8.6 g/dL (12.0-15.5) Hematocrit 26.2 % (36.0-47.0) Mean Corpuscular Volume 86 fL (79-100) Mean Corpuscular Hemoglobin 28 pg (25-35) Mean Corpuscular Hemoglobin Concent 33 g/dL (31-37) Red Cell Distribution Width 15.8 % (11.5-14.5) Platelet Count 378 x10^3/uL (140-400) Magnesium Level 1.4 mg/dL (1.8-2.4) Laboratory Tests Test 08/11/18 08:00 Sodium Level 138 mmol/L (136-145) Potassium Level 3.5 mmol/L (3.5-5.1) Chloride Level 104 mmol/L (98-107) Carbon Dioxide Level 22 mmol/L (21-32) Anion Gap 12 (6-14) Blood Urea Nitrogen 8 mg/dL (7-20) Creatinine 0.9 mg/dL (0.6-1.0) Estimated GFR (Cockcroft-Gault) 77.5 Glucose Level 93 mg/dL (70-99) Calcium Level 8.5 mg/dL (8.5-10.1) Magnesium Level 1.4 mg/dL (1.8-2.4) Medications Active Scripts Medications Dose Route/Sig Max Daily Dose Days Date Category Melatonin 3 Mg Tab.rapdis 3 Mg PO HS PRN 07/27/18 Reported Nephro-Nola Tablet (Folic Acid/Vitamin B Comp W-C) 0.8 Mg Tablet 1 Tab PO DAILY 07/27/18 Reported Vitamin B-12 (Cyanocobalamin (Vitamin B-12)) 1,000 Mcg Tablet 1,000 Mcg PO DAILY 07/27/18 Reported Megestrol Acetate 20 Mg Tablet 20 Mg PO DAILY 07/27/18 Reported Protonix (Pantoprazole Sodium) 20 Mg Tablet.dr 40 Mg PO DAILY 07/27/18 Reported Zoloft (Sertraline Hcl) 50 Mg Tablet 1 Tab PO DAILY 07/27/18 Reported Zoloft (Sertraline Hcl) 25 Mg Tablet 1 Tab PO DAILY 07/27/18 Reported Coreg (Carvedilol) 25 Mg Tablet 6.25 Mg PO BIDWMEALS 6/20/19 Reported Lipitor (Atorvastatin Calcium) 10 Mg Tablet 1 Tab PO QHS 07/27/18 Reported Spiriva (Tiotropium Brethren) 18 Mcg Cap.w.dev 1 Cap IH DAILY 07/27/18 Reported Duoneb 0.5-3(2.5) Mg/3 Ml (Albuterol/Ipratropium) 3 Ml Ampul.neb 3 Ml NEB QID PRN 07/27/18 Reported Comments DANIE INFILTRATES AND EFFUSION IMPROVED 08/05 Impression . IMPRESSION: 1. Acute hypoxemic respiratory failure secondary to pneumonia and cardiac arrest. 2. Aspiration pneumonia. 3. Alcoholism with past history of severe withdrawal. 4. Chronic obstructive pulmonary disease. 5. MET AND TOXIC ENC, improved 6. Abnormal cxr with effusions/ infiltrates, improving Plan . CLINICALLY BETTER SUPPORTIVE RX ANT BX PER ID NEBS SMOKING CESSATION ( SMOKED SINCE AGE 12) DC PLANS PER PCP SIDRA LUZ MD Aug 11, 2018 10:38
[2018-08-11] MEDS ORDERED: POTA20TA82 PO (10:47)
[2018-08-11] MEDS ORDERED: OXYC5CAP PO (10:47)
[2018-08-11] MEDS ORDERED: AMLO10TA8 PO (10:47)
[2018-08-11 11:00] VITALS: BP 148/68
--- NOTE | 2018-08-11 11:54 | NUR ---
EHATHER following pt. Pt is ready to dc home today but does not have her house simon. HEATHER spoke with Pt's sister, Phone: Zach: [phone] who expressed concern that pt is being discharged today. HEATHER informed Zach, pt is uninsured and HEATHER is not able to find a SNU placement. Zach is currently in [place] and was planning to come on Tuesday. Zach expressed frustration as she was under the impression pt was going to rehab and no one had communicated this with her. HEATHER discussed pt's family were informed about this by MINE Esquivel when pt was in a different floor. Per Zach, Pt's brother, Andrew is currently at work and will be working until late overnight shift and pt's son, Bentley is out of town. HEATHER also informed pt's sister, Pt has been declining to participate with PT/OT and when HEATHER spoke with her regarding this, pt was upset and informed SW to leave the room. HEATHER informed Zach, Pt had declined to work with PT/OT even today and HEATHER is not able to evaluate pt for skilled services due to being uninsured. HEATHER had left voice mails to Pt's son, Bentley and pt's son in law, Shakir as well. Zach advised she will be making phone calls and believes pt should not dc to her home alone due to mobility concerns. Awaiting to hear back from pt's sister. Discussed with RN.
[2018-08-11] MEDS: oxyCODONE IR 5 MG TABLET PO PRN (14:45)
--- NOTE | 2018-08-11 15:25 | NUR ---
DISCHARGE INSTRUCTIONS GIVEN QUESTIONS AND CONCERNS ANSWERED, PATIENT VERBALIZED UNDERSTANDING OF DISCHARGE INFORMATION INCLUDING TAKING ALL MEDICATIONS INSTRUCTED, NOT CONSUMING ALCOHOLIC BEVERAGES AND FOLLOWING UP WITH HER PRIMARY PROVIDER , DR. Josefina LOMBARDO AND DR. HERNANDEZ INSTRUCTED, DISCHARGE PAPERWORK, PRESCRIPTIONS AND OUTSIDE RESOURCES FROM SOCIAL WORK.
--- NOTE | 2018-08-11 15:38 | NUR ---
SW notified pt's sister, Zach, pt's friends Alek Whitman and ex-boyfriend, Ramana are in the hospital to cloth picker pt. She verbalized understanding.
--- NOTE | 2018-08-11 15:40 | NUR ---
PATIENT LEAVES THE UNIT PER WHEELCHAIR AND ACCOMPANIED BY TWO FRIENDS, EMOTIONAL SUPPORT GIVEN, FOLLOW UP APPOINTMENTS ENCOURAGED.
== END 2018-08-11 15:40 | disposition home or self-care (01) | DRG 870 ==
LOC: 1 WEST ICU 02:32 → 5 NORTH 08-05 17:00
PROVIDERS: ADMIT Internal Medicine; ATTEND Internal Medicine
PROC: 30233N1 Transfusion of Nonautologous Red Blood Cells into Peripheral Vein, Percutaneous Approach (ICD-10-PCS; 2018-07-27)
PROC: 5A1955Z Respiratory Ventilation, Greater than 96 Consecutive Hours (ICD-10-PCS; 2018-07-29)
PROC: 0BH17EZ Insertion of Endotracheal Airway into Trachea, Via Natural or Artificial Opening (ICD-10-PCS; 2018-07-29)
PROC: 5A12012 Performance of Cardiac Output, Single, Manual (ICD-10-PCS; 2018-07-29)
PROC: 02HV33Z Insertion of Infusion Device into Superior Vena Cava, Percutaneous Approach (ICD-10-PCS; principal; 2018-08-01)
PROC: B548ZZA Ultrasonography of Superior Vena Cava, Guidance (ICD-10-PCS; 2018-08-01)
DX: A41.9 Sepsis, unspecified organism (principal); E11.10 Type 2 diabetes mellitus with ketoacidosis without coma; E43 Unspecified severe protein-calorie malnutrition; G92 Toxic encephalopathy; I46.9 Cardiac arrest, cause unspecified; J69.0 Pneumonitis due to inhalation of food and vomit; J96.01 Acute respiratory failure with hypoxia; E87.0 Hyperosmolality and hypernatremia; F10.239 Alcohol dependence with withdrawal, unspecified; N17.9 Acute kidney failure, unspecified; Z68.1 Body mass index [BMI] 19.9 or less, adult; D64.9 Anemia, unspecified; D69.6 Thrombocytopenia, unspecified; E78.5 Hyperlipidemia, unspecified; E83.42 Hypomagnesemia; E87.5 Hyperkalemia; M19.90 Unspecified osteoarthritis, unspecified site; E87.6 Hypokalemia; F17.210 Nicotine dependence, cigarettes, uncomplicated; F41.9 Anxiety disorder, unspecified; G40.909 Epilepsy, unspecified, not intractable, without status epilepticus; G47.00 Insomnia, unspecified; I10 Essential (primary) hypertension; J44.9 Chronic obstructive pulmonary disease, unspecified; M81.0 Age-related osteoporosis without current pathological fracture; N27.0 Small kidney, unilateral; Z82.3 Family history of stroke; Z87.892 Personal history of anaphylaxis; Z88.0 Allergy status to penicillin; F32.9 Major depressive disorder, single episode, unspecified
CPT/HCPCS: 36415; 36556; 36600; 70450; 71045; 71275; 72125; 74018; 76770; 76937; 80048; 80053; 80076; 82140; 82805; 82962; 83605; 83735; 83880; 85007; 85014; 85018; 85025; 85027; 85049; 85379; 85384; 85610; 85730; 86850; 86900; 86901; 86920; 87040; 87641; 93005; 93306; 94002; 94003; 94640; 94760; C1892; C9113; J0171; J0360; J1630; J2060; J2185; J2250; J2405; J3010; J3475; J3480; J7030; J7040; J7042; J7620; P9016; Q9967; 92526; 92610; 97110; 97530; 97535

== ENCOUNTER → 2018-12-13 | Outpatient (CLI) | payer OTHER ==
[~2018-12-13] MED LIST: ALBUTEROL SULFATE 2.5 MG/3 ML NEBU. NEB ONE; AMLO10TA8 PO; ATOR10TA PO; CARV25TA PO; CYAN-25 PO; FOLI0.8T3 PO; IPRA3AMP29 NEB; MEGE20TA PO; MELA3TAB43 PO; OXYC5CAP PO; PANT20TA2 PO; POTA20TA82 PO; SERT25TA PO; SERT50TA PO; TIOT18CA IH
== END | disposition home or self-care (01) ==
LOC: PF 07:58
PROVIDERS: ATTEND Surgery
DX: J44.9 Chronic obstructive pulmonary disease, unspecified (principal); F43.10 Post-traumatic stress disorder, unspecified; I10 Essential (primary) hypertension; M85.88 Other specified disorders of bone density and structure, other site; F41.9 Anxiety disorder, unspecified; F17.210 Nicotine dependence, cigarettes, uncomplicated; Z86.73 Personal history of transient ischemic attack (TIA), and cerebral infarction without residual deficits
CPT/HCPCS: 94060; 94640; J7613

== ENCOUNTER 2019-02-21 18:14 | Inpatient (IN) | payer BC ==
[~2019-02-21] VITALS: Ht 157.5 cm; Wt 44.7 kg
[2019-02-21] VITALS (8 sets, daily range): BP systolic 107–216; BP diastolic 58–98
[~2019-02-21 18:14] MED LIST changes: -ALBUTEROL SULFATE 2.5 MG/3 ML NEBU. NEB ONE; +POTA20TA4 PO; -POTA20TA82 PO
[2019-02-21] MEDS ORDERED: VECURONIUM BOLUS 10 MG VIAL. IV ONE ×2 (18:19→19:30)
[2019-02-21] MEDS ORDERED: NORMAL SALINE IV ONE (18:30)
[2019-02-21] MEDS ORDERED: FOMEPIZOLE IV ONE (18:30)
[2019-02-21 18:56] LABS: HEMOGLOBIN 7.6 g/dL (12.0-15.5); RED BLOOD COUNT 2.64 x10^6/uL (3.50-5.40); RED CELL DISTRIBUTION WIDTH 15.8 % (11.5-14.5); WHITE BLOOD COUNT 14.7 x10^3/uL (4.0-11.0)
[2019-02-21 19:03] LABS: PROTHROMBIN TIME PATIENT 13.9 SEC (11.7-14.0)
[2019-02-21 19:06] LABS: CALCIUM 7.6 mg/dL (8.5-10.1); GFR 68.4; POTASSIUM 3.8 mmol/L (3.5-5.1)
[2019-02-21 19:12] LABS: CALCIUM 7.3 mg/dL (8.5-10.1); GFR 68.4; MAGNESIUM 0.9 mg/dL (1.8-2.4); PHOSPHORUS 3.2 mg/dL (2.6-4.7); POTASSIUM 3.8 mmol/L (3.5-5.1)
[2019-02-21 19:13] LABS: ALBUMIN 3.1 g/dL (3.4-5.0); ALBUMIN/GLOBULIN RATIO 0.8 (1.0-1.7); TOTAL BILIRUBIN 0.5 mg/dL (0.2-1.0); TOTAL PROTEIN 7.2 g/dL (6.4-8.2)
[2019-02-21] MEDS ORDERED: MAGNESIUM SULFATE 2GM 50 ML IV ONE (20:00)
[2019-02-21] MEDS: SODIUM BICARBONATE VIAL 150 MEQ in IV DEXTROSE 5% 1,000 ML IV SCH (20:41)
[2019-02-21 20:42] LABS: BASE EXCESS ABG -14 mmol/L (-3-3); HCO3 ABG 12 mmol/L (21-28); PCO2 ABG 26 mmHg (35-46); PO2 ABG 220 mmHg (65-108); SAT O2 ABG 99 % (92-99)
[2019-02-21 20:44] LABS: FIO2 ABG 50
[2019-02-21 20:45] LABS: BILIRUBIN,URINE NEGATIVE (NEG); CLARITY,URINE CLEAR; COLOR,URINE YELLOW; NITRITE,URINE NEGATIVE (NEG); PH,URINE 6.5; PROTEIN,URINE NEGATIVE (NEG-TRACE); UROBILINOGEN,URINE 0.2 mg/dL (0.2 mg/dL)
[2019-02-21 20:49] LABS: SQUAMOUS EPITHELIAL CELL,UR FEW /LPF
[2019-02-21 20:50] LABS: AMORPHOUS SEDIMENT,UR PRESENT /HPF; BACTERIA,URINE 0 /HPF (0-FEW); WBC,URINE 0 /HPF (0-4)
--- NOTE | 2019-02-21 21:00 | RAD ---
INDICATION: Enteric tube placement COMPARISON: July 29, 2018 IMPRESSION: Abdomen: Single view obtained. Single enteric tube with tip coiled in the left upper quadrant of the abdomen with tip near expected location of gastroesophageal junction. Partially visualized lung base opacities again seen. Calcific atherosclerosis. Air-filled dilation of loops of bowel within the abdomen.. Measures up to about 28 mm. Would consider obtaining a follow-up to ensure that there is not a pathologic cause such as a developing ileus or obstruction High density urinary bladder. Could be from contrast. Electronically signed by: Huber Mcginnis MD (02/21/2019 8:57 PM) [facility] [place]
--- NOTE | 2019-02-21 22:43 | RAD ---
Exam: Chest one view INDICATION: Line placement TECHNIQUE: Frontal view of the chest Comparisons: 08/05/2018 FINDINGS: Endotracheal tube with tip approximately 2 cm above the rene. Enteric tube traverses below the diaphragm coiled in the left upper quadrant likely within the stomach. Right IJ catheter with tip likely in the right atrium. The cardiomediastinal silhouette and pulmonary vessels are within normal limits. Patchy airspace disease noted predominantly at the right lung base, similar to the prior studies. IMPRESSION: Lines and tubes described above. Electronically signed by: Charlene Viera MD (02/21/2019 10:40 PM) [facility]
[2019-02-22] VITALS (26 sets, daily range): BP systolic 81–156; BP diastolic 43–78
[2019-02-22] MEDS: SODIUM BICARBONATE VIAL 150 MEQ in IV DEXTROSE 5% 1,000 ML IV SCH ×2 (01:03→10:07)
[2019-02-22] MEDS: PROPOFOL 100 ML IV PRN ×2 (05:04→10:08)
[2019-02-22 06:03] LABS: BASO # 0.1 x10^3/uL (0.0-0.2); BASO % 1 % (0-3); EOS % 0 % (0-3); HEMATOCRIT 21.3 % (36.0-47.0); HEMOGLOBIN 7.1 g/dL (12.0-15.5); LYMPH % 11 % (24-48); MEAN CORPUSCULAR HEMOGLOBIN 29 pg (25-35); MEAN CORPUSCULAR HGB CONC 34 g/dL (31-37); MEAN CORPUSCULAR VOLUME 87 fL (79-100); MONO # 0.3 x10^3/uL (0.0-1.1); MONO % 3 % (0-9); NEUT # 7.6 x10^3/uL (1.8-7.7); NEUT % 85 % (31-73); PLATELET COUNT 71 x10^3/uL (140-400); RED BLOOD COUNT 2.44 x10^6/uL (3.50-5.40); RED CELL DISTRIBUTION WIDTH 15.2 % (11.5-14.5); WHITE BLOOD COUNT 8.9 x10^3/uL (4.0-11.0)
[2019-02-22 06:29] LABS: ALBUMIN 2.5 g/dL (3.4-5.0); ALBUMIN/GLOBULIN RATIO 0.7 (1.0-1.7); CALCIUM 7.5 mg/dL (8.5-10.1); CREATININE 1.1 mg/dL (0.6-1.0); GFR 61.3; MAGNESIUM 1.4 mg/dL (1.8-2.4); PHOSPHORUS 0.7 mg/dL (2.6-4.7); POTASSIUM 3.1 mmol/L (3.5-5.1); TOTAL BILIRUBIN 0.5 mg/dL (0.2-1.0); TOTAL PROTEIN 6.3 g/dL (6.4-8.2)
[2019-02-22] MEDS ORDERED: INFLUENZA VAX SCREEN BY RX. MC PRN (06:45)
--- NOTE | 2019-02-22 06:45 | NUR ---
Pt admitted from [facility] approximately 18:15 on 02/21/19. Pt on vent and sedated. Recalled answers from previous admission to complete admission history. Family not present to answers questions at this time.
[2019-02-22 06:47] LABS: PROTHROMBIN TIME PATIENT 13.1 SEC (11.7-14.0)
[2019-02-22 07:09] LABS: % BANDS 3 % (0-9); % BASOS 1 % (0-3); % EOS 3 % (0-5); % LYMPHS 6 % (24-48); % MONOS 3 % (0-10); % SEGS 84 % (35-66); NUCLEATED RBC 1; PLT ESTIMATE DECREASED (ADEQUATE)
[2019-02-22 07:10] LABS: ANISOCYTOSIS SLIGHT; POLYCHROMASIA SLIGHT; TARGET CELLS FEW
[2019-02-22 07:40] LABS: BASE EXCESS ABG -1 mmol/L (-3-3); HCO3 ABG 21 mmol/L (21-28); PCO2 ABG 29 mmHg (35-46); PO2 ABG 150 mmHg (65-108); SAT O2 ABG 99 % (92-99)
[2019-02-22 07:43] LABS: FIO2 ABG 40
--- NOTE | 2019-02-22 08:20 | RAD ---
EXAM: CHEST AP ONLY INDICATION: Ventilator.. TECHNIQUE: Single AP view COMPARISON: 02/21/2019 FINDINGS: Endotracheal intubation with the ET tube terminating 1 cm above the rene. The enteric tube remains below the diaphragms, tip at the fundus. Right jugular approach central venous catheter is present with the tip terminating in the inferior right atrium. The heart size is normal. The great vessels appear unremarkable. There is no hilar or mediastinal mass. Patchy airspace opacities bilaterally remain present but have improved in the interval, most notable at the peripheral right lung. There is no pleural effusion or pneumothorax. There are no significant osseous abnormalities. IMPRESSION: Improving bilateral pulmonary infiltrates with low-lying endotracheal intubation redemonstrated. Electronically signed by: Darryl Posey MD (02/22/2019 8:17 AM) [facility]
[2019-02-22] MEDS: fentaNYL PF VIAL 100 MCG/2 ML VIAL IVP PRN ×4 (08:58→23:06)
[2019-02-22] MEDS ORDERED: ELECTROLYTE (ICU) PROTOCOL. MC PRN (09:15)
[2019-02-22] MEDS ORDERED: MAGNESIUM SULFATE 2GM 50 ML IV ONE (09:15)
[2019-02-22] MEDS: POTASSIUM CHLORIDE 20MEQ 100 ML IV SCH ×2 (09:46→10:36)
--- NOTE | 2019-02-22 10:01 | PDOC2 ---
CONSULT Date of Consult Date of Consult DATE: 02/22/19 TIME: 09:55 Reason for Consult Reason for Consult: Abnormal abdominal films nausea vomiting Referring Physician Referring Physician: Dustin Identification/Chief Complaint Chief Complaint Patient intubated and sedated Source Source: Caregiver, Chart review History of Present Illness Reason for Visit: Patient is a 59-year-old female from [facility] this developed over the last couple days decreased appetite and depression according to her family member then yesterday had nausea vomiting was taken to the emergency department where she was separately transferred to [facility] and intubated due to pulmonary issues. Family member states that she does drink quite a bit of alcohol and when she does drink she does not eat. Past Medical History Cardiovascular: HTN Pulmonary: COPD CENTRAL NERVOUS SYSTEM: Seizure Heme/Onc: Anemia NOS Hepatobiliary: Other (Jurado is an) Psych: Anxiety, Addictions Infectious disease: No pertinent hx ENT: No pertinent hx Renal/: No pertinent hx Endocrine: No pertinent hx Dermatology: No pertinent hx Past Surgical History Past Surgical History: Social History 1 pack per day ALCOHOL: heavy Current Medications Current Medications Current Medications Vecuronium [place] (Norcuron Bolus) 10 mg STK-MED ONCE IV ; Start 02/21/19 at 18:19; Stop 02/21/19 at 18:20; Status DC Fomepizole 0.675 gm/Sodium Chloride 100.675 ml @ 201.35 mls/hr 1X ONCE IV Last administered on 02/21/19at 20:13; Start 02/21/19 at 18:30; Stop 02/21/19 at 18:59; Status DC Sodium Bicarbonate 150 meq/Dextrose 1,150 ml @ 125 mls/hr Q9H12M IV Last administered on 02/22/19at 01:03; Start 02/21/19 at 18:30 Vecuronium [place] (Norcuron Bolus) 10 mg 1X ONCE IV Last administered on 02/21/19at 19:23; Start 02/21/19 at 19:30; Stop 02/21/19 at 19:31; Status DC Magnesium Sulfate 50 ml @ 25 mls/hr 1X ONCE IV Last administered on 02/21/19at 20:13; Start 02/21/19 at 20:00; Stop 02/21/19 at 21:59; Status DC Nicardipine HCl 50 mg/Sodium Chloride 250 ml @ 25 mls/hr CONT PRN IV SEE I/O RECORD Last administered on 02/21/19at 20:30; Start 02/21/19 at 20:00 Propofol 100 ml @ 0.667 mls/ hr CONT PRN IV SEE I/O RECORD Last administered on 02/22/19at 05:04; Start 02/21/19 at 20:45 Info (FLU VACCINE SCREEN per RX) 1 each PRN DAILY PRN MC SEE COMMENTS; Start 02/22/19 at 06:45; Status Cancel Fentanyl Citrate (Fentanyl 2ml Vial) 50 mcg PRN Q3HRS PRN IVP PAIN Last administered on 02/22/19at 08:58; Start 02/22/19 at 09:00 Magnesium Sulfate 50 ml @ 25 mls/hr 1X ONCE IV Last administered on 02/22/19at 09:22; Start 02/22/19 at 09:15; Stop 02/22/19 at 11:14 Info (Icu Electrolyte Protocol) 1 ea CONT PRN PRN MC PER PROTOCOL; Start 02/22/19 at 09:15 Potassium Chloride/Water 100 ml @ 100 mls/hr Q1H IV Last administered on 02/22/19at 09:46; Start 02/22/19 at 10:00; Stop 02/22/19 at 11:59 Active Scripts Active Potassium Chloride 20 Meq Tablet.er 20 Meq PO BID 30 Days Oxycodone Hcl 5 Mg Capsule 5 Mg PO PRN Q6HRS PRN 5 Days Amlodipine Besylate 10 Mg Tablet 10 Mg PO DAILY 30 Days Reported Melatonin 3 Mg Tab.rapdis 3 Mg PO HS PRN Nephro-Nola Tablet (Folic Acid/Vitamin B Comp W-C) 0.8 Mg Tablet 1 Tab PO DAILY Vitamin B-12 (Cyanocobalamin (Vitamin B-12)) 1,000 Mcg Tablet 1,000 Mcg PO DAILY Megestrol Acetate 20 Mg Tablet 20 Mg PO DAILY Protonix (Pantoprazole Sodium) 20 Mg Tablet.dr 40 Mg PO DAILY Zoloft (Sertraline Hcl) 50 Mg Tablet 1 Tab PO DAILY Zoloft (Sertraline Hcl) 25 Mg Tablet 1 Tab PO DAILY Coreg (Carvedilol) 25 Mg Tablet 6.25 Mg PO BIDWMEALS Lipitor (Atorvastatin Calcium) 10 Mg Tablet 1 Tab PO QHS Duoneb 0.5-3(2.5) Mg/3 Ml (Albuterol/Ipratropium) 3 Ml Ampul.neb 3 Ml NEB QID PRN Allergies Allergies: Coded Allergies: Penicillins (Verified Allergy, Severe, Anaphylaxis, 07/27/18) erythromycin base (Verified Adverse Reaction, Intermediate, Diarrhea, 08/06/18) Physical Exam General: Other (intubated and sedated) Lungs: Other (decreased breath sounds bilaterally) Abdomen: Normal bowel sounds, Soft, No tenderness, Other (not distended) Extremities: No edema Skin: No significant lesion Vitals VITALS Vital Signs Date Time Temp Pulse Resp B/P (MAP) Pulse Ox O2 Delivery O2 Flow Rate FiO2 02/22/19 09:23 100 Ventilator 02/22/19 09:00 86 16 92/51 (65) 02/22/19 08:00 99.9 99.9 Labs Labs Laboratory Tests Test 02/21/19 18:26 02/21/19 18:46 02/21/19 20:07 02/22/19 05:50 O2 Saturation 99 % (92-99) Arterial Blood pH 7.26 (7.35-7.45) Arterial Blood pCO2 at Patient Temp 26 mmHg (35-46) Arterial Blood pO2 at Patient Temp 220 mmHg (65-108) Arterial Blood HCO3 12 mmol/L (21-28) Arterial Blood Base Excess -14 mmol/L (-3-3) FiO2 50 White Blood Count 14.7 x10^3/uL (4.0-11.0) 8.9 x10^3/uL (4.0-11.0) Red Blood Count 2.64 x10^6/uL (3.50-5.40) 2.44 x10^6/uL (3.50-5.40) Hemoglobin 7.6 g/dL (12.0-15.5) 7.1 g/dL (12.0-15.5) Hematocrit 24.0 % (36.0-47.0) 21.3 % (36.0-47.0) Mean Corpuscular Volume 91 fL (79-100) 87 fL (79-100) Mean Corpuscular Hemoglobin 29 pg (25-35) 29 pg (25-35) Mean Corpuscular Hemoglobin Concent 32 g/dL (31-37) 34 g/dL (31-37) Red Cell Distribution Width 15.8 % (11.5-14.5) 15.2 % (11.5-14.5) Platelet Count 78 x10^3/uL (140-400) 71 x10^3/uL (140-400) Prothrombin Time 13.9 SEC (11.7-14.0) Prothromb Time International Ratio 1.1 (0.8-1.1) Sodium Level 139 mmol/L (136-145) 138 mmol/L (136-145) Potassium Level 3.8 mmol/L (3.5-5.1) 3.1 mmol/L (3.5-5.1) Chloride Level 99 mmol/L (98-107) 96 mmol/L (98-107) Carbon Dioxide Level 14 mmol/L (21-32) 23 mmol/L (21-32) Anion Gap 26 (6-14) 19 (6-14) Blood Urea Nitrogen 17 mg/dL (7-20) 13 mg/dL (7-20) Creatinine 1.0 mg/dL (0.6-1.0) 1.1 mg/dL (0.6-1.0) Estimated GFR (Cockcroft-Gault) 68.4 61.3 BUN/Creatinine Ratio 16 (6-20) 12 (6-20) Glucose Level 122 mg/dL (70-99) 109 mg/dL (70-99) Calcium Level 7.3 mg/dL (8.5-10.1) 7.5 mg/dL (8.5-10.1) Phosphorus Level 3.2 mg/dL (2.6-4.7) 0.7 mg/dL (2.6-4.7) Magnesium Level 0.9 mg/dL (1.8-2.4) 1.4 mg/dL (1.8-2.4) Total Bilirubin 0.5 mg/dL (0.2-1.0) 0.5 mg/dL (0.2-1.0) Aspartate Amino Transf (AST/SGOT) 71 U/L (15-37) 52 U/L (15-37) Alanine Aminotransferase (ALT/SGPT) 18 U/L (14-59) 14 U/L (14-59) Alkaline Phosphatase 102 U/L (46-116) 92 U/L (46-116) Total Protein 7.2 g/dL (6.4-8.2) 6.3 g/dL (6.4-8.2) Albumin 3.1 g/dL (3.4-5.0) 2.5 g/dL (3.4-5.0) Albumin/Globulin Ratio 0.8 (1.0-1.7) 0.7 (1.0-1.7) Urine Collection Type Unknown Urine Color Yellow Urine Clarity Clear Urine pH 6.5 Urine Specific [place] 1.010 Urine Protein Negative mg/dL (NEG-TRACE) Urine Glucose (UA) Negative mg/dL (NEG) Urine Ketones (Stick) >=80 mg/dL (NEG) Urine Blood Negative (NEG) Urine Nitrite Negative (NEG) Urine Bilirubin Negative (NEG) Urine Urobilinogen Dipstick 0.2 mg/dL (0.2 mg/dL) Urine Leukocyte Esterase Negative (NEG) Urine RBC 1-2 /HPF (0-2) Urine WBC 0 /HPF (0-4) Urine Squamous Epithelial Cells Few /LPF Urine Amorphous Sediment Present /HPF Urine Bacteria 0 /HPF (0-FEW) Urine Mucus Slight /LPF Neutrophils (%) (Auto) 85 % (31-73) Lymphocytes (%) (Auto) 11 % (24-48) Monocytes (%) (Auto) 3 % (0-9) Eosinophils (%) (Auto) 0 % (0-3) Basophils (%) (Auto) 1 % (0-3) Neutrophils # (Auto) 7.6 x10^3/uL (1.8-7.7) Lymphocytes # (Auto) 1.0 x10^3/uL (1.0-4.8) Monocytes # (Auto) 0.3 x10^3/uL (0.0-1.1) Eosinophils # (Auto) 0.0 x10^3/uL (0.0-0.7) Basophils # (Auto) 0.1 x10^3/uL (0.0-0.2) Segmented Neutrophils % 84 % (35-66) Band Neutrophils % 3 % (0-9) Lymphocytes % 6 % (24-48) Monocytes % 3 % (0-10) Eosinophils % 3 % (0-5) Basophils % 1 % (0-3) Nucleated Red Blood Cells 1 Platelet Estimate Decreased (ADEQUATE) Polychromasia Slight Anisocytosis Slight Target Cells Few Lipase 349 U/L (73-393) Test 02/22/19 06:30 02/22/19 07:30 Prothrombin Time 13.1 SEC (11.7-14.0) Prothromb Time International Ratio 1.0 (0.8-1.1) O2 Saturation 99 % (92-99) Arterial Blood pH 7.49 (7.35-7.45) Arterial Blood pCO2 at Patient Temp 29 mmHg (35-46) Arterial Blood pO2 at Patient Temp 150 mmHg (65-108) Arterial Blood HCO3 21 mmol/L (21-28) Arterial Blood Base Excess -1 mmol/L (-3-3) FiO2 40 Laboratory Tests Test 02/21/19 18:26 02/21/19 18:46 02/21/19 20:07 02/22/19 05:50 O2 Saturation 99 % (92-99) Arterial Blood pH 7.26 (7.35-7.45) Arterial Blood pCO2 at Patient Temp 26 mmHg (35-46) Arterial Blood pO2 at Patient Temp 220 mmHg (65-108) Arterial Blood HCO3 12 mmol/L (21-28) Arterial Blood Base Excess -14 mmol/L (-3-3) FiO2 50 White Blood Count 14.7 x10^3/uL (4.0-11.0) 8.9 x10^3/uL (4.0-11.0) Red Blood Count 2.64 x10^6/uL (3.50-5.40) 2.44 x10^6/uL (3.50-5.40) Hemoglobin 7.6 g/dL (12.0-15.5) 7.1 g/dL (12.0-15.5) Hematocrit 24.0 % (36.0-47.0) 21.3 % (36.0-47.0) Mean Corpuscular Volume 91 fL (79-100) 87 fL (79-100) Mean Corpuscular Hemoglobin 29 pg (25-35) 29 pg (25-35) Mean Corpuscular Hemoglobin Concent 32 g/dL (31-37) 34 g/dL (31-37) Red Cell Distribution Width 15.8 % (11.5-14.5) 15.2 % (11.5-14.5) Platelet Count 78 x10^3/uL (140-400) 71 x10^3/uL (140-400) Prothrombin Time 13.9 SEC (11.7-14.0) Prothromb Time International Ratio 1.1 (0.8-1.1) Sodium Level 139 mmol/L (136-145) 138 mmol/L (136-145) Potassium Level 3.8 mmol/L (3.5-5.1) 3.1 mmol/L (3.5-5.1) Chloride Level 99 mmol/L (98-107) 96 mmol/L (98-107) Carbon Dioxide Level 14 mmol/L (21-32) 23 mmol/L (21-32) Anion Gap 26 (6-14) 19 (6-14) Blood Urea Nitrogen 17 mg/dL (7-20) 13 mg/dL (7-20) Creatinine 1.0 mg/dL (0.6-1.0) 1.1 mg/dL (0.6-1.0) Estimated GFR (Cockcroft-Gault) 68.4 61.3 BUN/Creatinine Ratio 16 (6-20) 12 (6-20) Glucose Level 122 mg/dL (70-99) 109 mg/dL (70-99) Calcium Level 7.3 mg/dL (8.5-10.1) 7.5 mg/dL (8.5-10.1) Phosphorus Level 3.2 mg/dL (2.6-4.7) 0.7 mg/dL (2.6-4.7) Magnesium Level 0.9 mg/dL (1.8-2.4) 1.4 mg/dL (1.8-2.4) Total Bilirubin 0.5 mg/dL (0.2-1.0) 0.5 mg/dL (0.2-1.0) Aspartate Amino Transf (AST/SGOT) 71 U/L (15-37) 52 U/L (15-37) Alanine Aminotransferase (ALT/SGPT) 18 U/L (14-59) 14 U/L (14-59) Alkaline Phosphatase 102 U/L (46-116) 92 U/L (46-116) Total Protein 7.2 g/dL (6.4-8.2) 6.3 g/dL (6.4-8.2) Albumin 3.1 g/dL (3.4-5.0) 2.5 g/dL (3.4-5.0) Albumin/Globulin Ratio 0.8 (1.0-1.7) 0.7 (1.0-1.7) Urine Collection Type Unknown Urine Color Yellow Urine Clarity Clear Urine pH 6.5 Urine Specific [place] 1.010 Urine Protein Negative mg/dL (NEG-TRACE) Urine Glucose (UA) Negative mg/dL (NEG) Urine Ketones (Stick) >=80 mg/dL (NEG) Urine Blood Negative (NEG) Urine Nitrite Negative (NEG) Urine Bilirubin Negative (NEG) Urine Urobilinogen Dipstick 0.2 mg/dL (0.2 mg/dL) Urine Leukocyte Esterase Negative (NEG) Urine RBC 1-2 /HPF (0-2) Urine WBC 0 /HPF (0-4) Urine Squamous Epithelial Cells Few /LPF Urine Amorphous Sediment Present /HPF Urine Bacteria 0 /HPF (0-FEW) Urine Mucus Slight /LPF Neutrophils (%) (Auto) 85 % (31-73) Lymphocytes (%) (Auto) 11 % (24-48) Monocytes (%) (Auto) 3 % (0-9) Eosinophils (%) (Auto) 0 % (0-3) Basophils (%) (Auto) 1 % (0-3) Neutrophils # (Auto) 7.6 x10^3/uL (1.8-7.7) Lymphocytes # (Auto) 1.0 x10^3/uL (1.0-4.8) Monocytes # (Auto) 0.3 x10^3/uL (0.0-1.1) Eosinophils # (Auto) 0.0 x10^3/uL (0.0-0.7) Basophils # (Auto) 0.1 x10^3/uL (0.0-0.2) Segmented Neutrophils % 84 % (35-66) Band Neutrophils % 3 % (0-9) Lymphocytes % 6 % (24-48) Monocytes % 3 % (0-10) Eosinophils % 3 % (0-5) Basophils % 1 % (0-3) Nucleated Red Blood Cells 1 Platelet Estimate Decreased (ADEQUATE) Polychromasia Slight Anisocytosis Slight Target Cells Few Lipase 349 U/L (73-393) Test 02/22/19 06:30 02/22/19 07:30 Prothrombin Time 13.1 SEC (11.7-14.0) Prothromb Time International Ratio 1.0 (0.8-1.1) O2 Saturation 99 % (92-99) Arterial Blood pH 7.49 (7.35-7.45) Arterial Blood pCO2 at Patient Temp 29 mmHg (35-46) Arterial Blood pO2 at Patient Temp 150 mmHg (65-108) Arterial Blood HCO3 21 mmol/L (21-28) Arterial Blood Base Excess -1 mmol/L (-3-3) FiO2 40 Assessment/Plan Assessment/Plan Pneumonia possibly source of ileus Agree with conservative therapy G-tube will follow IRISH BISHOP MD Feb 22, 2019 10:00
[2019-02-22] MEDS ORDERED: IV NORMAL SALINE 500ML BAG 500 ML IV ONE (11:00)
--- NOTE | 2019-02-22 11:28 | HP ---
ADMIT DATE: 02/21/2019 HISTORY OF PRESENT ILLNESS: The patient is a 59-year-old -[place] female patient who presented to the Emergency Room of [facility] with a complaint of shortness of breath, cough as well as abdominal pain. She was also complaining of being feeling weak, has had persistent nausea and vomiting, unable to keep anything down over the last 2-3 days. She also has back pain and neck pain that is chronic, but getting much worse. She drinks alcohol occasionally according to her daughter, although she is known to be heavy alcohol drinker. She was extensively investigated in the Emergency Room. She has had an EKG, which showed that she was in sinus rhythm without ST segment elevation myocardial infarction. X-ray showed evidence of right lower lobe pneumonia that looks slightly improved compared to prior. Her lab work, however, showed that she has severe acidosis, probably metabolic with a pH of 7.14, pCO2 of 13, pO2 of 91 and bicarbonate of 4. Her oxygen saturation at that time was 94% on FiO2 of 28%. Her white cell count was elevated at 18,900. She has low platelets 107. Her chemistry showed a serum sodium 138, potassium 4.9, chloride 97, bicarbonate 5, anion gap of 36, BUN of 19, creatinine 1.2, estimated GFR was 55 mL per minute. Her glucose was 90. Lactic acid was only 1.5, calcium was 9, magnesium was 1.4. Total bilirubin and ALT normal. AST and alkaline phosphatase was elevated. Total protein was 9.1, albumin was 3.9. Her serum lipase was extremely high at 1111. Her salicylic acid was slightly high at 8 with normal therapeutic range of 2.8-20. Her acetaminophen was less than 10 mcg. Her influenza A and B were negative. Apparently, her chest x-ray showed that there is airspace opacity identified in the right lung base, likely pneumonia or atelectasis, followup to resolution is recommended. CT scan of the abdomen and pelvis showed that evaluation is markedly limited secondary to respiratory motion, wall thickening involving the descending and sigmoid colon represents colitis, nonspecific in etiology and maybe infectious and inflammatory, decreased attenuation of the liver may present steatohepatitis correlate with LFTs. She has also patchy airspace disease in the lung bases bilaterally, which is difficult to characterize given degree of respiratory motion. This may be infectious or inflammatory in etiology. Her chest x-ray after intubation showed that lines and tubes are described, persistent patchy bilateral airspace disease which is similar when compared to prior exam. The patient was basically intubated and was transferred to [facility] ICU. She was started on bicarbonate drip and Levaquin. She definitely has severe metabolic acidosis, however, she is not in diabetic ketoacidosis, she is not in acute renal failure or lactic acidosis and given she is known to have heavy drinker before, however, blood alcohol level was very low, raising concern that she might overdose on something like antifreeze or methyl alcohol. We did consult the loading unit operator and she was continued on mechanical ventilation and was started on bicarbonate drip as well as IV Levaquin for possible community-acquired pneumonia. She also has possible colitis. I will add also Flagyl. PAST MEDICAL HISTORY: Significant for hypertension, generalized osteoarthritis, chronic obstructive pulmonary disease, weight loss that is unintentional. According to her last admission, she lost about 25 pounds. She has also had an episode of acute respiratory failure due to right lower lobe pneumonia and had an episode of pulseless electrical activity cardiac arrest from which she was successfully resuscitated. She was intubated and mechanically ventilated; however, she was successfully extubated. Chronic alcoholism, alcoholic withdrawal seizures, acute kidney injury that has resolved, thrombocytopenia, debility and deconditioning. PAST SURGICAL HISTORY: Significant for 2 C-sections. She also has esophagogastroduodenoscopy and colonoscopy. ALLERGIES: SHE IS ALLERGIC TO PENICILLIN AND ALSO ERYTHROMYCIN. FAMILY HISTORY: She has one brother who was killed at the age of 21. Her sister is a 42 years old and healthy. The brother is 45 and healthy. Her father in his 70s because of cerebrovascular accident. Her mother in her 70s, but she does not know the cause of her . SOCIAL HISTORY: She is , has 2 sons and 2 daughters. She smokes a pack a day, drinks up to 1 pint of vodka on a daily basis. 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 She was admitted to [facility] multiple times because of her alcoholism, alcohol withdrawal seizures. She always insists that she will not stop drinking alcohol. MEDICATIONS: She is currently on following medications: She is on ipratropium bromide, albuterol sulfate by nebulizer 4 times a day, atorvastatin calcium 10 mg at bedtime, carvedilol 6.25 mg twice a day, amlodipine 10 mg once a day, oxycodone 5 mg every 6 hours, sertraline 50 mg daily, potassium chloride 20 mEq twice a day, Protonix 40 mg daily, Megace 20 mg daily, cyanocobalamin 1000 mcg once a day, folic acid, vitamin B complex, Nephro-Nola 1 tablet daily, melatonin 3 mg at bedtime. REVIEW OF SYSTEMS: Unobtainable. PHYSICAL EXAMINATION: GENERAL: On arrival to the Emergency Room, the patient was pale, extremely cachectic, no jaundice or cyanosis. No lymphadenopathy, no thyromegaly. No jugular venous distension. No lower limb edema. VITAL SIGNS: Her heart rate was 119, blood pressure was 134/69, temperature was 97.9, respiratory rate was 26, and oxygen saturation was 97% on room air. HEAD, EYES, EARS, NOSE AND THROAT: Showed normocephalic, atraumatic. NECK: Supple. HEART: Showed normal first and second heart sounds. No gallop or murmur. CHEST: Clear to auscultation. No crepitation or rhonchi. ABDOMEN: Distended, soft, nontender. NEUROLOGIC: She was apparently alert, oriented with normal motor and sensory function with no focal neurological deficit. LABORATORY DATA: Her lab work on arrival showed a white cell count of 18,900, hemoglobin 9.4, hematocrit 31.6, MCV 94 and platelet count of 107,000 with normal manual differential. Her chemistry showed a serum sodium 138, potassium 4.9, chloride 97, bicarbonate 5, anion gap of 36, BUN 19, creatinine 1.2, estimated GFR was 55 mL per minute. Her glucose was 90. Lactic acid was 1.5, calcium was 9, magnesium was 1.4. Total bilirubin and ALT are normal. AST and alkaline phosphatase slightly elevated. First troponin was less than 0.017. Total protein was 9.1, albumin was 3.9. Her serum lipase was extremely high at 1111. Her blood gases showed a pH of 7.14, pCO2 of 13, pO2 of 91, bicarbonate 4 and her oxygen saturation was 94% on FiO2 of 28%. Her toxic screen showed that her blood alcohol level was less than 10, acetaminophen and salicylate were low. Her influenza A and B were negative. Apparently, the patient was lethargic and quite tachypneic. She apparently was given pain medication and anxiolytics due to prior history of alcohol withdrawal and given her altered mental status and severe acidosis and tachypnea, a decision was made to intubate her. The patient has had stated before that she is DNR/DNI, but 3 of her family members stated that they want her to be full code and therefore, she was intubated successfully and was transferred to [facility] after she was started on bicarbonate drip and was given IV fluid, did receive a liter of normal saline and was treated also with lorazepam and levofloxacin, basically was transferred to [facility] with probably community-acquired pneumonia, severe metabolic acidosis, the cause of which is not clear, raising the possibility that she might have ingested antifreeze and/or methyl alcohol, isopropyl alcohol as her lactic acidosis were normal. She is not in diabetic ketoacidosis and her kidney functions are normal. We will consult the surgical services coordinator, Infectious Disease as well as the loading unit operator to assist with the management. I will contact the lab also to see what other tests that can be done to confirm or refute possible ingestion of substances that might cause severe metabolic acidosis. REKHA CARMEN MD DR: CYNTHIA/desean JOB#: [id number] / [id number]
--- NOTE | 2019-02-22 11:29 | PDOC2 ---
CONSULT Date of Consult Date of Consult DATE: 02/22/19 TIME: 11:20 Reason for Consult Reason for Consult: SEVERE ACIDOSIS Referring Physician Referring Physician: NELLA Identification/Chief Complaint Chief Complaint CONFUSION Source Source: Chart review History of Present Illness Reason for Visit: THIS IS A 59 YR OLD HERE FROM [facility]. WENT TO ER THERE CONFUSED AND THEN INTUBATED. HX ONLY FROM THE FAMILY. PT IS AN ALCOHOLIC AND HAS SEIZURES AND WITHDRAWAL WHEN SHE STOPS. ON INITIAL EVALUATION THERE SHE IS NOTED TO HAVE SEVERE ACIDOSIS WITH SERUM CO2 OF 4 AND ACIDEMIA WITH PH OF 7.1. ETOH LEVEL WAS NEG. LACTIC ACID LEVEL WAS NORMAL AND NO HYPOTENSION NOTED. CASE WAS D/W ER PHYSICIAN. I ASKED FOR A S OSMO AND TOXICOLOGY TO BE SEND. FAMILY UNABLE TO SAY IF PT WOULD HAVE INGESTED SOMETHING ELSE. SHE WAS THEN TRANSFERRED OVER TO [facility] ICU. I HAD ASKED A HCO3 GTT BE STARTED PRIOR TO TRANSFER. DIALYSIS WAS CONSIDERED. I WAS CONCERNED OF INGESTION OF METHANOL OR ETHYLENE GLYCOL AND THERE ORDERED A LOADING DOSE OF FOMEPIZOLE UPON ARRIVAL HERE Past Medical History Cardiovascular: HTN Pulmonary: COPD CENTRAL NERVOUS SYSTEM: Seizure Heme/Onc: Anemia NOS Hepatobiliary: Other (Jurado is an) Psych: Anxiety, Addictions Infectious disease: No pertinent hx ENT: No pertinent hx Renal/: No pertinent hx Endocrine: No pertinent hx Dermatology: No pertinent hx Past Surgical History Past Surgical History: Social History 1 pack per day ALCOHOL: heavy Current Medications Current Medications Current Medications Vecuronium [place] (Norcuron Bolus) 10 mg STK-MED ONCE IV ; Start 02/21/19 at 18:19; Stop 02/21/19 at 18:20; Status DC Fomepizole 0.675 gm/Sodium Chloride 100.675 ml @ 201.35 mls/hr 1X ONCE IV Last administered on 02/21/19at 20:13; Start 02/21/19 at 18:30; Stop 02/21/19 at 18:59; Status DC Sodium Bicarbonate 150 meq/Dextrose 1,150 ml @ 125 mls/hr Q9H12M IV Last administered on 02/22/19at 10:07; Start 02/21/19 at 18:30 Vecuronium [place] (Norcuron Bolus) 10 mg 1X ONCE IV Last administered on 02/21/19at 19:23; Start 02/21/19 at 19:30; Stop 02/21/19 at 19:31; Status DC Magnesium Sulfate 50 ml @ 25 mls/hr 1X ONCE IV Last administered on 02/21/19at 20:13; Start 02/21/19 at 20:00; Stop 02/21/19 at 21:59; Status DC Nicardipine HCl 50 mg/Sodium Chloride 250 ml @ 25 mls/hr CONT PRN IV SEE I/O RECORD Last administered on 02/21/19at 20:30; Start 02/21/19 at 20:00 Propofol 100 ml @ 0.667 mls/ hr CONT PRN IV SEE I/O RECORD Last administered on 02/22/19at 10:08; Start 02/21/19 at 20:45 Info (FLU VACCINE SCREEN per RX) 1 each PRN DAILY PRN MC SEE COMMENTS; Start 02/22/19 at 06:45; Status Cancel Fentanyl Citrate (Fentanyl 2ml Vial) 50 mcg PRN Q3HRS PRN IVP PAIN Last administered on 02/22/19at 08:58; Start 02/22/19 at 09:00 Magnesium Sulfate 50 ml @ 25 mls/hr 1X ONCE IV Last administered on 02/22/19at 09:22; Start 02/22/19 at 09:15; Stop 02/22/19 at 11:14; Status DC Info (Icu Electrolyte Protocol) 1 ea CONT PRN PRN MC PER PROTOCOL; Start 02/22/19 at 09:15 Potassium Chloride/Water 100 ml @ 100 mls/hr Q1H IV Last administered on 02/22/19at 10:36; Start 02/22/19 at 10:00; Stop 02/22/19 at 11:59 Sodium Chloride 500 ml @ 500 mls/hr 1X ONCE IV Last administered on 02/22/19at 11:00; Start 02/22/19 at 11:00; Stop 02/22/19 at 11:59 Active Scripts Active Potassium Chloride 20 Meq Tablet.er 20 Meq PO BID 30 Days Oxycodone Hcl 5 Mg Capsule 5 Mg PO PRN Q6HRS PRN 5 Days Amlodipine Besylate 10 Mg Tablet 10 Mg PO DAILY 30 Days Reported Melatonin 3 Mg Tab.rapdis 3 Mg PO HS PRN Nephro-Nola Tablet (Folic Acid/Vitamin B Comp W-C) 0.8 Mg Tablet 1 Tab PO DAILY Vitamin B-12 (Cyanocobalamin (Vitamin B-12)) 1,000 Mcg Tablet 1,000 Mcg PO DAILY Megestrol Acetate 20 Mg Tablet 20 Mg PO DAILY Protonix (Pantoprazole Sodium) 20 Mg Tablet.dr 40 Mg PO DAILY Zoloft (Sertraline Hcl) 50 Mg Tablet 1 Tab PO DAILY Zoloft (Sertraline Hcl) 25 Mg Tablet 1 Tab PO DAILY Coreg (Carvedilol) 25 Mg Tablet 6.25 Mg PO BIDWMEALS Lipitor (Atorvastatin Calcium) 10 Mg Tablet 1 Tab PO QHS Duoneb 0.5-3(2.5) Mg/3 Ml (Albuterol/Ipratropium) 3 Ml Ampul.neb 3 Ml NEB QID PRN Allergies Allergies: Coded Allergies: Penicillins (Verified Allergy, Severe, Anaphylaxis, 07/27/18) erythromycin base (Verified Adverse Reaction, Intermediate, Diarrhea, 08/06/18) ROS Review of System UNABLE TO OBTAIN Physical Exam General: Other (SEDATE) HEENT: Atraumatic, PERRLA, Other (ET AND OG TUBE) Lungs: Clear to auscultation Heart: Regular rate Abdomen: Normal bowel sounds, Soft Extremities: No cyanosis Skin: No breakdown Neuro: Other (SEDATED) Psych/Mental Status: Other (SEDATED) MUSCULOSKELETAL: No deformity Vitals VITALS Vital Signs Date Time Temp Pulse Resp B/P (MAP) Pulse Ox O2 Delivery O2 Flow Rate FiO2 02/22/19 10:00 85 16 111/54 (73) 100 Ventilator 02/22/19 08:00 99.9 99.9 Labs Labs Laboratory Tests Test 02/21/19 18:26 02/21/19 18:46 02/21/19 20:07 02/22/19 05:50 O2 Saturation 99 % (92-99) Arterial Blood pH 7.26 (7.35-7.45) Arterial Blood pCO2 at Patient Temp 26 mmHg (35-46) Arterial Blood pO2 at Patient Temp 220 mmHg (65-108) Arterial Blood HCO3 12 mmol/L (21-28) Arterial Blood Base Excess -14 mmol/L (-3-3) FiO2 50 White Blood Count 14.7 x10^3/uL (4.0-11.0) 8.9 x10^3/uL (4.0-11.0) Red Blood Count 2.64 x10^6/uL (3.50-5.40) 2.44 x10^6/uL (3.50-5.40) Hemoglobin 7.6 g/dL (12.0-15.5) 7.1 g/dL (12.0-15.5) Hematocrit 24.0 % (36.0-47.0) 21.3 % (36.0-47.0) Mean Corpuscular Volume 91 fL (79-100) 87 fL (79-100) Mean Corpuscular Hemoglobin 29 pg (25-35) 29 pg (25-35) Mean Corpuscular Hemoglobin Concent 32 g/dL (31-37) 34 g/dL (31-37) Red Cell Distribution Width 15.8 % (11.5-14.5) 15.2 % (11.5-14.5) Platelet Count 78 x10^3/uL (140-400) 71 x10^3/uL (140-400) Prothrombin Time 13.9 SEC (11.7-14.0) Prothromb Time International Ratio 1.1 (0.8-1.1) Sodium Level 139 mmol/L (136-145) 138 mmol/L (136-145) Potassium Level 3.8 mmol/L (3.5-5.1) 3.1 mmol/L (3.5-5.1) Chloride Level 99 mmol/L (98-107) 96 mmol/L (98-107) Carbon Dioxide Level 14 mmol/L (21-32) 23 mmol/L (21-32) Anion Gap 26 (6-14) 19 (6-14) Blood Urea Nitrogen 17 mg/dL (7-20) 13 mg/dL (7-20) Creatinine 1.0 mg/dL (0.6-1.0) 1.1 mg/dL (0.6-1.0) Estimated GFR (Cockcroft-Gault) 68.4 61.3 BUN/Creatinine Ratio 16 (6-20) 12 (6-20) Glucose Level 122 mg/dL (70-99) 109 mg/dL (70-99) Calcium Level 7.3 mg/dL (8.5-10.1) 7.5 mg/dL (8.5-10.1) Phosphorus Level 3.2 mg/dL (2.6-4.7) 0.7 mg/dL (2.6-4.7) Magnesium Level 0.9 mg/dL (1.8-2.4) 1.4 mg/dL (1.8-2.4) Total Bilirubin 0.5 mg/dL (0.2-1.0) 0.5 mg/dL (0.2-1.0) Aspartate Amino Transf (AST/SGOT) 71 U/L (15-37) 52 U/L (15-37) Alanine Aminotransferase (ALT/SGPT) 18 U/L (14-59) 14 U/L (14-59) Alkaline Phosphatase 102 U/L (46-116) 92 U/L (46-116) Total Protein 7.2 g/dL (6.4-8.2) 6.3 g/dL (6.4-8.2) Albumin 3.1 g/dL (3.4-5.0) 2.5 g/dL (3.4-5.0) Albumin/Globulin Ratio 0.8 (1.0-1.7) 0.7 (1.0-1.7) Urine Collection Type Unknown Urine Color Yellow Urine Clarity Clear Urine pH 6.5 Urine Specific [place] 1.010 Urine Protein Negative mg/dL (NEG-TRACE) Urine Glucose (UA) Negative mg/dL (NEG) Urine Ketones (Stick) >=80 mg/dL (NEG) Urine Blood Negative (NEG) Urine Nitrite Negative (NEG) Urine Bilirubin Negative (NEG) Urine Urobilinogen Dipstick 0.2 mg/dL (0.2 mg/dL) Urine Leukocyte Esterase Negative (NEG) Urine RBC 1-2 /HPF (0-2) Urine WBC 0 /HPF (0-4) Urine Squamous Epithelial Cells Few /LPF Urine Amorphous Sediment Present /HPF Urine Bacteria 0 /HPF (0-FEW) Urine Mucus Slight /LPF Neutrophils (%) (Auto) 85 % (31-73) Lymphocytes (%) (Auto) 11 % (24-48) Monocytes (%) (Auto) 3 % (0-9) Eosinophils (%) (Auto) 0 % (0-3) Basophils (%) (Auto) 1 % (0-3) Neutrophils # (Auto) 7.6 x10^3/uL (1.8-7.7) Lymphocytes # (Auto) 1.0 x10^3/uL (1.0-4.8) Monocytes # (Auto) 0.3 x10^3/uL (0.0-1.1) Eosinophils # (Auto) 0.0 x10^3/uL (0.0-0.7) Basophils # (Auto) 0.1 x10^3/uL (0.0-0.2) Segmented Neutrophils % 84 % (35-66) Band Neutrophils % 3 % (0-9) Lymphocytes % 6 % (24-48) Monocytes % 3 % (0-10) Eosinophils % 3 % (0-5) Basophils % 1 % (0-3) Nucleated Red Blood Cells 1 Platelet Estimate Decreased (ADEQUATE) Polychromasia Slight Anisocytosis Slight Target Cells Few Lipase 349 U/L (73-393) Test 02/22/19 06:30 02/22/19 07:30 Prothrombin Time 13.1 SEC (11.7-14.0) Prothromb Time International Ratio 1.0 (0.8-1.1) O2 Saturation 99 % (92-99) Arterial Blood pH 7.49 (7.35-7.45) Arterial Blood pCO2 at Patient Temp 29 mmHg (35-46) Arterial Blood pO2 at Patient Temp 150 mmHg (65-108) Arterial Blood HCO3 21 mmol/L (21-28) Arterial Blood Base Excess -1 mmol/L (-3-3) FiO2 40 Laboratory Tests Test 02/21/19 18:26 02/21/19 18:46 02/21/19 20:07 02/22/19 05:50 O2 Saturation 99 % (92-99) Arterial Blood pH 7.26 (7.35-7.45) Arterial Blood pCO2 at Patient Temp 26 mmHg (35-46) Arterial Blood pO2 at Patient Temp 220 mmHg (65-108) Arterial Blood HCO3 12 mmol/L (21-28) Arterial Blood Base Excess -14 mmol/L (-3-3) FiO2 50 White Blood Count 14.7 x10^3/uL (4.0-11.0) 8.9 x10^3/uL (4.0-11.0) Red Blood Count 2.64 x10^6/uL (3.50-5.40) 2.44 x10^6/uL (3.50-5.40) Hemoglobin 7.6 g/dL (12.0-15.5) 7.1 g/dL (12.0-15.5) Hematocrit 24.0 % (36.0-47.0) 21.3 % (36.0-47.0) Mean Corpuscular Volume 91 fL (79-100) 87 fL (79-100) Mean Corpuscular Hemoglobin 29 pg (25-35) 29 pg (25-35) Mean Corpuscular Hemoglobin Concent 32 g/dL (31-37) 34 g/dL (31-37) Red Cell Distribution Width 15.8 % (11.5-14.5) 15.2 % (11.5-14.5) Platelet Count 78 x10^3/uL (140-400) 71 x10^3/uL (140-400) Prothrombin Time 13.9 SEC (11.7-14.0) Prothromb Time International Ratio 1.1 (0.8-1.1) Sodium Level 139 mmol/L (136-145) 138 mmol/L (136-145) Potassium Level 3.8 mmol/L (3.5-5.1) 3.1 mmol/L (3.5-5.1) Chloride Level 99 mmol/L (98-107) 96 mmol/L (98-107) Carbon Dioxide Level 14 mmol/L (21-32) 23 mmol/L (21-32) Anion Gap 26 (6-14) 19 (6-14) Blood Urea Nitrogen 17 mg/dL (7-20) 13 mg/dL (7-20) Creatinine 1.0 mg/dL (0.6-1.0) 1.1 mg/dL (0.6-1.0) Estimated GFR (Cockcroft-Gault) 68.4 61.3 BUN/Creatinine Ratio 16 (6-20) 12 (6-20) Glucose Level 122 mg/dL (70-99) 109 mg/dL (70-99) Calcium Level 7.3 mg/dL (8.5-10.1) 7.5 mg/dL (8.5-10.1) Phosphorus Level 3.2 mg/dL (2.6-4.7) 0.7 mg/dL (2.6-4.7) Magnesium Level 0.9 mg/dL (1.8-2.4) 1.4 mg/dL (1.8-2.4) Total Bilirubin 0.5 mg/dL (0.2-1.0) 0.5 mg/dL (0.2-1.0) Aspartate Amino Transf (AST/SGOT) 71 U/L (15-37) 52 U/L (15-37) Alanine Aminotransferase (ALT/SGPT) 18 U/L (14-59) 14 U/L (14-59) Alkaline Phosphatase 102 U/L (46-116) 92 U/L (46-116) Total Protein 7.2 g/dL (6.4-8.2) 6.3 g/dL (6.4-8.2) Albumin 3.1 g/dL (3.4-5.0) 2.5 g/dL (3.4-5.0) Albumin/Globulin Ratio 0.8 (1.0-1.7) 0.7 (1.0-1.7) Urine Collection Type Unknown Urine Color Yellow Urine Clarity Clear Urine pH 6.5 Urine Specific [place] 1.010 Urine Protein Negative mg/dL (NEG-TRACE) Urine Glucose (UA) Negative mg/dL (NEG) Urine Ketones (Stick) >=80 mg/dL (NEG) Urine Blood Negative (NEG) Urine Nitrite Negative (NEG) Urine Bilirubin Negative (NEG) Urine Urobilinogen Dipstick 0.2 mg/dL (0.2 mg/dL) Urine Leukocyte Esterase Negative (NEG) Urine RBC 1-2 /HPF (0-2) Urine WBC 0 /HPF (0-4) Urine Squamous Epithelial Cells Few /LPF Urine Amorphous Sediment Present /HPF Urine Bacteria 0 /HPF (0-FEW) Urine Mucus Slight /LPF Neutrophils (%) (Auto) 85 % (31-73) Lymphocytes (%) (Auto) 11 % (24-48) Monocytes (%) (Auto) 3 % (0-9) Eosinophils (%) (Auto) 0 % (0-3) Basophils (%) (Auto) 1 % (0-3) Neutrophils # (Auto) 7.6 x10^3/uL (1.8-7.7) Lymphocytes # (Auto) 1.0 x10^3/uL (1.0-4.8) Monocytes # (Auto) 0.3 x10^3/uL (0.0-1.1) Eosinophils # (Auto) 0.0 x10^3/uL (0.0-0.7) Basophils # (Auto) 0.1 x10^3/uL (0.0-0.2) Segmented Neutrophils % 84 % (35-66) Band Neutrophils % 3 % (0-9) Lymphocytes % 6 % (24-48) Monocytes % 3 % (0-10) Eosinophils % 3 % (0-5) Basophils % 1 % (0-3) Nucleated Red Blood Cells 1 Platelet Estimate Decreased (ADEQUATE) Polychromasia Slight Anisocytosis Slight Target Cells Few Lipase 349 U/L (73-393) Test 02/22/19 06:30 02/22/19 07:30 Prothrombin Time 13.1 SEC (11.7-14.0) Prothromb Time International Ratio 1.0 (0.8-1.1) O2 Saturation 99 % (92-99) Arterial Blood pH 7.49 (7.35-7.45) Arterial Blood pCO2 at Patient Temp 29 mmHg (35-46) Arterial Blood pO2 at Patient Temp 150 mmHg (65-108) Arterial Blood HCO3 21 mmol/L (21-28) Arterial Blood Base Excess -1 mmol/L (-3-3) FiO2 40 Assessment/Plan Assessment/Plan IMP HYPOTENSION SEVERE MET ACIDOSIS ACUTE RESP FAILURE ETOH ABUSE HX HX OF WITHDRAWAL LOW MAG LOW PO4 LOW K PLAN FLUID BOLUS PPN FOR NOW STOP HCO3 GTT REPLACE K, MG AND PO4 PENDING METHANOL AND ETHYLENE GLYCOL PENDING S OSMO UPDATED SON AT BEDSIDE DARIEL LAURENT MD Feb 22, 2019 11:29
[2019-02-22] MEDS: IV NORMAL SALINE 1000ML BAG 1,000 ML IV SCH (11:42)
[2019-02-22] MEDS: AMINO AC 3%/ELECTROLYTE/GLYCER 1,000 ML IV SCH (11:42)
[2019-02-22] MEDS: POTASSIUM PHOSPHATE DIBASIC 15 MMOL in IV NORMAL SALINE 250ML 250 ML IV SCH ×2 (12:37→15:10)
--- NOTE | 2019-02-22 13:09 | PN ---
DATE: 02/22/2019 SUBJECTIVE: The patient was seen in the Emergency Room of [facility] with altered mental status, severe metabolic acidosis that is high anion gap. However, she was not in diabetic ketoacidosis nor lactic acidosis. Her kidney function was normal. She is known to be heavy alcohol drinker, however, blood alcohol level was less than 10. She was very lethargic and she was down to about her airway protection, she was intubated and transferred to [facility]. She was started on a bicarbonate drip as well as IV Levaquin for questionable community-acquired pneumonia. Her lab work showed that she has severe high anion gap metabolic acidosis. She has also acute pancreatitis with serum lipase of more than 1000. Her KUB also showed that she has marked dilatation of the small bowel, raising the possibility of bowel obstruction versus paralytic ileus. When I saw her this morning, she was sedated, mechanically ventilated, maintaining her oxygen saturation at 100% on FiO2 of 40%. The nursing staff did not voice any concern as her blood pressure is actually now much better and she is off the Cardene drip. PHYSICAL EXAMINATION: GENERAL: On examining her, she was pale, cachectic, but no jaundice, cyanosis or thyromegaly. No jugular venous distention. No limb edema. VITAL SIGNS: Her heart rate was 93, blood pressure was 136/63, temperature was 100.3, respiratory rate was 16, and oxygen saturation was 100%. HEAD, EYES, EARS, NOSE AND THROAT: Normocephalic, atraumatic. NECK: Supple. She has orotracheal and orogastric tube in place. HEART: Showed normal first and second heart sounds. No gallop or murmur. CHEST: Shows central trachea, equal bilateral expansion, air entry, vesicular sounds. I could not really appreciate any crepitation or rhonchi anteriorly. ABDOMEN: Distended, soft, and nontender. Bowel sounds are sluggish. NEUROLOGIC: She is sedated, but moves her extremities spontaneously. Her intake over the last 24 hours was 1860, output was 1590. LABORATORY DATA: As of this morning, her white cell count was down to 8900, hemoglobin 7.1, hematocrit 21, MCV 87 and platelet count of 71,000. Her chemistry showed a serum sodium 138, potassium 3.1, chloride 96, bicarbonate 23, anion gap of 19, BUN 13, creatinine 1.1, estimated GFR was 61 mL per minute. Her glucose was 109. Calcium was 7.5. Total bilirubin, AST, ALT, alkaline phosphatase were normal. Total protein was 6.3, albumin 2.5. Her blood gases showed a pH of 7.49, pCO2 of 29, pO2 of 150, bicarbonate 21, oxygen saturation was 99% on FiO2 of 40%. Her prothrombin time was 13.1, INR of 1. Urinalysis was essentially unremarkable. ASSESSMENT: In summary, this is a 59-year-old -[place] female patient who is known to be a heavy drinker, was admitted innumerous times with alcohol withdrawal seizures, was seen yesterday at [facility] with altered mental status and was found to have severe high anion gap metabolic acidosis. She was intubated to protect her airways. She has pancreatitis with serum lipase of more than 1000. She was treated for community-acquired pneumonia with the IV Levaquin. She was started also on bicarbonate drip for severe metabolic acidosis, the high anion gap variety, although she was not in diabetic ketoacidosis. Lactic acid was only 1.5 and her kidney function was normal. She was also noted to have dilated small bowel loops consistent with possible bowel obstruction versus paralytic ileus. Other issues is her severe anemia with a hemoglobin of 7.1, hematocrit 21 and she has also noted to have chronic thrombocytopenia. She has hypokalemia and hypomagnesemia. We will replenish magnesium with magnesium sulfate. I have consulted the Mold Insert Changer, Glaze Wiper and the Surgical Team together with the yarn finisher to assist with her management. I have called the lab to inquire about measurement of ethylene glycol and methanol as well as salicylic acid that might cause this severe with a high anion gap metabolic acidosis. REKHA CARMEN MD DR: CYNTHIA/desean JOB#: [id number] / [id number]
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
--- NOTE | 2019-02-22 13:31 | RAD ---
PROCEDURE: KUB STUDY DATE: 02/22/2019 CLINICAL INDICATION / HISTORY: Bowel obstruction versus paralytic ileus. TECHNIQUE: Single AP image of the abdomen was obtained. COMPARISON: 02/21/2019 at 7:05 PM FINDINGS: Enteric tube remains present, tip retroflexed to the gastric fundus. The gas-filled small bowel evident on the prior examination are less apparent on this study. The bowel gas pattern is unremarkable . Arterial calcifications are incidentally noted. Bones show no acute or aggressive appearing osseous lesions. IMPRESSION: Unremarkable bowel gas pattern on single view abdominal radiograph. Electronically signed by: Darryl Posey MD (02/22/2019 1:28 PM) [facility]
--- NOTE | 2019-02-22 13:34 | NUR ---
Advanced OG tube and verified by repeat KUB.
--- NOTE | 2019-02-22 13:46 | NUR ---
SS following for discharge planning. SS reviewed pt chart. Pt is from home and is currently on the vent. SS will continue to follow for discharge planning.
[2019-02-22] MEDS: PANTOPRAZOLE IV PUSH 40 MG VIAL. IVP SCH (15:10)
[2019-02-22 15:22] LABS: HEMOGLOBIN 7.1 g/dL (12.0-15.5)
--- NOTE | 2019-02-22 15:27 | NUR ---
Notified Lula JOSHI of hGb 7.1, Hct 21.0. No new orders received at this time.
[2019-02-23] VITALS (27 sets, daily range): BP systolic 111–188; BP diastolic 57–88
[2019-02-23] MEDS: AMINO AC 3%/ELECTROLYTE/GLYCER 1,000 ML IV SCH ×2 (00:11→13:20)
--- NOTE | 2019-02-23 00:11 | CONS ---
DATE OF CONSULTATION: 02/22/2019 ATTENDING PHYSICIAN: Jenny Hector MD REASON FOR CONSULTATION: The patient seen in pulmonary consultation at the request of Dr. Hector for respiratory failure requiring mechanical ventilation. Initial arterial blood gas; pH of 7.26, PaCO2 of 26, pO2 of 220, bicarbonate 12, repeat this morning, pH of 7.49, PaCO2 of 29, pO2 of 150. HISTORY OF PRESENT ILLNESS: The patient is a 59-year-old female with a history of alcohol withdrawal seizure, presented to [facility] with mental status change. She was confused. She was intubated. Initial arterial blood gas revealed severe metabolic acidosis. She had a CO2 of 4, pH of 7.1. Ethanol level was negative. Lactic acid level was within normal range. She was hypotensive. The patient was supported with some IV fluids. Nephrology was involved in the care. They were considering other possible causes for severe metabolic acidosis including ingestion of methanol and ethylene glycol. The patient was transferred to [place]. She was started on IV bicarbonate drip. She was also given a loading dose of fomepizole. She is currently on mechanical ventilation. She is sedated. Her repeat arterial blood gases indicated above. Electrolytes today revealed carbon dioxide level of 23, anion gap was 19, BUN 13, creatinine was 1.1. Her magnesium was low. Her calcium was low. Albumin was low. Lipase was 349. White count 8.9, hemoglobin and hematocrit were low. UA was noted. Chest x-ray was reviewed. There is bilateral pulmonary infiltrates. PAST MEDICAL HISTORY: Hypertension, COPD, seizure disorder, alcoholism, anxiety, polysubstance addiction. PAST SURGICAL HISTORY: . ALLERGIES: PENICILLIN AND ERYTHROMYCIN BASE. REVIEW OF SYSTEMS: Unobtainable secondary to the patient's condition. FAMILY HISTORY: Unknown. CURRENT MEDICATION: List was reviewed. PHYSICAL EXAMINATION: VITAL SIGNS: T-max was 100.3. HEENT: Eyes, the sclerae were nonicteric. NECK: Jugular venous distention was not elevated. No lymphadenopathy. CHEST: Full expansion. LUNGS: Adequate airway flow with no wheezes. CARDIOVASCULAR: Regular rate and rhythm with S1, S2, no S3. ABDOMEN: Soft, nontender. EXTREMITIES: No clubbing, cyanosis or edema. IMAGING: CT abdomen and pelvis at [facility] revealed some colitis. IMPRESSION: 1. Acute respiratory failure secondary to severe metabolic acidosis. 2. Severe metabolic acidosis, etiology unclear. The patient responded to support with sodium bicarbonate, pending methanol and ethylene glycol levels. 3. History of alcohol abuse. 4. Hypotension. 5. History of seizure disorder. 6. Hypomagnesemia. 7. Hypophosphatemia. 8. Colitis. 9. Ileus. 10. Pneumonia. PLAN: 1. We will continue current support with mechanical ventilation. 2. Treat pneumonia, possible gram-negative, possibly gram-positive. 3. Follow Nephrology input. 4. Monitor blood pressure and treat as necessary. 5. Follow up on ethylene glycol level. I do appreciate the privilege in sharing in this patient's care. ALVINO HERNANDEZ MD DR: MINE/desean JOB#: [id number] / [id number]
[2019-02-23] MEDS: fentaNYL PF VIAL 100 MCG/2 ML VIAL IVP PRN ×4 (03:00→22:44)
[2019-02-23] MEDS: PROPOFOL 100 ML IV PRN ×3 (03:47→19:11)
[2019-02-23] MEDS: IV NORMAL SALINE 1000ML BAG 1,000 ML IV SCH ×3 (03:48→23:55)
[2019-02-23 05:09] LABS: BASO # 0.1 x10^3/uL (0.0-0.2); BASO % 1 % (0-3); EOS % 1 % (0-3); LYMPH % 14 % (24-48); MEAN CORPUSCULAR HEMOGLOBIN 29 pg (25-35); MEAN CORPUSCULAR HGB CONC 33 g/dL (31-37); MEAN CORPUSCULAR VOLUME 87 fL (79-100); MONO # 0.2 x10^3/uL (0.0-1.1); MONO % 3 % (0-9); NEUT # 5.9 x10^3/uL (1.8-7.7); NEUT % 82 % (31-73); PLATELET COUNT 52 x10^3/uL (140-400); RED BLOOD COUNT 2.23 x10^6/uL (3.50-5.40); RED CELL DISTRIBUTION WIDTH 15.5 % (11.5-14.5); WHITE BLOOD COUNT 7.3 x10^3/uL (4.0-11.0)
[2019-02-23 05:44] LABS: HEMOGLOBIN 6.4 g/dL (12.0-15.5)
[2019-02-23 05:45] LABS: HEMATOCRIT 19.4 % (36.0-47.0)
[2019-02-23 06:02] LABS: MAGNESIUM 1.8 mg/dL (1.8-2.4); PHOSPHORUS 0.8 mg/dL (2.6-4.7)
[2019-02-23 06:03] LABS: ALBUMIN 2.1 g/dL (3.4-5.0); ALBUMIN/GLOBULIN RATIO 0.6 (1.0-1.7); CALCIUM 7.3 mg/dL (8.5-10.1); GFR 68.4; POTASSIUM 3.1 mmol/L (3.5-5.1); TOTAL BILIRUBIN 0.2 mg/dL (0.2-1.0); TOTAL PROTEIN 5.7 g/dL (6.4-8.2)
--- NOTE | 2019-02-23 07:52 | PDOC ---
SURGICAL PROGRESS NOTE Subjective Patient appears to be resting comfortably intubated and sedated Vital Signs Vital Signs Date Time Temp Pulse Resp B/P (MAP) Pulse Ox O2 Delivery O2 Flow Rate FiO2 02/23/19 07:00 75 16 114/57 (76) 100 Ventilator 02/23/19 04:00 98.2 98.2 I&O Intake and Output 02/23/19 07:00 Intake Total 4350 ml Output Total 1000 ml Balance 3350 ml IV Total 4350 ml Output Urine Total 1000 ml PATIENT HAS A COURTNEY: Yes General: No acute distress, Other (intubated on ventilator) Abdomen: Normal bowel sounds, Soft, No tenderness, Other (nondistended OG tube with minimal output) Labs Laboratory Tests Test 02/21/19 18:26 02/21/19 18:46 02/21/19 20:07 02/22/19 05:50 O2 Saturation 99 % (92-99) Arterial Blood pH 7.26 (7.35-7.45) Arterial Blood pCO2 at Patient Temp 26 mmHg (35-46) Arterial Blood pO2 at Patient Temp 220 mmHg (65-108) Arterial Blood HCO3 12 mmol/L (21-28) Arterial Blood Base Excess -14 mmol/L (-3-3) FiO2 50 White Blood Count 14.7 x10^3/uL (4.0-11.0) 8.9 x10^3/uL (4.0-11.0) Red Blood Count 2.64 x10^6/uL (3.50-5.40) 2.44 x10^6/uL (3.50-5.40) Hemoglobin 7.6 g/dL (12.0-15.5) 7.1 g/dL (12.0-15.5) Hematocrit 24.0 % (36.0-47.0) 21.3 % (36.0-47.0) Mean Corpuscular Volume 91 fL (79-100) 87 fL (79-100) Mean Corpuscular Hemoglobin 29 pg (25-35) 29 pg (25-35) Mean Corpuscular Hemoglobin Concent 32 g/dL (31-37) 34 g/dL (31-37) Red Cell Distribution Width 15.8 % (11.5-14.5) 15.2 % (11.5-14.5) Platelet Count 78 x10^3/uL (140-400) 71 x10^3/uL (140-400) Prothrombin Time 13.9 SEC (11.7-14.0) Prothromb Time International Ratio 1.1 (0.8-1.1) Sodium Level 139 mmol/L (136-145) 138 mmol/L (136-145) Potassium Level 3.8 mmol/L (3.5-5.1) 3.1 mmol/L (3.5-5.1) Chloride Level 99 mmol/L (98-107) 96 mmol/L (98-107) Carbon Dioxide Level 14 mmol/L (21-32) 23 mmol/L (21-32) Anion Gap 26 (6-14) 19 (6-14) Blood Urea Nitrogen 17 mg/dL (7-20) 13 mg/dL (7-20) Creatinine 1.0 mg/dL (0.6-1.0) 1.1 mg/dL (0.6-1.0) Estimated GFR (Cockcroft-Gault) 68.4 61.3 BUN/Creatinine Ratio 16 (6-20) 12 (6-20) Glucose Level 122 mg/dL (70-99) 109 mg/dL (70-99) Calcium Level 7.3 mg/dL (8.5-10.1) 7.5 mg/dL (8.5-10.1) Phosphorus Level 3.2 mg/dL (2.6-4.7) 0.7 mg/dL (2.6-4.7) Magnesium Level 0.9 mg/dL (1.8-2.4) 1.4 mg/dL (1.8-2.4) Total Bilirubin 0.5 mg/dL (0.2-1.0) 0.5 mg/dL (0.2-1.0) Aspartate Amino Transf (AST/SGOT) 71 U/L (15-37) 52 U/L (15-37) Alanine Aminotransferase (ALT/SGPT) 18 U/L (14-59) 14 U/L (14-59) Alkaline Phosphatase 102 U/L (46-116) 92 U/L (46-116) Total Protein 7.2 g/dL (6.4-8.2) 6.3 g/dL (6.4-8.2) Albumin 3.1 g/dL (3.4-5.0) 2.5 g/dL (3.4-5.0) Albumin/Globulin Ratio 0.8 (1.0-1.7) 0.7 (1.0-1.7) Urine Collection Type Unknown Urine Color Yellow Urine Clarity Clear Urine pH 6.5 Urine Specific [place] 1.010 Urine Protein Negative mg/dL (NEG-TRACE) Urine Glucose (UA) Negative mg/dL (NEG) Urine Ketones (Stick) >=80 mg/dL (NEG) Urine Blood Negative (NEG) Urine Nitrite Negative (NEG) Urine Bilirubin Negative (NEG) Urine Urobilinogen Dipstick 0.2 mg/dL (0.2 mg/dL) Urine Leukocyte Esterase Negative (NEG) Urine RBC 1-2 /HPF (0-2) Urine WBC 0 /HPF (0-4) Urine Squamous Epithelial Cells Few /LPF Urine Amorphous Sediment Present /HPF Urine Bacteria 0 /HPF (0-FEW) Urine Mucus Slight /LPF Neutrophils (%) (Auto) 85 % (31-73) Lymphocytes (%) (Auto) 11 % (24-48) Monocytes (%) (Auto) 3 % (0-9) Eosinophils (%) (Auto) 0 % (0-3) Basophils (%) (Auto) 1 % (0-3) Neutrophils # (Auto) 7.6 x10^3/uL (1.8-7.7) Lymphocytes # (Auto) 1.0 x10^3/uL (1.0-4.8) Monocytes # (Auto) 0.3 x10^3/uL (0.0-1.1) Eosinophils # (Auto) 0.0 x10^3/uL (0.0-0.7) Basophils # (Auto) 0.1 x10^3/uL (0.0-0.2) Segmented Neutrophils % 84 % (35-66) Band Neutrophils % 3 % (0-9) Lymphocytes % 6 % (24-48) Monocytes % 3 % (0-10) Eosinophils % 3 % (0-5) Basophils % 1 % (0-3) Nucleated Red Blood Cells 1 Platelet Estimate Decreased (ADEQUATE) Polychromasia Slight Anisocytosis Slight Target Cells Few Iron Level 15 ug/dL (50-170) Total Iron Binding Capacity 131 ug/dL (250-450) Iron Saturation 11 % (15-34) Lipase 349 U/L (73-393) Vitamin B12 Level 711 pg/mL (247-911) Test 02/22/19 06:30 02/22/19 07:30 02/22/19 15:15 02/23/19 04:55 Prothrombin Time 13.1 SEC (11.7-14.0) Prothromb Time International Ratio 1.0 (0.8-1.1) O2 Saturation 99 % (92-99) Arterial Blood pH 7.49 (7.35-7.45) Arterial Blood pCO2 at Patient Temp 29 mmHg (35-46) Arterial Blood pO2 at Patient Temp 150 mmHg (65-108) Arterial Blood HCO3 21 mmol/L (21-28) Arterial Blood Base Excess -1 mmol/L (-3-3) FiO2 40 Hemoglobin 7.1 g/dL (12.0-15.5) 6.4 g/dL (12.0-15.5) Hematocrit 21.0 % (36.0-47.0) 19.4 % (36.0-47.0) White Blood Count 7.3 x10^3/uL (4.0-11.0) Red Blood Count 2.23 x10^6/uL (3.50-5.40) Mean Corpuscular Volume 87 fL (79-100) Mean Corpuscular Hemoglobin 29 pg (25-35) Mean Corpuscular Hemoglobin Concent 33 g/dL (31-37) Red Cell Distribution Width 15.5 % (11.5-14.5) Platelet Count 52 x10^3/uL (140-400) Neutrophils (%) (Auto) 82 % (31-73) Lymphocytes (%) (Auto) 14 % (24-48) Monocytes (%) (Auto) 3 % (0-9) Eosinophils (%) (Auto) 1 % (0-3) Basophils (%) (Auto) 1 % (0-3) Neutrophils # (Auto) 5.9 x10^3/uL (1.8-7.7) Lymphocytes # (Auto) 1.0 x10^3/uL (1.0-4.8) Monocytes # (Auto) 0.2 x10^3/uL (0.0-1.1) Eosinophils # (Auto) 0.0 x10^3/uL (0.0-0.7) Basophils # (Auto) 0.1 x10^3/uL (0.0-0.2) Sodium Level 136 mmol/L (136-145) Potassium Level 3.1 mmol/L (3.5-5.1) Chloride Level 101 mmol/L (98-107) Carbon Dioxide Level 27 mmol/L (21-32) Anion Gap 8 (6-14) Blood Urea Nitrogen 13 mg/dL (7-20) Creatinine 1.0 mg/dL (0.6-1.0) Estimated GFR (Cockcroft-Gault) 68.4 BUN/Creatinine Ratio 13 (6-20) Glucose Level 135 mg/dL (70-99) Calcium Level 7.3 mg/dL (8.5-10.1) Phosphorus Level 0.8 mg/dL (2.6-4.7) Magnesium Level 1.8 mg/dL (1.8-2.4) Total Bilirubin 0.2 mg/dL (0.2-1.0) Aspartate Amino Transf (AST/SGOT) 37 U/L (15-37) Alanine Aminotransferase (ALT/SGPT) 10 U/L (14-59) Alkaline Phosphatase 91 U/L (46-116) Total Protein 5.7 g/dL (6.4-8.2) Albumin 2.1 g/dL (3.4-5.0) Albumin/Globulin Ratio 0.6 (1.0-1.7) Laboratory Tests Test 02/22/19 15:15 02/23/19 04:55 Hemoglobin 7.1 g/dL (12.0-15.5) 6.4 g/dL (12.0-15.5) Hematocrit 21.0 % (36.0-47.0) 19.4 % (36.0-47.0) White Blood Count 7.3 x10^3/uL (4.0-11.0) Red Blood Count 2.23 x10^6/uL (3.50-5.40) Mean Corpuscular Volume 87 fL (79-100) Mean Corpuscular Hemoglobin 29 pg (25-35) Mean Corpuscular Hemoglobin Concent 33 g/dL (31-37) Red Cell Distribution Width 15.5 % (11.5-14.5) Platelet Count 52 x10^3/uL (140-400) Neutrophils (%) (Auto) 82 % (31-73) Lymphocytes (%) (Auto) 14 % (24-48) Monocytes (%) (Auto) 3 % (0-9) Eosinophils (%) (Auto) 1 % (0-3) Basophils (%) (Auto) 1 % (0-3) Neutrophils # (Auto) 5.9 x10^3/uL (1.8-7.7) Lymphocytes # (Auto) 1.0 x10^3/uL (1.0-4.8) Monocytes # (Auto) 0.2 x10^3/uL (0.0-1.1) Eosinophils # (Auto) 0.0 x10^3/uL (0.0-0.7) Basophils # (Auto) 0.1 x10^3/uL (0.0-0.2) Sodium Level 136 mmol/L (136-145) Potassium Level 3.1 mmol/L (3.5-5.1) Chloride Level 101 mmol/L (98-107) Carbon Dioxide Level 27 mmol/L (21-32) Anion Gap 8 (6-14) Blood Urea Nitrogen 13 mg/dL (7-20) Creatinine 1.0 mg/dL (0.6-1.0) Estimated GFR (Cockcroft-Gault) 68.4 BUN/Creatinine Ratio 13 (6-20) Glucose Level 135 mg/dL (70-99) Calcium Level 7.3 mg/dL (8.5-10.1) Phosphorus Level 0.8 mg/dL (2.6-4.7) Magnesium Level 1.8 mg/dL (1.8-2.4) Total Bilirubin 0.2 mg/dL (0.2-1.0) Aspartate Amino Transf (AST/SGOT) 37 U/L (15-37) Alanine Aminotransferase (ALT/SGPT) 10 U/L (14-59) Alkaline Phosphatase 91 U/L (46-116) Total Protein 5.7 g/dL (6.4-8.2) Albumin 2.1 g/dL (3.4-5.0) Albumin/Globulin Ratio 0.6 (1.0-1.7) I have reviewed the following KUB from yesterday shows nonspecific bowel gas pattern no evidence of obstruction Assessment/Plan Likely ileus appears to resolved we continue OG as per intubation protocol No further surgical recommendations IRISH BISHOP MD Feb 23, 2019 07:52
[2019-02-23] MEDS: PANTOPRAZOLE IV PUSH 40 MG VIAL. IVP SCH (07:57)
[2019-02-23 07:58] LABS: BASE EXCESS ABG 4 mmol/L (-3-3); HCO3 ABG 27 mmol/L (21-28); PCO2 ABG 31 mmHg (35-46); PO2 ABG 152 mmHg (65-108); SAT O2 ABG 99 % (92-99)
[2019-02-23] MEDS ORDERED: POTASSIUM PHOSPHATE DIBASIC IV ONE (08:00)
[2019-02-23] MEDS ORDERED: NORMAL SALINE IV ONE (08:00)
[2019-02-23] MEDS ORDERED: MAGNESIUM SULFATE 4GM 100 ML IV ONE (08:00)
--- NOTE | 2019-02-23 08:38 | PDOC ---
PULMONARY PROGRESS NOTES Subjective PT ON VENT SEDATED Vitals Vital Signs Date Time Temp Pulse Resp B/P (MAP) Pulse Ox O2 Delivery O2 Flow Rate FiO2 02/23/19 08:12 Mechanical Ventilator 02/23/19 08:05 97.0 16 100 97.0 02/23/19 07:00 75 Lungs: Clear Cardiovascular: S1, S2 Abdomen: Soft Extremities: No Edema, Other Labs Laboratory Tests Test 02/21/19 18:26 02/21/19 18:46 02/21/19 20:07 02/22/19 05:50 O2 Saturation 99 % (92-99) Arterial Blood pH 7.26 (7.35-7.45) Arterial Blood pCO2 at Patient Temp 26 mmHg (35-46) Arterial Blood pO2 at Patient Temp 220 mmHg (65-108) Arterial Blood HCO3 12 mmol/L (21-28) Arterial Blood Base Excess -14 mmol/L (-3-3) FiO2 50 White Blood Count 14.7 x10^3/uL (4.0-11.0) 8.9 x10^3/uL (4.0-11.0) Red Blood Count 2.64 x10^6/uL (3.50-5.40) 2.44 x10^6/uL (3.50-5.40) Hemoglobin 7.6 g/dL (12.0-15.5) 7.1 g/dL (12.0-15.5) Hematocrit 24.0 % (36.0-47.0) 21.3 % (36.0-47.0) Mean Corpuscular Volume 91 fL (79-100) 87 fL (79-100) Mean Corpuscular Hemoglobin 29 pg (25-35) 29 pg (25-35) Mean Corpuscular Hemoglobin Concent 32 g/dL (31-37) 34 g/dL (31-37) Red Cell Distribution Width 15.8 % (11.5-14.5) 15.2 % (11.5-14.5) Platelet Count 78 x10^3/uL (140-400) 71 x10^3/uL (140-400) Prothrombin Time 13.9 SEC (11.7-14.0) Prothromb Time International Ratio 1.1 (0.8-1.1) Sodium Level 139 mmol/L (136-145) 138 mmol/L (136-145) Potassium Level 3.8 mmol/L (3.5-5.1) 3.1 mmol/L (3.5-5.1) Chloride Level 99 mmol/L (98-107) 96 mmol/L (98-107) Carbon Dioxide Level 14 mmol/L (21-32) 23 mmol/L (21-32) Anion Gap 26 (6-14) 19 (6-14) Blood Urea Nitrogen 17 mg/dL (7-20) 13 mg/dL (7-20) Creatinine 1.0 mg/dL (0.6-1.0) 1.1 mg/dL (0.6-1.0) Estimated GFR (Cockcroft-Gault) 68.4 61.3 BUN/Creatinine Ratio 16 (6-20) 12 (6-20) Glucose Level 122 mg/dL (70-99) 109 mg/dL (70-99) Calcium Level 7.3 mg/dL (8.5-10.1) 7.5 mg/dL (8.5-10.1) Phosphorus Level 3.2 mg/dL (2.6-4.7) 0.7 mg/dL (2.6-4.7) Magnesium Level 0.9 mg/dL (1.8-2.4) 1.4 mg/dL (1.8-2.4) Total Bilirubin 0.5 mg/dL (0.2-1.0) 0.5 mg/dL (0.2-1.0) Aspartate Amino Transf (AST/SGOT) 71 U/L (15-37) 52 U/L (15-37) Alanine Aminotransferase (ALT/SGPT) 18 U/L (14-59) 14 U/L (14-59) Alkaline Phosphatase 102 U/L (46-116) 92 U/L (46-116) Total Protein 7.2 g/dL (6.4-8.2) 6.3 g/dL (6.4-8.2) Albumin 3.1 g/dL (3.4-5.0) 2.5 g/dL (3.4-5.0) Albumin/Globulin Ratio 0.8 (1.0-1.7) 0.7 (1.0-1.7) Urine Collection Type Unknown Urine Color Yellow Urine Clarity Clear Urine pH 6.5 Urine Specific [place] 1.010 Urine Protein Negative mg/dL (NEG-TRACE) Urine Glucose (UA) Negative mg/dL (NEG) Urine Ketones (Stick) >=80 mg/dL (NEG) Urine Blood Negative (NEG) Urine Nitrite Negative (NEG) Urine Bilirubin Negative (NEG) Urine Urobilinogen Dipstick 0.2 mg/dL (0.2 mg/dL) Urine Leukocyte Esterase Negative (NEG) Urine RBC 1-2 /HPF (0-2) Urine WBC 0 /HPF (0-4) Urine Squamous Epithelial Cells Few /LPF Urine Amorphous Sediment Present /HPF Urine Bacteria 0 /HPF (0-FEW) Urine Mucus Slight /LPF Neutrophils (%) (Auto) 85 % (31-73) Lymphocytes (%) (Auto) 11 % (24-48) Monocytes (%) (Auto) 3 % (0-9) Eosinophils (%) (Auto) 0 % (0-3) Basophils (%) (Auto) 1 % (0-3) Neutrophils # (Auto) 7.6 x10^3/uL (1.8-7.7) Lymphocytes # (Auto) 1.0 x10^3/uL (1.0-4.8) Monocytes # (Auto) 0.3 x10^3/uL (0.0-1.1) Eosinophils # (Auto) 0.0 x10^3/uL (0.0-0.7) Basophils # (Auto) 0.1 x10^3/uL (0.0-0.2) Segmented Neutrophils % 84 % (35-66) Band Neutrophils % 3 % (0-9) Lymphocytes % 6 % (24-48) Monocytes % 3 % (0-10) Eosinophils % 3 % (0-5) Basophils % 1 % (0-3) Nucleated Red Blood Cells 1 Platelet Estimate Decreased (ADEQUATE) Polychromasia Slight Anisocytosis Slight Target Cells Few Iron Level 15 ug/dL (50-170) Total Iron Binding Capacity 131 ug/dL (250-450) Iron Saturation 11 % (15-34) Lipase 349 U/L (73-393) Vitamin B12 Level 711 pg/mL (247-911) Test 02/22/19 06:30 02/22/19 07:30 02/22/19 15:15 02/23/19 04:55 Prothrombin Time 13.1 SEC (11.7-14.0) Prothromb Time International Ratio 1.0 (0.8-1.1) O2 Saturation 99 % (92-99) Arterial Blood pH 7.49 (7.35-7.45) Arterial Blood pCO2 at Patient Temp 29 mmHg (35-46) Arterial Blood pO2 at Patient Temp 150 mmHg (65-108) Arterial Blood HCO3 21 mmol/L (21-28) Arterial Blood Base Excess -1 mmol/L (-3-3) FiO2 40 Hemoglobin 7.1 g/dL (12.0-15.5) 6.4 g/dL (12.0-15.5) Hematocrit 21.0 % (36.0-47.0) 19.4 % (36.0-47.0) White Blood Count 7.3 x10^3/uL (4.0-11.0) Red Blood Count 2.23 x10^6/uL (3.50-5.40) Mean Corpuscular Volume 87 fL (79-100) Mean Corpuscular Hemoglobin 29 pg (25-35) Mean Corpuscular Hemoglobin Concent 33 g/dL (31-37) Red Cell Distribution Width 15.5 % (11.5-14.5) Platelet Count 52 x10^3/uL (140-400) Neutrophils (%) (Auto) 82 % (31-73) Lymphocytes (%) (Auto) 14 % (24-48) Monocytes (%) (Auto) 3 % (0-9) Eosinophils (%) (Auto) 1 % (0-3) Basophils (%) (Auto) 1 % (0-3) Neutrophils # (Auto) 5.9 x10^3/uL (1.8-7.7) Lymphocytes # (Auto) 1.0 x10^3/uL (1.0-4.8) Monocytes # (Auto) 0.2 x10^3/uL (0.0-1.1) Eosinophils # (Auto) 0.0 x10^3/uL (0.0-0.7) Basophils # (Auto) 0.1 x10^3/uL (0.0-0.2) Sodium Level 136 mmol/L (136-145) Potassium Level 3.1 mmol/L (3.5-5.1) Chloride Level 101 mmol/L (98-107) Carbon Dioxide Level 27 mmol/L (21-32) Anion Gap 8 (6-14) Blood Urea Nitrogen 13 mg/dL (7-20) Creatinine 1.0 mg/dL (0.6-1.0) Estimated GFR (Cockcroft-Gault) 68.4 BUN/Creatinine Ratio 13 (6-20) Glucose Level 135 mg/dL (70-99) Calcium Level 7.3 mg/dL (8.5-10.1) Phosphorus Level 0.8 mg/dL (2.6-4.7) Magnesium Level 1.8 mg/dL (1.8-2.4) Total Bilirubin 0.2 mg/dL (0.2-1.0) Aspartate Amino Transf (AST/SGOT) 37 U/L (15-37) Alanine Aminotransferase (ALT/SGPT) 10 U/L (14-59) Alkaline Phosphatase 91 U/L (46-116) Total Protein 5.7 g/dL (6.4-8.2) Albumin 2.1 g/dL (3.4-5.0) Albumin/Globulin Ratio 0.6 (1.0-1.7) Test 02/23/19 08:00 O2 Saturation 99 % (92-99) Arterial Blood pH 7.56 (7.35-7.45) Arterial Blood pCO2 at Patient Temp 31 mmHg (35-46) Arterial Blood pO2 at Patient Temp 152 mmHg (65-108) Arterial Blood HCO3 27 mmol/L (21-28) Arterial Blood Base Excess 4 mmol/L (-3-3) Laboratory Tests Test 02/22/19 15:15 02/23/19 04:55 02/23/19 08:00 Hemoglobin 7.1 g/dL (12.0-15.5) 6.4 g/dL (12.0-15.5) Hematocrit 21.0 % (36.0-47.0) 19.4 % (36.0-47.0) White Blood Count 7.3 x10^3/uL (4.0-11.0) Red Blood Count 2.23 x10^6/uL (3.50-5.40) Mean Corpuscular Volume 87 fL (79-100) Mean Corpuscular Hemoglobin 29 pg (25-35) Mean Corpuscular Hemoglobin Concent 33 g/dL (31-37) Red Cell Distribution Width 15.5 % (11.5-14.5) Platelet Count 52 x10^3/uL (140-400) Neutrophils (%) (Auto) 82 % (31-73) Lymphocytes (%) (Auto) 14 % (24-48) Monocytes (%) (Auto) 3 % (0-9) Eosinophils (%) (Auto) 1 % (0-3) Basophils (%) (Auto) 1 % (0-3) Neutrophils # (Auto) 5.9 x10^3/uL (1.8-7.7) Lymphocytes # (Auto) 1.0 x10^3/uL (1.0-4.8) Monocytes # (Auto) 0.2 x10^3/uL (0.0-1.1) Eosinophils # (Auto) 0.0 x10^3/uL (0.0-0.7) Basophils # (Auto) 0.1 x10^3/uL (0.0-0.2) Sodium Level 136 mmol/L (136-145) Potassium Level 3.1 mmol/L (3.5-5.1) Chloride Level 101 mmol/L (98-107) Carbon Dioxide Level 27 mmol/L (21-32) Anion Gap 8 (6-14) Blood Urea Nitrogen 13 mg/dL (7-20) Creatinine 1.0 mg/dL (0.6-1.0) Estimated GFR (Cockcroft-Gault) 68.4 BUN/Creatinine Ratio 13 (6-20) Glucose Level 135 mg/dL (70-99) Calcium Level 7.3 mg/dL (8.5-10.1) Phosphorus Level 0.8 mg/dL (2.6-4.7) Magnesium Level 1.8 mg/dL (1.8-2.4) Total Bilirubin 0.2 mg/dL (0.2-1.0) Aspartate Amino Transf (AST/SGOT) 37 U/L (15-37) Alanine Aminotransferase (ALT/SGPT) 10 U/L (14-59) Alkaline Phosphatase 91 U/L (46-116) Total Protein 5.7 g/dL (6.4-8.2) Albumin 2.1 g/dL (3.4-5.0) Albumin/Globulin Ratio 0.6 (1.0-1.7) O2 Saturation 99 % (92-99) Arterial Blood pH 7.56 (7.35-7.45) Arterial Blood pCO2 at Patient Temp 31 mmHg (35-46) Arterial Blood pO2 at Patient Temp 152 mmHg (65-108) Arterial Blood HCO3 27 mmol/L (21-28) Arterial Blood Base Excess 4 mmol/L (-3-3) Medications Active Scripts Medications Dose Route/Sig Max Daily Dose Days Date Category Potassium Chloride 20 Meq Tablet.er 20 Meq PO BID 30 08/11/18 Rx Oxycodone Hcl 5 Mg Capsule 5 Mg PO PRN Q6HRS PRN 5 08/11/18 Rx Amlodipine Besylate 10 Mg Tablet 10 Mg PO DAILY 30 08/11/18 Rx Melatonin 3 Mg Tab.rapdis 3 Mg PO HS PRN 07/27/18 Reported Nephro-Nola Tablet (Folic Acid/Vitamin B Comp W-C) 0.8 Mg Tablet 1 Tab PO DAILY 07/27/18 Reported Vitamin B-12 (Cyanocobalamin (Vitamin B-12)) 1,000 Mcg Tablet 1,000 Mcg PO DAILY 07/27/18 Reported Megestrol Acetate 20 Mg Tablet 20 Mg PO DAILY 07/27/18 Reported Protonix (Pantoprazole Sodium) 20 Mg Tablet.dr 40 Mg PO DAILY 07/27/18 Reported Zoloft (Sertraline Hcl) 50 Mg Tablet 1 Tab PO DAILY 07/27/18 Reported Zoloft (Sertraline Hcl) 25 Mg Tablet 1 Tab PO DAILY 07/27/18 Reported Coreg (Carvedilol) 25 Mg Tablet 6.25 Mg PO BIDWMEALS 07/27/18 Reported Lipitor (Atorvastatin Calcium) 10 Mg Tablet 1 Tab PO QHS 07/27/18 Reported Duoneb 0.5-3(2.5) Mg/3 Ml (Albuterol/Ipratropium) 3 Ml Ampul.neb 3 Ml NEB QID PRN 07/27/18 Reported Impression . IMPRESSION: 1. Acute respiratory failure secondary to severe metabolic acidosis. 2. Severe metabolic acidosis, etiology unclear. The patient responded to support with sodium bicarbonate, pending methanol and ethylene glycol levels. 3. History of alcohol abuse. 4. Hypotension. 5. History of seizure disorder. 6. Hypomagnesemia. 7. Hypophosphatemia. 8. Colitis. 9. Ileus. 10. Pneumonia. 11 ACUTE DROP IN HCT Plan . TRANSFUSE WILL TRIAL SPOKE WITH DR LAURENT AND NELLA BAXTER SO FAR SOURCE OF SEVERE MET ACIDOSIS HAS NOT BEEN ESTABLISHED ALVINO HERNANDEZ MD Feb 23, 2019 08:38
[2019-02-23] MEDS ORDERED: FLU VAX QS 2019-20 (36MOS+)/PF 0.5 ML SYRINGE. VAX IM ONE (09:00)
--- NOTE | 2019-02-23 10:10 | PDOC ---
Subjective: Subjective: Daughter present - wants to know why her abdomen was distended before she came. Objective: Objective: D/w nurse - no stool, not much OG output, daughter says pt wouldn't want blood transfusion so is calling family to discuss - no bleeding. Vital Signs: Vital Signs Date Time Temp Pulse Resp B/P (MAP) Pulse Ox O2 Delivery O2 Flow Rate FiO2 02/23/19 09:17 85 16 131/67 (88) 100 Ventilator 02/23/19 08:05 97.0 97.0 Labs: Laboratory Tests Test 02/22/19 15:15 02/23/19 04:55 02/23/19 08:00 Hemoglobin 7.1 g/dL 6.4 g/dL Hematocrit 21.0 % 19.4 % White Blood Count 7.3 x10^3/uL Red Blood Count 2.23 x10^6/uL Mean Corpuscular Volume 87 fL Mean Corpuscular Hemoglobin 29 pg Mean Corpuscular Hemoglobin Concent 33 g/dL Red Cell Distribution Width 15.5 % Platelet Count 52 x10^3/uL Neutrophils (%) (Auto) 82 % Lymphocytes (%) (Auto) 14 % Monocytes (%) (Auto) 3 % Eosinophils (%) (Auto) 1 % Basophils (%) (Auto) 1 % Neutrophils # (Auto) 5.9 x10^3/uL Lymphocytes # (Auto) 1.0 x10^3/uL Monocytes # (Auto) 0.2 x10^3/uL Eosinophils # (Auto) 0.0 x10^3/uL Basophils # (Auto) 0.1 x10^3/uL Sodium Level 136 mmol/L Potassium Level 3.1 mmol/L Chloride Level 101 mmol/L Carbon Dioxide Level 27 mmol/L Anion Gap 8 Blood Urea Nitrogen 13 mg/dL Creatinine 1.0 mg/dL Estimated GFR (Cockcroft-Gault) 68.4 BUN/Creatinine Ratio 13 Glucose Level 135 mg/dL Calcium Level 7.3 mg/dL Phosphorus Level 0.8 mg/dL Magnesium Level 1.8 mg/dL Total Bilirubin 0.2 mg/dL Aspartate Amino Transf (AST/SGOT) 37 U/L Alanine Aminotransferase (ALT/SGPT) 10 U/L Alkaline Phosphatase 91 U/L Total Protein 5.7 g/dL Albumin 2.1 g/dL Albumin/Globulin Ratio 0.6 O2 Saturation 99 % Arterial Blood pH 7.56 Arterial Blood pCO2 at Patient Temp 31 mmHg Arterial Blood pO2 at Patient Temp 152 mmHg Arterial Blood HCO3 27 mmol/L Arterial Blood Base Excess 4 mmol/L PE: GEN: ill, intubated LUNGS: vent/diminished anteriorly HEART: RRR ABD: quiet, a bit firm, tender NEURO/PSYCH: awake, grimaces w/ palpation of abdomen A/P: Resp failure, abd pain, pancreatitis, ileus, anemia H/o alcoholism -- Await family decisions re: transfusion for chronic anemia. ?goals of care discussion ?code status - was DNR on previous admit, had palliative discussion then Continue NPO, PPI. Hemodynamically unstable?: Yes Is patient in severe pain?: Yes Is NPO status required?: Yes KATHRYN BRIONES Feb 23, 2019 10:10
--- NOTE | 2019-02-23 12:02 | PDOC ---
Renal-Progress Notes Subjective Notes Notes ON THE VENT History of Present Illness Hx of present illness STABLE Vitals Vitals Vital Signs Date Time Temp Pulse Resp B/P (MAP) Pulse Ox O2 Delivery O2 Flow Rate FiO2 02/23/19 11:58 Mechanical Ventilator 02/23/19 11:57 89 16 154/80 (104) 100 02/23/19 11:00 98.2 98.2 Weight Weight [ ] I.O. Intake and Output Intake and Output 02/23/19 07:00 Intake Total 4350 ml Output Total 1000 ml Balance 3350 ml IV Total 4350 ml Output Urine Total 1000 ml Labs Labs Laboratory Tests Test 02/22/19 15:15 02/23/19 04:55 02/23/19 08:00 Hemoglobin 7.1 g/dL (12.0-15.5) 6.4 g/dL (12.0-15.5) Hematocrit 21.0 % (36.0-47.0) 19.4 % (36.0-47.0) White Blood Count 7.3 x10^3/uL (4.0-11.0) Red Blood Count 2.23 x10^6/uL (3.50-5.40) Mean Corpuscular Volume 87 fL (79-100) Mean Corpuscular Hemoglobin 29 pg (25-35) Mean Corpuscular Hemoglobin Concent 33 g/dL (31-37) Red Cell Distribution Width 15.5 % (11.5-14.5) Platelet Count 52 x10^3/uL (140-400) Neutrophils (%) (Auto) 82 % (31-73) Lymphocytes (%) (Auto) 14 % (24-48) Monocytes (%) (Auto) 3 % (0-9) Eosinophils (%) (Auto) 1 % (0-3) Basophils (%) (Auto) 1 % (0-3) Neutrophils # (Auto) 5.9 x10^3/uL (1.8-7.7) Lymphocytes # (Auto) 1.0 x10^3/uL (1.0-4.8) Monocytes # (Auto) 0.2 x10^3/uL (0.0-1.1) Eosinophils # (Auto) 0.0 x10^3/uL (0.0-0.7) Basophils # (Auto) 0.1 x10^3/uL (0.0-0.2) Sodium Level 136 mmol/L (136-145) Potassium Level 3.1 mmol/L (3.5-5.1) Chloride Level 101 mmol/L (98-107) Carbon Dioxide Level 27 mmol/L (21-32) Anion Gap 8 (6-14) Blood Urea Nitrogen 13 mg/dL (7-20) Creatinine 1.0 mg/dL (0.6-1.0) Estimated GFR (Cockcroft-Gault) 68.4 BUN/Creatinine Ratio 13 (6-20) Glucose Level 135 mg/dL (70-99) Calcium Level 7.3 mg/dL (8.5-10.1) Phosphorus Level 0.8 mg/dL (2.6-4.7) Magnesium Level 1.8 mg/dL (1.8-2.4) Total Bilirubin 0.2 mg/dL (0.2-1.0) Aspartate Amino Transf (AST/SGOT) 37 U/L (15-37) Alanine Aminotransferase (ALT/SGPT) 10 U/L (14-59) Alkaline Phosphatase 91 U/L (46-116) Total Protein 5.7 g/dL (6.4-8.2) Albumin 2.1 g/dL (3.4-5.0) Albumin/Globulin Ratio 0.6 (1.0-1.7) O2 Saturation 99 % (92-99) Arterial Blood pH 7.56 (7.35-7.45) Arterial Blood pCO2 at Patient Temp 31 mmHg (35-46) Arterial Blood pO2 at Patient Temp 152 mmHg (65-108) Arterial Blood HCO3 27 mmol/L (21-28) Arterial Blood Base Excess 4 mmol/L (-3-3) Physical Exam General Appearance: no apparent distress Respiratory: decreased breath sounds Heart: S1S2 Abdomen: soft Genitourinary: bladder flat Extremities: pulses present Neurology: other (ON THE VENT) Assessment Assessment IMP HYPOTENSION-IMPROVED SEVERE MET ACIDOSIS-RESOLVED ACUTE RESP FAILURE-CONT VENT ETOH ABUSE HX HX OF WITHDRAWAL LOW MAG-CORRECTED LOW PO4 LOW K PLAN PPN FOR NOW REPLACE K, MG AND PO4 DARIEL LAURENT MD Feb 23, 2019 12:02
--- NOTE | 2019-02-23 13:58 | NUR ---
Sedation turned off at 1300 for SBT. Pt RR up to 35-40 and [id number]. Pt very restless. Follows commands . Shakes head when asks if she is ready to get the tube out. Placed on trial at 1400
[2019-02-23 14:33] LABS: BASE EXCESS ABG 1 mmol/L (-3-3); HCO3 ABG 23 mmol/L (21-28); PCO2 ABG 29 mmHg (35-46); PO2 ABG 105 mmHg (65-108); SAT O2 ABG 98 % (92-99)
[2019-02-23 14:36] LABS: FIO2 ABG 40
--- NOTE | 2019-02-23 14:37 | PN ---
DATE: 02/23/2019 SUBJECTIVE: The patient is a 59-year-old -[place] female patient, who was admitted with the: 1. Altered mental status requiring intubation and mechanical ventilation. 2. Severe metabolic acidosis, unclear etiology, treated with the bicarbonate drip. We did send her blood for methanol and ethylene glycol to [facility], alcoholism and alcohol withdrawal seizures, hypertension, for which she was started on Cardene drip and her blood pressure is stable now. 3. Severe anemia with hemoglobin and hematocrit has dropped down to 6.4 and 19.4. She also has severe hypokalemia, hypomagnesemia, and hypophosphatemia. 4. Severe protein-calorie malnutrition with serum albumin is only 2.1 g/dL. PLAN: To continue mechanical ventilation. Continue to replenish her potassium, magnesium and phosphorus. We will obviously discuss with her daughter. Her daughter has made up her mind yet to transfuse the patient and will continue with the TPN for nutritional support and Protonix for GI prophylaxis. REKHA CARMEN MD DR: CYNTHIA/desean JOB#: [id number] / [id number]
--- NOTE | 2019-02-23 15:30 | NUR ---
Poison Control called to go over labs, Recommended Folic Acid and Thiamin for Alcohol withdraw. Orders received from Dr Chan. Pt failed breathing trial at 1300 placed back on sedation and changed over to AC mode on vent.
[2019-02-23] MEDS: THIAMINE INJ 100 MG in IV DEXTROSE 5% 50 ML IV SCH (16:14)
[2019-02-24] VITALS (24 sets, daily range): BP systolic 122–176; BP diastolic 61–89
[2019-02-24] MEDS: AMINO AC 3%/ELECTROLYTE/GLYCER 1,000 ML IV SCH ×2 (01:52→14:17)
[2019-02-24] MEDS: PROPOFOL 100 ML IV PRN ×3 (03:07→22:04)
[2019-02-24] MEDS: fentaNYL PF VIAL 100 MCG/2 ML VIAL IVP PRN (03:07)
[2019-02-24 06:19] LABS: ALBUMIN 1.9 g/dL (3.4-5.0); ALBUMIN/GLOBULIN RATIO 0.5 (1.0-1.7); CALCIUM 7.8 mg/dL (8.5-10.1); CREATININE 0.6 mg/dL (0.6-1.0); GFR 123.4; MAGNESIUM 2.6 mg/dL (1.8-2.4); POTASSIUM 3.2 mmol/L (3.5-5.1); TOTAL BILIRUBIN 0.3 mg/dL (0.2-1.0); TOTAL PROTEIN 5.7 g/dL (6.4-8.2)
--- NOTE | 2019-02-24 06:44 | PDOC ---
PULMONARY PROGRESS NOTES Subjective on vent, sedated, on propofol, prn fentanyl, mod ett secretion, didnt tolerate sbt yesterday Vitals Vital Signs Date Time Temp Pulse Resp B/P (MAP) Pulse Ox O2 Delivery O2 Flow Rate FiO2 02/24/19 06:00 70 22 154/71 (98) 100 Ventilator 02/24/19 04:00 98.8 98.8 Comments ros as mentioned as above discussed w rn other sys otherwise neg sedated on vent HEENT: Other (nc at perrl nose clear orally intubated neck no lad no thyromegaly) Lungs: Crackles, Other (dull at r base) Cardiovascular: S1, S2 Abdomen: Soft, Non-tender, Other (no mass) Extremities: No Edema, Other Skin: Warm Labs Laboratory Tests Test 02/22/19 07:30 02/22/19 09:30 02/22/19 15:15 02/23/19 04:55 O2 Saturation 99 % (92-99) Arterial Blood pH 7.49 (7.35-7.45) Arterial Blood pCO2 at Patient Temp 29 mmHg (35-46) Arterial Blood pO2 at Patient Temp 150 mmHg (65-108) Arterial Blood HCO3 21 mmol/L (21-28) Arterial Blood Base Excess -1 mmol/L (-3-3) FiO2 40 Special Test - Miscellaneous See separate report Hemoglobin 7.1 g/dL (12.0-15.5) 6.4 g/dL (12.0-15.5) Hematocrit 21.0 % (36.0-47.0) 19.4 % (36.0-47.0) White Blood Count 7.3 x10^3/uL (4.0-11.0) Red Blood Count 2.23 x10^6/uL (3.50-5.40) Mean Corpuscular Volume 87 fL (79-100) Mean Corpuscular Hemoglobin 29 pg (25-35) Mean Corpuscular Hemoglobin Concent 33 g/dL (31-37) Red Cell Distribution Width 15.5 % (11.5-14.5) Platelet Count 52 x10^3/uL (140-400) Neutrophils (%) (Auto) 82 % (31-73) Lymphocytes (%) (Auto) 14 % (24-48) Monocytes (%) (Auto) 3 % (0-9) Eosinophils (%) (Auto) 1 % (0-3) Basophils (%) (Auto) 1 % (0-3) Neutrophils # (Auto) 5.9 x10^3/uL (1.8-7.7) Lymphocytes # (Auto) 1.0 x10^3/uL (1.0-4.8) Monocytes # (Auto) 0.2 x10^3/uL (0.0-1.1) Eosinophils # (Auto) 0.0 x10^3/uL (0.0-0.7) Basophils # (Auto) 0.1 x10^3/uL (0.0-0.2) Sodium Level 136 mmol/L (136-145) Potassium Level 3.1 mmol/L (3.5-5.1) Chloride Level 101 mmol/L (98-107) Carbon Dioxide Level 27 mmol/L (21-32) Anion Gap 8 (6-14) Blood Urea Nitrogen 13 mg/dL (7-20) Creatinine 1.0 mg/dL (0.6-1.0) Estimated GFR (Cockcroft-Gault) 68.4 BUN/Creatinine Ratio 13 (6-20) Glucose Level 135 mg/dL (70-99) Calcium Level 7.3 mg/dL (8.5-10.1) Phosphorus Level 0.8 mg/dL (2.6-4.7) Magnesium Level 1.8 mg/dL (1.8-2.4) Total Bilirubin 0.2 mg/dL (0.2-1.0) Aspartate Amino Transf (AST/SGOT) 37 U/L (15-37) Alanine Aminotransferase (ALT/SGPT) 10 U/L (14-59) Alkaline Phosphatase 91 U/L (46-116) Total Protein 5.7 g/dL (6.4-8.2) Albumin 2.1 g/dL (3.4-5.0) Albumin/Globulin Ratio 0.6 (1.0-1.7) Test 02/23/19 08:00 02/23/19 14:11 02/24/19 00:05 02/24/19 05:45 O2 Saturation 99 % (92-99) 98 % (92-99) Arterial Blood pH 7.56 (7.35-7.45) 7.52 (7.35-7.45) Arterial Blood pCO2 at Patient Temp 31 mmHg (35-46) 29 mmHg (35-46) Arterial Blood pO2 at Patient Temp 152 mmHg (65-108) 105 mmHg (65-108) Arterial Blood HCO3 27 mmol/L (21-28) 23 mmol/L (21-28) Arterial Blood Base Excess 4 mmol/L (-3-3) 1 mmol/L (-3-3) FiO2 40 Glucose (Fingerstick) 117 mg/dL (70-99) Sodium Level 140 mmol/L (136-145) Potassium Level 3.2 mmol/L (3.5-5.1) Chloride Level 106 mmol/L (98-107) Carbon Dioxide Level 23 mmol/L (21-32) Anion Gap 11 (6-14) Blood Urea Nitrogen 13 mg/dL (7-20) Creatinine 0.6 mg/dL (0.6-1.0) Estimated GFR (Cockcroft-Gault) 123.4 BUN/Creatinine Ratio 22 (6-20) Glucose Level 113 mg/dL (70-99) Calcium Level 7.8 mg/dL (8.5-10.1) Phosphorus Level 2.0 mg/dL (2.6-4.7) Magnesium Level 2.6 mg/dL (1.8-2.4) Total Bilirubin 0.3 mg/dL (0.2-1.0) Aspartate Amino Transf (AST/SGOT) 53 U/L (15-37) Alanine Aminotransferase (ALT/SGPT) 12 U/L (14-59) Alkaline Phosphatase 105 U/L (46-116) Total Protein 5.7 g/dL (6.4-8.2) Albumin 1.9 g/dL (3.4-5.0) Albumin/Globulin Ratio 0.5 (1.0-1.7) Test 02/24/19 06:14 Glucose (Fingerstick) 105 mg/dL (70-99) Laboratory Tests Test 02/23/19 08:00 02/23/19 14:11 02/24/19 00:05 02/24/19 05:45 O2 Saturation 99 % (92-99) 98 % (92-99) Arterial Blood pH 7.56 (7.35-7.45) 7.52 (7.35-7.45) Arterial Blood pCO2 at Patient Temp 31 mmHg (35-46) 29 mmHg (35-46) Arterial Blood pO2 at Patient Temp 152 mmHg (65-108) 105 mmHg (65-108) Arterial Blood HCO3 27 mmol/L (21-28) 23 mmol/L (21-28) Arterial Blood Base Excess 4 mmol/L (-3-3) 1 mmol/L (-3-3) FiO2 40 Glucose (Fingerstick) 117 mg/dL (70-99) Sodium Level 140 mmol/L (136-145) Potassium Level 3.2 mmol/L (3.5-5.1) Chloride Level 106 mmol/L (98-107) Carbon Dioxide Level 23 mmol/L (21-32) Anion Gap 11 (6-14) Blood Urea Nitrogen 13 mg/dL (7-20) Creatinine 0.6 mg/dL (0.6-1.0) Estimated GFR (Cockcroft-Gault) 123.4 BUN/Creatinine Ratio 22 (6-20) Glucose Level 113 mg/dL (70-99) Calcium Level 7.8 mg/dL (8.5-10.1) Phosphorus Level 2.0 mg/dL (2.6-4.7) Magnesium Level 2.6 mg/dL (1.8-2.4) Total Bilirubin 0.3 mg/dL (0.2-1.0) Aspartate Amino Transf (AST/SGOT) 53 U/L (15-37) Alanine Aminotransferase (ALT/SGPT) 12 U/L (14-59) Alkaline Phosphatase 105 U/L (46-116) Total Protein 5.7 g/dL (6.4-8.2) Albumin 1.9 g/dL (3.4-5.0) Albumin/Globulin Ratio 0.5 (1.0-1.7) Test 02/24/19 06:14 Glucose (Fingerstick) 105 mg/dL (70-99) Medications Active Scripts Medications Dose Route/Sig Max Daily Dose Days Date Category Potassium Chloride 20 Meq Tablet.er 20 Meq PO BID 30 08/11/18 Rx Oxycodone Hcl 5 Mg Capsule 5 Mg PO PRN Q6HRS PRN 5 08/11/18 Rx Amlodipine Besylate 10 Mg Tablet 10 Mg PO DAILY 30 08/11/18 Rx Melatonin 3 Mg Tab.rapdis 3 Mg PO HS PRN 07/27/18 Reported Nephro-Nola Tablet (Folic Acid/Vitamin B Comp W-C) 0.8 Mg Tablet 1 Tab PO DAILY 07/27/18 Reported Vitamin B-12 (Cyanocobalamin (Vitamin B-12)) 1,000 Mcg Tablet 1,000 Mcg PO DAILY 07/27/18 Reported Megestrol Acetate 20 Mg Tablet 20 Mg PO DAILY 07/27/18 Reported Protonix (Pantoprazole Sodium) 20 Mg Tablet.dr 40 Mg PO DAILY 07/27/18 Reported Zoloft (Sertraline Hcl) 50 Mg Tablet 1 Tab PO DAILY 07/27/18 Reported Zoloft (Sertraline Hcl) 25 Mg Tablet 1 Tab PO DAILY 07/27/18 Reported Coreg (Carvedilol) 25 Mg Tablet 6.25 Mg PO BIDWMEALS 07/27/18 Reported Lipitor (Atorvastatin Calcium) 10 Mg Tablet 1 Tab PO QHS 07/27/18 Reported Duoneb 0.5-3(2.5) Mg/3 Ml (Albuterol/Ipratropium) 3 Ml Ampul.neb 3 Ml NEB QID PRN 07/27/18 Reported Comments cxr reviewed r infilt ett ok Impression . IMPRESSION: 1. Acute respiratory failure secondary to severe metabolic acidosis. 2. Severe metabolic acidosis, etiology unclear. resolved 3. History of alcohol abuse. 4. Hypotension. 5. History of seizure disorder. 6. Hypomagnesemia. resolved 7. Hypo k 8. Colitis. 9. Ileus. 10. Pneumonia. abnl cxr 11 ACUTE DROP IN HCT, s/p prbc hb stable Plan . cont vent support, setting reviewed, decrease sedation, sbt cxr reviewed s/p TRANSFUSion, h/h stable, on protonix iv ANTI BX fu cxs add BD discussed w rn, rt NORMAN YEN MD Feb 24, 2019 06:44
[2019-02-24 06:46] LABS: BASO % 1 % (0-3); EOS # 0.2 x10^3/uL (0.0-0.7); EOS % 3 % (0-3); HEMATOCRIT 24.8 % (36.0-47.0); HEMOGLOBIN 8.2 g/dL (12.0-15.5); LYMPH % 14 % (24-48); MEAN CORPUSCULAR HEMOGLOBIN 29 pg (25-35); MEAN CORPUSCULAR HGB CONC 33 g/dL (31-37); MEAN CORPUSCULAR VOLUME 86 fL (79-100); MONO # 0.3 x10^3/uL (0.0-1.1); MONO % 4 % (0-9); NEUT # 5.5 x10^3/uL (1.8-7.7); NEUT % 79 % (31-73); PLATELET COUNT 50 x10^3/uL (140-400); RED BLOOD COUNT 2.87 x10^6/uL (3.50-5.40); RED CELL DISTRIBUTION WIDTH 14.3 % (11.5-14.5)
[2019-02-24] MEDS ORDERED: IV NORMAL SALINE 1000ML BAG 1,000 ML IV SCH (07:06)
[2019-02-24] MEDS ORDERED: NALOXONE 0.4 MG/ML VIAL. IV PRN (07:15)
[2019-02-24] MEDS: PANTOPRAZOLE IV PUSH 40 MG VIAL. IVP SCH (07:41)
[2019-02-24 08:08] LABS: BASE EXCESS ABG 1 mmol/L (-3-3); HCO3 ABG 24 mmol/L (21-28); PCO2 ABG 33 mmHg (35-46); PO2 ABG 144 mmHg (65-108); SAT O2 ABG 99 % (92-99)
[2019-02-24 08:25] LABS: FIO2 ABG 40%
--- NOTE | 2019-02-24 08:33 | RAD ---
PORTABLE CHEST 1V INDICATION: Excessive secretions. COMPARISON STUDY: 02/22/2019. FINDINGS: Life Support Devices: Stable endotracheal tube, enteric tube, and right IJ central venous catheter. Lungs: Low lung volume. Similar patchy bilateral heterogeneous opacities. Stable pulmonary vasculature. Pleura: Stable pleural spaces. Heart and Mediastinum: Stable cardiomediastinal silhouette and great vessels. IMPRESSION: 1. Stable life support devices. 2. Similar patchy bilateral heterogeneous opacities. Electronically signed by: Boaz Norton MD (02/24/2019 8:30 AM) [facility]
[2019-02-24] MEDS ORDERED: POTASSIUM CHLORIDE 20MEQ 100 ML IV SCH (09:00)
[2019-02-24] MEDS ORDERED: POTASSIUM PHOSPHATE DIBASIC 13.6 MMOL in IV NORMAL SALINE 250ML 250 ML IV ONE (09:00)
[2019-02-24] MEDS: THIAMINE INJ 100 MG in IV DEXTROSE 5% 50 ML IV SCH (09:01)
--- NOTE | 2019-02-24 10:02 | PN ---
DATE: 02/24/2019 SUBJECTIVE: The patient continued to be intubated, mechanically ventilated and sedated with propofol, maintaining her oxygen saturation at 100% on FiO2 of 40%. She apparently has had 1 unit of packed RBCs as her H and H has risen from 6.4, 19.4 to 8.2 and 24. OBJECTIVE: GENERAL: On examining her, she was pale, cachectic, but no jaundice, cyanosis or thyromegaly. No jugular venous distension. No limb edema. VITAL SIGNS: Her heart rate was 70, blood pressure was 154/71, her temperature was 98.8, respiratory rate was 22, and oxygen saturation 100% on FiO2 of 40%. HEAD, EYES, EARS, NOSE AND THROAT: Showed normocephalic, atraumatic. She has orotracheal and orogastric tube in place. NECK: Supple. HEART: Showed normal first and second heart sounds. No gallop or murmur. CHEST: Shows central trachea, equal bilateral expansion, air entry. LUNGS: Clear to auscultation. No crepitation or rhonchi. ABDOMEN: Scaphoid, soft, nontender. NEUROLOGIC: She is heavily sedated. Her intake was 4350, output was 1035. LABORATORY DATA: Her lab work this morning showed a white cell count 7000, hemoglobin 8.2, hematocrit 24.8, MCV 86 and platelet count of 50,000. Her arterial blood gases showed a pH of 7.48, pCO2 of 33, pO2 144, bicarbonate 24, and oxygen saturation was 99% on 40%. Her urinalysis was unremarkable. ASSESSMENT: 1. Acute respiratory failure due to severe metabolic acidosis requiring intubation and mechanical ventilation. 2. Severe metabolic acidosis, unclear etiology, treated with bicarbonate drip. We did send blood for methanol and ethylene glycol to [facility]. 3. Alcoholism and alcohol withdrawal seizures. 4. Hypertension. 5. Severe anemia for which she received 1 unit of packed RBCs. 6. Severe hypokalemia, hypomagnesemia and hypophosphatemia, have all resolved. 7. Severe protein-calorie malnutrition with serum albumin is only 2.1 g/dL. PLAN: To continue mechanical ventilation. Continue nutritional support. Continue with DVT and GI prophylaxis. REKHA CARMEN MD DR: CYNTHIA/desean JOB#: [id number] / [id number]
--- NOTE | 2019-02-24 10:31 | NUR ---
Per the critical care electrolyte protocol, total of 40 meq of potassium given by 1 dose of KCL 20meq and 1 dose of KPhos which includes 20 meq potassium and phosphorus.
--- NOTE | 2019-02-24 11:49 | PDOC ---
PROGRESS NOTES Subjective Subjective SEEN IN FOLLOW UP OF HYPOPHOSPHATEMIA Objective Objective Vital Signs Date Time Temp Pulse Resp B/P (MAP) Pulse Ox O2 Delivery O2 Flow Rate FiO2 02/24/19 09:00 70 22 146/69 (94) 100 Ventilator 02/24/19 08:00 98.6 98.6 l Intake and Output 02/24/19 07:00 Intake Total 5032.2 ml Output Total 2765 ml Balance 2267.2 ml IV Total 4392.2 ml Blood Product 320 ml Blood Product IV Normal Saline Flush 320 ml Output Urine Total 2765 ml Physical Exam Abdomen: Normal bowel sounds, Soft, No tenderness, No hepatosplenomegaly, No masses Heart: Regular rate, Normal S1, Normal S2, No murmurs, Gallops Extremities: No clubbing, No cyanosis, No edema, Normal pulses, No tenderness/swelling General: Other (SEDATED) Lungs: Clear to auscultation, Normal air movement, Other (ON VENT) Neuro: Other (SEDATED) Psych/Mental Status: Other (SEDATED) Diagnosis Other HYPOPHOSPHATEMIA Plan Plan of Care PHOS IS BETTER BUT STILL LOW. WILL REPLACE AND FOLLOW. SUPP K+ WELL Comment Review of Relevant I have reviewed the following items pallavi (where applicable) has been applied. Labs Laboratory Tests Test 02/22/19 15:15 02/23/19 04:55 02/23/19 08:00 02/23/19 10:45 Hemoglobin 7.1 g/dL (12.0-15.5) 6.4 g/dL (12.0-15.5) Hematocrit 21.0 % (36.0-47.0) 19.4 % (36.0-47.0) White Blood Count 7.3 x10^3/uL (4.0-11.0) Red Blood Count 2.23 x10^6/uL (3.50-5.40) Mean Corpuscular Volume 87 fL (79-100) Mean Corpuscular Hemoglobin 29 pg (25-35) Mean Corpuscular Hemoglobin Concent 33 g/dL (31-37) Red Cell Distribution Width 15.5 % (11.5-14.5) Platelet Count 52 x10^3/uL (140-400) Neutrophils (%) (Auto) 82 % (31-73) Lymphocytes (%) (Auto) 14 % (24-48) Monocytes (%) (Auto) 3 % (0-9) Eosinophils (%) (Auto) 1 % (0-3) Basophils (%) (Auto) 1 % (0-3) Neutrophils # (Auto) 5.9 x10^3/uL (1.8-7.7) Lymphocytes # (Auto) 1.0 x10^3/uL (1.0-4.8) Monocytes # (Auto) 0.2 x10^3/uL (0.0-1.1) Eosinophils # (Auto) 0.0 x10^3/uL (0.0-0.7) Basophils # (Auto) 0.1 x10^3/uL (0.0-0.2) Sodium Level 136 mmol/L (136-145) Potassium Level 3.1 mmol/L (3.5-5.1) Chloride Level 101 mmol/L (98-107) Carbon Dioxide Level 27 mmol/L (21-32) Anion Gap 8 (6-14) Blood Urea Nitrogen 13 mg/dL (7-20) Creatinine 1.0 mg/dL (0.6-1.0) Estimated GFR (Cockcroft-Gault) 68.4 BUN/Creatinine Ratio 13 (6-20) Glucose Level 135 mg/dL (70-99) Calcium Level 7.3 mg/dL (8.5-10.1) Phosphorus Level 0.8 mg/dL (2.6-4.7) Magnesium Level 1.8 mg/dL (1.8-2.4) Total Bilirubin 0.2 mg/dL (0.2-1.0) Aspartate Amino Transf (AST/SGOT) 37 U/L (15-37) Alanine Aminotransferase (ALT/SGPT) 10 U/L (14-59) Alkaline Phosphatase 91 U/L (46-116) Total Protein 5.7 g/dL (6.4-8.2) Albumin 2.1 g/dL (3.4-5.0) Albumin/Globulin Ratio 0.6 (1.0-1.7) O2 Saturation 99 % (92-99) Arterial Blood pH 7.56 (7.35-7.45) Arterial Blood pCO2 at Patient Temp 31 mmHg (35-46) Arterial Blood pO2 at Patient Temp 152 mmHg (65-108) Arterial Blood HCO3 27 mmol/L (21-28) Arterial Blood Base Excess 4 mmol/L (-3-3) Special Test - Miscellaneous See separate report Test 02/23/19 14:11 02/24/19 00:05 02/24/19 05:45 02/24/19 06:14 O2 Saturation 98 % (92-99) Arterial Blood pH 7.52 (7.35-7.45) Arterial Blood pCO2 at Patient Temp 29 mmHg (35-46) Arterial Blood pO2 at Patient Temp 105 mmHg (65-108) Arterial Blood HCO3 23 mmol/L (21-28) Arterial Blood Base Excess 1 mmol/L (-3-3) FiO2 40 Glucose (Fingerstick) 117 mg/dL (70-99) 105 mg/dL (70-99) White Blood Count 7.0 x10^3/uL (4.0-11.0) Red Blood Count 2.87 x10^6/uL (3.50-5.40) Hemoglobin 8.2 g/dL (12.0-15.5) Hematocrit 24.8 % (36.0-47.0) Mean Corpuscular Volume 86 fL (79-100) Mean Corpuscular Hemoglobin 29 pg (25-35) Mean Corpuscular Hemoglobin Concent 33 g/dL (31-37) Red Cell Distribution Width 14.3 % (11.5-14.5) Platelet Count 50 x10^3/uL (140-400) Neutrophils (%) (Auto) 79 % (31-73) Lymphocytes (%) (Auto) 14 % (24-48) Monocytes (%) (Auto) 4 % (0-9) Eosinophils (%) (Auto) 3 % (0-3) Basophils (%) (Auto) 1 % (0-3) Neutrophils # (Auto) 5.5 x10^3/uL (1.8-7.7) Lymphocytes # (Auto) 1.0 x10^3/uL (1.0-4.8) Monocytes # (Auto) 0.3 x10^3/uL (0.0-1.1) Eosinophils # (Auto) 0.2 x10^3/uL (0.0-0.7) Basophils # (Auto) 0.0 x10^3/uL (0.0-0.2) Sodium Level 140 mmol/L (136-145) Potassium Level 3.2 mmol/L (3.5-5.1) Chloride Level 106 mmol/L (98-107) Carbon Dioxide Level 23 mmol/L (21-32) Anion Gap 11 (6-14) Blood Urea Nitrogen 13 mg/dL (7-20) Creatinine 0.6 mg/dL (0.6-1.0) Estimated GFR (Cockcroft-Gault) 123.4 BUN/Creatinine Ratio 22 (6-20) Glucose Level 113 mg/dL (70-99) Calcium Level 7.8 mg/dL (8.5-10.1) Phosphorus Level 2.0 mg/dL (2.6-4.7) Magnesium Level 2.6 mg/dL (1.8-2.4) Total Bilirubin 0.3 mg/dL (0.2-1.0) Aspartate Amino Transf (AST/SGOT) 53 U/L (15-37) Alanine Aminotransferase (ALT/SGPT) 12 U/L (14-59) Alkaline Phosphatase 105 U/L (46-116) Total Protein 5.7 g/dL (6.4-8.2) Albumin 1.9 g/dL (3.4-5.0) Albumin/Globulin Ratio 0.5 (1.0-1.7) Test 02/24/19 07:25 O2 Saturation 99 % (92-99) Arterial Blood pH 7.48 (7.35-7.45) Arterial Blood pCO2 at Patient Temp 33 mmHg (35-46) Arterial Blood pO2 at Patient Temp 144 mmHg (65-108) Arterial Blood HCO3 24 mmol/L (21-28) Arterial Blood Base Excess 1 mmol/L (-3-3) FiO2 40% Laboratory Tests Test 02/23/19 14:11 02/24/19 00:05 02/24/19 05:45 02/24/19 06:14 O2 Saturation 98 % (92-99) Arterial Blood pH 7.52 (7.35-7.45) Arterial Blood pCO2 at Patient Temp 29 mmHg (35-46) Arterial Blood pO2 at Patient Temp 105 mmHg (65-108) Arterial Blood HCO3 23 mmol/L (21-28) Arterial Blood Base Excess 1 mmol/L (-3-3) FiO2 40 Glucose (Fingerstick) 117 mg/dL (70-99) 105 mg/dL (70-99) White Blood Count 7.0 x10^3/uL (4.0-11.0) Red Blood Count 2.87 x10^6/uL (3.50-5.40) Hemoglobin 8.2 g/dL (12.0-15.5) Hematocrit 24.8 % (36.0-47.0) Mean Corpuscular Volume 86 fL (79-100) Mean Corpuscular Hemoglobin 29 pg (25-35) Mean Corpuscular Hemoglobin Concent 33 g/dL (31-37) Red Cell Distribution Width 14.3 % (11.5-14.5) Platelet Count 50 x10^3/uL (140-400) Neutrophils (%) (Auto) 79 % (31-73) Lymphocytes (%) (Auto) 14 % (24-48) Monocytes (%) (Auto) 4 % (0-9) Eosinophils (%) (Auto) 3 % (0-3) Basophils (%) (Auto) 1 % (0-3) Neutrophils # (Auto) 5.5 x10^3/uL (1.8-7.7) Lymphocytes # (Auto) 1.0 x10^3/uL (1.0-4.8) Monocytes # (Auto) 0.3 x10^3/uL (0.0-1.1) Eosinophils # (Auto) 0.2 x10^3/uL (0.0-0.7) Basophils # (Auto) 0.0 x10^3/uL (0.0-0.2) Sodium Level 140 mmol/L (136-145) Potassium Level 3.2 mmol/L (3.5-5.1) Chloride Level 106 mmol/L (98-107) Carbon Dioxide Level 23 mmol/L (21-32) Anion Gap 11 (6-14) Blood Urea Nitrogen 13 mg/dL (7-20) Creatinine 0.6 mg/dL (0.6-1.0) Estimated GFR (Cockcroft-Gault) 123.4 BUN/Creatinine Ratio 22 (6-20) Glucose Level 113 mg/dL (70-99) Calcium Level 7.8 mg/dL (8.5-10.1) Phosphorus Level 2.0 mg/dL (2.6-4.7) Magnesium Level 2.6 mg/dL (1.8-2.4) Total Bilirubin 0.3 mg/dL (0.2-1.0) Aspartate Amino Transf (AST/SGOT) 53 U/L (15-37) Alanine Aminotransferase (ALT/SGPT) 12 U/L (14-59) Alkaline Phosphatase 105 U/L (46-116) Total Protein 5.7 g/dL (6.4-8.2) Albumin 1.9 g/dL (3.4-5.0) Albumin/Globulin Ratio 0.5 (1.0-1.7) Test 02/24/19 07:25 O2 Saturation 99 % (92-99) Arterial Blood pH 7.48 (7.35-7.45) Arterial Blood pCO2 at Patient Temp 33 mmHg (35-46) Arterial Blood pO2 at Patient Temp 144 mmHg (65-108) Arterial Blood HCO3 24 mmol/L (21-28) Arterial Blood Base Excess 1 mmol/L (-3-3) FiO2 40% Medications Current Medications Vecuronium [place] (Norcuron Bolus) 10 mg STK-MED ONCE IV ; Start 02/21/19 at 18:19; Stop 02/21/19 at 18:20; Status DC Fomepizole 0.675 gm/Sodium Chloride 100.675 ml @ 201.35 mls/hr 1X ONCE IV Last administered on 02/21/19at 20:13; Start 02/21/19 at 18:30; Stop 02/21/19 at 18:59; Status DC Sodium Bicarbonate 150 meq/Dextrose 1,150 ml @ 125 mls/hr [id number] IV Last administered on 02/22/19at 10:07; Start 02/21/19 at 18:30; Stop 02/22/19 at 11:32; Status DC Vecuronium [place] (Norcuron Bolus) 10 mg 1X ONCE IV Last administered on 02/21/19at 19:23; Start 02/21/19 at 19:30; Stop 02/21/19 at 19:31; Status DC Magnesium Sulfate 50 ml @ 25 mls/hr 1X ONCE IV Last administered on 02/21/19at 20:13; Start 02/21/19 at 20:00; Stop 02/21/19 at 21:59; Status DC Nicardipine HCl 50 mg/Sodium Chloride 250 ml @ 25 mls/hr CONT PRN IV SEE I/O RECORD Last administered on 02/21/19at 20:30; Start 02/21/19 at 20:00 Propofol 100 ml @ 0.667 mls/ hr CONT PRN IV SEE I/O RECORD Last administered on 02/24/19at 03:07; Start 02/21/19 at 20:45 Info (FLU VACCINE SCREEN per RX) 1 each PRN DAILY PRN MC SEE COMMENTS; Start 02/22/19 at 06:45; Status Cancel Fentanyl Citrate (Fentanyl 2ml Vial) 50 mcg PRN Q3HRS PRN IVP PAIN Last administered on 02/24/19at 03:07; Start 02/22/19 at 09:00 Magnesium Sulfate 50 ml @ 25 mls/hr 1X ONCE IV Last administered on 02/22/19at 09:22; Start 02/22/19 at 09:15; Stop 02/22/19 at 11:14; Status DC Info (Icu Electrolyte Protocol) 1 ea CONT PRN PRN MC PER PROTOCOL; Start 02/22/19 at 09:15 Potassium Chloride/Water 100 ml @ 100 mls/hr Q1H IV Last administered on 02/22/19at 10:36; Start 02/22/19 at 10:00; Stop 02/22/19 at 11:59; Status DC Sodium Chloride 500 ml @ 500 mls/hr 1X ONCE IV Last administered on 02/22/19at 11:00; Start 02/22/19 at 11:00; Stop 02/22/19 at 11:59; Status DC Potassium Phosphate 15 mmol/ Sodium Chloride 255 ml @ 127.5 mls/ hr Q2H IV Last administered on 02/22/19at 15:10; Start 02/22/19 at 12:00; Stop 02/22/19 at 15:59; Status DC Amino Acids/ Glycerin/ Electrolytes 1,000 ml @ 80 mls/hr [id number] IV Last administered on 02/24/19at 01:52; Start 02/22/19 at 12:00 Sodium Chloride 1,000 ml @ 75 mls/hr [id number] IV Last administered on 02/23/19at 03:48; Start 02/22/19 at 11:30; Stop 02/23/19 at 11:36; Status DC Pantoprazole Sodium (PROTONIX VIAL for IV PUSH) 40 mg DAILYAC IVP Last administered on 02/24/19at 07:41; Start 02/22/19 at 14:00 Influenza Virus Vaccine Quadrival (Afluria Quad 2019-20 (3yr Up) Syringe) 0.5 ml ONCE ONCE VAX IM Last administered on 02/23/19at 11:52; Start 02/23/19 at 09:00; Stop 02/23/19 at 09:01; Status DC Magnesium Sulfate 100 ml @ 50 mls/hr 1X ONCE IV Last administered on 02/23/19at 07:56; Start 02/23/19 at 08:00; Stop 02/23/19 at 09:59; Status DC Potassium Phosphate 13.632 mmol/Sodium Chloride 254.544 ml @ 62.5 mls/ hr 1X ONCE IV Last administered on 02/23/19at 07:56; Start 02/23/19 at 08:00; Stop 02/23/19 at 12:04; Status DC Sodium Chloride 1,000 ml @ 75 mls/hr [id number] IV Last administered on 02/23/19at 23:55; Start 02/23/19 at 13:30 Thiamine HCl 100 mg/Dextrose 51 ml @ 100 mls/hr DAILY IV Last administered on 02/24/19at 09:01; Start 02/23/19 at 16:00; Stop 02/27/19 at 09:31 Fentanyl Citrate 30 ml @ 0 mls/hr CONT PRN PRN IV PER PROTOCOL; Start 02/24/19 at 07:15; Status Cancel Naloxone HCl (Narcan) 0.4 mg PRN Q2MIN PRN IV SEE INSTRUCTIONS; Start 02/24/19 at 07:15; Status Cancel Sodium Chloride 1,000 ml @ 25 mls/hr Q24H IV Last administered on 02/24/19at 07:26; Start 02/24/19 at 07:06; Stop 02/24/19 at 07:57; Status DC Fentanyl Citrate 30 ml @ 0 mls/hr CONT PRN IV SEE PROTOCOL Last administered on 02/24/19at 08:05; Start 02/24/19 at 08:00 Potassium Chloride/Water 100 ml @ 100 mls/hr Q1H IV Last administered on 02/24/19at 09:37; Start 02/24/19 at 09:00; Stop 02/24/19 at 10:31; Status DC Potassium Phosphate 13.6 mmol/Sodium Chloride 254.5333 ml @ 62.5 mls/hr 1X ONCE IV Last administered on 02/24/19at 10:53; Start 02/24/19 at 09:00; Stop 02/24/19 at 13:04 Levofloxacin/ Dextrose 150 ml @ 100 mls/hr Q24H IV ; Start 02/24/19 at 10:00 Albuterol/ Ipratropium (Duoneb) 3 ml RTQID NEB ; Start 02/24/19 at 12:00 Scopolamine (Transderm-Scop) 1 patch Q3DAYS TD ; Start 02/25/19 at 12:00 Dexmedetomidine HCl 400 mcg/ Sodium Chloride 100 ml @ 0 mls/hr CONT PRN IV PER PROTOCOL; Start 02/24/19 at 11:45 Active Scripts Active Potassium Chloride 20 Meq Tablet.er 20 Meq PO BID 30 Days Oxycodone Hcl 5 Mg Capsule 5 Mg PO PRN Q6HRS PRN 5 Days Amlodipine Besylate 10 Mg Tablet 10 Mg PO DAILY 30 Days Reported Melatonin 3 Mg Tab.rapdis 3 Mg PO HS PRN Nephro-Nola Tablet (Folic Acid/Vitamin B Comp W-C) 0.8 Mg Tablet 1 Tab PO DAILY Vitamin B-12 (Cyanocobalamin (Vitamin B-12)) 1,000 Mcg Tablet 1,000 Mcg PO DAILY Megestrol Acetate 20 Mg Tablet 20 Mg PO DAILY Protonix (Pantoprazole Sodium) 20 Mg Tablet.dr 40 Mg PO DAILY Zoloft (Sertraline Hcl) 50 Mg Tablet 1 Tab PO DAILY Zoloft (Sertraline Hcl) 25 Mg Tablet 1 Tab PO DAILY Coreg (Carvedilol) 25 Mg Tablet 6.25 Mg PO BIDWMEALS Lipitor (Atorvastatin Calcium) 10 Mg Tablet 1 Tab PO QHS Duoneb 0.5-3(2.5) Mg/3 Ml (Albuterol/Ipratropium) 3 Ml Ampul.neb 3 Ml NEB QID PRN Vitals/I & O Vital Sign - Last 24 Hours 02/23/19 02/23/19 02/23/19 02/23/19 11:55 11:57 11:58 12:43 Pulse 84 89 Resp 16 B/P (MAP) 146/74 (98) 154/80 (104) Pulse Ox 100 100 O2 Delivery Ventilator Mechanical Ventilator Ventilator 02/23/19 02/23/19 02/23/19 02/23/19 13:24 13:44 14:07 14:36 Pulse 82 99 Resp 16 34 B/P (MAP) 140/69 (92) 188/88 (121) Pulse Ox 100 100 100 100 O2 Delivery Ventilator Ventilator Ventilator 02/23/19 02/23/19 02/23/19 02/23/19 16:01 16:05 16:08 16:08 Temp 98.2 98.2 Pulse 99 73 Resp 16 B/P (MAP) 138/67 (90) 132/63 (86) Pulse Ox 100 100 O2 Delivery Ventilator Mechanical Ventilator Ventilator 02/23/19 02/23/19 02/23/19 02/23/19 16:31 18:00 19:00 20:00 Temp 98.4 98.4 Pulse 66 68 64 Resp 16 16 16 B/P (MAP) 137/70 (92) 148/73 (98) 133/66 (88) Pulse Ox 100 100 100 100 O2 Delivery Ventilator Ventilator Ventilator Ventilator 02/23/19 02/23/19 02/23/19 02/23/19 20:00 20:00 20:31 21:00 Pulse 65 69 Resp 16 B/P (MAP) 133/64 (87) 160/77 (104) Pulse Ox 100 100 O2 Delivery Mechanical Ventilator Ventilator Ventilator 02/23/19 02/23/19 02/23/19 02/23/19 22:00 22:44 23:00 23:15 Pulse 69 63 Resp 16 22 18 16 B/P (MAP) 154/74 (100) 125/61 (82) Pulse Ox 100 100 O2 Delivery Ventilator Ventilator 02/23/19 02/24/19 02/24/19 02/24/19 23:28 00:00 00:00 00:00 Temp 98.2 98.2 Pulse 63 64 Resp 16 B/P (MAP) 144/70 (94) 142/69 (93) Pulse Ox 100 100 O2 Delivery Ventilator Mechanical Ventilator Ventilator 02/24/19 02/24/19 02/24/19 02/24/19 01:00 01:45 02:00 03:00 Pulse 75 64 66 Resp 15 18 18 B/P (MAP) 171/85 (113) 137/67 (90) 148/72 (97) Pulse Ox 100 100 100 100 O2 Delivery Ventilator Ventilator Ventilator Ventilator 02/24/19 02/24/19 02/24/19 02/24/19 03:07 03:10 03:37 04:00 Pulse 73 Resp 24 18 B/P (MAP) 146/71 (96) Pulse Ox 100 O2 Delivery Ventilator 02/24/19 02/24/19 02/24/19 02/24/19 04:00 04:00 05:00 05:24 Temp 98.8 98.8 Pulse 73 71 Resp 22 16 B/P (MAP) 147/72 (97) 160/77 (104) Pulse Ox 100 100 100 O2 Delivery Ventilator Mechanical Ventilator Ventilator Ventilator 02/24/19 02/24/19 02/24/19 02/24/19 06:00 07:00 07:32 08:00 Pulse 70 70 81 Resp 22 22 B/P (MAP) 154/71 (98) 163/75 (104) 176/83 (114) 168/89 (115) Pulse Ox 100 100 100 O2 Delivery Ventilator Ventilator Ventilator 02/24/19 02/24/19 02/24/19 02/24/19 08:00 08:00 08:05 08:34 Temp 98.6 98.6 Pulse 70 Resp 22 23 B/P (MAP) 176/83 (114) Pulse Ox 100 100 100 O2 Delivery Mechanical Ventilator Ventilator Ventilator Ventilator 02/24/19 09:00 Pulse 70 Resp 22 B/P (MAP) 146/69 (94) Pulse Ox 100 O2 Delivery Ventilator Intake and Output 02/23/19 02/23/19 02/24/19 15:00 23:00 07:00 Intake Total 674 ml 2307 ml 2051.2 ml Output Total 670 ml 1200 ml 895 ml Balance 4 ml 1107 ml 1156.2 ml Hemodynamically unstable?: Yes Is patient in severe pain?: Yes Is NPO status required?: Yes ROXANA VALE MD Feb 24, 2019 11:49
[2019-02-24] MEDS: IPRATRPIUM/ALBUTEROL 0.5/2.5MG 3 ML NEBU. NEB SCH ×3 (11:57→20:00)
[2019-02-24] MEDS: DEXMEDETOMIDINE 400 MCG in IV NORMAL SALINE 100ML 96 ML IV PRN (12:12)
[2019-02-24] MEDS ORDERED: SCOPOLAMINE 1.5MG PATCH. TD ONE (13:08)
[2019-02-24] MEDS: SCOPOLAMINE 1.5MG PATCH. TD SCH (13:10)
[2019-02-24] MEDS ORDERED: IV NORMAL SALINE 1000ML BAG 500 ML IV SCH (17:45)
[2019-02-24] MEDS: IV NORMAL SALINE 1000ML BAG 1,000 ML IV SCH (18:32)
[2019-02-24 22:17] LABS: PHOSPHORUS 3.1 mg/dL (2.6-4.7); POTASSIUM 3.9 mmol/L (3.5-5.1)
[2019-02-25] VITALS (24 sets, daily range): BP systolic 112–191; BP diastolic 52–101
--- NOTE | 2019-02-25 00:26 | NUR ---
Cardene drip restarted for persistent SBP >180 while sedated.
[2019-02-25] MEDS: DEXMEDETOMIDINE 400 MCG in IV NORMAL SALINE 100ML 96 ML IV PRN ×3 (04:09→20:49)
[2019-02-25] MEDS: AMINO AC 3%/ELECTROLYTE/GLYCER 1,000 ML IV SCH ×2 (04:10→16:01)
[2019-02-25 05:20] LABS: BASO % 1 % (0-3); EOS # 0.3 x10^3/uL (0.0-0.7); EOS % 4 % (0-3); HEMOGLOBIN 8.3 g/dL (12.0-15.5); LYMPH # 1.1 x10^3/uL (1.0-4.8); LYMPH % 16 % (24-48); MEAN CORPUSCULAR HEMOGLOBIN 29 pg (25-35); MEAN CORPUSCULAR HGB CONC 33 g/dL (31-37); MEAN CORPUSCULAR VOLUME 87 fL (79-100); MONO # 0.6 x10^3/uL (0.0-1.1); MONO % 9 % (0-9); NEUT % 71 % (31-73); PLATELET COUNT 56 x10^3/uL (140-400); RED BLOOD COUNT 2.88 x10^6/uL (3.50-5.40); RED CELL DISTRIBUTION WIDTH 14.7 % (11.5-14.5); WHITE BLOOD COUNT 7.1 x10^3/uL (4.0-11.0)
[2019-02-25 06:09] LABS: ALBUMIN 1.7 g/dL (3.4-5.0); ALBUMIN/GLOBULIN RATIO 0.4 (1.0-1.7); CALCIUM 8.2 mg/dL (8.5-10.1); CREATININE 0.6 mg/dL (0.6-1.0); GFR 123.4; POTASSIUM 3.7 mmol/L (3.5-5.1); TOTAL BILIRUBIN 0.2 mg/dL (0.2-1.0); TOTAL PROTEIN 5.9 g/dL (6.4-8.2)
[2019-02-25] MEDS: IV NORMAL SALINE 1000ML BAG 1,000 ML IV SCH ×2 (07:17→20:49)
--- NOTE | 2019-02-25 07:21 | PDOC ---
PULMONARY PROGRESS NOTES Subjective on vent, sedated, on propofol, fentanyl, mod to large ett secretion, on Cardene Vitals Vital Signs Date Time Temp Pulse Resp B/P (MAP) Pulse Ox O2 Delivery O2 Flow Rate FiO2 02/25/19 07:09 100 Ventilator 02/25/19 06:00 74 15 139/65 (89) 02/25/19 04:00 99.2 99.2 Comments ros as mentioned as above discussed w rn other sys otherwise neg sedated on vent HEENT: Other (nc at perrl nose clear orally intubated neck no lad no thyromegaly) Lungs: Crackles, Other (dull at r base) Cardiovascular: S1, S2 Abdomen: Soft, Non-tender, Other (no mass) Extremities: No Edema, Other Skin: Warm Labs Laboratory Tests Test 02/23/19 08:00 02/23/19 10:45 02/23/19 14:11 02/24/19 00:05 O2 Saturation 99 % (92-99) 98 % (92-99) Arterial Blood pH 7.56 (7.35-7.45) 7.52 (7.35-7.45) Arterial Blood pCO2 at Patient Temp 31 mmHg (35-46) 29 mmHg (35-46) Arterial Blood pO2 at Patient Temp 152 mmHg (65-108) 105 mmHg (65-108) Arterial Blood HCO3 27 mmol/L (21-28) 23 mmol/L (21-28) Arterial Blood Base Excess 4 mmol/L (-3-3) 1 mmol/L (-3-3) Special Test - Miscellaneous See separate report FiO2 40 Glucose (Fingerstick) 117 mg/dL (70-99) Test 02/24/19 05:45 02/24/19 06:14 02/24/19 07:25 02/24/19 13:19 White Blood Count 7.0 x10^3/uL (4.0-11.0) Red Blood Count 2.87 x10^6/uL (3.50-5.40) Hemoglobin 8.2 g/dL (12.0-15.5) Hematocrit 24.8 % (36.0-47.0) Mean Corpuscular Volume 86 fL (79-100) Mean Corpuscular Hemoglobin 29 pg (25-35) Mean Corpuscular Hemoglobin Concent 33 g/dL (31-37) Red Cell Distribution Width 14.3 % (11.5-14.5) Platelet Count 50 x10^3/uL (140-400) Neutrophils (%) (Auto) 79 % (31-73) Lymphocytes (%) (Auto) 14 % (24-48) Monocytes (%) (Auto) 4 % (0-9) Eosinophils (%) (Auto) 3 % (0-3) Basophils (%) (Auto) 1 % (0-3) Neutrophils # (Auto) 5.5 x10^3/uL (1.8-7.7) Lymphocytes # (Auto) 1.0 x10^3/uL (1.0-4.8) Monocytes # (Auto) 0.3 x10^3/uL (0.0-1.1) Eosinophils # (Auto) 0.2 x10^3/uL (0.0-0.7) Basophils # (Auto) 0.0 x10^3/uL (0.0-0.2) Sodium Level 140 mmol/L (136-145) Potassium Level 3.2 mmol/L (3.5-5.1) Chloride Level 106 mmol/L (98-107) Carbon Dioxide Level 23 mmol/L (21-32) Anion Gap 11 (6-14) Blood Urea Nitrogen 13 mg/dL (7-20) Creatinine 0.6 mg/dL (0.6-1.0) Estimated GFR (Cockcroft-Gault) 123.4 BUN/Creatinine Ratio 22 (6-20) Glucose Level 113 mg/dL (70-99) Calcium Level 7.8 mg/dL (8.5-10.1) Phosphorus Level 2.0 mg/dL (2.6-4.7) Magnesium Level 2.6 mg/dL (1.8-2.4) Total Bilirubin 0.3 mg/dL (0.2-1.0) Aspartate Amino Transf (AST/SGOT) 53 U/L (15-37) Alanine Aminotransferase (ALT/SGPT) 12 U/L (14-59) Alkaline Phosphatase 105 U/L (46-116) Total Protein 5.7 g/dL (6.4-8.2) Albumin 1.9 g/dL (3.4-5.0) Albumin/Globulin Ratio 0.5 (1.0-1.7) Glucose (Fingerstick) 105 mg/dL (70-99) 93 mg/dL (70-99) O2 Saturation 99 % (92-99) Arterial Blood pH 7.48 (7.35-7.45) Arterial Blood pCO2 at Patient Temp 33 mmHg (35-46) Arterial Blood pO2 at Patient Temp 144 mmHg (65-108) Arterial Blood HCO3 24 mmol/L (21-28) Arterial Blood Base Excess 1 mmol/L (-3-3) FiO2 40% Test 02/24/19 16:49 02/24/19 22:00 02/25/19 05:00 Glucose (Fingerstick) 95 mg/dL (70-99) Potassium Level 3.9 mmol/L (3.5-5.1) 3.7 mmol/L (3.5-5.1) Phosphorus Level 3.1 mg/dL (2.6-4.7) White Blood Count 7.1 x10^3/uL (4.0-11.0) Red Blood Count 2.88 x10^6/uL (3.50-5.40) Hemoglobin 8.3 g/dL (12.0-15.5) Hematocrit 25.0 % (36.0-47.0) Mean Corpuscular Volume 87 fL (79-100) Mean Corpuscular Hemoglobin 29 pg (25-35) Mean Corpuscular Hemoglobin Concent 33 g/dL (31-37) Red Cell Distribution Width 14.7 % (11.5-14.5) Platelet Count 56 x10^3/uL (140-400) Neutrophils (%) (Auto) 71 % (31-73) Lymphocytes (%) (Auto) 16 % (24-48) Monocytes (%) (Auto) 9 % (0-9) Eosinophils (%) (Auto) 4 % (0-3) Basophils (%) (Auto) 1 % (0-3) Neutrophils # (Auto) 5.0 x10^3/uL (1.8-7.7) Lymphocytes # (Auto) 1.1 x10^3/uL (1.0-4.8) Monocytes # (Auto) 0.6 x10^3/uL (0.0-1.1) Eosinophils # (Auto) 0.3 x10^3/uL (0.0-0.7) Basophils # (Auto) 0.0 x10^3/uL (0.0-0.2) Sodium Level 139 mmol/L (136-145) Chloride Level 107 mmol/L (98-107) Carbon Dioxide Level 21 mmol/L (21-32) Anion Gap 11 (6-14) Blood Urea Nitrogen 14 mg/dL (7-20) Creatinine 0.6 mg/dL (0.6-1.0) Estimated GFR (Cockcroft-Gault) 123.4 BUN/Creatinine Ratio 23 (6-20) Glucose Level 104 mg/dL (70-99) Calcium Level 8.2 mg/dL (8.5-10.1) Total Bilirubin 0.2 mg/dL (0.2-1.0) Aspartate Amino Transf (AST/SGOT) 25 U/L (15-37) Alanine Aminotransferase (ALT/SGPT) 8 U/L (14-59) Alkaline Phosphatase 112 U/L (46-116) Total Protein 5.9 g/dL (6.4-8.2) Albumin 1.7 g/dL (3.4-5.0) Albumin/Globulin Ratio 0.4 (1.0-1.7) Laboratory Tests Test 02/24/19 07:25 02/24/19 13:19 02/24/19 16:49 02/24/19 22:00 O2 Saturation 99 % (92-99) Arterial Blood pH 7.48 (7.35-7.45) Arterial Blood pCO2 at Patient Temp 33 mmHg (35-46) Arterial Blood pO2 at Patient Temp 144 mmHg (65-108) Arterial Blood HCO3 24 mmol/L (21-28) Arterial Blood Base Excess 1 mmol/L (-3-3) FiO2 40% Glucose (Fingerstick) 93 mg/dL (70-99) 95 mg/dL (70-99) Potassium Level 3.9 mmol/L (3.5-5.1) Phosphorus Level 3.1 mg/dL (2.6-4.7) Test 02/25/19 05:00 White Blood Count 7.1 x10^3/uL (4.0-11.0) Red Blood Count 2.88 x10^6/uL (3.50-5.40) Hemoglobin 8.3 g/dL (12.0-15.5) Hematocrit 25.0 % (36.0-47.0) Mean Corpuscular Volume 87 fL (79-100) Mean Corpuscular Hemoglobin 29 pg (25-35) Mean Corpuscular Hemoglobin Concent 33 g/dL (31-37) Red Cell Distribution Width 14.7 % (11.5-14.5) Platelet Count 56 x10^3/uL (140-400) Neutrophils (%) (Auto) 71 % (31-73) Lymphocytes (%) (Auto) 16 % (24-48) Monocytes (%) (Auto) 9 % (0-9) Eosinophils (%) (Auto) 4 % (0-3) Basophils (%) (Auto) 1 % (0-3) Neutrophils # (Auto) 5.0 x10^3/uL (1.8-7.7) Lymphocytes # (Auto) 1.1 x10^3/uL (1.0-4.8) Monocytes # (Auto) 0.6 x10^3/uL (0.0-1.1) Eosinophils # (Auto) 0.3 x10^3/uL (0.0-0.7) Basophils # (Auto) 0.0 x10^3/uL (0.0-0.2) Sodium Level 139 mmol/L (136-145) Potassium Level 3.7 mmol/L (3.5-5.1) Chloride Level 107 mmol/L (98-107) Carbon Dioxide Level 21 mmol/L (21-32) Anion Gap 11 (6-14) Blood Urea Nitrogen 14 mg/dL (7-20) Creatinine 0.6 mg/dL (0.6-1.0) Estimated GFR (Cockcroft-Gault) 123.4 BUN/Creatinine Ratio 23 (6-20) Glucose Level 104 mg/dL (70-99) Calcium Level 8.2 mg/dL (8.5-10.1) Total Bilirubin 0.2 mg/dL (0.2-1.0) Aspartate Amino Transf (AST/SGOT) 25 U/L (15-37) Alanine Aminotransferase (ALT/SGPT) 8 U/L (14-59) Alkaline Phosphatase 112 U/L (46-116) Total Protein 5.9 g/dL (6.4-8.2) Albumin 1.7 g/dL (3.4-5.0) Albumin/Globulin Ratio 0.4 (1.0-1.7) Medications Active Scripts Medications Dose Route/Sig Max Daily Dose Days Date Category Potassium Chloride 20 Meq Tablet.er 20 Meq PO BID 30 08/11/18 Rx Oxycodone Hcl 5 Mg Capsule 5 Mg PO PRN Q6HRS PRN 5 08/11/18 Rx Amlodipine Besylate 10 Mg Tablet 10 Mg PO DAILY 30 08/11/18 Rx Melatonin 3 Mg Tab.rapdis 3 Mg PO HS PRN 07/27/18 Reported Nephro-Nola Tablet (Folic Acid/Vitamin B Comp W-C) 0.8 Mg Tablet 1 Tab PO DAILY 07/27/18 Reported Vitamin B-12 (Cyanocobalamin (Vitamin B-12)) 1,000 Mcg Tablet 1,000 Mcg PO DAILY 07/27/18 Reported Megestrol Acetate 20 Mg Tablet 20 Mg PO DAILY 07/27/18 Reported Protonix (Pantoprazole Sodium) 20 Mg Tablet.dr 40 Mg PO DAILY 07/27/18 Reported Zoloft (Sertraline Hcl) 50 Mg Tablet 1 Tab PO DAILY 07/27/18 Reported Zoloft (Sertraline Hcl) 25 Mg Tablet 1 Tab PO DAILY 07/27/18 Reported Coreg (Carvedilol) 25 Mg Tablet 6.25 Mg PO BIDWMEALS 07/27/18 Reported Lipitor (Atorvastatin Calcium) 10 Mg Tablet 1 Tab PO QHS 07/27/18 Reported Duoneb 0.5-3(2.5) Mg/3 Ml (Albuterol/Ipratropium) 3 Ml Ampul.neb 3 Ml NEB QID PRN 07/27/18 Reported Comments cxr reviewed r infilt ett ok Impression . IMPRESSION: 1. Acute respiratory failure secondary to severe metabolic acidosis. 2. Severe metabolic acidosis, etiology unclear. resolved 3. History of alcohol abuse. 4. Hypotension. 5. History of seizure disorder. 6. Hypomagnesemia. resolved 7. Hypo k 8. Colitis. 9. Ileus. 10. Pneumonia. abnl cxr 11 ACUTE DROP IN HCT, s/p prbc hb stable Plan . cont vent support, setting reviewed, decrease sedation, alphonse do sbt cxr reviewed sputum cx s/p TRANSFUSion, h/h stable, on protonix iv ANTI BX fu cxs BD discussed w rn, rt NORMAN YEN MD Feb 25, 2019 07:20
[2019-02-25] MEDS: IPRATRPIUM/ALBUTEROL 0.5/2.5MG 3 ML NEBU. NEB SCH ×4 (07:24→21:26)
[2019-02-25] MEDS: PANTOPRAZOLE IV PUSH 40 MG VIAL. IVP SCH (07:41)
[2019-02-25 08:24] LABS: BASE EXCESS ABG -3 mmol/L (-3-3); HCO3 ABG 20 mmol/L (21-28); PCO2 ABG 30 mmHg (35-46); PO2 ABG 84 mmHg (65-108); SAT O2 ABG 96 % (92-99)
[2019-02-25 08:26] LABS: FIO2 ABG 40
[2019-02-25] MEDS: THIAMINE INJ 100 MG in IV DEXTROSE 5% 50 ML IV SCH (08:26)
[2019-02-25 10:46] LABS: BASE EXCESS ABG -5 mmol/L (-3-3); HCO3 ABG 19 mmol/L (21-28); PCO2 ABG 27 mmHg (35-46); PO2 ABG 89 mmHg (65-108); SAT O2 ABG 96 % (92-99)
[2019-02-25 11:03] LABS: FIO2 ABG 40
--- NOTE | 2019-02-25 11:56 | PN ---
DATE: 02/25/2019 SUBJECTIVE: The patient is resting, slightly propped up in bed, in no apparent distress. She is off the sedation, attempt to wean her off. She has somewhat swollen lips and also periorbital edema, the cause of which is not clear to me. Her lab work showed that she is obviously extremely malnourished with severe hypoalbuminemia of only 1.7. PHYSICAL EXAMINATION: GENERAL: When I examined her, she looked pale, but no jaundice, cyanosis or thyromegaly. No jugular venous distension. No lower limb edema. VITAL SIGNS: Her heart rate was 74, blood pressure was 139/65, temperature was 99.2, respiratory rate was 15 and oxygen saturation was 99% on FiO2 of 40%. HEAD, EYES, EARS, NOSE AND THROAT: She is normocephalic, atraumatic. She has orotracheal and orogastric tube. NECK: Supple. HEART: Showed normal first and second heart sounds. No gallop or murmur. CHEST: Clear to auscultation. No crepitation or rhonchi at least anteriorly. NEUROLOGIC: She is awake, alert, opens eyes. Moves her extremities. Her intake over the last 24 hours was 5000, output was 2665. LABORATORY DATA: As of this morning showed a serum sodium 139, potassium 3.7, chloride 107, bicarbonate 21, anion gap of 11, BUN 14, creatinine 0.6, estimated GFR was 133 mL per minute. Her glucose was 104, calcium was 8.2. AST, ALT, alkaline phosphatase were normal. Total protein was 5.9, albumin was 1.7. Her white cell count was 7100, hemoglobin 8.3, hematocrit 25, MCV 87 and platelet count 56,000. ASSESSMENT: 1. Severe metabolic acidosis of unclear etiology. 2. Acute respiratory failure, requiring intubation and mechanical ventilation. 3. Alcoholism, alcohol withdrawal seizures. 4. Hypertension. 5. Severe anemia, which she received 1 unit of packed RBCs. 6. Hypokalemia, hypophosphatemia and hyperlipidemia have all resolved. 7. Severe protein-calorie malnutrition, serum albumin is only 1.7 g/dL. PLAN: To continue mechanical ventilation, wean as tolerated. Continue nutritional support. Continue with DVT and GI prophylaxis. Continue with IV antibiotic in the form of Levaquin. Continue with PPN. REKHA CARMEN MD DR: CYNTHIA/desean JOB#: [id number] / [id number]
--- NOTE | 2019-02-25 12:10 | NUR ---
Patient being prepared to extubate. RT checked for swelling in the throat - let out air in ET cuff, patient continuously coughing and struggling to breathe. Informed patient and family that the ET tube could not be removed today because of her struggle to breathe. Family understanding and accepting of plan, patient very agitated. Put sedation back on patient at this time.
[2019-02-25] MEDS: PROPOFOL 100 ML IV PRN (12:22)
--- NOTE | 2019-02-25 12:50 | NUR ---
Notified Dr. Mayes of patient's struggle and excessive secretions when letting out air of ET tube cuff and that RT and RN didn't feel like patient would be successful with extubation therefore extubated not completed. Request for Ativan prn to calm patient back down d/t increased agitation for not being able to extubate. Orders received.
--- NOTE | 2019-02-25 14:08 | RAD ---
Single view chest dated 02/25/2019. Comparison made to 02/24/2019. Clinical data indication: Congestion and cough. FINDINGS: Single upright portable exam performed. Heart and mediastinal contours are stable. Endotracheal tube, nasogastric tube and right internal jugular central catheter in place, unchanged. Heart and mediastinal contours are stable. Bilateral airspace disease with blunting of the costophrenic sulci, right greater than left, unchanged. No new infiltrate or pneumothorax. IMPRESSION: 1. Bilateral airspace disease with right greater than left pleural effusions, unchanged. 2. Stable position of tubes and lines. Electronically signed by: Gene Henry MD (02/25/2019 2:05 PM) [facility]
[2019-02-26] VITALS (24 sets, daily range): BP systolic 108–168; BP diastolic 55–78
[2019-02-26] MEDS: DEXMEDETOMIDINE 400 MCG in IV NORMAL SALINE 100ML 96 ML IV PRN ×2 (01:56→06:14)
[2019-02-26] MEDS: PROPOFOL 100 ML IV PRN ×3 (04:26→21:32)
[2019-02-26] MEDS: AMINO AC 3%/ELECTROLYTE/GLYCER 1,000 ML IV SCH (05:14)
--- NOTE | 2019-02-26 05:38 | RAD ---
AP chest. HISTORY: Patient on ventilator AP view was taken of the chest. Endotracheal tube is unchanged in good position. Central line and NG tube are unchanged. There are diffuse bilateral infiltrates with little interval change. IMPRESSION: 1. Tubes and lines unchanged. 2. Bilateral infiltrates with little change. Electronically signed by: Parish Galaviz MD (02/26/2019 5:35 AM) [id number]
[2019-02-26 06:26] LABS: CALCIUM 8.4 mg/dL (8.5-10.1); CREATININE 0.6 mg/dL (0.6-1.0); GFR 123.4; MAGNESIUM 1.4 mg/dL (1.8-2.4); POTASSIUM 3.6 mmol/L (3.5-5.1)
[2019-02-26 06:27] LABS: BASO % 0 % (0-3); EOS # 0.2 x10^3/uL (0.0-0.7); EOS % 3 % (0-3); HEMATOCRIT 23.8 % (36.0-47.0); HEMOGLOBIN 7.8 g/dL (12.0-15.5); LYMPH # 0.9 x10^3/uL (1.0-4.8); LYMPH % 14 % (24-48); MEAN CORPUSCULAR HEMOGLOBIN 28 pg (25-35); MEAN CORPUSCULAR HGB CONC 33 g/dL (31-37); MEAN CORPUSCULAR VOLUME 87 fL (79-100); MONO # 1.2 x10^3/uL (0.0-1.1); MONO % 19 % (0-9); NEUT % 64 % (31-73); PLATELET COUNT 82 x10^3/uL (140-400); RED BLOOD COUNT 2.74 x10^6/uL (3.50-5.40); RED CELL DISTRIBUTION WIDTH 14.6 % (11.5-14.5); WHITE BLOOD COUNT 6.3 x10^3/uL (4.0-11.0)
[2019-02-26] MEDS ORDERED: MAGNESIUM SULFATE 4GM 100 ML IV ONE (07:00)
[2019-02-26] MEDS: IPRATRPIUM/ALBUTEROL 0.5/2.5MG 3 ML NEBU. NEB SCH ×4 (07:33→19:38)
[2019-02-26] MEDS: PANTOPRAZOLE IV PUSH 40 MG VIAL. IVP SCH (07:44)
[2019-02-26] MEDS ORDERED: AA 4.25 %/CALCIUM/LYTES/D5W 1,000 ML IV SCH (07:45)
[2019-02-26 07:46] LABS: BASE EXCESS ABG -5 mmol/L (-3-3); HCO3 ABG 19 mmol/L (21-28); PCO2 ABG 30 mmHg (35-46); PO2 ABG 90 mmHg (65-108); SAT O2 ABG 96 % (92-99)
[2019-02-26] MEDS ORDERED: MAGNESIUM SULFATE 2GM 50 ML IV ONE (08:15)
[2019-02-26 09:47] LABS: FIO2 ABG 40
--- NOTE | 2019-02-26 09:48 | PN ---
DATE: 02/26/2019 SUBJECTIVE: The patient is resting, slightly propped up, heavily sedated, intubated and mechanically ventilated. Nursing staff concerned that her blood pressure is going up and they tried to discontinue the Cardene drip. She continued to be sedated on Precedex and fentanyl as well as Ativan. PHYSICAL EXAMINATION: GENERAL: When I examined her this morning, she looked pale, no jaundice, cyanosis or thyromegaly. No jugular venous distention. No lower limb edema. VITAL SIGNS: Her heart rate was 67, blood pressure was 157/65, temperature was 99.5, respiratory rate was 16, and oxygen saturation 100% on FiO2 of 35%. HEAD, EYES, EARS, NOSE AND THROAT: Showed normocephalic, atraumatic. She has orotracheal and orogastric tube. NECK: Supple. HEART: Showed normal first and second heart sounds with no gallop, rub or murmur. CHEST: Clear to auscultation. No crepitation or rhonchi. ABDOMEN: Distended, soft, nontender. NEUROLOGIC: She is heavily sedated. Her intake over the last 24 hours was 4600, output was 2700. LABORATORY DATA: As of this morning, her white cell count is 6300, hemoglobin 7.8, hematocrit 24, MCV 87 and platelet count of 82,000. Her chemistry showed a serum sodium 136, potassium 3.6, chloride 104, bicarbonate 20, anion gap of 12, BUN 16, creatinine 0.6, estimated GFR was 123 mL per minute. Her glucose was 98, calcium was 8.4, magnesium is low at 1.4. ASSESSMENT: 1. Severe metabolic acidosis of unknown etiology. 2. Acute respiratory failure secondary to metabolic acidosis requiring intubation and mechanical ventilation. 3. Alcoholism, alcohol withdrawal seizures. 4. Hypertension. 5. Severe anemia, which she received 1 unit of packed RBCs. 6. Hypokalemia, hypophosphatemia and hypomagnesemia. 7. Severe protein calorie malnutrition and serum albumin is only 1.7 g/dL. PLAN: To continue with sedation and mechanical ventilation, wean as tolerated. Continue nutritional support. Continue with DVT and GI prophylaxis. Continue IV antibiotic in the form of Levaquin. Continue with TPN. Her magnesium is only 1.4, so ordered magnesium sulfate 2 grams IV and also hydralazine 10 mg IV every 4 hours for systolic pressure more than 160. REKHA CARMEN MD DR: CYNTHIA/desean JOB#: [id number] / [id number]
[2019-02-26 09:54] LABS: % ATYL 1 % (0-0); % BANDS 4 % (0-9); % EOS 2 % (0-5); % LYMPHS 11 % (24-48); % MONOS 16 % (0-10); % SEGS 66 % (35-66); PLT ESTIMATE DECREASED (ADEQUATE)
--- NOTE | 2019-02-26 10:00 | PDOC ---
PULMONARY PROGRESS NOTES Subjective on vent, sedated, on propofol, fentanyl, mod ett secretion, Vitals Vital Signs Date Time Temp Pulse Resp B/P (MAP) Pulse Ox O2 Delivery O2 Flow Rate FiO2 02/26/19 07:33 100 Ventilator 02/26/19 06:00 67 16 157/65 (95) 02/26/19 04:00 99.5 99.5 Comments ros as mentioned as above discussed w rn other sys otherwise neg sedated on vent HEENT: Other (nc at perrl nose clear orally intubated neck no lad no thyromegaly) Lungs: Other (FEW RHONCHI) Cardiovascular: S1, S2 Abdomen: Soft, Non-tender, Other (no mass) Extremities: No Edema, Other Skin: Warm Labs Laboratory Tests Test 02/24/19 13:19 02/24/19 16:49 02/24/19 22:00 02/25/19 05:00 Glucose (Fingerstick) 93 mg/dL (70-99) 95 mg/dL (70-99) Potassium Level 3.9 mmol/L (3.5-5.1) 3.7 mmol/L (3.5-5.1) Phosphorus Level 3.1 mg/dL (2.6-4.7) White Blood Count 7.1 x10^3/uL (4.0-11.0) Red Blood Count 2.88 x10^6/uL (3.50-5.40) Hemoglobin 8.3 g/dL (12.0-15.5) Hematocrit 25.0 % (36.0-47.0) Mean Corpuscular Volume 87 fL (79-100) Mean Corpuscular Hemoglobin 29 pg (25-35) Mean Corpuscular Hemoglobin Concent 33 g/dL (31-37) Red Cell Distribution Width 14.7 % (11.5-14.5) Platelet Count 56 x10^3/uL (140-400) Neutrophils (%) (Auto) 71 % (31-73) Lymphocytes (%) (Auto) 16 % (24-48) Monocytes (%) (Auto) 9 % (0-9) Eosinophils (%) (Auto) 4 % (0-3) Basophils (%) (Auto) 1 % (0-3) Neutrophils # (Auto) 5.0 x10^3/uL (1.8-7.7) Lymphocytes # (Auto) 1.1 x10^3/uL (1.0-4.8) Monocytes # (Auto) 0.6 x10^3/uL (0.0-1.1) Eosinophils # (Auto) 0.3 x10^3/uL (0.0-0.7) Basophils # (Auto) 0.0 x10^3/uL (0.0-0.2) Sodium Level 139 mmol/L (136-145) Chloride Level 107 mmol/L (98-107) Carbon Dioxide Level 21 mmol/L (21-32) Anion Gap 11 (6-14) Blood Urea Nitrogen 14 mg/dL (7-20) Creatinine 0.6 mg/dL (0.6-1.0) Estimated GFR (Cockcroft-Gault) 123.4 BUN/Creatinine Ratio 23 (6-20) Glucose Level 104 mg/dL (70-99) Calcium Level 8.2 mg/dL (8.5-10.1) Total Bilirubin 0.2 mg/dL (0.2-1.0) Aspartate Amino Transf (AST/SGOT) 25 U/L (15-37) Alanine Aminotransferase (ALT/SGPT) 8 U/L (14-59) Alkaline Phosphatase 112 U/L (46-116) Total Protein 5.9 g/dL (6.4-8.2) Albumin 1.7 g/dL (3.4-5.0) Albumin/Globulin Ratio 0.4 (1.0-1.7) Test 02/25/19 07:00 02/25/19 10:25 02/26/19 00:54 02/26/19 05:30 O2 Saturation 96 % (92-99) 96 % (92-99) Arterial Blood pH 7.45 (7.35-7.45) 7.45 (7.35-7.45) Arterial Blood pCO2 at Patient Temp 30 mmHg (35-46) 27 mmHg (35-46) Arterial Blood pO2 at Patient Temp 84 mmHg (65-108) 89 mmHg (65-108) Arterial Blood HCO3 20 mmol/L (21-28) 19 mmol/L (21-28) Arterial Blood Base Excess -3 mmol/L (-3-3) -5 mmol/L (-3-3) FiO2 40 40 Glucose (Fingerstick) 94 mg/dL (70-99) White Blood Count 6.3 x10^3/uL (4.0-11.0) Red Blood Count 2.74 x10^6/uL (3.50-5.40) Hemoglobin 7.8 g/dL (12.0-15.5) Hematocrit 23.8 % (36.0-47.0) Mean Corpuscular Volume 87 fL (79-100) Mean Corpuscular Hemoglobin 28 pg (25-35) Mean Corpuscular Hemoglobin Concent 33 g/dL (31-37) Red Cell Distribution Width 14.6 % (11.5-14.5) Platelet Count 82 x10^3/uL (140-400) Neutrophils (%) (Auto) 64 % (31-73) Lymphocytes (%) (Auto) 14 % (24-48) Monocytes (%) (Auto) 19 % (0-9) Eosinophils (%) (Auto) 3 % (0-3) Basophils (%) (Auto) 0 % (0-3) Neutrophils # (Auto) 4.0 x10^3/uL (1.8-7.7) Lymphocytes # (Auto) 0.9 x10^3/uL (1.0-4.8) Monocytes # (Auto) 1.2 x10^3/uL (0.0-1.1) Eosinophils # (Auto) 0.2 x10^3/uL (0.0-0.7) Basophils # (Auto) 0.0 x10^3/uL (0.0-0.2) Segmented Neutrophils % 66 % (35-66) Band Neutrophils % 4 % (0-9) Lymphocytes % 11 % (24-48) Atypical Lymphocytes % (Manual) 1 % (0-0) Monocytes % 16 % (0-10) Eosinophils % 2 % (0-5) Platelet Estimate Decreased (ADEQUATE) Sodium Level 136 mmol/L (136-145) Potassium Level 3.6 mmol/L (3.5-5.1) Chloride Level 104 mmol/L (98-107) Carbon Dioxide Level 20 mmol/L (21-32) Anion Gap 12 (6-14) Blood Urea Nitrogen 16 mg/dL (7-20) Creatinine 0.6 mg/dL (0.6-1.0) Estimated GFR (Cockcroft-Gault) 123.4 Glucose Level 98 mg/dL (70-99) Calcium Level 8.4 mg/dL (8.5-10.1) Magnesium Level 1.4 mg/dL (1.8-2.4) Test 02/26/19 07:30 O2 Saturation 96 % (92-99) Arterial Blood pH 7.42 (7.35-7.45) Arterial Blood pCO2 at Patient Temp 30 mmHg (35-46) Arterial Blood pO2 at Patient Temp 90 mmHg (65-108) Arterial Blood HCO3 19 mmol/L (21-28) Arterial Blood Base Excess -5 mmol/L (-3-3) FiO2 40 Laboratory Tests Test 02/25/19 10:25 02/26/19 00:54 02/26/19 05:30 02/26/19 07:30 O2 Saturation 96 % (92-99) 96 % (92-99) Arterial Blood pH 7.45 (7.35-7.45) 7.42 (7.35-7.45) Arterial Blood pCO2 at Patient Temp 27 mmHg (35-46) 30 mmHg (35-46) Arterial Blood pO2 at Patient Temp 89 mmHg (65-108) 90 mmHg (65-108) Arterial Blood HCO3 19 mmol/L (21-28) 19 mmol/L (21-28) Arterial Blood Base Excess -5 mmol/L (-3-3) -5 mmol/L (-3-3) FiO2 40 40 Glucose (Fingerstick) 94 mg/dL (70-99) White Blood Count 6.3 x10^3/uL (4.0-11.0) Red Blood Count 2.74 x10^6/uL (3.50-5.40) Hemoglobin 7.8 g/dL (12.0-15.5) Hematocrit 23.8 % (36.0-47.0) Mean Corpuscular Volume 87 fL (79-100) Mean Corpuscular Hemoglobin 28 pg (25-35) Mean Corpuscular Hemoglobin Concent 33 g/dL (31-37) Red Cell Distribution Width 14.6 % (11.5-14.5) Platelet Count 82 x10^3/uL (140-400) Neutrophils (%) (Auto) 64 % (31-73) Lymphocytes (%) (Auto) 14 % (24-48) Monocytes (%) (Auto) 19 % (0-9) Eosinophils (%) (Auto) 3 % (0-3) Basophils (%) (Auto) 0 % (0-3) Neutrophils # (Auto) 4.0 x10^3/uL (1.8-7.7) Lymphocytes # (Auto) 0.9 x10^3/uL (1.0-4.8) Monocytes # (Auto) 1.2 x10^3/uL (0.0-1.1) Eosinophils # (Auto) 0.2 x10^3/uL (0.0-0.7) Basophils # (Auto) 0.0 x10^3/uL (0.0-0.2) Segmented Neutrophils % 66 % (35-66) Band Neutrophils % 4 % (0-9) Lymphocytes % 11 % (24-48) Atypical Lymphocytes % (Manual) 1 % (0-0) Monocytes % 16 % (0-10) Eosinophils % 2 % (0-5) Platelet Estimate Decreased (ADEQUATE) Sodium Level 136 mmol/L (136-145) Potassium Level 3.6 mmol/L (3.5-5.1) Chloride Level 104 mmol/L (98-107) Carbon Dioxide Level 20 mmol/L (21-32) Anion Gap 12 (6-14) Blood Urea Nitrogen 16 mg/dL (7-20) Creatinine 0.6 mg/dL (0.6-1.0) Estimated GFR (Cockcroft-Gault) 123.4 Glucose Level 98 mg/dL (70-99) Calcium Level 8.4 mg/dL (8.5-10.1) Magnesium Level 1.4 mg/dL (1.8-2.4) Medications Active Scripts Medications Dose Route/Sig Max Daily Dose Days Date Category Potassium Chloride 20 Meq Tablet.er 20 Meq PO BID 30 08/11/18 Rx Oxycodone Hcl 5 Mg Capsule 5 Mg PO PRN Q6HRS PRN 5 08/11/18 Rx Amlodipine Besylate 10 Mg Tablet 10 Mg PO DAILY 30 08/11/18 Rx Melatonin 3 Mg Tab.rapdis 3 Mg PO HS PRN 07/27/18 Reported Nephro-Nola Tablet (Folic Acid/Vitamin B Comp W-C) 0.8 Mg Tablet 1 Tab PO DAILY 07/27/18 Reported Vitamin B-12 (Cyanocobalamin (Vitamin B-12)) 1,000 Mcg Tablet 1,000 Mcg PO DAILY 07/27/18 Reported Megestrol Acetate 20 Mg Tablet 20 Mg PO DAILY 07/27/18 Reported Protonix (Pantoprazole Sodium) 20 Mg Tablet.dr 40 Mg PO DAILY 07/27/18 Reported Zoloft (Sertraline Hcl) 50 Mg Tablet 1 Tab PO DAILY 07/27/18 Reported Zoloft (Sertraline Hcl) 25 Mg Tablet 1 Tab PO DAILY 07/27/18 Reported Coreg (Carvedilol) 25 Mg Tablet 6.25 Mg PO BIDWMEALS 07/27/18 Reported Lipitor (Atorvastatin Calcium) 10 Mg Tablet 1 Tab PO QHS 07/27/18 Reported Duoneb 0.5-3(2.5) Mg/3 Ml (Albuterol/Ipratropium) 3 Ml Ampul.neb 3 Ml NEB QID PRN 07/27/18 Reported Comments cxr reviewed 02/26 MILD RT BASAL IMPROVEMENT IN INFILTRATE Impression . IMPRESSION: 1. Acute respiratory failure secondary to severe metabolic acidosis. 2. Severe metabolic acidosis, etiology unclear. resolved 3. History of alcohol abuse. 4. Hypotension. 5. History of seizure disorder. 6. Hypomagnesemia. resolved 7. Hypo k 8. Colitis. 9. Ileus. 10. Pneumonia. abnl cxr, mild improvement in CXR 11 ACUTE DROP IN HCT, s/p prbc hb stable Plan . cont vent support, setting reviewed, d/c sedation, alphonse do sbt once awake cxr reviewed sputum cx s/p TRANSFUSion, h/h stable, on protonix iv ANTI BX fu cxs BD nutrition per GI discussed w rn, rt SIDRA LUZ MD Feb 26, 2019 10:00
[2019-02-26] MEDS: hydrALAZINE 20 MG/ML VIAL. IVP PRN (11:02)
[2019-02-26] MEDS: THIAMINE INJ 100 MG in IV DEXTROSE 5% 50 ML IV SCH (11:03)
[2019-02-26] MEDS: IV NORMAL SALINE 1000ML BAG 1,000 ML IV SCH ×2 (11:04→21:30)
[2019-02-26 11:23] LABS: BASE EXCESS ABG -6 mmol/L (-3-3); HCO3 ABG 17 mmol/L (21-28); PCO2 ABG 24 mmHg (35-46); PO2 ABG 77 mmHg (65-108); SAT O2 ABG 95 % (92-99)
[2019-02-26 11:26] LABS: FIO2 ABG 40
--- NOTE | 2019-02-26 13:09 | PDOC ---
Objective: Objective: Nurse called - wondering about tube feeds vs TPN - currently on PPN and remains intubated w/ hypoactive bowel sounds. OG to LIS - about 600cc bilious fluid in canister now (unclear since when). Vital Signs: Vital Signs Date Time Temp Pulse Resp B/P (MAP) Pulse Ox O2 Delivery O2 Flow Rate FiO2 02/26/19 12:00 Mechanical Ventilator 02/26/19 11:29 100 02/26/19 11:02 116 190/115 02/26/19 10:00 16 02/26/19 07:00 99.3 99.3 Labs: Laboratory Tests Test 02/26/19 00:54 02/26/19 05:30 02/26/19 07:30 02/26/19 10:45 Glucose (Fingerstick) 94 mg/dL White Blood Count 6.3 x10^3/uL Red Blood Count 2.74 x10^6/uL Hemoglobin 7.8 g/dL Hematocrit 23.8 % Mean Corpuscular Volume 87 fL Mean Corpuscular Hemoglobin 28 pg Mean Corpuscular Hemoglobin Concent 33 g/dL Red Cell Distribution Width 14.6 % Platelet Count 82 x10^3/uL Neutrophils (%) (Auto) 64 % Lymphocytes (%) (Auto) 14 % Monocytes (%) (Auto) 19 % Eosinophils (%) (Auto) 3 % Basophils (%) (Auto) 0 % Neutrophils # (Auto) 4.0 x10^3/uL Lymphocytes # (Auto) 0.9 x10^3/uL Monocytes # (Auto) 1.2 x10^3/uL Eosinophils # (Auto) 0.2 x10^3/uL Basophils # (Auto) 0.0 x10^3/uL Segmented Neutrophils % 66 % Band Neutrophils % 4 % Lymphocytes % 11 % Atypical Lymphocytes % (Manual) 1 % Monocytes % 16 % Eosinophils % 2 % Platelet Estimate Decreased Sodium Level 136 mmol/L Potassium Level 3.6 mmol/L Chloride Level 104 mmol/L Carbon Dioxide Level 20 mmol/L Anion Gap 12 Blood Urea Nitrogen 16 mg/dL Creatinine 0.6 mg/dL Estimated GFR (Cockcroft-Gault) 123.4 Glucose Level 98 mg/dL Calcium Level 8.4 mg/dL Magnesium Level 1.4 mg/dL O2 Saturation 96 % 95 % Arterial Blood pH 7.42 7.46 Arterial Blood pCO2 at Patient Temp 30 mmHg 24 mmHg Arterial Blood pO2 at Patient Temp 90 mmHg 77 mmHg Arterial Blood HCO3 19 mmol/L 17 mmol/L Arterial Blood Base Excess -5 mmol/L -6 mmol/L FiO2 40 40 Imaging: CXR 02/26 IMPRESSION: 1. Tubes and lines unchanged. 2. Bilateral infiltrates with little change. PE: GEN: intubated LUNGS: vent/diminished HEART: tachycardic ABD: some distention, few if any bowel sounds NEURO/PSYCH: sedated A/P: Resp failure, acidosis, ileus H/o alcoholism Anemia - stable after transfusion -- D/w Dr. Artis - TPN per pharmacy - d/w nurse. Hemodynamically unstable?: No Is NPO status required?: Yes KATHRYN BRIONES Feb 26, 2019 13:09
[2019-02-26] MEDS: TPN PER PHARMACY MC PRN (13:53)
--- NOTE | 2019-02-26 16:06 | NUR ---
SS following up with discharge planning. Pt remains on the vent at this time. SS will continue to follow for discharge planning.
[2019-02-26] MEDS ORDERED: AMINO ACID IV SCH ×10 (22:00)
[2019-02-26] MEDS ORDERED: DEXTROSE 70% IV SCH ×10 (22:00)
[2019-02-26] MEDS ORDERED: [UNRECOGNIZED DRUG - OTHER] IV SCH ×10 (22:00)
[2019-02-26] MEDS ORDERED: TOTAL PARENTERAL NUTRITION IV SCH ×11 (22:00)
[2019-02-27] VITALS (26 sets, daily range): BP systolic 118–200; BP diastolic 56–92
[2019-02-27 06:14] LABS: BASO % 1 % (0-3); EOS # 0.2 x10^3/uL (0.0-0.7); EOS % 4 % (0-3); HEMATOCRIT 21.9 % (36.0-47.0); HEMOGLOBIN 7.2 g/dL (12.0-15.5); LYMPH % 18 % (24-48); MEAN CORPUSCULAR HEMOGLOBIN 29 pg (25-35); MEAN CORPUSCULAR HGB CONC 33 g/dL (31-37); MEAN CORPUSCULAR VOLUME 87 fL (79-100); MONO # 1.4 x10^3/uL (0.0-1.1); MONO % 25 % (0-9); NEUT # 2.9 x10^3/uL (1.8-7.7); NEUT % 52 % (31-73); PLATELET COUNT 116 x10^3/uL (140-400); RED BLOOD COUNT 2.52 x10^6/uL (3.50-5.40); RED CELL DISTRIBUTION WIDTH 14.7 % (11.5-14.5); WHITE BLOOD COUNT 5.6 x10^3/uL (4.0-11.0)
[2019-02-27 06:28] LABS: ALBUMIN 1.8 g/dL (3.4-5.0); CALCIUM 8.9 mg/dL (8.5-10.1); CREATININE 0.7 mg/dL (0.6-1.0); GFR 103.3; MAGNESIUM 1.9 mg/dL (1.8-2.4); POTASSIUM 3.6 mmol/L (3.5-5.1)
[2019-02-27] MEDS ORDERED: ATROPINE 0.5 MG/5 ML DISP.SYRINGE. IV PRN (07:00)
[2019-02-27] MEDS ORDERED: IV NORMAL SALINE 500ML BAG 500 ML IV PRN (07:00)
[2019-02-27] MEDS: IPRATRPIUM/ALBUTEROL 0.5/2.5MG 3 ML NEBU. NEB SCH ×4 (07:18→19:31)
[2019-02-27 07:31] LABS: BASE EXCESS ABG -3 mmol/L (-3-3); HCO3 ABG 20 mmol/L (21-28); PCO2 ABG 30 mmHg (35-46); PO2 ABG 145 mmHg (65-108); SAT O2 ABG 99 % (92-99)
--- NOTE | 2019-02-27 08:08 | PN ---
DATE: 02/27/2019 SUBJECTIVE: The patient continued to be intubated, mechanically ventilated, on Precedex, Ativan as well as fentanyl. Nursing staff did not voice any concern except that her blood pressure continued to be slightly elevated. PHYSICAL EXAMINATION: GENERAL: When I examined her, she was pale, cachectic, but no jaundice, cyanosis or thyromegaly. No jugular venous distension. No lower limb edema. VITAL SIGNS: Her heart rate was 69, blood pressure was 178/79, temperature was 98.8, respiratory rate was 18, and oxygen saturation was 100% on FiO2 of 40%. HEAD, EYES, EARS, NOSE AND THROAT: Showed normocephalic, atraumatic. She has orotracheal and orogastric tube. NECK: Supple. HEART: Normal first and second heart sounds. No gallop or murmur. CHEST: Shows central trachea, equal bilateral expansion, air entry, vesicular sounds. I could not appreciate any crepitation or rhonchi anteriorly. ABDOMEN: Soft, nontender. NEUROLOGIC: She is sedated. Her intake was 5169, output was 4235. LABORATORY DATA: As of this morning, her white cell count was 5600, hemoglobin 7.2, hematocrit 22, MCV 87 and platelet count of 116,000. Serum sodium was 139, potassium 3.6, chloride 107, bicarbonate 21, anion gap of 11, BUN 17, creatinine 0.7, estimated GFR was 103 mL per minute. Her glucose was 99, calcium was 8.9, phosphorus was 5 and magnesium was 1.9. Her serum albumin is only 1.8 g/dL. ASSESSMENT: 1. Acute severe metabolic acidosis of unknown etiology. 2. Acute respiratory failure secondary to metabolic acidosis requiring intubation and mechanical ventilation. 3. Alcoholism, alcohol withdrawal seizures. 4. Hypertension. 5. Severe anemia, which she received 1 unit of packed RBCs. 6. Hypokalemia, hypophosphatemia and hypomagnesemia. 7. Severe protein-calorie malnutrition, serum albumin is only 1.7 g/dL. PLAN: To continue with mechanical ventilation, wean as tolerated. Continue with DVT and GI prophylaxis. Continue IV antibiotic. Continue with TPN. Her magnesium is much improved now at 1.9. REKHA CARMEN MD DR: CYNTHIA/deesan JOB#: [id number] / [id number]
[2019-02-27] MEDS: PANTOPRAZOLE IV PUSH 40 MG VIAL. IVP SCH (08:13)
[2019-02-27] MEDS: hydrALAZINE 20 MG/ML VIAL. IVP PRN (08:14)
[2019-02-27 08:17] LABS: FIO2 ABG 40
[2019-02-27] MEDS: PROPOFOL 100 ML IV PRN ×2 (09:34→21:36)
--- NOTE | 2019-02-27 09:50 | PDOC ---
PULMONARY PROGRESS NOTES Subjective on vent, sedated, on propofol, fentanyl, developed increase R/R on CPAP trial yesterday Vitals Vital Signs Date Time Temp Pulse Resp B/P (MAP) Pulse Ox O2 Delivery O2 Flow Rate FiO2 02/27/19 09:00 96 28 142/64 (90) 100 Ventilator 02/27/19 08:00 98.0 98.0 Comments ros as mentioned as above discussed w rn other sys otherwise neg sedated on vent HEENT: Other (nc at perrl nose clear orally intubated neck no lad no thyromegaly) Lungs: Other (FEW RHONCHI) Cardiovascular: S1, S2 Abdomen: Soft, Non-tender, Other (no mass) Extremities: No Edema, Other Skin: Warm Labs Laboratory Tests Test 02/25/19 10:25 02/26/19 00:54 02/26/19 05:30 02/26/19 07:30 O2 Saturation 96 % (92-99) 96 % (92-99) Arterial Blood pH 7.45 (7.35-7.45) 7.42 (7.35-7.45) Arterial Blood pCO2 at Patient Temp 27 mmHg (35-46) 30 mmHg (35-46) Arterial Blood pO2 at Patient Temp 89 mmHg (65-108) 90 mmHg (65-108) Arterial Blood HCO3 19 mmol/L (21-28) 19 mmol/L (21-28) Arterial Blood Base Excess -5 mmol/L (-3-3) -5 mmol/L (-3-3) FiO2 40 40 Glucose (Fingerstick) 94 mg/dL (70-99) White Blood Count 6.3 x10^3/uL (4.0-11.0) Red Blood Count 2.74 x10^6/uL (3.50-5.40) Hemoglobin 7.8 g/dL (12.0-15.5) Hematocrit 23.8 % (36.0-47.0) Mean Corpuscular Volume 87 fL (79-100) Mean Corpuscular Hemoglobin 28 pg (25-35) Mean Corpuscular Hemoglobin Concent 33 g/dL (31-37) Red Cell Distribution Width 14.6 % (11.5-14.5) Platelet Count 82 x10^3/uL (140-400) Neutrophils (%) (Auto) 64 % (31-73) Lymphocytes (%) (Auto) 14 % (24-48) Monocytes (%) (Auto) 19 % (0-9) Eosinophils (%) (Auto) 3 % (0-3) Basophils (%) (Auto) 0 % (0-3) Neutrophils # (Auto) 4.0 x10^3/uL (1.8-7.7) Lymphocytes # (Auto) 0.9 x10^3/uL (1.0-4.8) Monocytes # (Auto) 1.2 x10^3/uL (0.0-1.1) Eosinophils # (Auto) 0.2 x10^3/uL (0.0-0.7) Basophils # (Auto) 0.0 x10^3/uL (0.0-0.2) Segmented Neutrophils % 66 % (35-66) Band Neutrophils % 4 % (0-9) Lymphocytes % 11 % (24-48) Atypical Lymphocytes % (Manual) 1 % (0-0) Monocytes % 16 % (0-10) Eosinophils % 2 % (0-5) Platelet Estimate Decreased (ADEQUATE) Sodium Level 136 mmol/L (136-145) Potassium Level 3.6 mmol/L (3.5-5.1) Chloride Level 104 mmol/L (98-107) Carbon Dioxide Level 20 mmol/L (21-32) Anion Gap 12 (6-14) Blood Urea Nitrogen 16 mg/dL (7-20) Creatinine 0.6 mg/dL (0.6-1.0) Estimated GFR (Cockcroft-Gault) 123.4 Glucose Level 98 mg/dL (70-99) Calcium Level 8.4 mg/dL (8.5-10.1) Magnesium Level 1.4 mg/dL (1.8-2.4) Test 02/26/19 10:45 02/27/19 05:45 02/27/19 07:20 O2 Saturation 95 % (92-99) 99 % (92-99) Arterial Blood pH 7.46 (7.35-7.45) 7.45 (7.35-7.45) Arterial Blood pCO2 at Patient Temp 24 mmHg (35-46) 30 mmHg (35-46) Arterial Blood pO2 at Patient Temp 77 mmHg (65-108) 145 mmHg (65-108) Arterial Blood HCO3 17 mmol/L (21-28) 20 mmol/L (21-28) Arterial Blood Base Excess -6 mmol/L (-3-3) -3 mmol/L (-3-3) FiO2 40 40 White Blood Count 5.6 x10^3/uL (4.0-11.0) Red Blood Count 2.52 x10^6/uL (3.50-5.40) Hemoglobin 7.2 g/dL (12.0-15.5) Hematocrit 21.9 % (36.0-47.0) Mean Corpuscular Volume 87 fL (79-100) Mean Corpuscular Hemoglobin 29 pg (25-35) Mean Corpuscular Hemoglobin Concent 33 g/dL (31-37) Red Cell Distribution Width 14.7 % (11.5-14.5) Platelet Count 116 x10^3/uL (140-400) Neutrophils (%) (Auto) 52 % (31-73) Lymphocytes (%) (Auto) 18 % (24-48) Monocytes (%) (Auto) 25 % (0-9) Eosinophils (%) (Auto) 4 % (0-3) Basophils (%) (Auto) 1 % (0-3) Neutrophils # (Auto) 2.9 x10^3/uL (1.8-7.7) Lymphocytes # (Auto) 1.0 x10^3/uL (1.0-4.8) Monocytes # (Auto) 1.4 x10^3/uL (0.0-1.1) Eosinophils # (Auto) 0.2 x10^3/uL (0.0-0.7) Basophils # (Auto) 0.0 x10^3/uL (0.0-0.2) Sodium Level 139 mmol/L (136-145) Potassium Level 3.6 mmol/L (3.5-5.1) Chloride Level 107 mmol/L (98-107) Carbon Dioxide Level 21 mmol/L (21-32) Anion Gap 11 (6-14) Blood Urea Nitrogen 17 mg/dL (7-20) Creatinine 0.7 mg/dL (0.6-1.0) Estimated GFR (Cockcroft-Gault) 103.3 Glucose Level 99 mg/dL (70-99) Calcium Level 8.9 mg/dL (8.5-10.1) Phosphorus Level 5.0 mg/dL (2.6-4.7) Magnesium Level 1.9 mg/dL (1.8-2.4) Albumin 1.8 g/dL (3.4-5.0) Triglycerides Level 289 mg/dL (0-150) Laboratory Tests Test 02/26/19 10:45 02/27/19 05:45 02/27/19 07:20 O2 Saturation 95 % (92-99) 99 % (92-99) Arterial Blood pH 7.46 (7.35-7.45) 7.45 (7.35-7.45) Arterial Blood pCO2 at Patient Temp 24 mmHg (35-46) 30 mmHg (35-46) Arterial Blood pO2 at Patient Temp 77 mmHg (65-108) 145 mmHg (65-108) Arterial Blood HCO3 17 mmol/L (21-28) 20 mmol/L (21-28) Arterial Blood Base Excess -6 mmol/L (-3-3) -3 mmol/L (-3-3) FiO2 40 40 White Blood Count 5.6 x10^3/uL (4.0-11.0) Red Blood Count 2.52 x10^6/uL (3.50-5.40) Hemoglobin 7.2 g/dL (12.0-15.5) Hematocrit 21.9 % (36.0-47.0) Mean Corpuscular Volume 87 fL (79-100) Mean Corpuscular Hemoglobin 29 pg (25-35) Mean Corpuscular Hemoglobin Concent 33 g/dL (31-37) Red Cell Distribution Width 14.7 % (11.5-14.5) Platelet Count 116 x10^3/uL (140-400) Neutrophils (%) (Auto) 52 % (31-73) Lymphocytes (%) (Auto) 18 % (24-48) Monocytes (%) (Auto) 25 % (0-9) Eosinophils (%) (Auto) 4 % (0-3) Basophils (%) (Auto) 1 % (0-3) Neutrophils # (Auto) 2.9 x10^3/uL (1.8-7.7) Lymphocytes # (Auto) 1.0 x10^3/uL (1.0-4.8) Monocytes # (Auto) 1.4 x10^3/uL (0.0-1.1) Eosinophils # (Auto) 0.2 x10^3/uL (0.0-0.7) Basophils # (Auto) 0.0 x10^3/uL (0.0-0.2) Sodium Level 139 mmol/L (136-145) Potassium Level 3.6 mmol/L (3.5-5.1) Chloride Level 107 mmol/L (98-107) Carbon Dioxide Level 21 mmol/L (21-32) Anion Gap 11 (6-14) Blood Urea Nitrogen 17 mg/dL (7-20) Creatinine 0.7 mg/dL (0.6-1.0) Estimated GFR (Cockcroft-Gault) 103.3 Glucose Level 99 mg/dL (70-99) Calcium Level 8.9 mg/dL (8.5-10.1) Phosphorus Level 5.0 mg/dL (2.6-4.7) Magnesium Level 1.9 mg/dL (1.8-2.4) Albumin 1.8 g/dL (3.4-5.0) Triglycerides Level 289 mg/dL (0-150) Medications Active Scripts Medications Dose Route/Sig Max Daily Dose Days Date Category Potassium Chloride 20 Meq Tablet.er 20 Meq PO BID 30 08/11/18 Rx Oxycodone Hcl 5 Mg Capsule 5 Mg PO PRN Q6HRS PRN 5 08/11/18 Rx Amlodipine Besylate 10 Mg Tablet 10 Mg PO DAILY 30 08/11/18 Rx Melatonin 3 Mg Tab.rapdis 3 Mg PO HS PRN 07/27/18 Reported Nephro-Nola Tablet (Folic Acid/Vitamin B Comp W-C) 0.8 Mg Tablet 1 Tab PO DAILY 07/27/18 Reported Vitamin B-12 (Cyanocobalamin (Vitamin B-12)) 1,000 Mcg Tablet 1,000 Mcg PO DAILY 07/27/18 Reported Megestrol Acetate 20 Mg Tablet 20 Mg PO DAILY 07/27/18 Reported Protonix (Pantoprazole Sodium) 20 Mg Tablet.dr 40 Mg PO DAILY 07/27/18 Reported Zoloft (Sertraline Hcl) 50 Mg Tablet 1 Tab PO DAILY 07/27/18 Reported Zoloft (Sertraline Hcl) 25 Mg Tablet 1 Tab PO DAILY 07/27/18 Reported Coreg (Carvedilol) 25 Mg Tablet 6.25 Mg PO BIDWMEALS 07/27/18 Reported Lipitor (Atorvastatin Calcium) 10 Mg Tablet 1 Tab PO QHS 07/27/18 Reported Duoneb 0.5-3(2.5) Mg/3 Ml (Albuterol/Ipratropium) 3 Ml Ampul.neb 3 Ml NEB QID PRN 07/27/18 Reported Comments cxr reviewed 02/27 ALMOST RESOLVED RT BASAL INFILTRATE Impression . IMPRESSION: 1. Acute respiratory failure secondary to severe metabolic acidosis. 2. Severe metabolic acidosis, etiology unclear. resolved 3. History of alcohol abuse. 4. Hypotension. 5. History of seizure disorder. 6. Hypomagnesemia. resolved 7. Hypo k 8. Colitis. 9. Ileus. 10. Pneumonia. abnl cxr, improvement in CXR 11 ACUTE DROP IN HCT, s/p prbc hb stable 12. Likely anxiety disorder Plan . cont vent support, setting reviewed, d/c sedation, alhponse do sbt again today. In the setting of excellant ABG, clearing pneumonia and resolved MA, her dyspean likely related to anxiety, will add prn haldol cxr reviewed sputum cx s/p TRANSFUSion, h/h stable, on protonix iv ANTI BX fu cxs BD nutrition per GI discussed w rn, rt Addend: Patient went in to diastolic HF from increase BP on CPAP trial. will manage BP agressively and try CPAP again tomorrow cct 3 0 min SIDRA LUZ MD Feb 27, 2019 09:50
[2019-02-27] MEDS ORDERED: HALOPERIDOL LACTATE 5 MG/ML VIAL. ONE (09:58)
[2019-02-27] MEDS: HALOPERIDOL LACTATE 5 MG/ML VIAL. IVP PRN ×3 (09:59→21:35)
--- NOTE | 2019-02-27 10:23 | RAD ---
EXAM: CHEST 1 VIEW History: On ventilation COMPARISON: 02/26/2019 TECHNIQUE: Single portable radiograph of the chest Findings/ impression: The ET tube is identified in the trachea. Feeding tube is identified under the left hemidiaphragm in the stomach. The right internal jugular line is identified the tip in the right atrium. Mild diffuse prominent appearing bilateral interstitial lung markings likely interstitial infiltrates or edema slightly improved since prior exam. Electronically signed by: Renny Burns MD (02/27/2019 10:20 AM) [place] [id number]
--- NOTE | 2019-02-27 10:56 | PDOC ---
Objective: Objective: RT present - off sedation, agitated, not cooperating. D/w nurse - TPN started. Vital Signs: Vital Signs Date Time Temp Pulse Resp B/P (MAP) Pulse Ox O2 Delivery O2 Flow Rate FiO2 02/27/19 09:00 96 28 142/64 (90) 100 Ventilator 02/27/19 08:00 98.0 98.0 Labs: Laboratory Tests Test 02/27/19 05:45 02/27/19 07:20 White Blood Count 5.6 x10^3/uL Red Blood Count 2.52 x10^6/uL Hemoglobin 7.2 g/dL Hematocrit 21.9 % Mean Corpuscular Volume 87 fL Mean Corpuscular Hemoglobin 29 pg Mean Corpuscular Hemoglobin Concent 33 g/dL Red Cell Distribution Width 14.7 % Platelet Count 116 x10^3/uL Neutrophils (%) (Auto) 52 % Lymphocytes (%) (Auto) 18 % Monocytes (%) (Auto) 25 % Eosinophils (%) (Auto) 4 % Basophils (%) (Auto) 1 % Neutrophils # (Auto) 2.9 x10^3/uL Lymphocytes # (Auto) 1.0 x10^3/uL Monocytes # (Auto) 1.4 x10^3/uL Eosinophils # (Auto) 0.2 x10^3/uL Basophils # (Auto) 0.0 x10^3/uL Sodium Level 139 mmol/L Potassium Level 3.6 mmol/L Chloride Level 107 mmol/L Carbon Dioxide Level 21 mmol/L Anion Gap 11 Blood Urea Nitrogen 17 mg/dL Creatinine 0.7 mg/dL Estimated GFR (Cockcroft-Gault) 103.3 Glucose Level 99 mg/dL Calcium Level 8.9 mg/dL Phosphorus Level 5.0 mg/dL Magnesium Level 1.9 mg/dL Albumin 1.8 g/dL Triglycerides Level 289 mg/dL O2 Saturation 99 % Arterial Blood pH 7.45 Arterial Blood pCO2 at Patient Temp 30 mmHg Arterial Blood pO2 at Patient Temp 145 mmHg Arterial Blood HCO3 20 mmol/L Arterial Blood Base Excess -3 mmol/L FiO2 40 Imaging: CXR 02/27 Findings/ The ET tube is identified in the trachea. Feeding tube is identified under the left hemidiaphragm in the stomach. The right internal jugular line is identified the tip in the right atrium. Mild diffuse prominent appearing bilateral interstitial lung markings likely interstitial infiltrates or edema slightly improved since prior exam. PE: GEN: intubated, very restless, RT present NEURO/PSYCH: awake A/P: H/o alcoholism, resp failure, acidosis, ileus - agitated on vent currently Chronic anemia - has required transfusions, no obvious bleed -- Continue same per GI. Hemodynamically unstable?: No Is NPO status required?: Yes KATHRYN BRIONES Feb 27, 2019 10:56
--- NOTE | 2019-02-27 11:36 | RAD ---
PORTABLE CHEST 1V History: Heart failure Comparison: February 27, 2019 Findings: Increased diffuse interstitial and alveolar opacities. Small bilateral layering pleural effusions, unchanged. Unchanged heart size. No pneumothorax. Right glenohumeral DJD. Stable endotracheal tube, enteric tube and right IJ central line. Impression: 1. Increased diffuse interstitial and alveolar opacities, may represent worsening pulmonary edema. 2. Small bilateral pleural effusions, unchanged. Electronically signed by: Esequiel Potts DO (02/27/2019 11:33 AM) [id number]
[2019-02-27] MEDS ORDERED: FUROSEMIDE 40 MG/4 ML VIAL. ONE (11:57)
[2019-02-27] MEDS ORDERED: FUROSEMIDE 40 MG/4 ML VIAL. IVP ONE (12:00)
[2019-02-27] MEDS ORDERED: cloNIDine TTS-1 1 PATCH PATCH.TDWK TD SCH (12:00)
[2019-02-27] MEDS: METOPROLOL TARTRATE 5 MG/5 ML VIAL. IVP SCH ×2 (12:02→18:00)
[2019-02-27] MEDS: TPN PER PHARMACY MC PRN (12:38)
--- NOTE | 2019-02-27 12:39 | NUR ---
Pharmacy TPN Dosing Note S: DIAZ VALDEZ is a 59 year old F Currently receiving TPN started 02/26/19 B:Pertinent PMH: npo Height: 5 feet, 2 inches Weight: 47.265587 kg Current diet: npo LABS: Sodium: 139 Potassium: 3.6 Chloride: 107 Calcium: 8.9 Corrected Calcium: 10.66 Magnesium: 1.9 CO2: 21 SCr: 0.7 Glucose: 99 Albumin: 1.8 AST: 25 ALT: 8 TPN FORMULA: TPN TYPE: AMINO ACIDS: 60 gm DEXTROSE: 195 gm LIPIDS: 0 gm SODIUM CHLORIDE: 90 mEq SODIUM ACETATE: mEq SODIUM PHOSPHATE: mmol POTASSIUM CHLORIDE: mEq POTASSIUM ACETATE: 65 mEq POTASSIUM PHOSPHATE: 5 mmol MAGNESIUM: 10 mEq CALCIUM: 10 mEq INSULIN: units MULTIPLE VITAMIN: 10 ml TRACE ELEMENTS: 1 ml(s) TPN PLAN: Remains on propofol, lipid-free TPN Phos 5.0, but has been very low will take KPhos down to 5mmol Will increase KAce to 65meq for net even on potassium Magnesium has corrected Labs in the am R: Continue TPN as written above. Will monitor electrolytes, glucose, and tolerance to TPN. MEÑO TURCIOS RPH, 02/27/19 [id number]
[2019-02-27] MEDS: DEXMEDETOMIDINE 400 MCG in IV NORMAL SALINE 100ML 96 ML IV PRN (19:40)
[2019-02-27] MEDS: IV NORMAL SALINE 1000ML BAG 1,000 ML IV SCH (21:35)
[2019-02-27] MEDS ORDERED: DEXTROSE 70% IV SCH ×10 (22:00)
[2019-02-27] MEDS ORDERED: AMINO ACID IV SCH ×10 (22:00)
[2019-02-27] MEDS ORDERED: [UNRECOGNIZED DRUG - OTHER] IV SCH ×10 (22:00)
[2019-02-27] MEDS ORDERED: TOTAL PARENTERAL NUTRITION IV SCH ×10 (22:00)
[2019-02-28] VITALS (24 sets, daily range): BP systolic 74–192; BP diastolic 48–83
[2019-02-28] MEDS: METOPROLOL TARTRATE 5 MG/5 ML VIAL. IVP SCH ×4 (00:01→17:43)
[2019-02-28] MEDS: IV NORMAL SALINE 1000ML BAG 1,000 ML IV SCH (00:10)
[2019-02-28] MEDS: PROPOFOL 100 ML IV PRN (04:46)
[2019-02-28 05:36] LABS: BASO % 0 % (0-3); EOS # 0.2 x10^3/uL (0.0-0.7); EOS % 3 % (0-3); HEMATOCRIT 22.7 % (36.0-47.0); HEMOGLOBIN 7.5 g/dL (12.0-15.5); LYMPH # 1.2 x10^3/uL (1.0-4.8); LYMPH % 20 % (24-48); MEAN CORPUSCULAR HEMOGLOBIN 28 pg (25-35); MEAN CORPUSCULAR HGB CONC 33 g/dL (31-37); MEAN CORPUSCULAR VOLUME 86 fL (79-100); MONO # 1.2 x10^3/uL (0.0-1.1); MONO % 21 % (0-9); NEUT # 3.2 x10^3/uL (1.8-7.7); NEUT % 56 % (31-73); PLATELET COUNT 153 x10^3/uL (140-400); RED BLOOD COUNT 2.65 x10^6/uL (3.50-5.40); RED CELL DISTRIBUTION WIDTH 14.7 % (11.5-14.5); WHITE BLOOD COUNT 5.7 x10^3/uL (4.0-11.0)
[2019-02-28 06:03] LABS: CALCIUM 9.5 mg/dL (8.5-10.1); CREATININE 0.8 mg/dL (0.6-1.0); GFR 88.5; MAGNESIUM 1.4 mg/dL (1.8-2.4); PHOSPHORUS 5.7 mg/dL (2.6-4.7); POTASSIUM 3.1 mmol/L (3.5-5.1)
[2019-02-28] MEDS ORDERED: POTASSIUM CHLORIDE 20MEQ 100 ML IV SCH ×2 (06:30→07:00)
[2019-02-28] MEDS: IPRATRPIUM/ALBUTEROL 0.5/2.5MG 3 ML NEBU. NEB SCH ×4 (07:21→20:27)
[2019-02-28 07:34] LABS: BASE EXCESS ABG -4 mmol/L (-3-3); HCO3 ABG 20 mmol/L (21-28); PCO2 ABG 28 mmHg (35-46); PO2 ABG 150 mmHg (65-108); SAT O2 ABG 99 % (92-99)
[2019-02-28 07:36] LABS: FIO2 ABG 40
[2019-02-28] MEDS: DEXMEDETOMIDINE 400 MCG in IV NORMAL SALINE 100ML 96 ML IV PRN ×2 (07:41→18:10)
[2019-02-28] MEDS ORDERED: ELECTROLYTE (ICU) PROTOCOL. MC PRN (07:45)
[2019-02-28] MEDS: POTASSIUM CHLORIDE 20MEQ 100 ML IV SCH ×2 (07:48→08:49)
[2019-02-28] MEDS ORDERED: MAGNESIUM SULFATE 4GM 100 ML IV ONE (08:00)
[2019-02-28] MEDS: PANTOPRAZOLE IV PUSH 40 MG VIAL. IVP SCH (08:52)
[2019-02-28] MEDS: HALOPERIDOL LACTATE 5 MG/ML VIAL. IVP PRN ×3 (08:53→21:51)
[2019-02-28] MEDS: SCOPOLAMINE 1.5MG PATCH. TD SCH (08:53)
--- NOTE | 2019-02-28 08:56 | RAD ---
PORTABLE CHEST 1V INDICATION: Respiratory failure. COMPARISON STUDY: 02/27/2019. FINDINGS: Life Support Devices: Stable endotracheal tube, enteric tube, and right IJ central venous catheter. Lungs: Normal lung volume. Stable prominent interstitial markings. Pleura: Stable small bilateral pleural effusions. Heart and Mediastinum: Stable cardiomediastinal silhouette and great vessels. IMPRESSION: 1. Stable life support devices. 2. Stable prominent interstitial markings. 3. Stable small bilateral pleural effusions. Electronically signed by: Boaz Norton MD (02/28/2019 8:54 AM) [id number]
[2019-02-28] MEDS ORDERED: MAGNESIUM SULFATE 4GM 100 ML IV SCH (09:00)
--- NOTE | 2019-02-28 09:02 | PN ---
DATE: 02/28/2019 SUBJECTIVE: The patient continues to be sedated, intubated, mechanically ventilated. Apparently, she was too anxious yesterday for extubation. PHYSICAL EXAMINATION: GENERAL: When I saw her this morning, she was pale. No jaundice, cyanosis or thyromegaly. No jugular venous distention. No lower limb edema. VITAL SIGNS: Her heart rate was 61, blood pressure 148/66, temperature 99.2, respiratory rate was 16 and oxygen saturation 100% on FiO2 of 40%. HEAD, EYES, EARS, NOSE AND THROAT: Normocephalic, atraumatic. She has orotracheal and orogastric tube in place. NECK: Supple. HEART: Showed normal first and second heart sounds. No gallop or murmur. CHEST: Shows central trachea, equal bilateral expansion, air entry, vesicular breath sounds. I could not appreciate any crepitation or rhonchi anteriorly. ABDOMEN: Slightly distended, soft, nontender. NEUROLOGICAL: She is heavily sedated. Her intake over the last 24 hours was 3800, output was 3750. LABORATORY DATA: As of this morning, her white cell count was 5700, hemoglobin 7.5, hematocrit 22.7, MCV 86 and platelet count of 153,000. Her chemistry showed a serum sodium 144, potassium 3.1, chloride 107, bicarbonate 24, anion gap of 13, BUN 21, creatinine 0.8, estimated GFR was 88 mL per minute, her glucose 119, calcium was 9.5, phosphorus 5.7 and magnesium was 1.4. Her blood gases as of yesterday showed a pH of 7.45, pCO2 of 30, pO2 of 145, bicarbonate 20 and oxygen saturation was 99% on FiO2 of 40%. ASSESSMENT: 1. Severe metabolic acidosis of unknown etiology. 2. Acute respiratory failure secondary to metabolic acidosis, requiring intubation and mechanical ventilation. 3. Alcoholism and alcohol withdrawal seizures. 4. Hypertension. 5. Severe anemia for which she received 1 unit of packed red blood cells. 6. Hypokalemia, hypophosphatemia and hypomagnesemia. 7. Severe protein-calorie malnutrition, serum albumin is only 1.7 g/dL. PLAN: To continue mechanical ventilation, wean as tolerated. Continue DVT and GI prophylaxis. Continue IV antibiotic. Continue with TPN. We will replenish her magnesium and potassium. REKHA CARMEN MD DR: Shane JOB#: [id number] / [id number]
--- NOTE | 2019-02-28 09:50 | NUR ---
SS following up with discharge planning. SS phoned and faxed referral to [facility], ; fax [phone], for LTAC if needed. SS will continue to follow for discharge planning.
--- NOTE | 2019-02-28 11:13 | PDOC ---
PULMONARY PROGRESS NOTES Subjective on vent, sedated, on propofol, fentanyl, developed increase R/R on CPAP trial yesterday, with increase BP Vitals Vital Signs Date Time Temp Pulse Resp B/P (MAP) Pulse Ox O2 Delivery O2 Flow Rate FiO2 02/28/19 07:21 100 Ventilator 02/28/19 06:11 61 148/66 02/28/19 06:00 16 02/28/19 04:00 99.2 99.2 Comments General: Alert, No acute distress HEENT: Other (nc at perrl nose clear orally intubated neck no lad no thyromegaly) Lungs: Other (FEW RHONCHI) Cardiovascular: S1, S2 Abdomen: Soft, Non-tender, Other (no mass) Extremities: No Edema, Other Skin: Warm Labs Laboratory Tests Test 02/27/19 05:45 02/27/19 07:20 02/27/19 18:23 02/28/19 05:30 White Blood Count 5.6 x10^3/uL (4.0-11.0) 5.7 x10^3/uL (4.0-11.0) Red Blood Count 2.52 x10^6/uL (3.50-5.40) 2.65 x10^6/uL (3.50-5.40) Hemoglobin 7.2 g/dL (12.0-15.5) 7.5 g/dL (12.0-15.5) Hematocrit 21.9 % (36.0-47.0) 22.7 % (36.0-47.0) Mean Corpuscular Volume 87 fL (79-100) 86 fL (79-100) Mean Corpuscular Hemoglobin 29 pg (25-35) 28 pg (25-35) Mean Corpuscular Hemoglobin Concent 33 g/dL (31-37) 33 g/dL (31-37) Red Cell Distribution Width 14.7 % (11.5-14.5) 14.7 % (11.5-14.5) Platelet Count 116 x10^3/uL (140-400) 153 x10^3/uL (140-400) Neutrophils (%) (Auto) 52 % (31-73) 56 % (31-73) Lymphocytes (%) (Auto) 18 % (24-48) 20 % (24-48) Monocytes (%) (Auto) 25 % (0-9) 21 % (0-9) Eosinophils (%) (Auto) 4 % (0-3) 3 % (0-3) Basophils (%) (Auto) 1 % (0-3) 0 % (0-3) Neutrophils # (Auto) 2.9 x10^3/uL (1.8-7.7) 3.2 x10^3/uL (1.8-7.7) Lymphocytes # (Auto) 1.0 x10^3/uL (1.0-4.8) 1.2 x10^3/uL (1.0-4.8) Monocytes # (Auto) 1.4 x10^3/uL (0.0-1.1) 1.2 x10^3/uL (0.0-1.1) Eosinophils # (Auto) 0.2 x10^3/uL (0.0-0.7) 0.2 x10^3/uL (0.0-0.7) Basophils # (Auto) 0.0 x10^3/uL (0.0-0.2) 0.0 x10^3/uL (0.0-0.2) Sodium Level 139 mmol/L (136-145) 144 mmol/L (136-145) Potassium Level 3.6 mmol/L (3.5-5.1) 3.1 mmol/L (3.5-5.1) Chloride Level 107 mmol/L (98-107) 107 mmol/L (98-107) Carbon Dioxide Level 21 mmol/L (21-32) 24 mmol/L (21-32) Anion Gap 11 (6-14) 13 (6-14) Blood Urea Nitrogen 17 mg/dL (7-20) 21 mg/dL (7-20) Creatinine 0.7 mg/dL (0.6-1.0) 0.8 mg/dL (0.6-1.0) Estimated GFR (Cockcroft-Gault) 103.3 88.5 Glucose Level 99 mg/dL (70-99) 119 mg/dL (70-99) Calcium Level 8.9 mg/dL (8.5-10.1) 9.5 mg/dL (8.5-10.1) Phosphorus Level 5.0 mg/dL (2.6-4.7) 5.7 mg/dL (2.6-4.7) Magnesium Level 1.9 mg/dL (1.8-2.4) 1.4 mg/dL (1.8-2.4) Albumin 1.8 g/dL (3.4-5.0) Triglycerides Level 289 mg/dL (0-150) O2 Saturation 99 % (92-99) Arterial Blood pH 7.45 (7.35-7.45) Arterial Blood pCO2 at Patient Temp 30 mmHg (35-46) Arterial Blood pO2 at Patient Temp 145 mmHg (65-108) Arterial Blood HCO3 20 mmol/L (21-28) Arterial Blood Base Excess -3 mmol/L (-3-3) FiO2 40 Glucose (Fingerstick) 113 mg/dL (70-99) Test 02/28/19 07:15 O2 Saturation 99 % (92-99) Arterial Blood pH 7.46 (7.35-7.45) Arterial Blood pCO2 at Patient Temp 28 mmHg (35-46) Arterial Blood pO2 at Patient Temp 150 mmHg (65-108) Arterial Blood HCO3 20 mmol/L (21-28) Arterial Blood Base Excess -4 mmol/L (-3-3) FiO2 40 Laboratory Tests Test 02/27/19 18:23 02/28/19 05:30 02/28/19 07:15 Glucose (Fingerstick) 113 mg/dL (70-99) White Blood Count 5.7 x10^3/uL (4.0-11.0) Red Blood Count 2.65 x10^6/uL (3.50-5.40) Hemoglobin 7.5 g/dL (12.0-15.5) Hematocrit 22.7 % (36.0-47.0) Mean Corpuscular Volume 86 fL (79-100) Mean Corpuscular Hemoglobin 28 pg (25-35) Mean Corpuscular Hemoglobin Concent 33 g/dL (31-37) Red Cell Distribution Width 14.7 % (11.5-14.5) Platelet Count 153 x10^3/uL (140-400) Neutrophils (%) (Auto) 56 % (31-73) Lymphocytes (%) (Auto) 20 % (24-48) Monocytes (%) (Auto) 21 % (0-9) Eosinophils (%) (Auto) 3 % (0-3) Basophils (%) (Auto) 0 % (0-3) Neutrophils # (Auto) 3.2 x10^3/uL (1.8-7.7) Lymphocytes # (Auto) 1.2 x10^3/uL (1.0-4.8) Monocytes # (Auto) 1.2 x10^3/uL (0.0-1.1) Eosinophils # (Auto) 0.2 x10^3/uL (0.0-0.7) Basophils # (Auto) 0.0 x10^3/uL (0.0-0.2) Sodium Level 144 mmol/L (136-145) Potassium Level 3.1 mmol/L (3.5-5.1) Chloride Level 107 mmol/L (98-107) Carbon Dioxide Level 24 mmol/L (21-32) Anion Gap 13 (6-14) Blood Urea Nitrogen 21 mg/dL (7-20) Creatinine 0.8 mg/dL (0.6-1.0) Estimated GFR (Cockcroft-Gault) 88.5 Glucose Level 119 mg/dL (70-99) Calcium Level 9.5 mg/dL (8.5-10.1) Phosphorus Level 5.7 mg/dL (2.6-4.7) Magnesium Level 1.4 mg/dL (1.8-2.4) O2 Saturation 99 % (92-99) Arterial Blood pH 7.46 (7.35-7.45) Arterial Blood pCO2 at Patient Temp 28 mmHg (35-46) Arterial Blood pO2 at Patient Temp 150 mmHg (65-108) Arterial Blood HCO3 20 mmol/L (21-28) Arterial Blood Base Excess -4 mmol/L (-3-3) FiO2 40 Medications Active Scripts Medications Dose Route/Sig Max Daily Dose Days Date Category Potassium Chloride 20 Meq Tablet.er 20 Meq PO BID 30 08/11/18 Rx Oxycodone Hcl 5 Mg Capsule 5 Mg PO PRN Q6HRS PRN 5 08/11/18 Rx Amlodipine Besylate 10 Mg Tablet 10 Mg PO DAILY 30 08/11/18 Rx Melatonin 3 Mg Tab.rapdis 3 Mg PO HS PRN 07/27/18 Reported Nephro-Nola Tablet (Folic Acid/Vitamin B Comp W-C) 0.8 Mg Tablet 1 Tab PO DAILY 07/27/18 Reported Vitamin B-12 (Cyanocobalamin (Vitamin B-12)) 1,000 Mcg Tablet 1,000 Mcg PO DAILY 07/27/18 Reported Megestrol Acetate 20 Mg Tablet 20 Mg PO DAILY 07/27/18 Reported Protonix (Pantoprazole Sodium) 20 Mg Tablet.dr 40 Mg PO DAILY 07/27/18 Reported Zoloft (Sertraline Hcl) 50 Mg Tablet 1 Tab PO DAILY 07/27/18 Reported Zoloft (Sertraline Hcl) 25 Mg Tablet 1 Tab PO DAILY 07/27/18 Reported Coreg (Carvedilol) 25 Mg Tablet 6.25 Mg PO BIDWMEALS 07/27/18 Reported Lipitor (Atorvastatin Calcium) 10 Mg Tablet 1 Tab PO QHS 07/27/18 Reported Duoneb 0.5-3(2.5) Mg/3 Ml (Albuterol/Ipratropium) 3 Ml Ampul.neb 3 Ml NEB QID PRN 07/27/18 Reported Comments cxr reviewed 02/28 mild CHF Impression . IMPRESSION: 1. Acute respiratory failure secondary to severe metabolic acidosis. 2. Severe metabolic acidosis, etiology unclear. resolved 3. History of alcohol abuse. 4. Hypotension. 5. History of seizure disorder. 6. Hypomagnesemia. resolved 7. Hypo k 8. Colitis. 9. Ileus. 10. Pneumonia. abnl cxr, improvement in CXR 11 ACUTE DROP IN HCT, s/p prbc hb stable 12. Likely anxiety disorder 13. Diastlic HF on CPAP trials due to high BP, now controlled with Cardene drip Plan . Doing better on CPAP trial, adequate control of BP on cardene drip will check ABG, if ok, proceed with extubation. cxr reviewed sputum cx s/p TRANSFUSion, h/h stable, on protonix iv ANTI BX fu cxs BD nutrition per GI discussed w rn, rt cct 3 0 min SIDRA LUZ MD Feb 28, 2019 11:13
[2019-02-28 11:19] LABS: BASE EXCESS ABG -2 mmol/L (-3-3); HCO3 ABG 21 mmol/L (21-28); PCO2 ABG 28 mmHg (35-46); PO2 ABG 122 mmHg (65-108); SAT O2 ABG 98 % (92-99)
[2019-02-28 11:21] LABS: FIO2 ABG 40
[2019-02-28] MEDS ORDERED: methylPREDNISolone SOD SUCC PF 125 MG/2 ML VIAL. IV ONE (12:00)
[2019-02-28] MEDS ORDERED: FUROSEMIDE 40 MG/4 ML VIAL. ONE (12:20)
[2019-02-28] MEDS ORDERED: FUROSEMIDE 40 MG/4 ML VIAL. IVP ONE (12:30)
--- NOTE | 2019-02-28 12:32 | PDOC ---
Objective: Objective: D/w nurse - was extubated and was calm, then agitated and now on BiPAP, asked to be "knocked out." Family present Vital Signs: Vital Signs Date Time Temp Pulse Resp B/P (MAP) Pulse Ox O2 Delivery O2 Flow Rate FiO2 02/28/19 12:08 99 151/68 02/28/19 11:10 100 Ventilator 02/28/19 06:00 16 02/28/19 04:00 99.2 99.2 Labs: Laboratory Tests Test 02/27/19 18:23 02/28/19 05:30 02/28/19 07:15 02/28/19 11:08 Glucose (Fingerstick) 113 mg/dL White Blood Count 5.7 x10^3/uL Red Blood Count 2.65 x10^6/uL Hemoglobin 7.5 g/dL Hematocrit 22.7 % Mean Corpuscular Volume 86 fL Mean Corpuscular Hemoglobin 28 pg Mean Corpuscular Hemoglobin Concent 33 g/dL Red Cell Distribution Width 14.7 % Platelet Count 153 x10^3/uL Neutrophils (%) (Auto) 56 % Lymphocytes (%) (Auto) 20 % Monocytes (%) (Auto) 21 % Eosinophils (%) (Auto) 3 % Basophils (%) (Auto) 0 % Neutrophils # (Auto) 3.2 x10^3/uL Lymphocytes # (Auto) 1.2 x10^3/uL Monocytes # (Auto) 1.2 x10^3/uL Eosinophils # (Auto) 0.2 x10^3/uL Basophils # (Auto) 0.0 x10^3/uL Sodium Level 144 mmol/L Potassium Level 3.1 mmol/L Chloride Level 107 mmol/L Carbon Dioxide Level 24 mmol/L Anion Gap 13 Blood Urea Nitrogen 21 mg/dL Creatinine 0.8 mg/dL Estimated GFR (Cockcroft-Gault) 88.5 Glucose Level 119 mg/dL Calcium Level 9.5 mg/dL Phosphorus Level 5.7 mg/dL Magnesium Level 1.4 mg/dL O2 Saturation 99 % 98 % Arterial Blood pH 7.46 7.49 Arterial Blood pCO2 at Patient Temp 28 mmHg 28 mmHg Arterial Blood pO2 at Patient Temp 150 mmHg 122 mmHg Arterial Blood HCO3 20 mmol/L 21 mmol/L Arterial Blood Base Excess -4 mmol/L -2 mmol/L FiO2 40 40 PE: GEN: thrashing around in bed LUNGS: BiPAP HEART: RR on monitor NEURO/PSYCH: awake, agitated A/P: Resp failure - extubated, agitated Ileus on TPN H/o alcoholism Chronic anemia - stable -- Continue same per GI. Hemodynamically unstable?: No Is patient in severe pain?: Yes Is NPO status required?: Yes KATHRYN BRIONES Feb 28, 2019 12:32
[2019-02-28] MEDS: methylPREDNISolone SOD SUCC PF 125 MG/2 ML VIAL. IV SCH ×2 (14:23→21:51)
[2019-02-28] MEDS ORDERED: RACEPINEPHRINE 2.25% 0.5 ML NEBU. ONE (14:32)
[2019-02-28] MEDS ORDERED: RACEPINEPHRINE 2.25% 0.5 ML NEBU. NEB ONE (14:45)
[2019-02-28] MEDS: ENOXAPARIN 40 MG/0.4 ML SYRINGE. SQ SCH (15:09)
[2019-02-28] MEDS: TPN PER PHARMACY MC PRN (16:00)
--- NOTE | 2019-02-28 16:00 | NUR ---
Pharmacy TPN Dosing Note S: DIAZ VALDEZ is a 59 year old F Currently receiving Central Continuous TPN started 02/26/19 B:Pertinent PMH: NPO Height: 5 feet, 2 inches Weight: 44.7 kg Current diet: NPO LABS: Sodium: 144 Potassium: 3.1 Chloride: 107 Calcium: 9.5 Corrected Calcium: 11.26 Magnesium: 1.4 CO2: 24 SCr: 0.8 Glucose: 119 Albumin: 1.8 AST: 25 ALT: 8 TPN FORMULA: TPN TYPE: Central Continuous AMINO ACIDS: 60 gm DEXTROSE: 195 gm SODIUM CHLORIDE: 70 mEq POTASSIUM ACETATE: 85 mEq MAGNESIUM: 15 mEq MULTIPLE VITAMIN: 10 ml TRACE ELEMENTS: 1 ml TPN PLAN: -At time of ordering TPN pt still on propofol, therefore no lipids in lamonte's TPN. -Serum sodium trending up, reduce NaCl. -Serum potassium low, pt received replacement outside of TPN. Increase KCl to 85 mEq/day. -Remove KPhos due to high phosphorus. -Serum mag low, pt received replacement outside of TPN. Increase mag sulfate to 15 mEq/day. -Corrected calcium high - remove calcium from TPN. -BMP, mag, phos tomorrow. R: Continue TPN @ current rate and with above changes. Will monitor electrolytes, glucose, and tolerance to TPN. ROGELIO THURMAN RPH, 02/28/19 1600
[2019-02-28] MEDS ORDERED: [UNRECOGNIZED DRUG - OTHER] IV SCH ×8 (22:00)
[2019-02-28] MEDS ORDERED: TOTAL PARENTERAL NUTRITION IV SCH ×8 (22:00)
[2019-02-28] MEDS ORDERED: AMINO ACID IV SCH ×8 (22:00)
[2019-02-28] MEDS ORDERED: DEXTROSE 70% IV SCH ×8 (22:00)
[2019-03-01] VITALS (18 sets, daily range): BP systolic 114–181; BP diastolic 56–95
[2019-03-01] MEDS: METOPROLOL TARTRATE 5 MG/5 ML VIAL. IVP SCH ×3 (00:32→12:47)
[2019-03-01] MEDS: hydrALAZINE 20 MG/ML VIAL. IVP PRN ×2 (01:32→08:12)
[2019-03-01] MEDS: DEXMEDETOMIDINE 400 MCG in IV NORMAL SALINE 100ML 96 ML IV PRN (02:13)
[2019-03-01] MEDS: methylPREDNISolone SOD SUCC PF 125 MG/2 ML VIAL. IV SCH (05:54)
[2019-03-01 06:11] LABS: HEMATOCRIT 22.8 % (36.0-47.0); HEMOGLOBIN 7.4 g/dL (12.0-15.5); RED BLOOD COUNT 2.64 x10^6/uL (3.50-5.40); RED CELL DISTRIBUTION WIDTH 14.5 % (11.5-14.5); WHITE BLOOD COUNT 10.7 x10^3/uL (4.0-11.0)
[2019-03-01 06:30] LABS: ALBUMIN 2.3 g/dL (3.4-5.0); ALBUMIN/GLOBULIN RATIO 0.5 (1.0-1.7); CALCIUM 9.5 mg/dL (8.5-10.1); GFR 68.4; MAGNESIUM 2.1 mg/dL (1.8-2.4); PHOSPHORUS 3.8 mg/dL (2.6-4.7); POTASSIUM 3.7 mmol/L (3.5-5.1); TOTAL BILIRUBIN 0.2 mg/dL (0.2-1.0)
[2019-03-01] MEDS: PANTOPRAZOLE IV PUSH 40 MG VIAL. IVP SCH (07:58)
--- NOTE | 2019-03-01 08:10 | PN ---
DATE: 03/01/2019 SUBJECTIVE: The patient was successfully extubated. She is on BiPAP machine this morning, maintaining her oxygen saturation at 98% on FiO2 of 40%. Nursing staff did not voice any concern and stated that she has had an uneventful night. PHYSICAL EXAMINATION: GENERAL: When I examined her, she looked pale, but no jaundice, cyanosis or thyromegaly. No jugular venous distension. No lower limb edema. VITAL SIGNS: Her heart rate was 69, blood pressure was 165/71, temperature was 98.9, respiratory rate was 20, and oxygen saturation was 100% on FiO2 of 40%. HEAD, EYES, EARS, NOSE AND THROAT: Showed normocephalic, atraumatic. NECK: Supple. HEART: Showed normal first and second heart sounds. No gallop or murmur. CHEST: Clear to auscultation. No crepitation or rhonchi. ABDOMEN: Distended, soft, nontender. NEUROLOGIC: She is sleepy, but arousable. All cranial nerves intact. She moves extremities without difficulty. Her intake over the last 24 hours was 2700 and output was 4700. LABORATORY DATA: As of this morning showed a white cell count of 10,700, hemoglobin 7.4, hematocrit 22.8, MCV 86 and platelet count of 188,000. Serum sodium 142, potassium 3.7, chloride 103, bicarbonate 26, anion gap of 13, BUN 28, creatinine 1, estimated GFR was 68 mL per minute, her glucose 169, calcium was 9.5, phosphorus 3.8, magnesium was 2.1. Total bilirubin, AST, ALT, alkaline phosphatase were normal. Total protein 7, albumin 2.3. Her TSH slightly high at 6.006; however, total T4 was normal. ASSESSMENT: 1. Severe metabolic acidosis of unknown etiology. 2. Acute respiratory failure secondary to metabolic acidosis requiring intubation and mechanical ventilation; however, she was successfully extubated yesterday. 3. Alcoholism, alcohol withdrawal seizures. 4. Hypertension. 5. Severe anemia, which she received 1 unit of packed RBCs. 6. Hypokalemia, hypophosphatemia and hypomagnesemia, have all resolved. 7. Severe protein-calorie malnutrition, serum albumin is only 1.7 g/dL. PLAN: To continue with PPN, continue with IV antibiotic. Continue with BiPAP machine for now. Continue with DVT prophylaxis. REKHA CARMEN MD DR: CYNTHIA/desean JOB#: [id number] / [id number]
[2019-03-01] MEDS: IPRATRPIUM/ALBUTEROL 0.5/2.5MG 3 ML NEBU. NEB SCH ×3 (08:12→16:45)
[2019-03-01 08:21] LABS: BASE EXCESS ABG 1 mmol/L (-3-3); HCO3 ABG 24 mmol/L (21-28); PCO2 ABG 31 mmHg (35-46); PO2 ABG 232 mmHg (65-108); SAT O2 ABG 99 % (92-99)
--- NOTE | 2019-03-01 08:32 | NUR ---
Arterial blood pressures charted under Vital Signs intervention to avoid double charting Addendum: 03/01/19 at 0833 by ANA CRISTINA DUVALL RN Amended: Links added.
[2019-03-01 08:52] LABS: FIO2 ABG 50
--- NOTE | 2019-03-01 10:33 | PDOC ---
Subjective: Subjective: Wants mittens off, denies pain. Objective: Objective: D/w nurse - on BiPAP (?try to stop today), still restless, denies pain. Vital Signs: Vital Signs Date Time Temp Pulse Resp B/P (MAP) Pulse Ox O2 Delivery O2 Flow Rate FiO2 03/01/19 08:13 100 BiPAP/CPAP 03/01/19 08:12 68 173/78 03/01/19 07:52 4.0 03/01/19 07:00 20 03/01/19 04:00 98.9 98.9 Labs: Laboratory Tests Test 02/28/19 11:08 03/01/19 06:00 03/01/19 08:00 O2 Saturation 98 % 99 % Arterial Blood pH 7.49 7.51 Arterial Blood pCO2 at Patient Temp 28 mmHg 31 mmHg Arterial Blood pO2 at Patient Temp 122 mmHg 232 mmHg Arterial Blood HCO3 21 mmol/L 24 mmol/L Arterial Blood Base Excess -2 mmol/L 1 mmol/L FiO2 40 50 White Blood Count 10.7 x10^3/uL Red Blood Count 2.64 x10^6/uL Hemoglobin 7.4 g/dL Hematocrit 22.8 % Mean Corpuscular Volume 86 fL Mean Corpuscular Hemoglobin 28 pg Mean Corpuscular Hemoglobin Concent 32 g/dL Red Cell Distribution Width 14.5 % Platelet Count 188 x10^3/uL Sodium Level 142 mmol/L Potassium Level 3.7 mmol/L Chloride Level 103 mmol/L Carbon Dioxide Level 26 mmol/L Anion Gap 13 Blood Urea Nitrogen 28 mg/dL Creatinine 1.0 mg/dL Estimated GFR (Cockcroft-Gault) 68.4 BUN/Creatinine Ratio 28 Glucose Level 169 mg/dL Calcium Level 9.5 mg/dL Phosphorus Level 3.8 mg/dL Magnesium Level 2.1 mg/dL Total Bilirubin 0.2 mg/dL Aspartate Amino Transf (AST/SGOT) 14 U/L Alanine Aminotransferase (ALT/SGPT) 8 U/L Alkaline Phosphatase 118 U/L Total Protein 7.0 g/dL Albumin 2.3 g/dL Albumin/Globulin Ratio 0.5 PE: GEN: restless LUNGS: BiPAP HEART: RRR ABD: a few quiet gurgles, soft, non-tender NEURO/PSYCH: awake, difficult to understand with BiPAP, mittens A/P: Resp failure, ileus, h/o alcoholism Chronic anemia - stable, no obvious bleeding -- ?bowel sounds today Continue TPN - when able to be off BiPAP, could consider KUB before trying PO - will also need speech eval. Hemodynamically unstable?: No Is patient in severe pain?: No Is NPO status required?: Yes KATHRYN BRIONES Mar 01, 2019 10:33
--- NOTE | 2019-03-01 10:40 | NUR ---
SS following up with discharge planning. Pt accepted at [facility] pending insurance authorization. SS phoned and faxed discharge orders and clinical updates to [facility]. Pt stating that she does not want to go. SS contacted pt's family. Pt's son, Bentlye, stated that all family members are in agreement that pt needs to go to [facility] and give there consent. Pt's family reported that they cannot care for her at home in her condition. SS will await insurance determination and will proceed accordingly with discharge planning.
--- NOTE | 2019-03-01 11:45 | PDOC ---
PULMONARY PROGRESS NOTES Subjective extubated on 02/28/2019, had some post-extubation remains on N/C stridor and wheezing, much improved Vitals Vital Signs Date Time Temp Pulse Resp B/P (MAP) Pulse Ox O2 Delivery O2 Flow Rate FiO2 03/01/19 11:00 76 20 119/70 (86) 100 Nasal Cannula 2.0 03/01/19 08:00 98.6 98.6 Comments ROS: No Nausea, No Chest Pain, No Abdominal Pain, No Increase Cough General: Alert, No acute distress HEENT: Other Lungs: Other (FEW RHONCHI) Cardiovascular: S1, S2 Abdomen: Soft, Non-tender Neuro Exam: Alert Extremities: No Edema, Other Skin: Warm Labs Laboratory Tests Test 02/27/19 18:23 02/28/19 05:30 02/28/19 07:15 02/28/19 11:08 Glucose (Fingerstick) 113 mg/dL (70-99) White Blood Count 5.7 x10^3/uL (4.0-11.0) Red Blood Count 2.65 x10^6/uL (3.50-5.40) Hemoglobin 7.5 g/dL (12.0-15.5) Hematocrit 22.7 % (36.0-47.0) Mean Corpuscular Volume 86 fL (79-100) Mean Corpuscular Hemoglobin 28 pg (25-35) Mean Corpuscular Hemoglobin Concent 33 g/dL (31-37) Red Cell Distribution Width 14.7 % (11.5-14.5) Platelet Count 153 x10^3/uL (140-400) Neutrophils (%) (Auto) 56 % (31-73) Lymphocytes (%) (Auto) 20 % (24-48) Monocytes (%) (Auto) 21 % (0-9) Eosinophils (%) (Auto) 3 % (0-3) Basophils (%) (Auto) 0 % (0-3) Neutrophils # (Auto) 3.2 x10^3/uL (1.8-7.7) Lymphocytes # (Auto) 1.2 x10^3/uL (1.0-4.8) Monocytes # (Auto) 1.2 x10^3/uL (0.0-1.1) Eosinophils # (Auto) 0.2 x10^3/uL (0.0-0.7) Basophils # (Auto) 0.0 x10^3/uL (0.0-0.2) Sodium Level 144 mmol/L (136-145) Potassium Level 3.1 mmol/L (3.5-5.1) Chloride Level 107 mmol/L (98-107) Carbon Dioxide Level 24 mmol/L (21-32) Anion Gap 13 (6-14) Blood Urea Nitrogen 21 mg/dL (7-20) Creatinine 0.8 mg/dL (0.6-1.0) Estimated GFR (Cockcroft-Gault) 88.5 Glucose Level 119 mg/dL (70-99) Calcium Level 9.5 mg/dL (8.5-10.1) Phosphorus Level 5.7 mg/dL (2.6-4.7) Magnesium Level 1.4 mg/dL (1.8-2.4) Thyroid Stimulating Hormone (TSH) 6.006 uIU/mL (0.358-3.74) Thyroxine (T4) 5.2 ug/dL (4.5-12.0) O2 Saturation 99 % (92-99) 98 % (92-99) Arterial Blood pH 7.46 (7.35-7.45) 7.49 (7.35-7.45) Arterial Blood pCO2 at Patient Temp 28 mmHg (35-46) 28 mmHg (35-46) Arterial Blood pO2 at Patient Temp 150 mmHg (65-108) 122 mmHg (65-108) Arterial Blood HCO3 20 mmol/L (21-28) 21 mmol/L (21-28) Arterial Blood Base Excess -4 mmol/L (-3-3) -2 mmol/L (-3-3) FiO2 40 40 Test 03/01/19 06:00 03/01/19 08:00 White Blood Count 10.7 x10^3/uL (4.0-11.0) Red Blood Count 2.64 x10^6/uL (3.50-5.40) Hemoglobin 7.4 g/dL (12.0-15.5) Hematocrit 22.8 % (36.0-47.0) Mean Corpuscular Volume 86 fL (79-100) Mean Corpuscular Hemoglobin 28 pg (25-35) Mean Corpuscular Hemoglobin Concent 32 g/dL (31-37) Red Cell Distribution Width 14.5 % (11.5-14.5) Platelet Count 188 x10^3/uL (140-400) Sodium Level 142 mmol/L (136-145) Potassium Level 3.7 mmol/L (3.5-5.1) Chloride Level 103 mmol/L (98-107) Carbon Dioxide Level 26 mmol/L (21-32) Anion Gap 13 (6-14) Blood Urea Nitrogen 28 mg/dL (7-20) Creatinine 1.0 mg/dL (0.6-1.0) Estimated GFR (Cockcroft-Gault) 68.4 BUN/Creatinine Ratio 28 (6-20) Glucose Level 169 mg/dL (70-99) Calcium Level 9.5 mg/dL (8.5-10.1) Phosphorus Level 3.8 mg/dL (2.6-4.7) Magnesium Level 2.1 mg/dL (1.8-2.4) Total Bilirubin 0.2 mg/dL (0.2-1.0) Aspartate Amino Transf (AST/SGOT) 14 U/L (15-37) Alanine Aminotransferase (ALT/SGPT) 8 U/L (14-59) Alkaline Phosphatase 118 U/L (46-116) Total Protein 7.0 g/dL (6.4-8.2) Albumin 2.3 g/dL (3.4-5.0) Albumin/Globulin Ratio 0.5 (1.0-1.7) O2 Saturation 99 % (92-99) Arterial Blood pH 7.51 (7.35-7.45) Arterial Blood pCO2 at Patient Temp 31 mmHg (35-46) Arterial Blood pO2 at Patient Temp 232 mmHg (65-108) Arterial Blood HCO3 24 mmol/L (21-28) Arterial Blood Base Excess 1 mmol/L (-3-3) FiO2 50 Laboratory Tests Test 03/01/19 06:00 03/01/19 08:00 White Blood Count 10.7 x10^3/uL (4.0-11.0) Red Blood Count 2.64 x10^6/uL (3.50-5.40) Hemoglobin 7.4 g/dL (12.0-15.5) Hematocrit 22.8 % (36.0-47.0) Mean Corpuscular Volume 86 fL (79-100) Mean Corpuscular Hemoglobin 28 pg (25-35) Mean Corpuscular Hemoglobin Concent 32 g/dL (31-37) Red Cell Distribution Width 14.5 % (11.5-14.5) Platelet Count 188 x10^3/uL (140-400) Sodium Level 142 mmol/L (136-145) Potassium Level 3.7 mmol/L (3.5-5.1) Chloride Level 103 mmol/L (98-107) Carbon Dioxide Level 26 mmol/L (21-32) Anion Gap 13 (6-14) Blood Urea Nitrogen 28 mg/dL (7-20) Creatinine 1.0 mg/dL (0.6-1.0) Estimated GFR (Cockcroft-Gault) 68.4 BUN/Creatinine Ratio 28 (6-20) Glucose Level 169 mg/dL (70-99) Calcium Level 9.5 mg/dL (8.5-10.1) Phosphorus Level 3.8 mg/dL (2.6-4.7) Magnesium Level 2.1 mg/dL (1.8-2.4) Total Bilirubin 0.2 mg/dL (0.2-1.0) Aspartate Amino Transf (AST/SGOT) 14 U/L (15-37) Alanine Aminotransferase (ALT/SGPT) 8 U/L (14-59) Alkaline Phosphatase 118 U/L (46-116) Total Protein 7.0 g/dL (6.4-8.2) Albumin 2.3 g/dL (3.4-5.0) Albumin/Globulin Ratio 0.5 (1.0-1.7) O2 Saturation 99 % (92-99) Arterial Blood pH 7.51 (7.35-7.45) Arterial Blood pCO2 at Patient Temp 31 mmHg (35-46) Arterial Blood pO2 at Patient Temp 232 mmHg (65-108) Arterial Blood HCO3 24 mmol/L (21-28) Arterial Blood Base Excess 1 mmol/L (-3-3) FiO2 50 Medications Active Scripts Medications Dose Route/Sig Max Daily Dose Days Date Category Potassium Chloride 20 Meq Tablet.er 20 Meq PO BID 08/11/18 Rx Oxycodone Hcl 5 Mg Capsule 5 Mg PO PRN Q6HRS PRN 5 08/11/18 Rx Amlodipine Besylate 10 Mg Tablet 10 Mg PO DAILY 08/11/18 Rx Melatonin 3 Mg Tab.rapdis 3 Mg PO HS PRN 07/27/18 Reported Nephro-Nola Tablet (Folic Acid/Vitamin B Comp W-C) 0.8 Mg Tablet 1 Tab PO DAILY 07/27/18 Reported Vitamin B-12 (Cyanocobalamin (Vitamin B-12)) 1,000 Mcg Tablet 1,000 Mcg PO DAILY 07/27/18 Reported Megestrol Acetate 20 Mg Tablet 20 Mg PO DAILY 07/27/18 Reported Protonix (Pantoprazole Sodium) 20 Mg Tablet.dr 40 Mg PO DAILY 07/27/18 Reported Zoloft (Sertraline Hcl) 50 Mg Tablet 1 Tab PO DAILY 07/27/18 Reported Zoloft (Sertraline Hcl) 25 Mg Tablet 1 Tab PO DAILY 07/27/18 Reported Coreg (Carvedilol) 25 Mg Tablet 6.25 Mg PO BIDWMEALS 07/27/18 Reported Lipitor (Atorvastatin Calcium) 10 Mg Tablet 1 Tab PO QHS 07/27/18 Reported Duoneb 0.5-3(2.5) Mg/3 Ml (Albuterol/Ipratropium) 3 Ml Ampul.neb 3 Ml NEB QID PRN 07/27/18 Reported Comments CXR: IMPRESSION: 1. Stable life support devices. 2. Stable prominent interstitial markings. 3. Stable small bilateral pleural effusions. Impression . 1. Acute respiratory failure secondary to severe metabolic acidosis. 2. Severe metabolic acidosis, etiology unclear. resolved 3. History of alcohol abuse. 4. Hypotension. 5. History of seizure disorder. 6. Hypomagnesemia. resolved 7. Hypo k 8. Colitis. 9. Ileus. 10. Pneumonia. abnl cxr, improvement in CXR 11 ACUTE DROP IN HCT, s/p prbc hb stable 12. Likely anxiety disorder 13. Diastlic HF Plan . cont. supplemental oxygen to keep sats above 92%, extubated 02/28/2019 cxr reviewed steroids with gradual taper h/h stable, on protonix iv cont. ABX Duonebs nutrition per GI HTN per PCP D/W RN/RT SIDRA LUZ MD Mar 01, 2019 11:45
[2019-03-01] MEDS ORDERED: methylPREDNISolone SOD SUCC PF 125 MG/2 ML VIAL. IV SCH (12:15)
[2019-03-01] MEDS: TPN PER PHARMACY MC PRN (12:32)
--- NOTE | 2019-03-01 12:40 | NUR ---
Pharmacy TPN Dosing Note S: DIAZ VALDEZ is a 59 year old F Currently receiving Central Continuous TPN started 02/26/19 B:Pertinent PMH: NPO Height: 5 feet, 2 inches Weight: 44.956341 kg Current diet: NPO LABS: Sodium: 142 Potassium: 3.7 Chloride: 103 Calcium: 9.5 Corrected Calcium: 10.86 Magnesium: 2.1 CO2: 26 SCr: 1.0 Glucose: 169 Albumin: 2.3 AST: 25 ALT: 8 TPN FORMULA: TPN TYPE: Central Continuous AMINO ACIDS: 60 gm DEXTROSE: 195 gm LIPIDS: 0 gm SODIUM CHLORIDE: 70 mEq SODIUM ACETATE: mEq SODIUM PHOSPHATE: mmol POTASSIUM CHLORIDE: mEq POTASSIUM ACETATE: 85 mEq POTASSIUM PHOSPHATE: 5 mmol MAGNESIUM: 10 mEq CALCIUM: 0 mEq INSULIN: 0 units MULTIPLE VITAMIN: 10 ml TRACE ELEMENTS: 1 ml(s) TPN PLAN: pt still getting propofol, will continue to leave lipid out of tpn. add phosphate 5mm and decrease mag to 10 meq. R: Continue TPN AT 50 ML/HR Will monitor electrolytes, glucose, and tolerance to TPN. [facility], 03/01/19 [id number]
[2019-03-01] MEDS: ENOXAPARIN 40 MG/0.4 ML SYRINGE. SQ SCH (14:00)
[2019-03-01] MEDS: HALOPERIDOL LACTATE 5 MG/ML VIAL. IVP PRN (16:06)
--- NOTE | 2019-03-01 16:22 | SNU/HH DC ---
DISCHARGE ORDERS DISCHARGE INFORMATION: DISCHARGE DATE: Mar 01, 2019 FINAL DIAGNOSIS severe metabolic acidosis Acute respiratory failure CONDITION ON DISCHARGE: Stable CODE STATUS: Code Status: Full LTAC: ADMIT TO LTAC: Yes POST DISCHARGE ORDERS: ACTIVITY ORDERS: Activity as tolerated WEIGHT BEARING STATUS: Full weight bearing DIET AFTER DISCHARGE: Regular WOUND/INCISION CARE: No wound care needed TREATMENT/EQUIPMENT ORDERS: ADAPTIVE EQUIPMENT NEEDED: None Physical Therapy For: Evalulation/Treatment Occupational Therapy For: Evaluation/Treatment DISCHARGE MEDICATIONS: Home Meds Active Scripts Potassium Chloride (POTASSIUM CHLORIDE ) 20 Meq Tablet.er, 20 MEQ PO BID for hypokalemia] for 30 Days, #60 TAB.SR Prov:REKHA CARMEN MD 08/11/18 Oxycodone Hcl (OXYCODONE HCL) 5 Mg Capsule, 5 MG PO PRN Q6HRS PRN for PAIN for 5 Days, #20 TAB 0 Refills Prov:REKHA CARMEN MD 08/11/18 Amlodipine Besylate (AMLODIPINE BESYLATE) 10 Mg Tablet, 10 MG PO DAILY for htn for 30 Days, #30 TAB Prov:REKHA CARMEN MD 08/11/18 Reported Medications Melatonin (MELATONIN) 3 Mg Tab.rapdis, 3 MG PO HS PRN for insomnia, TAB 07/27/18 Folic Acid/Vitamin B Comp W-C (NEPHRO-MISAEL TABLET) 0.8 Mg Tablet, 1 TAB PO DAILY for Vitamin, #30 TAB 5 Refills 07/27/18 Cyanocobalamin (Vitamin B-12) (VITAMIN B-12) 1,000 Mcg Tablet, 1000 MCG PO DAILY for Anemia, TAB 07/27/18 Megestrol Acetate (MEGESTROL ACETATE) 20 Mg Tablet, 20 MG PO DAILY for Progesterone, TAB 07/27/18 Pantoprazole Sodium (PROTONIX) 20 Mg Tablet.dr, 40 MG PO DAILY for GERD, TAB 07/27/18 Sertraline Hcl (ZOLOFT) 50 Mg Tablet, 1 TAB PO DAILY for Depression, #30 TAB 2 Refills 07/27/18 Sertraline Hcl (ZOLOFT) 25 Mg Tablet, 1 TAB PO DAILY for DEPRESSION, #30 TAB 2 Refills 07/27/18 Carvedilol (COREG) 25 Mg Tablet, 6.25 MG PO BIDWMEALS for CARDIAC, TAB 07/27/18 Atorvastatin Calcium (LIPITOR) 10 Mg Tablet, 1 TAB PO QHS for HLD, #90 TAB 1 Refill 07/27/18 Ipratropium/Albuterol Sulfate (DUONEB 0.5-3(2.5) MG/3 ML) 3 Ml Ampul.neb, 3 ML NEB QID PRN for SHORTNESS OF BREATH, EACH 07/27/18 REKHA CARMEN MD Mar 01, 2019 16:22
[2019-03-01] MEDS ORDERED: [UNRECOGNIZED DRUG - OTHER] IV SCH ×9 (22:00)
[2019-03-01] MEDS ORDERED: DEXTROSE 70% IV SCH ×9 (22:00)
[2019-03-01] MEDS ORDERED: TOTAL PARENTERAL NUTRITION IV SCH ×9 (22:00)
[2019-03-01] MEDS ORDERED: AMINO ACID IV SCH ×9 (22:00)
== END 2019-03-01 18:30 | DRG 870 ==
LOC: 1 WEST ICU 18:14
PROVIDERS: ADMIT Internal Medicine; ATTEND Internal Medicine
PROC: 5A1955Z Respiratory Ventilation, Greater than 96 Consecutive Hours (ICD-10-PCS; principal; 2019-02-21)
PROC: 0BH17EZ Insertion of Endotracheal Airway into Trachea, Via Natural or Artificial Opening (ICD-10-PCS; 2019-02-21)
DX: A41.9 Sepsis, unspecified organism (principal); J18.9 Pneumonia, unspecified organism; J96.00 Acute respiratory failure, unspecified whether with hypoxia or hypercapnia; E43 Unspecified severe protein-calorie malnutrition; K85.90 Acute pancreatitis without necrosis or infection, unspecified; F10.239 Alcohol dependence with withdrawal, unspecified; J44.0 Chronic obstructive pulmonary disease with (acute) lower respiratory infection; K86.1 Other chronic pancreatitis; D64.9 Anemia, unspecified; D69.6 Thrombocytopenia, unspecified; E78.5 Hyperlipidemia, unspecified; E83.39 Other disorders of phosphorus metabolism; E83.42 Hypomagnesemia; E87.6 Hypokalemia; F17.210 Nicotine dependence, cigarettes, uncomplicated; F32.9 Major depressive disorder, single episode, unspecified; F41.9 Anxiety disorder, unspecified; G40.909 Epilepsy, unspecified, not intractable, without status epilepticus; G89.29 Other chronic pain; I10 Essential (primary) hypertension; K52.9 Noninfective gastroenteritis and colitis, unspecified; M15.9 Polyosteoarthritis, unspecified; Z82.3 Family history of stroke; Z88.8 Allergy status to other drugs, medicaments and biological substances
CPT/HCPCS: 36415; 36600; 71045; 74018; 80048; 80053; 81001; 82040; 82607; 82805; 82962; 83540; 83550; 83690; 83735; 84100; 84132; 84436; 84443; 84478; 85007; 85014; 85018; 85025; 85027; 85610; 86850; 86900; 86901; 86920; 87070; 87205; 90471; 90686; 94002; 94003; 94640; 94660; 94760; C9113; J0360; J0610; J1451; J1630; J1650; J1940; J1956; J2060; J2704; J2930; J3010; J3475; J3480; J3490; J7030; J7040; J7050; J7620; P9016; G0378